=== PATIENT | male | born 1975 | race Caucasian/White ===

== ENCOUNTER → 2017-01-28 | Outpatient (CLI) | payer BC, MEDICARE ==
--- NOTE | 2017-01-28 14:43 | RAD ---
Thyroid ultrasound, 01/28/2017: History: Dysphasia The right lobe of the gland measures 4.3 x 1.5 x 0.9 cm, while the left lobe of the gland measures 3.7 x 1.2 x 1.2 cm. The thyroid echo pattern is homogeneous. No thyroid nodule is evident. There is symmetric blood flow in the gland. IMPRESSION: No significant abnormality is detected.
== END | disposition home or self-care (01) ==
LOC: US 13:21
PROVIDERS: ATTEND Physician Assistant
DX: R13.10 Dysphagia, unspecified (principal)
CPT/HCPCS: 76536

== ENCOUNTER 2017-04-14 20:38 | Emergency (ER) | payer BC, MEDICARE ==
[~2017-04-14] VITALS: Ht 167.6 cm; Wt 97.4 kg
--- NOTE | 2017-04-14 21:48 | PHYS DOC ---
General Chief Complaint: ABDOMINAL PAIN Stated Complaint: ABDOMINAL PAIN X 2 DAYS KHRONS Time Seen by MD: 21:40 Source: patient Exam Limitations: no limitations Problems: History of Present Illness Initial Comments Patient is a 41-year-old male who comes to the ED complaining of abdominal discomfort. Patient states that since yesterday he has had worsening right-sided abdominal discomfort. He's had nausea with nonbloody/nonbilious emesis 1 at home prior to arrival last bowel movement was yesterday described as normal. He has history of Crohn's disease and states he's been in remission for the past 10 years he has a corn grinder Dr Fish with whom he follows. Patient says he had scheduled an appointment for 10:[address] Fish however decided to come in to the ED for evaluation. He follows with Vance Ramirez for primary care issues. He denies travel or bad food exposure, he says current symptoms are not similar to prior Crohn's exacerbations. No pre- arrival treatment pain is described as sharp and stabbing the moderate to severe in intensity and constant in nature no worsening or relieving factors noted. He denies any unexplained weight loss or intractable vomiting. Appetite is intact last by mouth intake was hamburger and fries before bed last night. ED vitals: 98.1, 102, 133/78, 94% room air Timing/Duration: 24 hours Severity: moderate Modifying Factors: improves with other Associated Symptoms: nausea/vomiting, other Allergies: Coded Allergies: No Known Drug Allergies (Unverified , 04/14/17) Past Medical History Medical History: other (Crohn's, GERD, migraines, depression, anxiety, opiate dependence) Surgical History: appendectomy Social History Smoker: non-smoker Alcohol: none Drugs: none (admits to opiate addiction and dependence in the past) Review of Systems Constitutional: denies chills, denies diaphoresis, denies fever, denies malaise Respiratory: denies cough, denies shortness of breath, denies wheezing Cardiovascular: denies chest pain, denies palpitations, denies syncope Gastrointestinal: see HPI, abdominal pain, nausea, vomiting, other Genitourinary: denies dysuria, denies frequency, denies hematuria Musculoskeletal: denies back pain, denies joint swelling, denies neck pain Psychiatric/Neurological: denies headache, denies numbness, denies paresthesia Hematologic/Lymphatic: denies blood clots, denies easy bleeding, denies easy bruising Physical Exam General Appearance: moderate distress (disheveled, stained clothing) Eyes: bilateral eye normal inspection, bilateral eye PERRL, bilateral eye EOMI Ear, Nose, Throat: hearing grossly normal, normal ENT inspection, normal pharynx Neck: non-tender, supple Respiratory: normal breath sounds, no respiratory distress Cardiovascular: normal peripheral pulses, regular rate, rhythm Gastrointestinal: soft (distended/tympanic, right-sided abdominal tenderness to palpation without rebound guarding or palpable mass, equivocal Lombardi sign as tenderness is consistent throughout the right side of the abdomen bowel sounds mildly diminished there are no skin changes/discolorations or aberrant vasculature.) Back: no CVA tenderness, no vertebral tenderness Extremities: non-tender, normal inspection 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 No labs or imaging studies back yet, pt will have prolonged ED course due to lab and radiology delay. Pertinent labs: White blood cell 19.1, bands 5, AST 48, ALT 133, lipase 1427, urinalysis negative for products of infection Signed PATIENT: JARETH MENDOZA ACCOUNT: [id number] : 1975 LOCATION: ER AGE: 41 SEX: M EXAM STATUS: PRE ER ORD. PHYSICIAN: THONY STEINER DO REASON: R abd pain/distension, h/o crohn's PROCEDURE: CT ABD PELV W/ IV CONTRST ONLY CT ABDOMEN/PELVIS Indication: ABD PAIN, N/V, HX CROHN'S, APPY Technique: Multiple contiguous axial images were obtained through the abdomen and pelvis after administration of intravenous iodinated contrast. Coronal and sagittal reformations were created. PQRS STATEMENT One or more of the following in the visualized dose reduction techniques were utilized for this study: 1. Automatic exposure control, 2. Adjustment of the mA and/or kV according to patient size, 3. Use of iterative reconstruction technique Findings: The heart size is normal. The lung bases are clear. There is diffuse fatty infiltration of the liver. There is a hyperdense lesion in the posterior right lobe which is incompletely evaluated on this single phase contrast study. The gallbladder is nondistended. The pancreas, spleen, and adrenal glands are within normal limits. There are hyperdense lesions arising from the bilateral kidneys, larger which measures 2.2 cm in size. The portal vein and SMV are patent. The abdominal aorta is normal in caliber. There is no abdominopelvic ascites or adenopathy. There is moderate inflammatory change about the second portion of the duodenum. The appendix is normal. The urinary bladder is unremarkable. No destructive osseus lesions are identified. Impression: Acute duodenitis. No evidence for Hollow viscus rupture or abscess. There are hyperdense lesions arising from both kidneys, the larger of which measures 2.2 cm arising from the right kidney. This is suspicious for renal cell carcinoma and MRI evaluation is strongly recommended. There is a hyperdense lesion measuring 2.6 cm in the posterior right lobe of the liver. This could represent a hemangioma but is incompletely evaluated on this study. Consider MRI for further evaluation. Ultrasound could be attempted but its position adjacent to the posterior sulcus of the lung may prohibit visualization by sonography. There is diffuse fatty infiltration of the liver. Electronically signed by: Arsen Carter MD (04/14/2017 11:30 PM) [facility] DICTATED AND SIGNED BY: ARSEN CARTER MD DATE: 04/14/17 [id number] CC: NASEEM RAMIREZ; THONY STEINER DO ~ 0017: I discussed the renal lesions noted on CT. Patient states these are not new, they've been extensively evaluated and that he saw Dr. Samayoa last year for these renal masses. He states Dr. Samayoa assured him they were nothing to worry about and the patient denies any unexplained weight loss, hematuria, or night sweats. I discussed inpatient admission and likely transfer to [facility] for general surgery consultation for current symptoms and MRI evaluation of the liver lesion. Patient says he is feeling better and he refuses inpatient admission/transfer at this time. As he is feeling better he feels stable to go home and agrees to follow-up with Dr. Fish tomorrow at 10: 30 AM as previously scheduled. He agrees to return to the ED before that if needed. His questions were answered and he expressed agreement and understanding of the treatment plan. Departure Time of Disposition: 00:16 Disposition: 01 HOME, SELF-CARE Diagnosis: duodenitis, fatty liver, liver nodule Condition: STABLE Patient Instructions: Abdominal Pain (Nonspecific) Additional Instructions: As discussed, you have requested discharge home tonight versus EMS transfer to [facility] for further observation/treatment/surgical evaluation tomorrow. No driving or operating machinery while taking pain meds. Aggressive hydration with gatorade, water--clear liquids only until doctor follow up. Rx: norco 7.5mg #10, cipro, flagyl, prednisone A tylenol #3 start pack has been sent home for pain control tonight, take 1-2 every 6 hours as needed. Follow up with Matthew Ramirez or your GI specialist tomorrow, call first thing in the morning to schedule same day appointment. Return to ED with new or progressive symptoms, or should you change your mind and request hospital admission. Return to ED with new or changing symptoms. THONY STEINER DO Apr 14, 2017 21:48
[2017-04-14] MEDS: fentaNYL PF 100 MCG/2 ML VIAL IV PRN (22:30)
[2017-04-14 22:52] LABS: BASO # 0.1 x10^3/uL (0.0-0.2); BASO % 0 % (0-3); EOS # 0.5 x10^3/uL (0.0-0.7); EOS % 2 % (0-3); HEMATOCRIT 43.3 % (39.0-53.0); HEMOGLOBIN 14.7 g/dL (13.0-17.5); LYMPH # 4.4 x10^3/uL (1.0-4.8); LYMPH % 23 % (24-48); MEAN CORPUSCULAR HEMOGLOBIN 32 pg (25-35); MEAN CORPUSCULAR HGB CONC 34 g/dL (31-37); MEAN CORPUSCULAR VOLUME 93 fL (79-100); MONO # 1.3 x10^3/uL (0.0-1.1); MONO % 7 % (0-9); NEUT # 12.8 x10^3uL (1.8-7.7); NEUT % 67 % (31-73); PLATELET COUNT 256 x10^3/uL (140-400); RED BLOOD COUNT 4.64 x10^6/uL (4.30-5.70); RED CELL DISTRIBUTION WIDTH 14.3 % (11.5-14.5); WHITE BLOOD COUNT 19.1 x10^3/uL (4.0-11.0)
[2017-04-14] MEDS ORDERED: IV NORMAL SALINE 1,000ML 1,000 ML IV SCH (23:00)
[2017-04-14] MEDS ORDERED: FAMOTIDINE 20 MG/2 ML VIAL IVP ONE (23:00)
[2017-04-14] MEDS ORDERED: KETOROLAC 30 MG/ML VIAL. IV ONE (23:00)
[2017-04-14] MEDS ORDERED: ONDANSETRON PF 4 MG/2 ML VIAL. IV ONE (23:00)
[2017-04-14] MEDS ORDERED: IOHEXOL 300 MG/ML 75 ML VIAL. IV ONE (23:00)
[2017-04-14 23:05] LABS: ALBUMIN 3.6 g/dL (3.4-5.0); ALBUMIN/GLOBULIN RATIO 0.8 (1.0-1.7); CALCIUM 9.4 mg/dL (8.5-10.1); CREATININE 1.3 mg/dL (0.7-1.3); GFR 60.2; POTASSIUM 3.7 mmol/L (3.5-5.1); TOTAL BILIRUBIN 0.4 mg/dL (0.2-1.0); TOTAL PROTEIN 7.9 g/dL (6.4-8.2)
[2017-04-14 23:11] LABS: % BANDS 5 % (0-9); % BASOS 1 % (0-3); % EOS 2 % (0-5); % LYMPHS 24 % (24-48); % MONOS 7 % (0-10); % SEGS 61 % (35-66)
[2017-04-14 23:12] LABS: PLT ESTIMATE ADEQUATE (ADEQUATE)
--- NOTE | 2017-04-14 23:33 | RAD ---
CT ABDOMEN/PELVIS Indication: ABD PAIN, N/V, HX CROHN'S, APPY Technique: Multiple contiguous axial images were obtained through the abdomen and pelvis after administration of intravenous iodinated contrast. Coronal and sagittal reformations were created. PQRS STATEMENT One or more of the following in the visualized dose reduction techniques were utilized for this study: 1. Automatic exposure control, 2. Adjustment of the mA and/or kV according to patient size, 3. Use of iterative reconstruction technique Findings: The heart size is normal. The lung bases are clear. There is diffuse fatty infiltration of the liver. There is a hyperdense lesion in the posterior right lobe which is incompletely evaluated on this single phase contrast study. The gallbladder is nondistended. The pancreas, spleen, and adrenal glands are within normal limits. There are hyperdense lesions arising from the bilateral kidneys, larger which measures 2.2 cm in size. The portal vein and SMV are patent. The abdominal aorta is normal in caliber. There is no abdominopelvic ascites or adenopathy. There is moderate inflammatory change about the second portion of the duodenum. The appendix is normal. The urinary bladder is unremarkable. No destructive osseus lesions are identified. Impression: Acute duodenitis. No evidence for Hollow viscus rupture or abscess. There are hyperdense lesions arising from both kidneys, the larger of which measures 2.2 cm arising from the right kidney. This is suspicious for renal cell carcinoma and MRI evaluation is strongly recommended. There is a hyperdense lesion measuring 2.6 cm in the posterior right lobe of the liver. This could represent a hemangioma but is incompletely evaluated on this study. Consider MRI for further evaluation. Ultrasound could be attempted but its position adjacent to the posterior sulcus of the lung may prohibit visualization by sonography. There is diffuse fatty infiltration of the liver. Electronically signed by: Arsen Carter MD (04/14/2017 11:30 PM) [facility]
[2017-04-14 23:40] LABS: AMPHETAMINE/METHAMPHETAMINE NEG (NEG); BARBITURATES NEG (NEG); BENZODIAZEPINES NEG (NEG); CANNABINOIDS NEG (NEG); COCAINE NEG (NEG); METHADONE NEG (NEG); OPIATES NEG (NEG); PHENCYCLIDINE NEG (NEG)
[2017-04-14 23:43] LABS: BACTERIA,URINE 0 /HPF (0-FEW); BILIRUBIN,URINE NEG (NEG); CLARITY,URINE CLEAR; COLOR,URINE YELLOW; GLUCOSE,URINE NEG (NEG); NITRITE,URINE NEG (NEG); RBC,URINE RARE /HPF (0-2); UROBILINOGEN,URINE 0.2 mg/dL (0.2 mg/dL); WBC,URINE RARE /HPF (0-4)
[2017-04-15] MEDS ORDERED: CIPROFLOXACIN 400MG PREMIX 200 ML IV ONE (00:15)
[2017-04-15] MEDS ORDERED: ACETAMINOPHEN/CODEINE 300/30MG 4TABLET STARTPACK. PO ONE (01:00)
[2017-04-15] MEDS ORDERED: methylPREDNISolone SOD SUCC PF 125 MG/2 ML VIAL. IV ONE (01:00)
[2017-04-15] MEDS ORDERED: ONDANSETRON 4MG ODT 4TABLET STARTPACK. PO ONE (01:00)
[2017-04-15] MEDS: fentaNYL PF 100 MCG/2 ML VIAL IV PRN (01:03)
[2017-04-15 01:25] VITALS: BP 132/95
== END 2017-04-15 02:15 | disposition home or self-care (01) ==
LOC: ER 20:38
DX: K29.80 Duodenitis without bleeding (principal); K76.0 Fatty (change of) liver, not elsewhere classified; K76.89 Other specified diseases of liver; K21.9 Gastro-esophageal reflux disease without esophagitis; K50.90 Crohn's disease, unspecified, without complications; F41.9 Anxiety disorder, unspecified; G43.909 Migraine, unspecified, not intractable, without status migrainosus; F11.20 Opioid dependence, uncomplicated; Z90.49 Acquired absence of other specified parts of digestive tract
CPT/HCPCS: 36415; 74177; 80053; 80305; 81001; 83690; 84484; 85007; 85027; 96361; 96365; 96368; 96375; 96376; 99285; G0480; J0744; J1885; J2405; J2930; J3010; J3490; Q0162; Q9967; S0028; G0481; J7030

== ENCOUNTER 2017-04-28 23:49 | Emergency (ER) | payer BC, MEDICARE ==
[~2017-04-28] VITALS: Ht 167.6 cm; Wt 97.4 kg
[2017-04-28 23:50] VITALS: BP 132/95
[2017-04-29] MEDS ORDERED: IOHEXOL 300 MG/ML 75 ML VIAL. IV ONE (00:45)
[2017-04-29] MEDS ORDERED: CONTRAST GIVEN MC PRN (00:45)
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
[2017-04-29] MEDS ORDERED: HYDROmorphone PF 1 MG/ML DISP.SYRIN IV ONE (01:00)
[2017-04-29 01:04] LABS: BASO # 0.2 x10^3/uL (0.0-0.2); BASO % 1 % (0-3); EOS # 0.5 x10^3/uL (0.0-0.7); EOS % 3 % (0-3); HEMATOCRIT 42.9 % (39.0-53.0); HEMOGLOBIN 14.7 g/dL (13.0-17.5); LYMPH # 5.5 x10^3/uL (1.0-4.8); LYMPH % 35 % (24-48); MEAN CORPUSCULAR HEMOGLOBIN 32 pg (25-35); MEAN CORPUSCULAR HGB CONC 34 g/dL (31-37); MEAN CORPUSCULAR VOLUME 93 fL (79-100); MONO # 1.2 x10^3/uL (0.0-1.1); MONO % 7 % (0-9); NEUT # 8.7 x10^3uL (1.8-7.7); NEUT % 54 % (31-73); PLATELET COUNT 236 x10^3/uL (140-400)
[2017-04-29] MEDS ORDERED: DIPHTH,PERTUSS(ACELL),TET TOX 0.5 ML DISP.SYRIN. VAX IM ONE ×2 (01:15→01:41)
[2017-04-29 01:16] LABS: ALBUMIN 3.3 g/dL (3.4-5.0); ALBUMIN/GLOBULIN RATIO 0.8 (1.0-1.7); CALCIUM 8.8 mg/dL (8.5-10.1); CREATININE 1.4 mg/dL (0.7-1.3); GFR 55.1; TOTAL BILIRUBIN 0.3 mg/dL (0.2-1.0); TOTAL PROTEIN 7.4 g/dL (6.4-8.2)
[2017-04-29 01:20] LABS: POTASSIUM 2.9 mmol/L (3.5-5.1)
[2017-04-29 01:26] LABS: % BANDS 5 % (0-9); % EOS 7 % (0-5); % LYMPHS 32 % (24-48); % MONOS 4 % (0-10); % SEGS 52 % (35-66); PLT ESTIMATE ADEQUATE (ADEQUATE)
[2017-04-29] MEDS ORDERED: fentaNYL PF 100 MCG/2 ML VIAL IV ONE (01:45)
[2017-04-29] MEDS ORDERED: POTASSIUM CHLORIDE 20 MEQ TABLET.ER. PO ONE ×2 (01:45→01:49)
[2017-04-29] MEDS ORDERED: fentaNYL PF 100 MCG/2 ML VIAL ONE (01:49)
--- NOTE | 2017-04-29 02:01 | EKG ---
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
[2017-04-29] MEDS ORDERED: CEPH-264 PO (02:22)
[2017-04-29] MEDS ORDERED: POTA20TA4 PO (02:22)
[2017-04-29] MEDS ORDERED: IBUP800T19 PO (02:22)
== END 2017-04-29 02:30 | disposition home or self-care (01) ==
LOC: ER 23:49
DX: S31.119A Laceration without foreign body of abdominal wall, unspecified quadrant without penetration into peritoneal cavity, initial encounter (principal); G43.909 Migraine, unspecified, not intractable, without status migrainosus; K21.9 Gastro-esophageal reflux disease without esophagitis; K50.90 Crohn's disease, unspecified, without complications; E87.6 Hypokalemia; K76.0 Fatty (change of) liver, not elsewhere classified; N28.89 Other specified disorders of kidney and ureter; Z90.49 Acquired absence of other specified parts of digestive tract; W26.0XXA Contact with knife, initial encounter; Y93.89 Activity, other specified; Y99.8 Other external cause status; Y92.89 Other specified places as the place of occurrence of the external cause
CPT/HCPCS: 36415; 74177; 80053; 85007; 85027; 90471; 90715; 93005; 96374; 96375; 99285; J1170; J3010; Q9967

== ENCOUNTER 2017-12-04 15:40 | Emergency (ER) | payer BC, MEDICARE ==
[~2017-12-04] VITALS: Ht 167.6 cm; Wt 94.3 kg
[~2017-12-04 15:40] MED LIST: CEPH-264 PO; IBUP800T19 PO; POTA20TA4 PO
[2017-12-04] MEDS ORDERED: IV NORMAL SALINE 1,000ML 1,000 ML IV SCH (16:00)
[2017-12-04] MEDS ORDERED: 0.9 % SODIUM CHLORIDE 10 ML DISP.SYRIN. IV PRN (16:00)
--- NOTE | 2017-12-04 16:07 | PHYS DOC ---
Past History Past Medical History: Anxiety, Depression, GERD, Migraines, Other Additional Past Medical Histor: Crohn's disease Past Surgical History: Appendectomy Smoking: Cigarettes Alcohol Use: None Drug Use: None Adult General Chief Complaint Chief Complaint: ABDOMINAL PAIN [facility] HPI 42-year-old male patient with history of Crohn's disease complaining of sudden onset of generalized abdominal pain since yesterday as a constant pain with radiation to his back and associated with multiple episodes of vomiting. Patient states he had more than 20 episodes of nonbloody vomiting every day and states he was not able to eat or drink anything. Patient complaining of generalized weakness and subjective fever and chills and decrease of urine output. Patient denies diarrhea and states he had a bowel movement 3 days ago that is his usual bowel movement pattern with constipation. Patient rated his pain 10 over 10 and states he did not take any pain medication. Patient denies using alcohol and drugs and history of the same pain. Review of Systems Review of Systems Constitutional: Denies fever or chills [] Eyes: Denies change in visual acuity, redness, or eye pain [] HENT: Denies nasal congestion or sore throat [] Respiratory: Denies cough or shortness of breath [] Cardiovascular: No additional information not addressed in HPI [] GI: Reports abdominal pain, nausea, vomiting, denies bloody stools or diarrhea [ ] : Denies dysuria or hematuria [] Musculoskeletal: Denies back pain or joint pain [] Integument: Denies rash or skin lesions [] Neurologic: Denies headache, focal weakness or sensory changes [] Endocrine: Denies polyuria or polydipsia [] All other systems were reviewed and found to be within normal limits, except as documented in this note. Allergies Allergies Allergies Coded Allergies Type Severity Reaction Last Updated Verified No Known Drug Allergies 04/14/17 No Physical Exam Physical Exam Constitutional: Well nourished, moderate distress, non-toxic appearance, anxious. [] HENT: Normocephalic, atraumatic, oropharynx dry, no oral exudates, nose normal. [] Eyes: PERRLA, EOMI, conjunctiva normal, no discharge. [] Neck: Normal range of motion, no tenderness, supple, no stridor. [] Cardiovascular:Tachycardia, no murmur [] Lungs & Thorax: Bilateral breath sounds clear to auscultation [] Abdomen: Bowel sounds decreased, soft, no tenderness, generalized guarding, no masses, no pulsatile masses. [] Skin: Warm, dry, no erythema, no rash. [] Back: No tenderness, no CVA tenderness. [] Extremities: No tenderness, no cyanosis, no clubbing, ROM intact, no edema. [] Neurologic: Alert and oriented X 3, normal motor function, normal sensory function, no focal deficits noted. [] Psychologic: Anxious, judgement normal, mood normal. [] EKG EKG [] Radiology/Procedures Radiology/Procedures [] [address] [address] IMAGING REPORT Signed PATIENT: JARETH MENDOZA ACCOUNT: [id number] : 1975 LOCATION: ER AGE: 42 SEX: M EXAM STATUS: REG ER ORD. PHYSICIAN: NANCI SEALS MD REASON: abdominal pain and severe vomiting PROCEDURE: CT ABD PELV W/ IV CONTRST ONLY CT of the abdomen and pelvis with contrast, 12/04/2017: HISTORY: Abdominal pain Multidetector CT imaging was performed following an IV bolus injection of iodinated contrast material. Comparison is made to a study from 04/29/2017. The liver is of lower than normal density compatible with fatty change. There is a 2 cm rounded nodule of relatively increased density in the posterior aspect of the right lobe of the liver. This was not clearly visible on the previous study, however, that may be due to differences in bolus timing. There is mild focal fatty sparing adjacent to the gallbladder fossa. The gallbladder is unremarkable. Moderate streaky edema has developed in the peripancreatic region. The underlying pancreas is slightly enlarged compared to the previous study. It enhances normally. The findings are those of acute pancreatitis. There are small fluid collections within the edema with a small amount of fluid extending into the anterior pararenal spaces bilaterally. There is a small amount of free fluid in the deep pelvis. The spleen is unremarkable. There is a 2.4 cm mass arising from the lateral aspect of the right kidney. It is unchanged since the previous study. It demonstrates a high internal CT number of 70 Hounsfield units. This may be a hemorrhagic cyst or solid mass. There is a smaller 8 mm medium density mass arising from the anterior aspect of the upper pole the left kidney. The kidneys show no evidence of obstruction. There is mild aortic calcific plaquing. There is a 2.4 cm pericaval nodule at the level of the kidneys. This has the appearance of an enlarged lymph node. It is unchanged since 04/29/2017. The bowel loops are not dilated. No free air is evident in the abdomen or pelvis. An old vertebral compression fracture is again noted at T11. IMPRESSION: 1. Interval development of moderate acute pancreatitis. 2. Hepatic steatosis. 3. Small nonspecific liver lesion. Liver protocol MR imaging may be useful for further evaluation. 4. Small unchanged bilateral renal nodules which may be complex cysts or solid masses. Again, MR scanning may be useful for further evaluation. 5. Small amount of free fluid in the abdomen.. 6. Unchanged mildly enlarged right pericaval lymph node. Electronically signed by: Garrett Osborn MD (12/04/2017 5:49 PM) [facility] Course & Med Decision Making Course & Med Decision Making Pertinent Labs and Imaging studies reviewed. (See chart for details) Evaluation of patient in ER showed 42-year-old male patient with history of Crohn's disease complaining of sudden onset of generalized abdominal pain since yesterday with frequent episodes of nausea and vomiting. Patient was dehydrated and tachycardic at arrival to ER without hypotension or fever. Patient treated with IV fluid , Zofran, fentanyl and felt better. Patient had lactic acid of 2.3 with leukocytosis and Zosyn was started. Urine showed positive nitrite. Dr Sherman informed at 1750 and recommended to transfer patient to higher level of care because of a high level of lipase and white count. CT showed moderate pancreatitis without sign of abscess. [facility] on-call hospitalist Dr. Harp was paged.Incoming ER physician Dr Bailey was informed about patient condition and needs for transfer. One dose of Dilaudid was ordered. [] Dragon Disclaimer Dragon Disclaimer This electronic medical record was generated, in whole or in part, using a voice recognition dictation system. Departure Departure: Impression: Primary Impression: Acute pancreatitis Additional Impressions: Leukocytosis Elevated liver function tests Sepsis Urinary tract infection History of Crohn's disease Renal insufficiency Disposition: 02 XFER SHT-TRM HOSP ([facility] at 1800) Condition: GUARDED Referrals: NASEEM RAMIREZ (PCP) Critical Care Time Critical care time was [80] minutes exclusive of procedures. Problem Qualifiers NANCI SEALS MD Dec 04, 2017 16:07
[2017-12-04] MEDS ORDERED: ONDANSETRON PF 4 MG/2 ML VIAL. IV ONE (16:15)
[2017-12-04] MEDS ORDERED: CONTRAST GIVEN MC PRN (16:15)
[2017-12-04] MEDS ORDERED: IOHEXOL 300 MG/ML 75 ML VIAL. IV ONE (16:15)
[2017-12-04 16:19] LABS: BASO # 0.2 x10^3/uL (0.0-0.2); BASO % 1 % (0-3); EOS % 0 % (0-3); HEMATOCRIT 49.6 % (39.0-53.0); HEMOGLOBIN 17.3 g/dL (13.0-17.5); LYMPH # 1.7 x10^3/uL (1.0-4.8); LYMPH % 7 % (24-48); MEAN CORPUSCULAR HEMOGLOBIN 32 pg (25-35); MEAN CORPUSCULAR HGB CONC 35 g/dL (31-37); MEAN CORPUSCULAR VOLUME 92 fL (79-100); MONO # 0.9 x10^3/uL (0.0-1.1); MONO % 4 % (0-9); NEUT # 21.8 x10^3uL (1.8-7.7); NEUT % 89 % (31-73); PLATELET COUNT 270 x10^3/uL (140-400); RED BLOOD COUNT 5.42 x10^6/uL (4.30-5.70); RED CELL DISTRIBUTION WIDTH 13.7 % (11.5-14.5); WHITE BLOOD COUNT 24.7 x10^3/uL (4.0-11.0)
[2017-12-04 16:40] LABS: ALBUMIN 3.9 g/dL (3.4-5.0); ALBUMIN/GLOBULIN RATIO 0.9 (1.0-1.7); CALCIUM 8.9 mg/dL (8.5-10.1); CREATININE 1.5 mg/dL (0.7-1.3); GFR 50.8; POTASSIUM 3.5 mmol/L (3.5-5.1); TOTAL BILIRUBIN 1.2 mg/dL (0.2-1.0); TOTAL PROTEIN 8.4 g/dL (6.4-8.2)
[2017-12-04 16:47] LABS: BILIRUBIN,URINE SMALL (NEG); CLARITY,URINE CLEAR; COLOR,URINE AMBER; GLUCOSE,URINE NEG (NEG)
[2017-12-04 16:48] LABS: BACTERIA,URINE 0 /HPF (0-FEW); NITRITE,URINE POS (NEG); RBC,URINE 0 /HPF (0-2); SQUAMOUS EPITHELIAL CELL,UR OCC /LPF; UROBILINOGEN,URINE 2 mg/dL (0.2 mg/dL)
[2017-12-04] MEDS ORDERED: PIPERACILLIN/TAZOBACTAM 3.375 GM in IV NORMAL SALINE 50ML 50 ML IV ONE (17:15)
[2017-12-04] MEDS ORDERED: IV NORMAL SALINE 1,000ML 1,000 ML IV ONE (17:15)
[2017-12-04] MEDS ORDERED: PIPERACILLIN/TAZOBACTAM 3.375 GM VIAL IV ONE (17:21)
[2017-12-04] MEDS ORDERED: IV NORMAL SALINE 50ML 50 ML ONE (17:21)
--- NOTE | 2017-12-04 17:51 | RAD ---
CT of the abdomen and pelvis with contrast, 12/04/2017: HISTORY: Abdominal pain Multidetector CT imaging was performed following an IV bolus injection of iodinated contrast material. Comparison is made to a study from 04/29/2017. The liver is of lower than normal density compatible with fatty change. There is a 2 cm rounded nodule of relatively increased density in the posterior aspect of the right lobe of the liver. This was not clearly visible on the previous study, however, that may be due to differences in bolus timing. There is mild focal fatty sparing adjacent to the gallbladder fossa. The gallbladder is unremarkable. Moderate streaky edema has developed in the peripancreatic region. The underlying pancreas is slightly enlarged compared to the previous study. It enhances normally. The findings are those of acute pancreatitis. There are small fluid collections within the edema with a small amount of fluid extending into the anterior pararenal spaces bilaterally. There is a small amount of free fluid in the deep pelvis. The spleen is unremarkable. There is a 2.4 cm mass arising from the lateral aspect of the right kidney. It is unchanged since the previous study. It demonstrates a high internal CT number of 70 Hounsfield units. This may be a hemorrhagic cyst or solid mass. There is a smaller 8 mm medium density mass arising from the anterior aspect of the upper pole the left kidney. The kidneys show no evidence of obstruction. There is mild aortic calcific plaquing. There is a 2.4 cm pericaval nodule at the level of the kidneys. This has the appearance of an enlarged lymph node. It is unchanged since 04/29/2017. The bowel loops are not dilated. No free air is evident in the abdomen or pelvis. An old vertebral compression fracture is again noted at T11. IMPRESSION: 1. Interval development of moderate acute pancreatitis. 2. Hepatic steatosis. 3. Small nonspecific liver lesion. Liver protocol MR imaging may be useful for further evaluation. 4. Small unchanged bilateral renal nodules which may be complex cysts or solid masses. Again, MR scanning may be useful for further evaluation. 5. Small amount of free fluid in the abdomen.. 6. Unchanged mildly enlarged right pericaval lymph node. Electronically signed by: Garrett Osborn MD (12/04/2017 5:49 PM) [facility]
[2017-12-04] MEDS ORDERED: HYDROmorphone PF 1 MG/ML DISP.SYRIN IV ONE (18:15)
[2017-12-04] MEDS ORDERED: HYDROmorphone PF 2 MG/ML VIAL ONE (18:17)
[2017-12-04 18:26] LABS: BARBITURATES NEG (NEG); BENZODIAZEPINES NEG (NEG); CANNABINOIDS NEG (NEG); COCAINE NEG (NEG); METHADONE NEG (NEG); OPIATES NEG (NEG); PHENCYCLIDINE NEG (NEG)
[2017-12-04 18:27] LABS: AMPHETAMINE/METHAMPHETAMINE NEG (NEG)
[2017-12-04] MEDS ORDERED: HYDROmorphone PF 2 MG/ML VIAL IV ONE (18:30)
[2017-12-04 19:20] VITALS: BP 155/99
[2017-12-04 22:13] LABS: % LYMPHS 4 % (24-48); % MONOS 1 % (0-10); % SEGS 95 % (35-66)
[2017-12-04 22:14] LABS: OVALOCYTES OCC; PLATELET CLUMP PRESENT; PLT ESTIMATE ADEQUATE (ADEQUATE); POLYCHROMASIA SLIGHT
== END 2017-12-04 19:20 | disposition short-term general hospital (02) ==
LOC: ER 15:40
DX: K85.90 Acute pancreatitis without necrosis or infection, unspecified (principal); D72.829 Elevated white blood cell count, unspecified; R79.89 Other specified abnormal findings of blood chemistry; A41.9 Sepsis, unspecified organism; N39.0 Urinary tract infection, site not specified; K50.90 Crohn's disease, unspecified, without complications; N28.9 Disorder of kidney and ureter, unspecified; K21.9 Gastro-esophageal reflux disease without esophagitis; F32.9 Major depressive disorder, single episode, unspecified; F41.9 Anxiety disorder, unspecified; G43.909 Migraine, unspecified, not intractable, without status migrainosus; F17.210 Nicotine dependence, cigarettes, uncomplicated; Z90.49 Acquired absence of other specified parts of digestive tract
CPT/HCPCS: 36415; 74177; 80053; 80307; 81001; 83605; 83690; 84484; 85007; 85025; 87040; 87086; 96361; 96365; 96366; 96372; 96375; 99291; 99292; J1170; J2405; J2543; J3010; Q9967; G0479; J7030

== ENCOUNTER 2018-03-27 17:59 | Emergency (ER) | payer BC, MEDICARE ==
[~2018-03-27] VITALS: Ht 167.6 cm; Wt 95.3 kg
[2018-03-27 18:11] VITALS: BP 162/105
--- NOTE | 2018-03-27 18:23 | ED.ADGEN ---
Past History Past Medical History: Anxiety, Depression, GERD, Migraines, Other Additional Past Medical Histor: Crohn's disease Past Surgical History: Appendectomy Smoking: Cigarettes Alcohol Use: None Drug Use: None Adult General Chief Complaint Chief Complaint ".. I fell yesterday..on the stairs.. and hit my bottom and slide down on my back... I am still hurting..." HPI HPI Patient is a 42 year old male who presents with complaints of back pain in mid chest pain after falling on the stairs yesterday. Patient was ambulatory after the fall. Patient denies any problems with defecation or urination. Patient states pain has increased since yesterday and has become more stiff. Patient denies any history of cancer, fever, IV drug use or immunosuppression. Patient states he fell because he slipped. There was no dysrhythmia. There was no loss of consciousness. Review of Systems Review of Systems Constitutional: Denies fever or chills [] Eyes: Denies change in visual acuity, redness, or eye pain [] HENT: Denies nasal congestion or sore throat [] Respiratory: Denies cough or shortness of breath []complaints of mid chest wall pain on back Cardiovascular: No additional information not addressed in HPI [] GI: Denies abdominal pain, nausea, vomiting, bloody stools or diarrhea [] : Denies dysuria or hematuria [] Musculoskeletal: r joint pain []complaints of lower back pain Integument: Denies rash or skin lesions [] Neurologic: Denies headache, focal weakness or sensory changes [] Endocrine: Denies polyuria or polydipsia [] All other systems were reviewed and found to be within normal limits, except as documented in this note. Family History Family History Noncontributory Current Medications Current Medications Current Medications Medications (Trade) Dose Ordered Sig/Monty Start Time Stop Time Status Last Admin Dose Admin Ketorolac Tromethamine (Toradol) 60 mg 1X ONCE 03/27/18 18:45 03/27/18 18:46 DC 03/27/18 18:47 60 MG Methylprednisolone Acetate (DEPO-Medrol IM) 40 mg 1X ONCE 03/27/18 18:45 03/27/18 18:46 DC 03/27/18 18:47 40 MG Morphine Sulfate (Morphine 10mg Syringe) 10 mg 1X ONCE 03/27/18 22:30 03/27/18 22:31 DC 03/27/18 22:32 10 MG Orphenadrine Citrate (Norflex) 60 mg 1X ONCE 03/27/18 18:45 03/27/18 18:46 DC 03/27/18 18:47 60 MG Allergies Allergies Allergies Coded Allergies Type Severity Reaction Last Updated Verified codeine Allergy Severe Unknown 12/04/17 Yes Physical Exam Physical Exam Constitutional: Well developed, well nourished, moderately acute distress, non- toxic appearance. [] HENT: Normocephalic, atraumatic, bilateral external ears normal, oropharynx moist, no oral exudates, nose normal. [] Eyes: PERRLA, EOMI, conjunctiva normal, no discharge. [] Neck: Normal range of motion, no tenderness, supple, no stridor. [] Cardiovascular:Heart rate regular rhythm, no murmur [] Lungs & Thorax: Bilateral breath sounds equal at apex with scattered wheezes auscultation []posterior chest wall tenderness on palpation at T7 level Abdomen: Bowel sounds normal, soft, no tenderness, no masses, no pulsatile masses. [] Obese. Rectal exam hard stool in vault. No gross blood. Had good sprinter tone. No saddle loss appreciated. Old surgical scars Skin: Warm, dry, no erythema, no rash. [] Back: Lumbar paraspinal and mid spinal tenderness, no CVA tenderness. [] Extremities: No tenderness, no cyanosis, no clubbing, ROM intact, no edema. [] Neurologic: Alert and oriented X 3, normal motor function, normal sensory function, no focal deficits noted. []DTRs are +2 at patella and Achilles tendons. Has some decreased plantar sensation Psychologic: Affect anxious, judgement normal, mood normal. [] Current Patient Data Vital Signs Vital Signs Date Time Temp Pulse Resp B/P (MAP) Pulse Ox O2 Delivery O2 Flow Rate FiO2 03/27/18 22:32 20 97 Room Air 03/27/18 18:11 98.0 96 Lab Results Laboratory Tests Test 03/27/18 19:23 Urine Collection Type Unknown Urine Color Yellow Urine Clarity Clear Urine pH 7.0 Urine Specific [place] 1.015 Urine Protein 30 mg/dl (NEG-TRACE) Urine Glucose (UA) Neg mg/dL (NEG) Urine Ketones (Stick) Neg mg/dL (NEG) Urine Blood Trace (NEG) Urine Nitrite Neg (NEG) Urine Bilirubin Neg (NEG) Urine Urobilinogen Dipstick 1 mg/dL (0.2 mg/dL) Urine Leukocyte Esterase Neg (NEG) Urine RBC 1-2 /HPF (0-2) Urine WBC Occ /HPF (0-4) Urine Squamous Epithelial Cells Occ /LPF Urine Bacteria 0 /HPF (0-FEW) Urine Opiates Screen Pos (NEG) Urine Methadone Screen Neg (NEG) Urine Barbiturates Neg (NEG) Urine Phencyclidine Screen Neg (NEG) Urine Amphetamine/Methamphetamine Neg (NEG) Urine Benzodiazepines Screen Neg (NEG) Urine Cocaine Screen Neg (NEG) Urine Cannabinoids Screen Neg (NEG) Urine Ethyl Alcohol Neg (NEG) EKG EKG [] Radiology/Procedures Radiology/Procedures My interpretation of CT lumbar spine shows no displaced fracture but has multilevel degenerative joint changes and disc disease. My interpretation of chest x-ray shows some chronic lung changes. But no obvious pneumothorax. Lateral film shows what appears to be compression fracture . This area is not tender to palpation. Course & Med Decision Making Course & Med Decision Making Pertinent Labs and Imaging studies reviewed. (See chart for details). Ice packs as needed. Tylenol and ibuprofen for pain. Flexeril up 3 times a day for spasms. For marked pain may take Vicoprofen. If persistent pain we'll need follow-up on contrast CT or MRI. Must follow-up primary care. Patient encouraged to stop smoking. Pt. ambulatory on discharge with out problems. [] Final Impression Final Impression 1. Back Pain- Contusions[] 2. Chest wall pain-contusions 3. COPD 4. Tobacco use Dragon Disclaimer Dragon Disclaimer This electronic medical record was generated, in whole or in part, using a voice recognition dictation system. PRATIK DE LEON MD Mar 27, 2018 18:23
[2018-03-27] MEDS ORDERED: KETOROLAC 60 MG/2 ML VIAL. IM ONE (18:45)
[2018-03-27] MEDS ORDERED: ORPHENADRINE CITRATE 60 MG/2 ML VIAL. IM ONE (18:45)
[2018-03-27] MEDS ORDERED: methylPREDNISolone ACETATE 40 MG/ML VIAL. IM ONE (18:45)
[2018-03-27 20:06] LABS: AMPHETAMINE/METHAMPHETAMINE NEG (NEG); BARBITURATES NEG (NEG); BENZODIAZEPINES NEG (NEG); BILIRUBIN,URINE NEG (NEG); CANNABINOIDS NEG (NEG); CLARITY,URINE CLEAR; COCAINE NEG (NEG); COLOR,URINE YELLOW; GLUCOSE,URINE NEG (NEG); METHADONE NEG (NEG); NITRITE,URINE NEG (NEG); OPIATES POS (NEG); PHENCYCLIDINE NEG (NEG); UROBILINOGEN,URINE 1 mg/dL (0.2 mg/dL)
[2018-03-27 20:08] LABS: BACTERIA,URINE 0 /HPF (0-FEW); SQUAMOUS EPITHELIAL CELL,UR OCC /LPF; WBC,URINE OCC /HPF (0-4)
--- NOTE | 2018-03-27 21:22 | RAD ---
CT lumbar spine without contrast History: Back pain, fell on stairs Axial helical images of the lumbar spine were obtained without contrast. Axial, coronal and sagittal reconstruction was performed. Findings: The vertebral bodies are aligned. There is no loss of vertebral body stature. Evaluation of the central canal is limited without contrast. Mild diffuse circumferential disc bulge and hypertrophy of the facets and ligamentum flavum and an element of congenital shortening of the pedicles results in mild central stenosis. There is moderate narrowing of the neuroforamen bilaterally below the level of the exiting nerve roots at multiple levels especially at L5-S1. There are small hemorrhagic cysts in the kidneys bilaterally. Impression: Multilevel central and neuroforaminal stenosis. No acute findings. PQRS Compliance Statement: One or more of the following individualized dose reduction techniques were utilized for this examination: 1. Automated exposure control 2. Adjustment of the mA and/or kV according to patient size 3. Use of iterative reconstruction technique Electronically signed by: Johnson Ferro III, MD (03/27/2018 9:18 PM) [facility]
[2018-03-27] MEDS ORDERED: CYCL-331 PO (21:55)
[2018-03-27] MEDS ORDERED: HYDR-79 PO (21:55)
[2018-03-27] MEDS ORDERED: MORPHINE SULFATE 10 MG/ML SYRINGE. SQ ONE (22:30)
--- NOTE | 2018-03-28 07:50 | RAD ---
Chest, 2 views, 03/27/2018: HISTORY: Fall, chest pain The heart size and pulmonary vascularity are normal. No pulmonary infiltrate is seen. There is no evidence of pleural fluid or pneumothorax. There are Schmorl's nodes in the upper lumbar and lower thoracic spine. There is slight loss of height of the T11 vertebral body, likely chronic. IMPRESSION: No acute cardiopulmonary abnormality is detected. Electronically signed by: Garrett Osborn MD (03/28/2018 7:46 AM) [facility]
== END 2018-03-27 22:32 | disposition home or self-care (01) ==
LOC: ER 17:59
DX: S20.212A Contusion of left front wall of thorax, initial encounter (principal); S20.211A Contusion of right front wall of thorax, initial encounter; S30.0XXA Contusion of lower back and pelvis, initial encounter; G43.909 Migraine, unspecified, not intractable, without status migrainosus; K21.9 Gastro-esophageal reflux disease without esophagitis; F17.210 Nicotine dependence, cigarettes, uncomplicated; Z88.5 Allergy status to narcotic agent; W10.8XXA Fall (on) (from) other stairs and steps, initial encounter; Y93.89 Activity, other specified; Y99.8 Other external cause status; Y92.89 Other specified places as the place of occurrence of the external cause
CPT/HCPCS: 36415; 71046; 72131; 80307; 81001; 96372; 99285; J1030; J1885; J2270; J2360; G0479

== ENCOUNTER 2018-05-20 19:19 | Inpatient (IN) | payer BC, MEDICARE ==
[~2018-05-20] VITALS: Ht 167.6 cm; Wt 97.1 kg
[~2018-05-20 19:19] MED LIST changes: +CYCL-331 PO; +HYDR-79 PO
[2018-05-20] MEDS ORDERED: IV NORMAL SALINE 1,000ML 1,000 ML IV SCH (19:29)
--- NOTE | 2018-05-20 19:41 | PHYS DOC ---
Past History Past Medical History: Anxiety, Depression, GERD, Migraines, Other Additional Past Medical Histor: Crohn's disease Past Surgical History: Appendectomy Smoking: Cigarettes Alcohol Use: None Drug Use: None Adult General Chief Complaint Chief Complaint: ABDOMINAL PAIN [facility] 43-year-old male presents with 2 day history of epigastric abdominal pain. The patient had a colonoscopy and EGD yesterday. He tells me that the epigastric pain started prior to the procedure but they felt that the pain was from his colon prep. The procedures were performed without complication. After the patient woke up, his pain was worse than previous but it was assumed that this was related to the procedure. Throughout the day today, the patient's pain has increased to a 10 out of 10. The pain seems to be worst in the epigastric and left upper quadrant. The patient does have a history of pancreatitis a few months ago. This was iatrogenic and no definitive cause has been found. The patient states the pain feels similar to that episode. He denies any diarrhea or blood from his rectum. He denies fever or chills. They did dilate his esophagus during the EGD. Review of Systems Review of Systems Constitutional: Denies fever or chills [] Eyes: Denies change in visual acuity, redness, or eye pain [] HENT: Denies nasal congestion or sore throat [] Respiratory: Denies cough or shortness of breath [] Cardiovascular: No additional information not addressed in HPI [] GI: Has epigastric abdominal pain. Denies nausea, vomiting, bloody stools or diarrhea [] : Denies dysuria or hematuria [] Musculoskeletal: Denies back pain or joint pain [] Integument: Denies rash or skin lesions [] Neurologic: Denies headache, focal weakness or sensory changes [] Endocrine: Denies polyuria or polydipsia [] All other systems were reviewed and found to be within normal limits, except as documented in this note. Current Medications Current Medications Current Medications Medications (Trade) Dose Ordered Sig/Monty Start Time Stop Time Status Last Admin Dose Admin Sodium Chloride 1,000 ml @ 1,000 mls/hr Q1H 05/20/18 19:29 05/20/18 20:28 UNV Allergies Allergies Allergies Coded Allergies Type Severity Reaction Last Updated Verified codeine Allergy Severe Unknown 12/04/17 Yes Physical Exam Physical Exam Constitutional: Well developed, well nourished, no acute distress, non-toxic appearance. [] HENT: Normocephalic, atraumatic, bilateral external ears normal, oropharynx moist, no oral exudates, nose normal. [] Eyes: PERRLA, EOMI, conjunctiva normal, no discharge. [] Neck: Normal range of motion, no tenderness, supple, no stridor. [] Cardiovascular:Heart rate regular rhythm, no murmur [] Lungs & Thorax: Bilateral breath sounds clear to auscultation [] Abdomen: Soft, epigastric and LUQ abdominal tenderness with guarding. no masses , no pulsatile masses. [] Skin: Warm, dry, no erythema, no rash. [] Back: No tenderness, no CVA tenderness. [] Extremities: No tenderness, no cyanosis, no clubbing, ROM intact, no edema. [] Neurologic: Alert and oriented X 3, normal motor function, normal sensory function, no focal deficits noted. [] Psychologic: Affect normal, judgement normal, mood normal. [] EKG EKG [] Radiology/Procedures Radiology/Procedures [] Impressions: PQRS Compliance statement: One or more of the following individualized dose reduction techniques were utilized for this examination: 1. Automated exposure control. 2. Adjustment of the mA and/or kV according to patient size. 3. Use of iterative reconstruction technique. Abdominal pain after colonoscopy yesterday, evaluate for perforation. Hx appendectomy, pancreatitis TECHNIQUE: CT abdomen and pelvis with IV contrast with multiplanar reformats. COMPARISON: 12/04/2017 FINDINGS: Heart is normal in size. No pericardial or pleural effusion. Clear lung bases. Diffuse hepatic steatosis. Spleen is not enlarged and show no focal lesion. No radiopaque gallstones. No pericholecystic fluid or gallbladder wall thickening. Diffuse peripancreatic inflammatory changes are seen. No peripancreatic fluid collection. The pancreas demonstrates homogeneous enhancement. Reactive thickening is seen of the adjacent duodenum. The main portal vein, splenic vein, SMV are patent. Stable 2.4 x 2.7 cm partially exophytic lesion is seen in the right kidney when compared to previous study from 04/14/2017. This is however new when compared to previous CT from 2005. No nephrolithiasis or hydronephrosis. No free pelvic fluid or ascites. Fat-containing left inguinal hernia noted. Stable 9 mm partially exophytic lesion is seen in the upper pole of the left kidney (series 3 image 36). 2.7 x 2.0 cm right para-aortic soft tissue nodule is seen, previously measuring 3.1 x 2.2 cm likely a lymph node. Shotty peripancreatic lymph nodes are seen. No bowel obstruction. Urinary bladder within normal limits. Prostate and seminal vesicles show no mass lesion. No pneumoperitoneum. No suspicious bony lesion. IMPRESSION: 1. Findings suggests acute interstitial edematous pancreatitis. Correlate with pancreatic enzymes. 2. Bilateral renal lesions, stable when compared to previous study from 04/14/2017 most likely minimally comminuted cysts. However, ultrasound renal recommended for definite confirmation as these are not seen on previous study from 2005. 3. Slight interval decrease in the size of right retroperitoneal lymph node in compared to previous study from 2005. 4. Hepatic steatosis. Electronically signed by: Akshat Engle DO (05/20/2018 8:57 PM) [facility] Course & Med Decision Making Course & Med Decision Making Pertinent Labs and Imaging studies reviewed. (See chart for details) Patient's labs are significant for slightly elevated liver enzymes and significantly elevated lipase over 7600. CT scan confirms pancreatitis. There is diffuse peripancreatic inflammatory changes but no parapancreatic fluid collection. The patient has required Dilaudid in the ED for pain control. I will admit him for pancreatitis. I discussed the case with Dr. Hough and he has agreed to admit the patient. [] Dragon Disclaimer Dragon Disclaimer This electronic medical record was generated, in whole or in part, using a voice recognition dictation system. Departure Departure: Referrals: NASEEM RAMIREZ (PCP) YANDEL ARREOLA DO May 20, 2018 19:41
[2018-05-20] MEDS ORDERED: ONDANSETRON PF 4 MG/2 ML VIAL. IV ONE (19:45)
[2018-05-20] MEDS ORDERED: IOHEXOL 300 MG/ML 75 ML VIAL. IV ONE (19:45)
[2018-05-20] MEDS ORDERED: HYDROmorphone PF 1 MG/ML DISP.SYRIN IV ONE ×2 (19:45→22:00)
[2018-05-20] MEDS ORDERED: CONTRAST GIVEN MC PRN (20:00)
[2018-05-20 20:10] LABS: BASO # 0.1 x10^3/uL (0.0-0.2); BASO % 0 % (0-3); EOS # 0.2 x10^3/uL (0.0-0.7); EOS % 1 % (0-3); HEMATOCRIT 46.2 % (39.0-53.0); HEMOGLOBIN 15.9 g/dL (13.0-17.5); LYMPH # 2.4 x10^3/uL (1.0-4.8); LYMPH % 14 % (24-48); MEAN CORPUSCULAR HEMOGLOBIN 32 pg (25-35); MEAN CORPUSCULAR HGB CONC 34 g/dL (31-37); MEAN CORPUSCULAR VOLUME 93 fL (79-100); MONO # 0.9 x10^3/uL (0.0-1.1); MONO % 5 % (0-9); NEUT # 13.4 x10^3uL (1.8-7.7); NEUT % 79 % (31-73); PLATELET COUNT 218 x10^3/uL (140-400); RED BLOOD COUNT 4.95 x10^6/uL (4.30-5.70); RED CELL DISTRIBUTION WIDTH 14.1 % (11.5-14.5)
[2018-05-20 20:23] LABS: ALBUMIN 3.6 g/dL (3.4-5.0); ALBUMIN/GLOBULIN RATIO 0.8 (1.0-1.7); CREATININE 1.3 mg/dL (0.7-1.3); GFR 59.7; POTASSIUM 3.6 mmol/L (3.5-5.1); TOTAL PROTEIN 7.9 g/dL (6.4-8.2)
--- NOTE | 2018-05-20 21:01 | RAD ---
PQRS Compliance statement: One or more of the following individualized dose reduction techniques were utilized for this examination: 1. Automated exposure control. 2. Adjustment of the mA and/or kV according to patient size. 3. Use of iterative reconstruction technique. Abdominal pain after colonoscopy yesterday, evaluate for perforation. Hx appendectomy, pancreatitis TECHNIQUE: CT abdomen and pelvis with IV contrast with multiplanar reformats. COMPARISON: 12/04/2017 FINDINGS: Heart is normal in size. No pericardial or pleural effusion. Clear lung bases. Diffuse hepatic steatosis. Spleen is not enlarged and show no focal lesion. No radiopaque gallstones. No pericholecystic fluid or gallbladder wall thickening. Diffuse peripancreatic inflammatory changes are seen. No peripancreatic fluid collection. The pancreas demonstrates homogeneous enhancement. Reactive thickening is seen of the adjacent duodenum. The main portal vein, splenic vein, SMV are patent. Stable 2.4 x 2.7 cm partially exophytic lesion is seen in the right kidney when compared to previous study from 04/14/2017. This is however new when compared to previous CT from 2005. No nephrolithiasis or hydronephrosis. No free pelvic fluid or ascites. Fat-containing left inguinal hernia noted. Stable 9 mm partially exophytic lesion is seen in the upper pole of the left kidney (series 3 image 36). 2.7 x 2.0 cm right para-aortic soft tissue nodule is seen, previously measuring 3.1 x 2.2 cm likely a lymph node. Shotty peripancreatic lymph nodes are seen. No bowel obstruction. Urinary bladder within normal limits. Prostate and seminal vesicles show no mass lesion. No pneumoperitoneum. No suspicious bony lesion. IMPRESSION: 1. Findings suggests acute interstitial edematous pancreatitis. Correlate with pancreatic enzymes. 2. Bilateral renal lesions, stable when compared to previous study from 04/14/2017 most likely minimally comminuted cysts. However, ultrasound renal recommended for definite confirmation as these are not seen on previous study from 2005. 3. Slight interval decrease in the size of right retroperitoneal lymph node in compared to previous study from 2005. 4. Hepatic steatosis. Electronically signed by: Akshat Engle DO (05/20/2018 8:57 PM) [facility]
[2018-05-20 21:15] LABS: % BANDS 3 % (0-9); % EOS 1 % (0-5); % LYMPHS 10 % (24-48); % MONOS 6 % (0-10); % SEGS 80 % (35-66); PLT ESTIMATE ADEQUATE (ADEQUATE); POLYCHROMASIA SLIGHT
[2018-05-20] MEDS ORDERED: IV NORMAL SALINE 1,000ML 2,000 ML IV ONE (22:00)
[2018-05-20 22:22] VITALS: BP 145/96
[2018-05-20] MEDS ORDERED: ASPI-630 PO (22:58)
[2018-05-20] MEDS ORDERED: SERT100T PO (22:58)
[2018-05-20] MEDS ORDERED: OMEP40CA5 PO (22:58)
[2018-05-20] MEDS ORDERED: NAPR500T8 PO (22:58)
[2018-05-20] MEDS ORDERED: TOPI50TA8 PO (22:58)
[2018-05-20] MEDS ORDERED: OLAN15TA3 PO (22:58)
[2018-05-20] MEDS ORDERED: ADAL40PE SQ (22:58)
[2018-05-20] MEDS: HYDROmorphone PF 1 MG/ML DISP.SYRIN IV PRN (23:54)
[2018-05-21] MEDS: HYDROmorphone PF 1 MG/ML DISP.SYRIN IV PRN ×4 (02:12→12:09)
[2018-05-21 05:22] VITALS: BP 118/62
[2018-05-21 06:54] LABS: CALCIUM 8.5 mg/dL (8.5-10.1); CREATININE 1.2 mg/dL (0.7-1.3); GFR 65.5; POTASSIUM 3.7 mmol/L (3.5-5.1)
[2018-05-21 07:16] LABS: BASO # 0.1 x10^3/uL (0.0-0.2); BASO % 0 % (0-3); EOS # 0.4 x10^3/uL (0.0-0.7); EOS % 2 % (0-3); HEMATOCRIT 45.9 % (39.0-53.0); HEMOGLOBIN 15.3 g/dL (13.0-17.5); LYMPH % 20 % (24-48); MEAN CORPUSCULAR HEMOGLOBIN 32 pg (25-35); MEAN CORPUSCULAR HGB CONC 33 g/dL (31-37); MEAN CORPUSCULAR VOLUME 95 fL (79-100); MONO # 1.3 x10^3/uL (0.0-1.1); MONO % 7 % (0-9); NEUT # 14.6 x10^3uL (1.8-7.7); NEUT % 72 % (31-73); PLATELET COUNT 235 x10^3/uL (140-400); RED BLOOD COUNT 4.82 x10^6/uL (4.30-5.70); RED CELL DISTRIBUTION WIDTH 14.3 % (11.5-14.5); WHITE BLOOD COUNT 20.4 x10^3/uL (4.0-11.0)
[2018-05-21 07:46] LABS: BACTERIA,URINE 0 /HPF (0-FEW); BILIRUBIN,URINE NEG (NEG); CLARITY,URINE CLEAR; COLOR,URINE AMBER; GLUCOSE,URINE NEG (NEG); NITRITE,URINE NEG (NEG); SQUAMOUS EPITHELIAL CELL,UR OCC /LPF; UROBILINOGEN,URINE 0.2 mg/dL (0.2 mg/dL); WBC,URINE 0 /HPF (0-4)
[2018-05-21] MEDS: ONDANSETRON PF 4 MG/2 ML VIAL. IV PRN ×4 (08:39→19:50)
[2018-05-21] MEDS ORDERED: IBUPROFEN 400 MG TABLET. PO ONE (10:45)
[2018-05-21 10:57] VITALS: BP 139/84
[2018-05-21] MEDS ORDERED: IV NORMAL SALINE 1,000ML 1,000 ML IV SCH (14:27)
[2018-05-21] MEDS ORDERED: DEXTROSE 50% 25 GM / 50ML DISP.SYRIN. IV PRN (14:30)
[2018-05-21 15:00] VITALS: BP 111/74
[2018-05-21] MEDS: HYDROmorphone PF 2 MG/ML VIAL IV PRN ×4 (15:06→22:10)
--- NOTE | 2018-05-21 15:22 | PDOC1 ---
History of Present Illness History of Present Illness Patient is a 43-year-old male who presented to the emergency department complaining of abdominal pain. Patient stated he had worsening epigastric abdominal pain for the past 2 days. He had a colonoscopy and an EGD with dilatation on the day prior but reported the pain was present prior to that procedure. After the procedure his pain continued to worsen and migrate to the left upper quadrant 10 out of 10 on ED arrival. He had an episode of pancreatitis a few months ago and symptoms are nearly identical. Symptoms resolved with bowel rest last time. His white blood cells were 17,000, AST 41, ALT 99, lipase 7630. CAT scan results : IMPRESSION: 1. Findings suggests acute interstitial edematous pancreatitis. Correlate with pancreatic enzymes. 2. Bilateral renal lesions, stable when compared to previous study from 04/14/2017 most likely minimally comminuted cysts. However, ultrasound renal recommended for definite confirmation as these are not seen on previous study from 2005. 3. Slight interval decrease in the size of right retroperitoneal lymph node in compared to previous study from 2005. 4. Hepatic steatosis. He was admitted to the medical floor for IV hydration and control of symptoms in addition to bowel rest. I find the patient today lying on his left side hyperventilating complaining of pain. He reports that the current Dilaudid 1 mg every 2 hours as needed is not controlling his symptoms. He had no nausea or vomiting and no bowel movement since prior to his studies on the day before yesterday. He denies any chest pain shortness of breath or new symptoms. Past medical history: Anxiety, depression, GERD, esophageal strictures, migraines, Crohn's disease Past surgical history: Appendectomy, EGD with dilatation Social history: Patient smokes a pack a day, denies alcohol or illicit substance Chief Complaint: ABDOMINAL PAIN Allergies: Coded Allergies: codeine (Verified Allergy, Severe, 05/20/18) cephalexin (Verified Allergy, Intermediate, Hives, 05/20/18) morphine (Verified Allergy, Intermediate, 05/20/18) Review of Systems Review Of Systems Fourteen system , review of systems has been reviewed. See HPI for pertinent positives and negative responses, other benavides all other systems are negative, non pertinent or non contributory Medications Current Medications Sodium Chloride 1,000 ml @ 1,000 mls/hr Q1H IV Last administered on 05/20/18at 19:49; Start 05/20/18 at 19:29; Stop 05/20/18 at 20:29; Status DC Ondansetron HCl (Zofran) 4 mg 1X ONCE IV Last administered on 05/20/18at 19:50 ; Start 05/20/18 at 19:45; Stop 05/20/18 at 19:46; Status DC Hydromorphone HCl (Dilaudid) 1 mg 1X ONCE IV Last administered on 05/20/18at 19 :50; Start 05/20/18 at 19:45; Stop 05/20/18 at 19:46; Status DC Iohexol (Omnipaque 300 Mg/ml) 75 ml 1X ONCE IV Last administered on 05/20/18at 20:29; Start 05/20/18 at 19:45; Stop 05/20/18 at 19:48; Status DC Info (Do NOT chart on this entry -- for MONITORING) 1 each PRN DAILY PRN MC SEE COMMENTS; Start 05/20/18 at 20:00; Stop 05/22/18 at 19:59 Hydromorphone HCl (Dilaudid) 1 mg 1X ONCE IV Last administered on 05/20/18at 21 :57; Start 05/20/18 at 22:00; Stop 05/20/18 at 22:01; Status DC Ondansetron HCl (Zofran) 4 mg PRN Q4HRS PRN IV NAUSEA/VOMITING Last administered on 05/21/18at 15:06; Start 05/20/18 at 21:45; Stop 05/21/18 at 21:44 Hydromorphone HCl (Dilaudid) 1 mg PRN Q2HR PRN IV PAIN Last administered on at 12:09; Start 05/20/18 at 21:45; Stop 05/21/18 at 14:27; Status DC Sodium Chloride 2,000 ml @ 200 mls/hr 1X ONCE IV Last administered on at 22:41; Start 05/20/18 at 22:00; Stop 05/21/18 at 07:59; Status DC Ibuprofen (Motrin) 800 mg 1X ONCE PO Last administered on 05/21/18at 10:50; Start 05/21/18 at 10:45; Stop 05/21/18 at 10:46; Status DC Hydromorphone HCl (Dilaudid) 2 mg PRN Q2HR PRN IV PAIN Last administered on at 15:06; Start 05/21/18 at 14:45 Sodium Chloride 1,000 ml @ 150 mls/hr Q6H40M IV Last administered on at 15:07; Start 05/21/18 at 14:27; Stop 05/21/18 at 21:06 Insulin Human Lispro (HumaLOG) 0-5 UNITS TIDWMEALS SQ ; Start 05/21/18 at 17:00 Dextrose 12.5 gm PRN Q15MIN PRN IV SEE COMMENTS; Start 05/21/18 at 14:30 Active Scripts Active Cyclobenzaprine Hcl 10 Mg Tablet 10 Mg PO TID PRN PRN Reported Humira (Adalimumab) 40 Mg/0.8 Ml Pen.ij.kit 1 Syr SQ Q2WKS Aspirin 81 Mg Tab.chew 81 Mg PO DAILY Zyprexa (Olanzapine) 15 Mg Tablet 1 Tab PO QHS Zoloft (Sertraline Hcl) 100 Mg Tablet 1 Tab PO DAILY Omeprazole 40 Mg Capsule.dr 1 Cap PO DAILY Topiramate 50 Mg Tablet 1 Tab PO BID Naproxen 500 Mg Tablet.dr 1 Tab PO BID Exam Vital Signs Vital Signs Date Time Temp Pulse Resp B/P (MAP) Pulse Ox O2 Delivery O2 Flow Rate FiO2 05/21/18 10:57 97.5 106 20 139/84 (102) 95 Room Air General Appearance: Alert, Oriented X3, Cooperative, mild distress (due to pain ) HEENT: Atraumatic, PERRLA, EOMI, Mucous membr. moist/pink Respiratory: Clear to auscultation, Normal air movement Heart: Normal S1, Normal S2, No murmurs Abdominal: Soft (distended and tympanic, generalized tenderness with focality at the left upper quadrant, bowel sounds present no masses) Extremities: No clubbing, No cyanosis, No edema Skin: No rashes, No breakdown Neuro: Normal speech, Strength at 5/5 X4 ext, Sensation intact, Cranial nerves 3-12 NL Psych/Mental Status: Mental status NL, Mood NL Assessment/Plan Assessment/Plan Recurrent acute pancreatitis Bilateral renal lesions Tobaccoism Status post 2 days colonoscopy and EGD with dilatation History of Crohn's disease GERD and esophageal strictures among other medical problems Continue nothing by mouth Continue IV hydration Renal ultrasound to evaluate lesions Continue pain and nausea control Follow morning labs Encourage stop smoking COURSE Allergies Coded Allergies Type Severity Reaction Last Updated Verified codeine Allergy Severe 05/20/18 Yes cephalexin Allergy Intermediate Hives 05/20/18 Yes morphine Allergy Intermediate 05/20/18 Yes Laboratory Tests Test 05/20/18 19:46 05/21/18 06:15 05/21/18 07:00 White Blood Count 17.0 x10^3/uL (4.0-11.0) 20.4 x10^3/uL (4.0-11.0) Red Blood Count 4.95 x10^6/uL (4.30-5.70) 4.82 x10^6/uL (4.30-5.70) Hemoglobin 15.9 g/dL (13.0-17.5) 15.3 g/dL (13.0-17.5) Hematocrit 46.2 % (39.0-53.0) 45.9 % (39.0-53.0) Mean Corpuscular Volume 93 fL (79-100) 95 fL (79-100) Mean Corpuscular Hemoglobin 32 pg (25-35) 32 pg (25-35) Mean Corpuscular Hemoglobin Concent 34 g/dL (31-37) 33 g/dL (31-37) Red Cell Distribution Width 14.1 % (11.5-14.5) 14.3 % (11.5-14.5) Platelet Count 218 x10^3/uL (140-400) 235 x10^3/uL (140-400) Neutrophils (%) (Auto) 79 % (31-73) 72 % (31-73) Lymphocytes (%) (Auto) 14 % (24-48) 20 % (24-48) Monocytes (%) (Auto) 5 % (0-9) 7 % (0-9) Eosinophils (%) (Auto) 1 % (0-3) 2 % (0-3) Basophils (%) (Auto) 0 % (0-3) 0 % (0-3) Neutrophils # (Auto) 13.4 x10^3uL (1.8-7.7) 14.6 x10^3uL (1.8-7.7) Lymphocytes # (Auto) 2.4 x10^3/uL (1.0-4.8) 4.0 x10^3/uL (1.0-4.8) Monocytes # (Auto) 0.9 x10^3/uL (0.0-1.1) 1.3 x10^3/uL (0.0-1.1) Eosinophils # (Auto) 0.2 x10^3/uL (0.0-0.7) 0.4 x10^3/uL (0.0-0.7) Basophils # (Auto) 0.1 x10^3/uL (0.0-0.2) 0.1 x10^3/uL (0.0-0.2) Segmented Neutrophils % 80 % (35-66) Band Neutrophils % 3 % (0-9) Lymphocytes % 10 % (24-48) Monocytes % 6 % (0-10) Eosinophils % 1 % (0-5) Platelet Estimate Adequate (ADEQUATE) Large Platelets Occ Polychromasia Slight Sodium Level 137 mmol/L (136-145) 138 mmol/L (136-145) Potassium Level 3.6 mmol/L (3.5-5.1) 3.7 mmol/L (3.5-5.1) Chloride Level 102 mmol/L (98-107) 102 mmol/L (98-107) Carbon Dioxide Level 23 mmol/L (21-32) 25 mmol/L (21-32) Anion Gap 12 (6-14) 11 (6-14) Blood Urea Nitrogen 12 mg/dL (8-26) 10 mg/dL (8-26) Creatinine 1.3 mg/dL (0.7-1.3) 1.2 mg/dL (0.7-1.3) Estimated GFR (Cockcroft-Gault) 59.7 65.5 BUN/Creatinine Ratio 9 (6-20) Glucose Level 158 mg/dL (70-99) 122 mg/dL (70-99) Calcium Level 9.0 mg/dL (8.5-10.1) 8.5 mg/dL (8.5-10.1) Total Bilirubin 1.0 mg/dL (0.2-1.0) Aspartate Amino Transf (AST/SGOT) 41 U/L (15-37) Alanine Aminotransferase (ALT/SGPT) 99 U/L (16-63) Alkaline Phosphatase 124 U/L (46-116) Total Protein 7.9 g/dL (6.4-8.2) Albumin 3.6 g/dL (3.4-5.0) Albumin/Globulin Ratio 0.8 (1.0-1.7) Lipase 7630 U/L (73-393) Urine Collection Type Unknown Urine Color Sandra Urine Clarity Clear Urine pH 7.0 Urine Specific [place] 1.015 Urine Protein 30 mg/dl (NEG-TRACE) Urine Glucose (UA) Neg mg/dL (NEG) Urine Ketones (Stick) Trace mg/dL (NEG) Urine Blood Trace (NEG) Urine Nitrite Neg (NEG) Urine Bilirubin Neg (NEG) Urine Urobilinogen Dipstick 0.2 mg/dL (0.2 mg/dL) Urine Leukocyte Esterase Neg (NEG) Urine RBC 1-2 /HPF (0-2) Urine WBC 0 /HPF (0-4) Urine Squamous Epithelial Cells Occ /LPF Urine Bacteria 0 /HPF (0-FEW) Current Medications Medications (Trade) Dose Ordered Sig/Monty Route PRN Reason Start Time Stop Time Status Last Admin Dose Admin Sodium Chloride 1,000 ml @ 1,000 mls/hr Q1H IV 05/20/18 19:29 05/20/18 20:29 DC 05/20/18 19:49 Ondansetron HCl (Zofran) 4 mg 1X ONCE IV 05/20/18 19:45 05/20/18 19:46 DC 05/20/18 19:50 Hydromorphone HCl (Dilaudid) 1 mg 1X ONCE IV 05/20/18 19:45 05/20/18 19:46 DC 05/20/18 19:50 Iohexol (Omnipaque 300 Mg/ml) 75 ml 1X ONCE IV 05/20/18 19:45 05/20/18 19:48 DC 05/20/18 20:29 Info (Do NOT chart on this entry -- for MONITORING) 1 each PRN DAILY PRN SEE COMMENTS 05/20/18 20:00 05/22/18 19:59 Hydromorphone HCl (Dilaudid) 1 mg 1X ONCE IV 05/20/18 22:00 05/20/18 22:01 DC 05/20/18 21:57 Ondansetron HCl (Zofran) 4 mg PRN Q4HRS PRN IV NAUSEA/VOMITING 8/18/18 21:45 05/21/18 21:44 05/21/18 15:06 Hydromorphone HCl (Dilaudid) 1 mg PRN Q2HR PRN IV PAIN 05/20/18 21:45 05/21/18 14:27 DC 05/21/18 12:09 Sodium Chloride 2,000 ml @ 200 mls/hr 1X ONCE IV 05/20/18 22:00 05/21/18 07:59 DC 05/20/18 22:41 Ibuprofen (Motrin) 800 mg 1X ONCE PO 05/21/18 10:45 05/21/18 10:46 DC 05/21/18 10:50 Hydromorphone HCl (Dilaudid) 2 mg PRN Q2HR PRN IV PAIN 05/21/18 14:45 05/21/18 15:06 Sodium Chloride 1,000 ml @ 150 mls/hr Q6H40M IV 05/21/18 14:27 05/21/18 21:06 05/21/18 15:07 Insulin Human Lispro (HumaLOG) 0-5 UNITS TIDWMEALS SQ 05/21/18 17:00 Dextrose 12.5 gm PRN Q15MIN PRN IV SEE COMMENTS 05/21/18 14:30 I & O 05/21/18 00:00 Intake Total 1900 ml Balance 1900 ml Orders Procedure Category Date Status Time Cbc W Autodiff LAB 05/20/18 Complete 19:29 Lipase LAB 05/20/18 Complete 19:29 Ct Abd Pelv W/ Iv CT 05/20/18 Resulted Contrst Only 19:29 Comprehensive LAB 05/20/18 Complete Metabolic Panel 19:29 Pulse Oximetry: PANKAJ 05/20/18 In Process Standing Order 19:29 Iv Normal Saline PHA 05/20/18 Complete 1,000ml (Iv Sodium 19:29 Ondansetron Pf PHA 05/20/18 Complete (Zofran) 19:45 Hydromorphone Pf PHA 05/20/18 Complete (Dilaudid) 19:45 Iohexol 300 Mg/Ml PHA 05/20/18 Complete (Omnipaque 300 Mg/Ml) 19:45 Contrast Given (Do PHA 05/20/18 In Process Not Chart On This Ent 20:00 Manual Differential LAB 05/20/18 Complete 19:46 Hydromorphone Pf PHA 05/20/18 Complete (Dilaudid) 22:00 [place] Order ADT 05/20/18 Transmitted 21:41 Code Status CODE 05/20/18 Transmitted 21:41 Vital Signs, Per PANKAJ 05/20/18 In Process Protocol 21:41 Nothing By Mouth DIET 05/21/18 Transmitted Breakfast Ambulate Ad Zulema PANKAJ 05/20/18 In Process 21:41 Cbc W Autodiff LAB 05/21/18 Complete 06:00 Basic Metabolic Panel LAB 05/21/18 Complete 06:00 Ondansetron Pf PHA 05/20/18 In Process (Zofran) 21:45 Hydromorphone Pf PHA 05/20/18 Complete (Dilaudid) 21:45 Iv Normal Saline PHA 05/20/18 Complete 1,000ml (Iv Sodium 22:00 Admit Orders ADT 05/20/18 Transmitted Ua, Cult If Indicated LAB 05/21/18 Complete 07:11 Ibuprofen (Motrin) PHA 05/21/18 Complete 10:45 Iv Normal Saline PHA 05/21/18 In Process 1,000ml (Iv Sodium 14:27 Cbc W Autodiff LAB 05/22/18 Verified 05:00 Comprehensive LAB 05/22/18 Verified Metabolic Panel 05:00 Lipase LAB 05/22/18 Verified 05:00 Glucose Poct Q6h PANKAJ 05/21/18 In Process 14:29 Insulin Lispro PHA 05/21/18 In Process (Humalog) 17:00 Dextrose 50% PHA 05/21/18 In Process 14:30 Hypoglycemia Protocol PANKAJ 05/21/18 In Process Adult 14:29 Hydromorphone Pf PHA 05/21/18 In Process (Dilaudid) 14:45 Vital Signs Date Time Temp Pulse Resp B/P (MAP) Pulse Ox O2 Delivery O2 Flow Rate FiO2 05/21/18 10:57 97.5 106 20 139/84 (102) 95 Room Air ASHLEY STEINER DO May 21, 2018 15:21
[2018-05-21] MEDS: INSULIN LISPRO 300 UNITS/3 ML INSULN.PEN. SQ SCH (17:00)
[2018-05-21 20:00] VITALS: BP 122/82
[2018-05-22] MEDS: HYDROmorphone PF 2 MG/ML VIAL IV PRN ×7 (03:29→23:09)
[2018-05-22 06:00] VITALS: BP 110/69
[2018-05-22] MEDS: IV NORMAL SALINE 1,000ML 1,000 ML IV SCH ×4 (06:10→19:41)
[2018-05-22 06:43] LABS: BASO # 0.1 x10^3/uL (0.0-0.2); BASO % 1 % (0-3); EOS # 0.4 x10^3/uL (0.0-0.7); EOS % 3 % (0-3); HEMATOCRIT 37.1 % (39.0-53.0); HEMOGLOBIN 12.5 g/dL (13.0-17.5); LYMPH # 3.1 x10^3/uL (1.0-4.8); LYMPH % 24 % (24-48); MEAN CORPUSCULAR HEMOGLOBIN 32 pg (25-35); MEAN CORPUSCULAR HGB CONC 34 g/dL (31-37); MEAN CORPUSCULAR VOLUME 95 fL (79-100); MONO # 0.8 x10^3/uL (0.0-1.1); MONO % 6 % (0-9); NEUT # 8.4 x10^3uL (1.8-7.7); NEUT % 66 % (31-73); PLATELET COUNT 193 x10^3/uL (140-400); RED BLOOD COUNT 3.91 x10^6/uL (4.30-5.70); RED CELL DISTRIBUTION WIDTH 14.4 % (11.5-14.5); WHITE BLOOD COUNT 12.8 x10^3/uL (4.0-11.0)
[2018-05-22 06:44] LABS: ALBUMIN 2.6 g/dL (3.4-5.0); ALBUMIN/GLOBULIN RATIO 0.6 (1.0-1.7); CALCIUM 7.4 mg/dL (8.5-10.1); CREATININE 1.1 mg/dL (0.7-1.3); GFR 72.4; POTASSIUM 3.4 mmol/L (3.5-5.1); TOTAL BILIRUBIN 1.3 mg/dL (0.2-1.0); TOTAL PROTEIN 6.7 g/dL (6.4-8.2)
[2018-05-22] MEDS ORDERED: POTASSIUM CHLORIDE 20 MEQ TABLET.ER. PO ONE (07:30)
[2018-05-22] MEDS: INSULIN LISPRO 300 UNITS/3 ML INSULN.PEN. SQ SCH ×3 (08:00→17:00)
[2018-05-22 10:56] VITALS: BP 117/78
[2018-05-22] MEDS: ONDANSETRON PF 4 MG/2 ML VIAL. IV PRN ×2 (11:31→19:36)
--- NOTE | 2018-05-22 12:35 | PN ---
DATE: 05/22/2018 SUBJECTIVE: The patient is resting slightly propped up in bed, in no apparent respiratory distress. He is awake, alert, complaining of epigastric left upper quadrant and periumbilical pain. Denied any nausea, vomiting. He was admitted with severe abdominal pain after undergoing endoscopy and EGD with esophageal stricture dilatation. Two days prior, he started having pain on last Tuesday and on Tuesday, the pain was severe and he came to the Emergency Room and initial investigation showed he had acute pancreatitis. He was kept n.p.o. and was started on IV fluid and pain medication. His liver enzymes are elevated and his lipase was 7630. His white cell count was high also at 17,000. PHYSICAL EXAMINATION: GENERAL: When I saw him today, he was sitting slightly propped up, in no apparent respiratory distress. No pallor, jaundice, cyanosis, or thyromegaly. No jugular venous distension. No lower limb edema. VITAL SIGNS: His heart rate was 97, blood pressure 117/78, temperature was 97.7, respiratory rate was 20, and oxygen saturation was 95%. HEAD, EYES, EARS, NOSE AND THROAT: Showed normocephalic, atraumatic. NECK: Supple. HEART: Showed normal first and second heart sounds with no gallop, rub, or murmur. CHEST: Clear to auscultation. No crepitation or rhonchi. ABDOMEN: Distended, soft with tenderness mostly in the epigastric and left upper quadrant as well as periumbilical area. No guarding or rigidity. No organomegaly. All hernial orifice intact. Bowel sounds normal. NEUROLOGIC: He was awake, alert, responding appropriately. All cranial nerves intact. He moves extremities without difficulty, ambulates without assistance or assistive devices. His intake over the last 24 hours was 3095, no output was recorded. LABORATORY DATA: His lab work this morning showed a white cell count 12,800, hemoglobin 12.5, hematocrit 37, MCV 95 and platelet count 193,000. His chemistry showed a serum sodium 139, potassium 3.4, chloride 105, bicarbonate 22, anion gap of 12, BUN 11, creatinine 1.1, estimated GFR was 72 mL/min. His glucose was 83, calcium was 7.4. Total bilirubin was 1.3. AST, ALT, alkaline phosphatase all have normalized. His total protein was 6.7, albumin was 2.6 and lipase was 880. Urinalysis was unremarkable. His CT scan of the abdomen and pelvis showed that the patient has findings suggestive of acute interstitial edematous pancreatitis; has bilateral renal lesion, stable when compared to previous studies from April 14, 2017, most likely minimally complicated cyst. However, ultrasound renal recommended for definitive confirmation as these are not seen on previous study on 2005. A slight interval decrease in the size of the right retroperitoneal lymph nodes as compared to previous study from 2005 and he has hepatic steatosis. SUMMARY: In summary, this is a 43-year-old male patient who was admitted with a second episode of acute pancreatitis. He apparently has had upper GI endoscopy with dilatation of esophageal stricture for the seventh time, has had also colonoscopy 2 days prior to onset of his abdominal pain. His serum lipase was 7000, today is coming down to 880. PLAN: My plan to continue with only ice chips. Continue with IV fluid, continue with pain management. I will repeat all his lab work. I will also check his fasting lipid profile tomorrow. Has hypertriglyceridemia, sometimes the cause of pancreatitis. He apparently does not drink alcohol and has no evidence of cholelithiasis or cholecystitis. JOURDAN BLANCA MD DR: TERESA/jennifer JOB#: [id number] / [id number]
[2018-05-22 14:49] VITALS: BP 119/79
[2018-05-22 19:38] VITALS: BP 117/83
[2018-05-22 23:01] VITALS: BP 130/89
[2018-05-23] MEDS: HYDROmorphone PF 2 MG/ML VIAL IV PRN ×7 (02:44→23:06)
[2018-05-23] MEDS: IV NORMAL SALINE 1,000ML 1,000 ML IV SCH ×4 (02:44→22:13)
[2018-05-23 05:43] VITALS: BP 129/83
[2018-05-23 06:19] LABS: BASO # 0.1 x10^3/uL (0.0-0.2); BASO % 1 % (0-3); EOS # 0.5 x10^3/uL (0.0-0.7); EOS % 5 % (0-3); HEMATOCRIT 35.5 % (39.0-53.0); HEMOGLOBIN 12.2 g/dL (13.0-17.5); LYMPH # 2.8 x10^3/uL (1.0-4.8); LYMPH % 30 % (24-48); MEAN CORPUSCULAR HEMOGLOBIN 33 pg (25-35); MEAN CORPUSCULAR HGB CONC 35 g/dL (31-37); MEAN CORPUSCULAR VOLUME 94 fL (79-100); MONO # 0.5 x10^3/uL (0.0-1.1); MONO % 6 % (0-9); NEUT # 5.4 x10^3uL (1.8-7.7); NEUT % 58 % (31-73); PLATELET COUNT 216 x10^3/uL (140-400); RED BLOOD COUNT 3.77 x10^6/uL (4.30-5.70); WHITE BLOOD COUNT 9.3 x10^3/uL (4.0-11.0)
[2018-05-23 06:32] LABS: ALBUMIN 2.8 g/dL (3.4-5.0); ALBUMIN/GLOBULIN RATIO 0.7 (1.0-1.7); CALCIUM 7.3 mg/dL (8.5-10.1); CREATININE 1.1 mg/dL (0.7-1.3); GFR 72.4; POTASSIUM 3.5 mmol/L (3.5-5.1); TOTAL BILIRUBIN 0.8 mg/dL (0.2-1.0); TOTAL PROTEIN 6.8 g/dL (6.4-8.2)
[2018-05-23] MEDS: INSULIN LISPRO 300 UNITS/3 ML INSULN.PEN. SQ SCH ×3 (07:33→17:00)
[2018-05-23 10:47] VITALS: BP 117/81
--- NOTE | 2018-05-23 12:55 | PN ---
DATE: 05/23/2018 SUBJECTIVE: The patient is resting slightly propped up in bed, in no apparent respiratory distress. He continued to complain of abdominal pain, yet he wants to eat. His serum lipase came down from 7600 to 500. His white cell count also has improved down from 17,000 to 9300. I went through all his medication that he takes at home and the only medication that can cause pancreatitis is olanzapine, so I explained to him that I will discontinue the olanzapine and replace it with another hypnotic as this was prescribed for sleep by his primary care physician, not a psychiatrist. PHYSICAL EXAMINATION: GENERAL: When I examined him this morning, he looked well and was clearly in no apparent respiratory distress. No pallor, jaundice, cyanosis, or thyromegaly. No jugular venous distension. No limb edema. VITAL SIGNS: Her heart rate was 93, blood pressure 117/81, temperature was 98.3, respiratory rate was 20, and oxygen saturation was 93%. HEAD, EYES, EARS, NOSE AND THROAT: Showed normocephalic, atraumatic. NECK: Supple. HEART: Showed normal first and second heart sounds with no gallop, rub, or murmur. CHEST: Clear to auscultation. No crepitation or rhonchi. ABDOMEN: Distended, soft, mild tenderness in epigastric area. No guarding or rigidity. No organomegaly. All hernial orifices intact. Bowel sounds normal. NEUROLOGIC: He is awake, alert, responding appropriately. Cranial nerves intact. He moves extremities without difficulty, ambulates without assistance or assistive devices. His intake was 2100, output was 400. LABORATORY DATA: Her lab work this morning showed a white cell count 9300, hemoglobin 12, hematocrit 36, MCV is 94, and platelet count 116,000. His chemistry showed a serum sodium 139, potassium 3.5, chloride 105, bicarbonate 24, anion gap of 10, BUN 7, creatinine 1.1, estimated GFR was 72 mL per minute. His glucose 104, calcium was 7.3. Total bilirubin, AST, ALT, alkaline phosphatase were normal. Total protein was 6.8, albumin 2.8, and serum lipase was 502. ASSESSMENT: This is a 43-year-old male patient who was admitted with another second episode of acute pancreatitis. The patient does not drink alcohol. Has had no evidence of acute cholecystitis or cholelithiasis or choledocholithiasis. His serum calcium was within normal range. The only medication that is known to cause pancreatitis is olanzapine and as this was prescribed by his primary care physician for insomnia rather than any psychiatric illness, I recommended to discontinue that and start him on Restoril. Other medical problems include Crohn's disease; 3 esophageal stricture, status post numerous dilatation, most recent was about a week ago. PLAN: To continue with IV fluid. Continue pain management. We will start him on a full-liquid diet and advance as tolerated. I will repeat all his lab works tomorrow and decide on further management accordingly. JOURDAN BLANCA MD DR: TERESA/jennifer JOB#: [id number] / [id number]
[2018-05-23 15:00] VITALS: BP 128/85
[2018-05-23] MEDS: TOPIRAMATE 25 MG TABLET. PO SCH ×2 (15:20→20:14)
[2018-05-23 19:28] VITALS: BP 138/89
[2018-05-23] MEDS: TEMAZEPAM 15 MG CAPSULE PO PRN (20:14)
[2018-05-23] MEDS ORDERED: TOPIRAMATE 25 MG TABLET. PO SCH (21:00)
[2018-05-23 23:31] VITALS: BP 147/88
[2018-05-24] MEDS: ONDANSETRON PF 4 MG/2 ML VIAL. IV PRN (01:06)
[2018-05-24] MEDS: HYDROmorphone PF 2 MG/ML VIAL IV PRN ×4 (01:08→12:40)
[2018-05-24] MEDS: IV NORMAL SALINE 1,000ML 1,000 ML IV SCH ×2 (05:12→12:33)
[2018-05-24 05:29] VITALS: BP 143/94
[2018-05-24 07:00] LABS: ALBUMIN 2.8 g/dL (3.4-5.0); ALBUMIN/GLOBULIN RATIO 0.7 (1.0-1.7); CALCIUM 7.2 mg/dL (8.5-10.1); GFR 80.8; POTASSIUM 3.9 mmol/L (3.5-5.1); TOTAL BILIRUBIN 0.7 mg/dL (0.2-1.0); TOTAL PROTEIN 7.1 g/dL (6.4-8.2)
[2018-05-24] MEDS: INSULIN LISPRO 300 UNITS/3 ML INSULN.PEN. SQ SCH ×3 (08:00→17:00)
[2018-05-24] MEDS: TOPIRAMATE 25 MG TABLET. PO SCH ×2 (09:02→20:19)
[2018-05-24 11:35] VITALS: BP 131/88
[2018-05-24] MEDS ORDERED: CYCLOBENZAPRINE 10 MG TABLET. PO PRN (16:00)
[2018-05-24 16:49] VITALS: BP 142/89
[2018-05-24 19:16] VITALS: BP 125/80
[2018-05-24] MEDS: NAPROXEN 500 MG TABLET PO SCH (20:18)
[2018-05-24] MEDS: TEMAZEPAM 15 MG CAPSULE PO PRN (20:19)
[2018-05-24] MEDS: oxyCODONE IR 5 MG TABLET PO PRN (20:19)
[2018-05-24] MEDS ORDERED: CALCIUM CARBONATE 500 MG TAB.CHEW PO PRN (21:45)
[2018-05-24 22:46] VITALS: BP 145/95
--- NOTE | 2018-05-25 00:20 | PN ---
DATE: 05/24/2018 SUBJECTIVE: The patient is resting slightly propped up in bed, no apparent distress. He stated that he continued to have abdominal pain. We advanced his diet, apparently vomited once; however, his lab work showed that his serum lipase is back to normal at 344. PHYSICAL EXAMINATION: GENERAL: When I examined him this afternoon, he looked well and was clearly in no apparent respiratory distress. No pallor, jaundice, cyanosis, or thyromegaly. No jugular venous distension. No lower limb edema. VITAL SIGNS: His heart rate was 97, blood pressure was 131/88, temperature was 97.8, respiratory rate was 20, and oxygen saturation was 97%. HEENT: Examination of the head, eyes, ears, nose and throat showed he is normocephalic, atraumatic. NECK: Supple. HEART: Showed normal first and second heart sounds with no gallop, rub or murmur. CHEST: Clear to auscultation. No crepitation or rhonchi. ABDOMEN: Distended, soft with tenderness mostly in the epigastric area. No guarding or rigidity. No organomegaly. Hernial orifices are intact. Bowel sounds normal. NEUROLOGIC: He is awake, alert, responding appropriately. All his cranial nerves are intact. EXTREMITIES: He moves extremities without difficulty, ambulates without assistance or assistive devices. His intake over the last 24 hours was 4000. No output was recorded. LABORATORY DATA: His lab work this morning showed a serum sodium of 140, potassium 3.9, chloride 106, bicarbonate 24, anion gap of 10, BUN 4, creatinine 1, estimated GFR was 81 mL per minute, his glucose 117, calcium was 7.2. Total bilirubin, AST, ALT was normal. Alkaline phosphatase was slightly elevated. Total protein was 7.1, albumin 2.8. Serum lipase was high at 344. His white cell count is down to 9300, hemoglobin 12, hematocrit 36, MCV 94, and platelet count ____. PLAN: Plan is to discontinue IV fluid, advance diet to regular diet. We are switching him on oral oxycodone 5 mg every 4 hours as needed. We will discontinue hydromorphone. We will reconcile all his other medications except the olanzapine as the most likely cause of his acute pancreatitis. JOURDAN BLANCA MD DR: TERESA/jennifer JOB#: [id number] / [id number]
[2018-05-25 05:13] VITALS: BP 122/81
[2018-05-25 06:16] LABS: CALCIUM 8.7 mg/dL (8.5-10.1); CREATININE 1.1 mg/dL (0.7-1.3); GFR 72.4; POTASSIUM 3.3 mmol/L (3.5-5.1)
[2018-05-25] MEDS ORDERED: PANTOPRAZOLE 40 MG TABLET. PO SCH (07:30)
[2018-05-25] MEDS ORDERED: ASPIRIN 81 MG TAB.CHEW PO SCH (08:00)
[2018-05-25] MEDS: INSULIN LISPRO 300 UNITS/3 ML INSULN.PEN. SQ SCH (08:00)
[2018-05-25] MEDS: NAPROXEN 500 MG TABLET PO SCH (08:47)
[2018-05-25] MEDS: TOPIRAMATE 25 MG TABLET. PO SCH (08:48)
[2018-05-25] MEDS: oxyCODONE IR 5 MG TABLET PO PRN ×2 (08:54→13:15)
[2018-05-25] MEDS ORDERED: SERTRALINE 100 MG TABLET. PO SCH (09:00)
[2018-05-25 10:34] VITALS: BP 130/92
[2018-05-25 14:56] VITALS: BP 122/76
[2018-05-25] MEDS ORDERED: TEMA15CA PO (15:03)
[2018-05-25] MEDS ORDERED: OXYC5CAP PO (15:03)
--- NOTE | 2018-05-25 15:47 | DS ---
DATE OF DISCHARGE: 05/25/2018 HOSPITAL COURSE: The patient is resting, almost flat in bed, sleeping comfortably, in no apparent distress. On questioning him, he apparently continued to complain of abdominal pain; however, he managed to tolerate his lunch without any problem. His serum lipase is down to 265 and the patient was discharged home and was advised to discontinue avoid olanzapine anymore. He was prescribed temazepam for his insomnia and was advised to follow up with his primary care physician. PHYSICAL EXAMINATION: GENERAL: When I saw him this afternoon, he looked well and was clearly in no apparent respiratory distress, pale, but no jaundice, cyanosis, or thyromegaly. No jugular venous distension. No lower limb edema. VITAL SIGNS: His heart rate was 104, blood pressure was 130/92, temperature was 98.3, respiratory rate was 20, and oxygen saturation was 94%. HEENT: Examination of the head, eyes, ears, nose and throat showed normocephalic, atraumatic. NECK: Supple. HEART: Showed normal first and second sounds. No gallop, rub or murmur. CHEST: Clear to auscultation. No crepitation or rhonchi. ABDOMEN: Distended, soft, nontender. NEUROLOGIC: He is awake, alert, responding appropriately. All his cranial nerves are intact. EXTREMITIES: He moves extremities without difficulty, ambulates without assistance or assistive devices. His intake over the last 24 hours was 1916. No output was recorded. LABORATORY DATA: Lab work this morning showed a serum sodium 142, potassium 3.3, chloride 106, bicarbonate 21, anion gap of 15, BUN 4, creatinine was 1.1, estimated GFR was 72 mL per minute. His glucose 107, calcium was 8.7. Serum lipase was 165. DISCHARGE MEDICATIONS: He was discharged home to continue on oxycodone immediate release 1 tablet every 6 hours, temazepam 50 mg at bedtime as needed for insomnia. He is on Humira 40 mg per 0.8 mL subcutaneously every 2 weeks, aspirin 81 mg once a day, cyclobenzaprine 10 mg 3 times a day, naproxen 500 mg twice a day, omeprazole 40 mg once a day, sertraline for Zoloft 100 mg once a day, and topiramate 50 mg p.o. b.i.d. FINAL DISCHARGE DIAGNOSES: Relapsing pancreatitis most likely due to olanzapine, so it was discontinued. Other medical problems include esophageal stricture, status post dilatation x 7. He is also known to have Crohn's disease as well as depression, anxiety and insomnia. JOURDAN BLANCA MD DR: TERESA/jennifer JOB#: [id number] / [id number]
[2018-06-07] MEDS ORDERED: NON FORMULARY ITEM (Adalimumab (Humira) 1 SYR) SQ SCH (09:00)
== END 2018-05-25 16:03 | disposition home or self-care (01) | DRG 438 ==
LOC: ER 19:19 → 1 SOUTH 22:08
PROVIDERS: ADMIT Neuromusculoskeletal Medicine & OMM; ATTEND Neuromusculoskeletal Medicine & OMM
DX: K85.90 Acute pancreatitis without necrosis or infection, unspecified (principal); R65.11 Systemic inflammatory response syndrome (SIRS) of non-infectious origin with acute organ dysfunction; K50.90 Crohn's disease, unspecified, without complications; K76.0 Fatty (change of) liver, not elsewhere classified; K21.9 Gastro-esophageal reflux disease without esophagitis; G43.909 Migraine, unspecified, not intractable, without status migrainosus; F32.9 Major depressive disorder, single episode, unspecified; F17.210 Nicotine dependence, cigarettes, uncomplicated; F41.9 Anxiety disorder, unspecified; G47.00 Insomnia, unspecified; K86.1 Other chronic pancreatitis; T43.595A Adverse effect of other antipsychotics and neuroleptics, initial encounter; Y92.89 Other specified places as the place of occurrence of the external cause; Z90.49 Acquired absence of other specified parts of digestive tract; Z79.899 Other long term (current) drug therapy; Z88.5 Allergy status to narcotic agent
CPT/HCPCS: 36415; 74177; 80048; 80053; 81001; 82947; 83690; 85007; 85025; 96361; 96374; 96375; 96376; J1170; J1815; J2405; Q9967; 99285-25; J7030

== ENCOUNTER → 2018-07-21 | Outpatient (CLI) | payer BC, MEDICARE ==
[~2018-07-21] MED LIST changes: +ADAL40PE SQ; +ASPI-630 PO; +NAPR500T8 PO; +OLAN15TA3 PO; +OMEP40CA5 PO; +OXYC5CAP PO; +SERT100T PO; +TEMA15CA PO; +TOPI50TA8 PO
--- NOTE | 2018-07-21 14:31 | RAD ---
EXAM: Nuclear hepatobiliary scan. HISTORY: Pancreatic head is. Right upper quadrant pain. TECHNIQUE: Following intravenous administration of 5.5 mCi Tc 99m Choletec, anterior images of the abdomen were obtained at five minute intervals through one hour. Subsequently, a liquid bolus was administered and additional images to assess gallbladder ejection fraction were obtained. FINDINGS: There is prompt radiotracer uptake by the liver. No focal defect is seen. There is normal excretion into the biliary tree. The gallbladder is visualized within 30 minutes and there is free flow into the duodenum. The gallbladder ejection fraction is 80%. IMPRESSION: Normal radionuclide biliary scan. Electronically signed by: Fe Frank MD (07/21/2018 2:27 PM) [id number]
== END | disposition home or self-care (01) ==
LOC: NM 09:26
PROVIDERS: ATTEND Internal Medicine Gastroenterology
DX: R10.11 Right upper quadrant pain (principal)
CPT/HCPCS: 78226; 96374; 96375; A9537

== ENCOUNTER 2018-07-27 14:25 | Emergency (ER) | payer BC, MEDICARE ==
[2018-07-27] MEDS ORDERED: IV NORMAL SALINE 1,000ML 1,000 ML IV SCH (14:41)
[2018-07-27] MEDS ORDERED: ONDANSETRON PF 4 MG/2 ML VIAL. IV ONE (14:45)
--- NOTE | 2018-07-27 14:52 | EKG ---
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
--- NOTE | 2018-07-27 14:53 | PHYS DOC ---
Past History Past Medical History: Anxiety, Depression, GERD, Migraines, Pancreatitis, Other Additional Past Medical Histor: Crohn's disease Past Surgical History: Appendectomy Smoking: Cigarettes Alcohol Use: None Drug Use: None Adult General Chief Complaint Chief Complaint: ABDOMINAL PAIN [facility] HPI patient is a 43-year-old male who presents to the emergency department for evaluation. He states that for the past week he has been having upper abdominal pain. He has not had any nausea or vomiting. He states he has had problems with pancreatitis in the past, and this pain feels exactly the same. He states that he has been told that his pancreatitis is suspected to be due to microscopic sludge/gallstones which might be causing obstruction, although he states he was scheduled to have a cholecystectomy this week but his insurance company declined surgery because he did not have demonstrable gallstones. The patient states that he has a history of Crohn's disease but his pain is not similar to his prior Crohn's flares and feels more similar to his pancreatitis. Test results and recent medical notes from his recent hospital visits have been reviewed. Notably the patient had a normal HIDA scan this month. He did have a CT scan done this past summer. He has not had any chest pain or shortness of breath. He states that he does not take pain medication regularly, but review of the patient's prescription history reveals that he has regular prescriptions for hydrocodone, oxycodone, and tramadol. Review of Systems Review of Systems Constitutional: Denies fever or chills [] Eyes: Denies change in visual acuity, redness, or eye pain [] HENT: Denies nasal congestion or sore throat [] Respiratory: Denies cough or shortness of breath [] Cardiovascular: The patient denies any shortness of breath, chest pain, palpitations, or orthopnea[] GI: No additional information not addressed in HPI [] : Denies dysuria or hematuria [] Musculoskeletal: Denies back pain or joint pain [] Integument: Denies rash or skin lesions [] Neurologic: Denies headache, focal weakness or sensory changes [] Endocrine: Denies polyuria or polydipsia [] All other systems were reviewed and found to be within normal limits, except as documented in this note. Allergies Allergies Allergies Coded Allergies Type Severity Reaction Last Updated Verified codeine Allergy Severe 05/20/18 Yes cephalexin Allergy Intermediate Hives 05/20/18 Yes morphine Allergy Intermediate 05/20/18 Yes Physical Exam Physical Exam PHYSICAL EXAM: CONSTITUTIONAL: Well developed, well nourished HEAD: normocephalic, atraumatic EENT: PERRL, EOMI. Conjunctivae normal color, sclerae non-icteric; moist mucous membranes. NECK: Supple, non-tender; no meningismus. LUNGS: Lungs CTA, breathing even and unlabored. Normal air movement. HEART: Regular rate and rhythm, no murmur CHEST: No deformity; non-tender ABDOMEN: The abdomen is soft, normal bowel sounds are present. There is diffuse tenderness to palpation of the entire abdomen, most prominent in the upper abdomen, without rebound or guarding. There is no focal tenderness. The epigastric area as the area of maximal tenderness. No masses or bruits. EXTREM: Normal ROM; no deformity, no calf tenderness. Normal pulses palpable in all extremities. There is no pedal edema. SKIN: No rash; no diaphoresis NEURO: Alert; normal speech and cognition; CN's grossly intact; strength grossly intact without focal deficit. BACK: No CVA TTP. Current Patient Data Lab Results Laboratory Tests Test 07/27/18 14:30 07/27/18 16:40 White Blood Count 16.1 x10^3/uL Red Blood Count 4.70 x10^6/uL Hemoglobin 15.0 g/dL Hematocrit 43.5 % Mean Corpuscular Volume 92 fL Mean Corpuscular Hemoglobin 32 pg Mean Corpuscular Hemoglobin Concent 35 g/dL Red Cell Distribution Width 13.9 % Platelet Count 257 x10^3/uL Neutrophils (%) (Auto) 52 % Lymphocytes (%) (Auto) 39 % Monocytes (%) (Auto) 6 % Eosinophils (%) (Auto) 3 % Basophils (%) (Auto) 1 % Neutrophils # (Auto) 8.3 x10^3uL Lymphocytes # (Auto) 6.2 x10^3/uL Monocytes # (Auto) 0.9 x10^3/uL Eosinophils # (Auto) 0.4 x10^3/uL Basophils # (Auto) 0.1 x10^3/uL Segmented Neutrophils % 43 % Band Neutrophils % 6 % Lymphocytes % 38 % Monocytes % 6 % Eosinophils % 2 % Basophils % 1 % Platelet Estimate Adequate Sodium Level 134 mmol/L Potassium Level 3.0 mmol/L Chloride Level 99 mmol/L Carbon Dioxide Level 23 mmol/L Anion Gap 12 Blood Urea Nitrogen 14 mg/dL Creatinine 1.4 mg/dL Estimated GFR (Cockcroft-Gault) 54.8 BUN/Creatinine Ratio 10 Glucose Level 141 mg/dL Calcium Level 9.2 mg/dL Total Bilirubin 0.4 mg/dL Aspartate Amino Transf (AST/SGOT) 67 U/L Alanine Aminotransferase (ALT/SGPT) 113 U/L Alkaline Phosphatase 127 U/L Troponin I Quantitative < 0.017 ng/mL Total Protein 8.2 g/dL Albumin 3.6 g/dL Albumin/Globulin Ratio 0.8 Lipase 238 U/L Urine Collection Type Unknown Urine Color Yellow Urine Clarity Clear Urine pH 6.5 Urine Specific [place] <=1.005 Urine Protein Neg Urine Glucose (UA) Neg mg/dL Urine Ketones (Stick) Neg mg/dL Urine Blood Neg Urine Nitrite Neg Urine Bilirubin Neg Urine Urobilinogen Dipstick 0.2 mg/dL Urine Leukocyte Esterase Neg Urine RBC 0 /HPF Urine WBC 0 /HPF Urine Squamous Epithelial Cells Occ /LPF Urine Bacteria 0 /HPF Current Medications Medications (Trade) Dose Ordered Sig/Monty Route PRN Reason Start Time Stop Time Status Last Admin Dose Admin Sodium Chloride 1,000 ml @ 1,000 mls/hr Q1H IV 07/27/18 14:41 07/27/18 15:41 DC 07/27/18 14:54 Ondansetron HCl (Zofran) 4 mg 1X ONCE IV 07/27/18 14:45 07/27/18 15:00 DC 07/27/18 14:54 Fentanyl Citrate (Fentanyl 2ml Vial) 50 mcg 1X ONCE IV 07/27/18 14:45 07/27/18 15:00 DC 07/27/18 14:54 Potassium Chloride (Klor-Con) 40 meq 1X ONCE PO 07/27/18 16:00 07/27/18 16:01 DC 07/27/18 15:52 Iohexol (Omnipaque 300 Mg/ml) 75 ml 1X ONCE IV 07/27/18 16:30 07/27/18 16:31 DC 07/27/18 16:47 Fentanyl Citrate (Fentanyl 2ml Vial) 50 mcg 1X ONCE IV 07/27/18 17:00 07/27/18 17:01 DC 07/27/18 16:56 Laboratory Tests Test 07/27/18 14:30 White Blood Count 16.1 x10^3/uL Red Blood Count 4.70 x10^6/uL Hemoglobin 15.0 g/dL Hematocrit 43.5 % Mean Corpuscular Volume 92 fL Mean Corpuscular Hemoglobin 32 pg Mean Corpuscular Hemoglobin Concent 35 g/dL Red Cell Distribution Width 13.9 % Platelet Count 257 x10^3/uL Neutrophils (%) (Auto) 52 % Lymphocytes (%) (Auto) 39 % Monocytes (%) (Auto) 6 % Eosinophils (%) (Auto) 3 % Basophils (%) (Auto) 1 % Neutrophils # (Auto) 8.3 x10^3uL Lymphocytes # (Auto) 6.2 x10^3/uL Monocytes # (Auto) 0.9 x10^3/uL Eosinophils # (Auto) 0.4 x10^3/uL Basophils # (Auto) 0.1 x10^3/uL Segmented Neutrophils % 43 % Band Neutrophils % 6 % Lymphocytes % 38 % Monocytes % 6 % Eosinophils % 2 % Basophils % 1 % Platelet Estimate Adequate Sodium Level 134 mmol/L Potassium Level 3.0 mmol/L Chloride Level 99 mmol/L Carbon Dioxide Level 23 mmol/L Anion Gap 12 Blood Urea Nitrogen 14 mg/dL Creatinine 1.4 mg/dL Estimated GFR (Cockcroft-Gault) 54.8 BUN/Creatinine Ratio 10 Glucose Level 141 mg/dL Calcium Level 9.2 mg/dL Total Bilirubin 0.4 mg/dL Aspartate Amino Transf (AST/SGOT) 67 U/L Alanine Aminotransferase (ALT/SGPT) 113 U/L Alkaline Phosphatase 127 U/L Troponin I Quantitative < 0.017 ng/mL Total Protein 8.2 g/dL Albumin 3.6 g/dL Albumin/Globulin Ratio 0.8 Lipase 238 U/L Current Medications Medications (Trade) Dose Ordered Sig/Monty Route PRN Reason Start Time Stop Time Status Last Admin Dose Admin Sodium Chloride 1,000 ml @ 1,000 mls/hr Q1H IV 07/27/18 14:41 07/27/18 15:41 DC 07/27/18 14:54 Ondansetron HCl (Zofran) 4 mg 1X ONCE IV 07/27/18 14:45 07/27/18 15:00 DC 07/27/18 14:54 Fentanyl Citrate (Fentanyl 2ml Vial) 50 mcg 1X ONCE IV 07/27/18 14:45 07/27/18 15:00 DC 07/27/18 14:54 Potassium Chloride (Klor-Con) 40 meq 1X ONCE PO 07/27/18 16:00 07/27/18 16:01 DC 07/27/18 15:52 EKG EKG [normal sinus rhythm at a rate of 102 beats for minute, normal axis, normal intervals, inferior Q waves are present. There are no acute ischemic ST/T changes. Nonspecific ST/T changes are present.] Radiology/Procedures Radiology/Procedures [PROCEDURE: ABDOMEN LTD Right upper quadrant abdominal ultrasound History: HX EPIGASTRIC/HX OF PANCREATITIS, Comparison: CT abdomen and pelvis with contrast, May 20, 2018. Technique: Transabdominal ultrasound images are obtained. Findings: Due to overlying bowel gas and patient body habitus the IVC, and common bile duct, and pancreas are poorly visualized. Liver is increased in echogenicity. There is decreased through-transmission. No focal hepatic masses are identified although ultrasound is not sensitive for their detection. Portal flow is hepatopedal. Right hepatic lobe measures 18.2 cm, mildly enlarged. Gallbladder has an unremarkable appearance. Common bile duct caliber is normal measuring 6 mm in diameter. The right kidney measures 10.6 cm in length. No hydronephrosis. Mostly exophytic cyst at the upper pole measures up to 2.6 cm. IMPRESSION: 1. Common bile duct and gallbladder are normal. 2. Hepatomegaly. Fatty infiltration of the liver. 3. Right renal cyst. ] PROCEDURE: CT ABD PELV W/ IV CONTRST ONLY PQRS Compliance statement: One or more of the following individualized dose reduction techniques were utilized for this examination: 1. Automated exposure control. 2. Adjustment of the mA and/or kV according to patient size. 3. Use of iterative reconstruction technique. Indication:upper abd pain, elevated LFTs, normal lipase, Hx pancreatitis, SX APPY, OMNI 300, 75mL, IV only TECHNIQUE: CT abdomen and pelvis with IV contrast with multiplanar reformats. COMPARISON: 12/04/2017 FINDINGS: Heart is normal in size. No pericardial or pleural effusion. Clear lung bases. Diffuse hepatic steatosis. Stable 2.4 x 2.6 cm enhancing lesion is seen in segment 7, previously measuring 2.2 x 2.[address] from 04/14/2017. Stable wedge-shaped enhancement is seen in segment IVb along the falciform ligament recess most likely a of focal fat sparing. Spleen is unenlarged and shows no focal lesion. No radiopaque gallstones. Pancreas within normal limits without peripancreatic inflammatory changes or focal pancreatic lesion. Adrenal glands show no focal mass. No nephrolithiasis or hydronephrosis. Exophytic 2.6 x 2.1 cm enhancing lesion is seen in the interpolar right kidney, previously measuring 2.6 x 2.1 cm. Exophytic 1.3 x 1.0 cm enhancing lesion is seen along the anterior aspect of the left kidney, previously measuring 1.1 x 1.0 cm. No enlarged retroperitoneal or pelvic adenopathy. Fat-containing small left inguinal hernia. No bowel obstruction. Circumferential urinary bladder wall thickening seen without radiopaque stone. The prostate and seminal vesicles show no large mass. No pneumoperitoneum. No suspicious bony lesion. IMPRESSION: 1. Diffuse hepatic steatosis. Stable segment 7 liver lesion dating back to at least 04/14/2017. Differential diagnoses includes adenoma, focal nodular hyperplasia or less likely area of focal fat standing. Nonemergent MRI of the abdomen with IV contrast (Eovist) can be obtained for better evaluation. 2. Bilateral renal lesions stable from previous exam most likely minimally complicated cysts although slow-growing RCC not ruled out. Nonemergent Ultrasound of the kidneys recommended. 3. Circumferential urinary bladder wall thickening may be secondary to suboptimal distention or cystitis. Clinically correlate with urinalysis. Course & Med Decision Making Course & Med Decision Making Pertinent Labs and Imaging studies reviewed. (See chart for details) [5:30 PM: The patient's condition remained stable. He appears much more comfortable at this time. I discussed test results with the patient. He has had prior episodes of leukocytosis, as well as elevated LFTs in the past. He does not have any evidence of biliary obstruction at this time. I discussed importance of close follow-up with [facility] further evaluation, as well as the need for an outpatient MRI. Return precautions were discussed in detail. The patient has received recent prescriptions for pain medications, and I instructed him to continue using his pain medications. He'll be given a PPI as well.] Dragon Disclaimer Dragon Disclaimer This electronic medical record was generated, in whole or in part, using a voice recognition dictation system. Departure Departure: Impression: Primary Impression: Abdominal pain Disposition: HOME, SELF-CARE Condition: STABLE Referrals: NASEEM RAMIREZ (PCP) Patient Instructions: Abdominal Pain Additional Instructions: Follow-up with Dr. Leobardo Lees, director of scientific research, . Please call to schedule an appointment. Further evaluation, possibly with an outpatient MRI of your liver is warranted, although the exact connection with this and your symptoms is unclear at this time. Continue taking your previously prescribed pain medications. If your symptoms worsen, develop recurrent vomiting , dizziness, lightheadedness, fevers, worsening pain or any other new or concerning symptoms, return to the emergency department for further evaluation. Scripts Omeprazole (OMEPRAZOLE) 20 Mg Capsule.dr 1 CAP PO DAILY, #30 CAP 0 Refills Prov: CELENA DECKER MD 07/27/18 CELENA DECKER MD Jul 27, 2018 14:53
[2018-07-27 14:55] LABS: BASO # 0.1 x10^3/uL (0.0-0.2); BASO % 1 % (0-3); EOS # 0.4 x10^3/uL (0.0-0.7); EOS % 3 % (0-3); HEMATOCRIT 43.5 % (39.0-53.0); LYMPH # 6.2 x10^3/uL (1.0-4.8); LYMPH % 39 % (24-48); MEAN CORPUSCULAR HEMOGLOBIN 32 pg (25-35); MEAN CORPUSCULAR HGB CONC 35 g/dL (31-37); MEAN CORPUSCULAR VOLUME 92 fL (79-100); MONO # 0.9 x10^3/uL (0.0-1.1); MONO % 6 % (0-9); NEUT # 8.3 x10^3uL (1.8-7.7); NEUT % 52 % (31-73); PLATELET COUNT 257 x10^3/uL (140-400); RED CELL DISTRIBUTION WIDTH 13.9 % (11.5-14.5); WHITE BLOOD COUNT 16.1 x10^3/uL (4.0-11.0)
[2018-07-27 15:02] LABS: ALBUMIN 3.6 g/dL (3.4-5.0); ALBUMIN/GLOBULIN RATIO 0.8 (1.0-1.7); CALCIUM 9.2 mg/dL (8.5-10.1); CREATININE 1.4 mg/dL (0.7-1.3); GFR 54.8; TOTAL BILIRUBIN 0.4 mg/dL (0.2-1.0); TOTAL PROTEIN 8.2 g/dL (6.4-8.2)
[2018-07-27 15:41] LABS: % BANDS 6 % (0-9); % BASOS 1 % (0-3); % EOS 2 % (0-5); % LYMPHS 38 % (24-48); % MONOS 6 % (0-10); % SEGS 43 % (35-66)
[2018-07-27 15:42] LABS: PLT ESTIMATE ADEQUATE (ADEQUATE)
--- NOTE | 2018-07-27 15:53 | RAD ---
Right upper quadrant abdominal ultrasound History: HX EPIGASTRIC/HX OF PANCREATITIS, Comparison: CT abdomen and pelvis with contrast, May 20, 2018. Technique: Transabdominal ultrasound images are obtained. Findings: Due to overlying bowel gas and patient body habitus the IVC, and common bile duct, and pancreas are poorly visualized. Liver is increased in echogenicity. There is decreased through-transmission. No focal hepatic masses are identified although ultrasound is not sensitive for their detection. Portal flow is hepatopedal. Right hepatic lobe measures 18.2 cm, mildly enlarged. Gallbladder has an unremarkable appearance. Common bile duct caliber is normal measuring 6 mm in diameter. The right kidney measures 10.6 cm in length. No hydronephrosis. Mostly exophytic cyst at the upper pole measures up to 2.6 cm. IMPRESSION: 1. Common bile duct and gallbladder are normal. 2. Hepatomegaly. Fatty infiltration of the liver. 3. Right renal cyst. Electronically signed by: Jaden Trujillo MD (07/27/2018 3:50 PM) [id number]
[2018-07-27] MEDS ORDERED: POTASSIUM CHLORIDE 20 MEQ TABLET.ER. PO ONE (16:00)
[2018-07-27] MEDS ORDERED: IOHEXOL 300 MG/ML 75 ML VIAL. IV ONE (16:30)
--- NOTE | 2018-07-27 17:12 | RAD ---
PQRS Compliance statement: One or more of the following individualized dose reduction techniques were utilized for this examination: 1. Automated exposure control. 2. Adjustment of the mA and/or kV according to patient size. 3. Use of iterative reconstruction technique. Indication:upper abd pain, elevated LFTs, normal lipase, Hx pancreatitis, SX APPY, OMNI 300, 75mL, IV only TECHNIQUE: CT abdomen and pelvis with IV contrast with multiplanar reformats. COMPARISON: 12/04/2017 FINDINGS: Heart is normal in size. No pericardial or pleural effusion. Clear lung bases. Diffuse hepatic steatosis. Stable 2.4 x 2.6 cm enhancing lesion is seen in segment 7, previously measuring 2.2 x 2.[address] from 04/14/2017. Stable wedge-shaped enhancement is seen in segment IVb along the falciform ligament recess most likely a of focal fat sparing. Spleen is unenlarged and shows no focal lesion. No radiopaque gallstones. Pancreas within normal limits without peripancreatic inflammatory changes or focal pancreatic lesion. Adrenal glands show no focal mass. No nephrolithiasis or hydronephrosis. Exophytic 2.6 x 2.1 cm enhancing lesion is seen in the interpolar right kidney, previously measuring 2.6 x 2.1 cm. Exophytic 1.3 x 1.0 cm enhancing lesion is seen along the anterior aspect of the left kidney, previously measuring 1.1 x 1.0 cm. No enlarged retroperitoneal or pelvic adenopathy. Fat-containing small left inguinal hernia. No bowel obstruction. Circumferential urinary bladder wall thickening seen without radiopaque stone. The prostate and seminal vesicles show no large mass. No pneumoperitoneum. No suspicious bony lesion. IMPRESSION: 1. Diffuse hepatic steatosis. Stable segment 7 liver lesion dating back to at least 04/14/2017. Differential diagnoses includes adenoma, focal nodular hyperplasia or less likely area of focal fat standing. Nonemergent MRI of the abdomen with IV contrast (Eovist) can be obtained for better evaluation. 2. Bilateral renal lesions stable from previous exam most likely minimally complicated cysts although slow-growing RCC not ruled out. Nonemergent Ultrasound of the kidneys recommended. 3. Circumferential urinary bladder wall thickening may be secondary to suboptimal distention or cystitis. Clinically correlate with urinalysis. Electronically signed by: Akshat Engle DO (07/27/2018 5:09 PM) [facility]
[2018-07-27 17:21] LABS: BILIRUBIN,URINE NEG (NEG); CLARITY,URINE CLEAR; COLOR,URINE YELLOW; GLUCOSE,URINE NEG (NEG)
[2018-07-27 17:22] LABS: BACTERIA,URINE 0 /HPF (0-FEW); NITRITE,URINE NEG (NEG); RBC,URINE 0 /HPF (0-2); SQUAMOUS EPITHELIAL CELL,UR OCC /LPF; UROBILINOGEN,URINE 0.2 mg/dL (0.2 mg/dL); WBC,URINE 0 /HPF (0-4)
[2018-07-27 17:30] VITALS: BP 116/68
[2018-07-27] MEDS ORDERED: OMEP20CA9 PO (17:34)
== END 2018-07-27 17:45 | disposition home or self-care (01) ==
LOC: ER 14:25
DX: R10.84 Generalized abdominal pain (principal); R10.13 Epigastric pain; K76.0 Fatty (change of) liver, not elsewhere classified; K76.89 Other specified diseases of liver; N28.1 Cyst of kidney, acquired; K21.9 Gastro-esophageal reflux disease without esophagitis; G43.909 Migraine, unspecified, not intractable, without status migrainosus; K50.90 Crohn's disease, unspecified, without complications; F17.210 Nicotine dependence, cigarettes, uncomplicated; Z90.89 Acquired absence of other organs; Z88.5 Allergy status to narcotic agent; Z88.1 Allergy status to other antibiotic agents
CPT/HCPCS: 36415; 74177; 76705; 80053; 81001; 83690; 84484; 85007; 85025; 93005; 96374; 96375; 96376; 99285; J2405; J3010; Q9967; J7030

== ENCOUNTER 2018-09-28 19:49 | Inpatient (IN) | payer BC, MEDICARE ==
[~2018-09-28] VITALS: Ht 167.6 cm; Wt 88.7 kg
[~2018-09-28 19:49] MED LIST changes: +HYDR-1179 PO; -HYDR-79 PO; +OMEP20CA9 PO
--- NOTE | 2018-09-28 19:53 | ED.ADGEN ---
Past History Past Medical History: Anxiety, Depression, GERD, Migraines, Pancreatitis, Other Additional Past Medical Histor: Crohn's disease Past Surgical History: Appendectomy, Cholecystectomy Smoking: Cigarettes Alcohol Use: None Drug Use: None Adult General Chief Complaint Chief Complaint ".. My pancreatitis is killing me..." HPI HPI Patient is a 43 year old male who presents with above hx and complaints epigastric pain, nausea and vomiting which he relates as his pancreatitis. Pt. has had prior episodes of pancreatitis. Pt. states unable to eat because of pain and nausea. No travel or specific ill contacts. No history of trauma. No history of intake of bad food. Patient has had cholecystectomy. Patient's last evening with 07/27 for pancreatitis. Normally follows withAshleigh Mckinley. Pt. localizes pain in epigastric area. Pt. rates is pain as very severe. Pt. denies alcohol use. Pt. has past hx of Anxiety, Depression, GERD, Migraines, Pancreatitis and Crohn's. Has had cholecystectomy and appendectomy. Review of Systems Review of Systems Constitutional: Denies fever or chills [] Eyes: Denies change in visual acuity, redness, or eye pain [] HENT: Denies nasal congestion or sore throat [] Respiratory: Denies cough or shortness of breath [] Cardiovascular: No additional information not addressed in HPI [] GI: Complaints of epigastric abdominal pain, nausea, vomiting. Denies bloody stools, but having multiple episodes of watery brown diarrhea [] : Denies dysuria or hematuria [] Musculoskeletal: Denies back pain or joint pain [] Integument: Denies rash or skin lesions [] Neurologic: Denies headache, focal weakness or sensory changes [] Endocrine: Denies polyuria or polydipsia [] All other systems were reviewed and found to be within normal limits, except as documented in this note. Family History Family History Non-contributory Current Medications Current Medications Current Medications Medications (Trade) Dose Ordered Sig/Monty Start Time Stop Time Status Last Admin Dose Admin Diphenhydramine HCl (Benadryl) 50 mg 1X ONCE 09/28/18 20:30 09/28/18 20:31 DC 09/28/18 20:35 50 MG Famotidine (Pepcid Vial) 20 mg 1X ONCE 09/28/18 20:30 09/28/18 20:31 DC 09/28/18 20:36 20 MG Fentanyl Citrate (Fentanyl 2ml Vial) 100 mcg 1X ONCE 09/28/18 20:30 09/28/18 20:31 DC 09/28/18 20:37 100 MCG Iohexol (Omnipaque 240 Mg/ml) 30 ml 1X ONCE 09/28/18 20:45 09/28/18 20:51 DC 09/28/18 21:54 30 ML Iohexol (Omnipaque 300 Mg/ml) 75 ml 1X ONCE 09/28/18 20:45 09/28/18 20:51 DC 09/28/18 21:54 75 ML Lactated Ringer's 1,000 ml @ 1,000 mls/hr Q1H 09/28/18 20:10 09/28/18 21:09 DC 09/28/18 20:35 1,000 MLS/HR Levofloxacin/ Dextrose 100 ml @ 100 mls/hr 1X ONCE 09/28/18 20:45 09/28/18 21:44 DC 09/28/18 21:45 100 MLS/HR Metronidazole 100 ml @ 100 mls/hr 1X ONCE 09/28/18 20:45 09/28/18 21:44 DC 09/28/18 20:58 100 MLS/HR Prochlorperazine Edisylate (Compazine) 5 mg 1X ONCE 09/28/18 20:30 09/28/18 20:31 DC 09/28/18 20:35 5 MG Allergies Allergies Allergies Coded Allergies Type Severity Reaction Last Updated Verified codeine Allergy Severe 05/20/18 Yes cephalexin Allergy Intermediate Hives 05/20/18 Yes morphine Allergy Intermediate 05/20/18 Yes acetaminophen Allergy Unknown 07/27/18 Yes Physical Exam Physical Exam Constitutional: Moderately acute distress, non-toxic appearance. [] HENT: Normocephalic, atraumatic, bilateral external ears normal, oropharynx moist, no oral exudates, nose normal. [] Eyes: PERRLA, EOMI, conjunctiva normal, no discharge. Glasses. Neck: Normal range of motion, no tenderness, supple, no stridor. [] Cardiovascular:Tachycardia Heart rate regular rhythm, no murmur [] Lungs & Thorax: Bilateral breath sounds equal apex auscultation with a few scattered wheezes. Abdomen: Bowel sounds normal, soft, epigastric tenderness, no masses, no pulsatile masses. Old surgery scars for cholecystectomy and appendectomy. Skin: Warm, dry, no erythema, no rash. [] Back: No tenderness, no CVA tenderness. [] Extremities: No tenderness, no cyanosis, no clubbing, ROM intact, no edema. [] Neurologic: Alert and oriented X 3, normal motor function, normal sensory function, no focal deficits noted. [] Psychologic: Affect anxious, judgement normal, mood normal. [] Current Patient Data Vital Signs Vital Signs Date Time Temp Pulse Resp B/P (MAP) Pulse Ox O2 Delivery O2 Flow Rate FiO2 09/28/18 20:37 18 93 09/28/18 19:59 98.1 116 Room Air Lab Results Laboratory Tests Test 09/28/18 20:10 White Blood Count 16.3 x10^3/uL (4.0-11.0) H Red Blood Count 4.88 x10^6/uL (4.30-5.70) Hemoglobin 15.7 g/dL (13.0-17.5) Hematocrit 45.6 % (39.0-53.0) Mean Corpuscular Volume 93 fL (79-100) Mean Corpuscular Hemoglobin 32 pg (25-35) Mean Corpuscular Hemoglobin Concent 35 g/dL (31-37) Red Cell Distribution Width 13.7 % (11.5-14.5) Platelet Count 272 x10^3/uL (140-400) Neutrophils (%) (Auto) 61 % (31-73) Lymphocytes (%) (Auto) 30 % (24-48) Monocytes (%) (Auto) 6 % (0-9) Eosinophils (%) (Auto) 1 % (0-3) Basophils (%) (Auto) 1 % (0-3) Neutrophils # (Auto) 10.0 x10^3uL (1.8-7.7) H Lymphocytes # (Auto) 4.9 x10^3/uL (1.0-4.8) H Monocytes # (Auto) 1.0 x10^3/uL (0.0-1.1) Eosinophils # (Auto) 0.2 x10^3/uL (0.0-0.7) Basophils # (Auto) 0.1 x10^3/uL (0.0-0.2) Segmented Neutrophils % 64 % (35-66) Band Neutrophils % 2 % (0-9) Lymphocytes % 19 % (24-48) L Atypical Lymphocytes % (Manual) 6 % (0-0) H Monocytes % 8 % (0-10) Myelocytes % 1 % (0-0) H Platelet Estimate Adequate (ADEQUATE) Prothrombin Time 10.4 SEC (9.4-11.4) Prothrombin Time INR 1.0 (0.9-1.1) PTT 29 SEC (23-33) Sodium Level 138 mmol/L (136-145) Potassium Level 3.2 mmol/L (3.5-5.1) L Chloride Level 99 mmol/L (98-107) Carbon Dioxide Level 28 mmol/L (21-32) Anion Gap 11 (6-14) Blood Urea Nitrogen 10 mg/dL (8-26) Creatinine 1.4 mg/dL (0.7-1.3) H Estimated GFR (Cockcroft-Gault) 54.8 Glucose Level 156 mg/dL (70-99) H Calcium Level 9.1 mg/dL (8.5-10.1) Total Bilirubin 0.6 mg/dL (0.2-1.0) Direct Bilirubin 0.2 mg/dL (0.0-0.2) Aspartate Amino Transferase (AST) 40 U/L (15-37) H Alanine Aminotransferase (ALT) 81 U/L (16-63) H Alkaline Phosphatase 150 U/L (46-116) H Troponin I Quantitative < 0.017 ng/mL (0-0.055) Total Protein 8.4 g/dL (6.4-8.2) H Albumin 3.8 g/dL (3.4-5.0) Amylase Level 137 U/L (25-115) H Lipase 2557 U/L (73-393) H EKG EKG My interpretation EKG shows a sinus rhythm at 95 bpm. There is some nonspecific contour abnormalities in anterior septal region. But no findings acute STEMI of contralateral changes.[] Radiology/Procedures Radiology/Procedures My interpretation acute abdomen film shows no acute cardiopulmonary findings. No free air in the diaphragm. Does have clips from previous gallbladder surgery. Non-obstructive bowel gas pattern.[] Course & Med Decision Making Course & Med Decision Making Pertinent Labs and Imaging studies reviewed. (See chart for details) Admit to Dr. Lane for further eval and tx. - NPO status. [] Final Impression Final Impression 1. Epigastric Abdomen Pain[]- Pancreatitis 2. Leukocytosis - 16.5 3. Nausea and Vomiting 4. Hypokalemia 3.2 5. Dehydration Elevated Creat. 1.4 6. DM 156 7. Elevated AST/ALT 40/150 8. Elevated Amylase 137 Dragon Disclaimer Dragon Disclaimer This electronic medical record was generated, in whole or in part, using a voice recognition dictation system. PRATIK DE LEON MD Sep 28, 2018 19:53
[2018-09-28] MEDS ORDERED: IV RINGERS SOLUTION,LACTATED 1,000 ML IV SCH (20:10)
[2018-09-28 20:30] LABS: BASO # 0.1 x10^3/uL (0.0-0.2); BASO % 1 % (0-3); EOS # 0.2 x10^3/uL (0.0-0.7); EOS % 1 % (0-3); HEMATOCRIT 45.6 % (39.0-53.0); HEMOGLOBIN 15.7 g/dL (13.0-17.5); LYMPH # 4.9 x10^3/uL (1.0-4.8); LYMPH % 30 % (24-48); MEAN CORPUSCULAR HEMOGLOBIN 32 pg (25-35); MEAN CORPUSCULAR HGB CONC 35 g/dL (31-37); MEAN CORPUSCULAR VOLUME 93 fL (79-100); MONO % 6 % (0-9); NEUT % 61 % (31-73); PLATELET COUNT 272 x10^3/uL (140-400); RED BLOOD COUNT 4.88 x10^6/uL (4.30-5.70); RED CELL DISTRIBUTION WIDTH 13.7 % (11.5-14.5); WHITE BLOOD COUNT 16.3 x10^3/uL (4.0-11.0)
[2018-09-28] MEDS ORDERED: PROCHLORPERAZINE 10 MG/2 ML VIAL. IV ONE (20:30)
[2018-09-28] MEDS ORDERED: FAMOTIDINE 20 MG/2 ML VIAL IVP ONE (20:30)
[2018-09-28] MEDS ORDERED: diphenhydrAMINE 50 MG/ML VIAL IV ONE (20:30)
[2018-09-28 20:43] LABS: ALBUMIN 3.8 g/dL (3.4-5.0); CALCIUM 9.1 mg/dL (8.5-10.1); CREATININE 1.4 mg/dL (0.7-1.3); DIRECT BILIRUBIN 0.2 mg/dL (0.0-0.2); GFR 54.8; POTASSIUM 3.2 mmol/L (3.5-5.1); TOTAL BILIRUBIN 0.6 mg/dL (0.2-1.0); TOTAL PROTEIN 8.4 g/dL (6.4-8.2)
[2018-09-28] MEDS ORDERED: IOHEXOL 300 MG/ML 75 ML VIAL. IV ONE (20:45)
[2018-09-28] MEDS ORDERED: IOHEXOL 240 MG/ML 50ML VIAL. PO ONE (20:45)
--- NOTE | 2018-09-28 20:50 | RAD ---
EXAM: Abdomen acute complete. HISTORY: Pain COMPARISON: CT dated 07/27/2018. FINDINGS: A frontal view of the chest and frontal upright and supine views of the abdomen are obtained. There is no infiltrate, pleural effusion or pneumothorax. The heart is normal in size. There is gas and stool within the proximal colon. There are nondistended air-filled loops of small bowel within the left abdomen. There is no obstruction. There is no free air. There are pelvic phleboliths. IMPRESSION: 1. No acute pulmonary finding. 2. Nonobstructive bowel gas pattern. Electronically signed by: Fe Frank MD (09/28/2018 8:46 PM) [facility]
[2018-09-28] MEDS ORDERED: POTASSIUM CL 40MEQ IN 0.9%NACL 1,000 ML IV STA (20:56)
[2018-09-28] MEDS: IV RINGERS SOLUTION,LACTATED 1,000 ML IV SCH (21:00)
[2018-09-28] MEDS ORDERED: FAMOTIDINE 20 MG TABLET PO SCH (21:00)
[2018-09-28 22:11] LABS: AMPHETAMINE/METHAMPHETAMINE NEG (NEG); BARBITURATES NEG (NEG); BENZODIAZEPINES NEG (NEG); CANNABINOIDS NEG (NEG); COCAINE NEG (NEG); METHADONE NEG (NEG); OPIATES POS (NEG); PHENCYCLIDINE NEG (NEG)
--- NOTE | 2018-09-28 22:32 | RAD ---
INDICATION: Omni 300 75cc: Abdomen pain, nausea, diarrhea today. Hx pancreatitis, appendectomy, cholecystectomy COMPARISON: July 27, 2018 TECHNIQUE: Axial CT images obtained through the abdomen and pelvis with contrast. One or more of the following individualized dose reduction techniques were utilized for this examination: 1. Automated exposure control; 2. Adjustment of the mA and/or kV according to patient size; 3. Use of iterative reconstruction technique. FINDINGS: Azygous vein prominent. Abdominal aorta not grossly aneurysmal. Calcific atherosclerosis is identified. Fat-containing left inguinal hernia. Liver is diffusely low attenuation. Pancreatic edema is identified. Spleen unremarkable. Exophytic left renal lesion again suspected measuring approximately 1 cm. No left-sided hydronephrosis. Urinary bladder is somewhat distended at time of exam. Exophytic lesion at right kidney is seen measuring up to approximately 28 mm. Faintly visualized enhancing lesion again seen at liver. No right-sided hydronephrosis. Colon is not very distended. No dilated loops of bowel to suggest obstruction. Mild loss of height of T11 vertebral body again seen with possible Schmorl's nodes. IMPRESSION: 1. Edema is seen at the pancreas which can be seen with pancreatitis. 2. Liver is low density. Nonspecific but can be seen with fatty infiltration. 3. Repeat demonstration of high density lesions of the right greater than left kidney. Again these have an indeterminate appearance with both benign causes such as hemorrhagic cyst within the differential as well as higher grade neoplastic causes including renal cell carcinoma. It may be helpful to obtain a follow-up CT or MRI renal protocol to further evaluate. Electronically signed by: Nick Massey MD (09/28/2018 10:29 PM) [facility]
[2018-09-28 22:43] LABS: BILIRUBIN,URINE NEG (NEG); CLARITY,URINE CLEAR; COLOR,URINE YELLOW; GLUCOSE,URINE NEG (NEG); NITRITE,URINE NEG (NEG); RBC,URINE RARE /HPF (0-2); UROBILINOGEN,URINE 0.2 mg/dL (0.2 mg/dL)
[2018-09-28 22:44] LABS: BACTERIA,URINE 0 /HPF (0-FEW); SQUAMOUS EPITHELIAL CELL,UR FEW /LPF; WBC,URINE RARE /HPF (0-4)
[2018-09-28 22:58] LABS: % BANDS 2 % (0-9); % LYMPHS 19 % (24-48); % MONOS 8 % (0-10); % MYELOS 1 % (0-0); % SEGS 64 % (35-66)
[2018-09-28 22:59] LABS: PLT ESTIMATE ADEQUATE (ADEQUATE)
[2018-09-28 23:01] LABS: % ATYL 6 % (0-0)
[2018-09-28 23:53] VITALS: BP 158/101
--- NOTE | 2018-09-29 00:14 | NUR ---
The patient, JARETH MENDOZA, 43 y/o, M admitted by JOURDAN BLANCA MD, was given written information regarding hospital policies, unit procedures and contact persons. Valuables were checked and noted. PT presented to ED with 18 hours of abdominal pain. PT assessed and admitted for pancreatitis. PT safely transferred to bed from ED cart per EMS.
[2018-09-29 06:25] LABS: BASO # 0.1 x10^3/uL (0.0-0.2); BASO % 1 % (0-3); EOS # 0.3 x10^3/uL (0.0-0.7); EOS % 2 % (0-3); HEMATOCRIT 40.8 % (39.0-53.0); LYMPH # 3.8 x10^3/uL (1.0-4.8); LYMPH % 32 % (24-48); MEAN CORPUSCULAR HEMOGLOBIN 32 pg (25-35); MEAN CORPUSCULAR HGB CONC 35 g/dL (31-37); MEAN CORPUSCULAR VOLUME 93 fL (79-100); MONO # 0.6 x10^3/uL (0.0-1.1); MONO % 5 % (0-9); NEUT # 7.1 x10^3uL (1.8-7.7); NEUT % 60 % (31-73); PLATELET COUNT 228 x10^3/uL (140-400); RED BLOOD COUNT 4.39 x10^6/uL (4.30-5.70); RED CELL DISTRIBUTION WIDTH 13.5 % (11.5-14.5); WHITE BLOOD COUNT 11.8 x10^3/uL (4.0-11.0)
[2018-09-29 06:30] LABS: CALCIUM 8.1 mg/dL (8.5-10.1); CREATININE 1.1 mg/dL (0.7-1.3); GFR 72.4; POTASSIUM 3.3 mmol/L (3.5-5.1)
[2018-09-29] MEDS: PANTOPRAZOLE IV 40 MG VIAL. IVP SCH (07:35)
[2018-09-29 10:41] VITALS: BP 128/86
[2018-09-29] MEDS: IV RINGERS SOLUTION,LACTATED 1,000 ML IV SCH (14:22)
[2018-09-29 14:53] VITALS: BP 130/90
[2018-09-29] MEDS: ONDANSETRON PF 4 MG/2 ML VIAL. IV PRN ×2 (15:14→20:07)
[2018-09-29] MEDS: POTASSIUM CL 40MEQ IN 0.9%NACL 1,000 ML IV SCH (15:17)
[2018-09-29 15:21] LABS: BASO # 0.1 x10^3/uL (0.0-0.2); BASO % 1 % (0-3); EOS # 0.2 x10^3/uL (0.0-0.7); EOS % 2 % (0-3); HEMATOCRIT 40.7 % (39.0-53.0); HEMOGLOBIN 13.9 g/dL (13.0-17.5); LYMPH # 4.1 x10^3/uL (1.0-4.8); LYMPH % 36 % (24-48); MEAN CORPUSCULAR HEMOGLOBIN 32 pg (25-35); MEAN CORPUSCULAR HGB CONC 34 g/dL (31-37); MEAN CORPUSCULAR VOLUME 93 fL (79-100); MONO # 0.7 x10^3/uL (0.0-1.1); MONO % 6 % (0-9); NEUT # 6.3 x10^3uL (1.8-7.7); NEUT % 55 % (31-73); PLATELET COUNT 225 x10^3/uL (140-400); RED BLOOD COUNT 4.38 x10^6/uL (4.30-5.70); RED CELL DISTRIBUTION WIDTH 13.7 % (11.5-14.5); WHITE BLOOD COUNT 11.4 x10^3/uL (4.0-11.0)
[2018-09-29 15:32] LABS: ALBUMIN 3.1 g/dL (3.4-5.0); ALBUMIN/GLOBULIN RATIO 0.8 (1.0-1.7); CREATININE 1.2 mg/dL (0.7-1.3); GFR 65.5; POTASSIUM 3.4 mmol/L (3.5-5.1); TOTAL BILIRUBIN 0.5 mg/dL (0.2-1.0); TOTAL PROTEIN 6.9 g/dL (6.4-8.2)
--- NOTE | 2018-09-29 17:11 | HP ---
ADMIT DATE: 09/28/2018 HISTORY OF PRESENT ILLNESS: The patient is a 43-year-old male patient who came to the Emergency Room complaining of severe abdominal pain. His pain started awakened him around 3:30 in the morning on the morning and he came to the Emergency Room around 9:30 on . He did complain of nausea and vomiting. He has had 2 episodes of pancreatitis before, although he seemed to be mixed up with the timing. He was extensively investigated in the Emergency Room and he was found to have leukocytosis and his chemistry showed that his serum lipase was high at 2557. His AST, ALT, alkaline phosphatase were also elevated and was found to have also hypokalemia and was admitted, started on IV fluid, kept n.p.o., antiemetic and pain medication. PAST MEDICAL HISTORY: Significant for at least 2 previous episodes of pancreatitis, the first episode was in 05/2018. At that time, his initial serum lipase was 7630. Imaging studies showed at that time there was no pericholecystic fluid or gallbladder wall thickening. There are diffuse peripancreatic inflammatory changes seen, but no peripancreatic fluid collection. He apparently was admitted to [facility] where he was there for almost 14 days. His other medical problems include Crohn's disease diagnosed about 20 years ago. PAST SURGICAL HISTORY: Significant for I believe cholecystectomy that was done about a month ago and appendectomy. Has left knee hemiarthroplasty. He has also had esophagogastroduodenoscopy and colonoscopy. MEDICATIONS: He is currently on following medications: He is on cyclobenzaprine 10 mg 3 times a day, aspirin 81 mg once a day, naproxen 500 mg twice a day, topiramate 50 mg twice a day, sertraline 100 mg daily, temazepam 50 mg at bedtime, omeprazole 40 mg once a day, and Humira 40 mg/0.8 mL subQ every 2 weeks. ALLERGIES: HE IS ALLERGIC TO CODEINE, CEPHALEXIN, ACETAMINOPHEN, AND MORPHINE. FAMILY HISTORY: He has 1 older brother who is alive and healthy. One sister in a motor vehicle accident and one sister has mental problems. His father at age of 65 because of myocardial infarction. Mother at the age of 72 because of myocardial infarction. SOCIAL HISTORY: He is , has 1 son. He smokes a pack a day, does not drink alcohol or use any drugs. He is on disability. REVIEW OF SYSTEMS: The patient denied any blurring of vision, cataract, glaucoma or macular degeneration. Denied any earache, tinnitus, or sensorineural deafness. Denied any nosebleeds, stuffy nose, or postnasal drip. Denied any sore throat, sore tongue, toothache, hoarseness of voice, or difficulty swallowing. He did complain of nausea and vomiting. He has also diarrhea yesterday, but no constipation. Denied any hematemesis, melena, or hematochezia. Denied any dysuria, frequency, or hematuria. Denied any chest pain, shortness of breath, orthopnea, or paroxysmal nocturnal dyspnea. Denied any cough, phlegm, or hemoptysis. Denied any chills, rigors, or fever. Denied any dizziness, lightheadedness, or vertigo. PHYSICAL EXAMINATION: GENERAL: On arrival to the Emergency Room, the patient was apparently in marked distress, but he was well developed, well nourished with no pallor, jaundice, cyanosis, or thyromegaly. No jugular venous distension. No lower limb edema. VITAL SIGNS: His heart rate was 97, blood pressure was 143/84, temperature was 97.4, respiratory rate 20, and oxygen saturation was 96%. HEAD, EYES, EARS, NOSE AND THROAT: Showed normocephalic, atraumatic. NECK: Supple. HEART: Showed normal first and second heart sounds. No gallop, rub or murmur. CHEST: Shows central trachea, equal bilateral expansion, air entry ____ rhonchi. ABDOMEN: Distended, soft with tenderness mostly in the epigastric and right upper quadrant. There is no guarding or rigidity. No organomegaly. All hernial orifices intact. Bowel sounds normal. NEUROLOGIC: He is awake, alert, responding appropriately. All cranial nerves are intact. EXTREMITIES: He moves extremities without difficulty. He ambulates without assistance or assistive devices. LABORATORY DATA AND IMAGING: His lab work on arrival to the Emergency Room showed his white cell count was 16,300, hemoglobin was 15.7, hematocrit 45, MCV 93, and platelet count 272,000 with normal manual differential. His chemistry showed a serum sodium 138, potassium 3.2, chloride 99, bicarbonate 28, anion gap of 11, BUN 10, creatinine 1.4, estimated GFR was 54 mL per minute, glucose 156, his calcium was 9.1. Total bilirubin was normal; however, AST, ALT, alkaline phosphatase are all elevated. Total protein was 8.4, albumin was 3.8. Serum lipase was 2557. Amylase was slightly elevated. His prothrombin time was 10.4, INR of 1, aPTT was 29. Urinalysis showed the urine was yellow, clear with a pH of 7, specific gravity of 1.015. The urine was negative for protein, glucose, ketones, blood, nitrite and leukocyte esterase. There are rare rbc's, rare wbc's. His toxic screen was positive for opiates, negative for methadone, barbiturates, phencyclidine, amphetamine, methamphetamine, benzodiazepine, cannabinoids, and methyl alcohol. His acute abdomen series showed that no acute pulmonary finding; however, the CT scan of the abdomen and pelvis showed that the patient has an edema seen in the pancreas, which can be seen with pancreatitis. He has liver with low density, nonspecific. This can be seen with fatty infiltration. He has also the high density lesions of the right greater than left kidney. Again, these have an indeterminate appearance with both benign causes such as hemorrhagic cyst within the differential diagnosis, high-grade neoplastic causes including renal cell carcinoma, may be helpful to obtain a followup CT or MRI. Renal protocol for further evaluation. ASSESSMENT AND PLAN: The patient was admitted with acute pancreatitis. This is the third episode. We will continue with IV fluid, pain medication, and n.p.o. and antiemetic and we will follow his labs closely and decide the further management accordingly. JOURDAN BLANCA MD DR: TERESA/jennifer JOB#: [id number] / [id number]
--- NOTE | 2018-09-29 19:34 | EKG ---
[address] [address] Test Date: 2018-09-28 Test Time: 20:45:23 Pat Name: JARETH MENDOZA Department: Room: 121 A Gender: M Gold Buyer: : 1975 Requested By: PRATIK DE LEON Order Number: [id number] Reading MD: Osei Pierre Measurements Intervals [place] Rate: 95 P: 27 FL: 150 QRS: 35 QRSD: 92 T: 10 QT: 396 QTc: 501 Interpretive Statements SINUS RHYTHM NONSPECIFIC ST-T WAVE CHANGES Electronically Signed On 10-04-2018 15:06:30 MOVING CONSULTANT by Osei Pierre
[2018-09-29 19:49] VITALS: BP 121/84
[2018-09-29 22:48] VITALS: BP 110/73
[2018-09-30] MEDS: POTASSIUM CL 40MEQ IN 0.9%NACL 1,000 ML IV SCH ×3 (01:00→21:01)
[2018-09-30 05:40] VITALS: BP 118/84
[2018-09-30] MEDS: ONDANSETRON PF 4 MG/2 ML VIAL. IV PRN ×4 (05:48→21:00)
[2018-09-30] MEDS: PANTOPRAZOLE IV 40 MG VIAL. IVP SCH (09:34)
[2018-09-30 11:19] VITALS: BP 124/86
[2018-09-30 13:19] LABS: ALBUMIN 3.2 g/dL (3.4-5.0); ALBUMIN/GLOBULIN RATIO 0.8 (1.0-1.7); CALCIUM 8.2 mg/dL (8.5-10.1); CREATININE 1.2 mg/dL (0.7-1.3); GFR 65.5; POTASSIUM 4.2 mmol/L (3.5-5.1); TOTAL BILIRUBIN 0.5 mg/dL (0.2-1.0); TOTAL PROTEIN 7.1 g/dL (6.4-8.2)
[2018-09-30 15:04] VITALS: BP 117/76
--- NOTE | 2018-09-30 18:59 | PN ---
DATE: 09/30/2018 SUBJECTIVE: The patient is sitting slightly propped up in bed, in no apparent distress. He is awake, alert. He is rating his pain as down to 5/10. His serum lipase is down to 544. He would like to eat. However, I recommended that we gradually start with clear liquid and then advance slowly as tolerated. OBJECTIVE: GENERAL: I saw him, he looked well, and was clearly in no apparent respiratory distress. No pallor, jaundice, cyanosis, or thyromegaly. No jugular venous distension. No lower limb edema. VITAL SIGNS: His heart rate was 89, blood pressure was 124/86, temperature was 97.6, respiratory rate was 22 and oxygen saturation was 94%. HEAD, EYES, EARS, NOSE AND THROAT: Showed normocephalic, atraumatic. NECK: Supple. HEART: Showed normal first and second heart sounds. No gallop, rub or murmur. CHEST: Clear to auscultation. No crepitation or rhonchi. ABDOMEN: Distended with mild tenderness in the epigastric area. No guarding or rigidity. No organomegaly. All hernial orifices are intact. Bowel sounds normal. NEUROLOGIC: He was awake, alert, responding appropriately. All cranial nerves are intact. He moves all extremities without difficulty, ambulates without assistance or assistive devices. His intake over the last 24 hours was 1617. No output was recorded. LABORATORY DATA: Showed a serum sodium 139, potassium 4.2, chloride 106, bicarbonate 22, anion gap of 11, BUN 10, creatinine 1.2, estimated GFR was 65 mL per minute, glucose 174, calcium was 8.2. Total bilirubin, AST, ALT, alkaline phosphatase were normal. Total protein was 7.1, albumin 3.21. Serum lipase is down to 544. White cell count is down to 11,400, hemoglobin 14, hematocrit 41, MCV 93, and platelet count 225,000. ASSESSMENT: 1. Chronic relapsing pancreatitis is the third episode, improving slowly. His lipase is down from 2500 to 540. Other medical problems include: 2. Crohn's disease. 3. Hypokalemia, resolved. 4. Impaired kidney function; also acute kidney injury, improving. His creatinine is coming down from 1.4-1.2. He has also transaminitis, resolving. PLAN: To start clear liquid diet and advance as tolerated. We will repeat his labs again tomorrow and if his lipase is within normal limit and he is able to tolerate his diet, he can be discharged home. JOURDAN BLANCA MD DR: TERESA/jennifer JOB#: [id number] / [id number]
[2018-09-30 19:52] VITALS: BP 128/89
[2018-09-30] MEDS ORDERED: ASPI-630 PO (20:39)
[2018-09-30] MEDS ORDERED: DULO40CA2 PO (20:39)
[2018-09-30] MEDS ORDERED: BUSP7.5T PO (20:39)
[2018-09-30] MEDS ORDERED: ASCO10002 PO (20:39)
[2018-09-30] MEDS ORDERED: OLAN15TA9 PO (20:39)
[2018-09-30] MEDS ORDERED: CYCL-331 PO (20:43)
[2018-09-30] MEDS ORDERED: CYCLOBENZAPRINE 10 MG TABLET. PO PRN (20:45)
[2018-09-30] MEDS: TOPIRAMATE 25 MG TABLET. PO SCH (21:00)
[2018-09-30] MEDS ORDERED: DULoxetine HCL 60 MG CAPSULE.DR PO SCH (21:30)
[2018-09-30] MEDS ORDERED: TEMAZEPAM 15 MG CAPSULE PO SCH (21:30)
[2018-09-30] MEDS ORDERED: OLANZapine 5 MG TABLET PO SCH (21:30)
[2018-09-30] MEDS: busPIRone 5 MG TABLET. PO SCH (22:18)
[2018-09-30 22:41] VITALS: BP 111/74
[2018-10-01 05:31] VITALS: BP 118/79
[2018-10-01] MEDS: POTASSIUM CL 40MEQ IN 0.9%NACL 1,000 ML IV SCH (07:00)
[2018-10-01 07:03] LABS: CREATININE 1.1 mg/dL (0.7-1.3); GFR 72.4; POTASSIUM 3.6 mmol/L (3.5-5.1)
[2018-10-01] MEDS ORDERED: PANTOPRAZOLE 40 MG TABLET. PO SCH (07:30)
[2018-10-01] MEDS ORDERED: ASPIRIN 81 MG TAB.CHEW PO SCH (08:00)
[2018-10-01] MEDS: busPIRone 5 MG TABLET. PO SCH (08:32)
[2018-10-01] MEDS: TOPIRAMATE 25 MG TABLET. PO SCH (08:33)
[2018-10-01] MEDS ORDERED: ASCORBIC ACID 500 MG TABLET PO SCH (09:00)
[2018-10-01] MEDS ORDERED: HYDR-2155 PO (10:14)
[2018-10-01] MEDS ORDERED: HYDROcodone/APAP 5/325MG 1 TAB TABLET PO PRN (10:15)
--- NOTE | 2018-10-01 10:24 | NUR ---
Patient is D/C home with self care. Patients is accompanying him. Patient's IV is removed. Patient is given follow up and discharge instructions. Patient is also given a prescription for Hydrocodone 5/325 PO prn Q6H as needed for pain. Patient ambulated off unit.
[2018-10-01] MEDS ORDERED: metroNIDAZOLE 500 MG TABLET PO SCH (14:00)
[2018-10-01] MEDS ORDERED: levoFLOXacin 500 MG TABLET PO SCH (21:00)
== END 2018-10-01 10:25 | disposition home or self-care (01) | DRG 682 ==
LOC: ER 19:49 → 1 SOUTH 20:45
PROVIDERS: ADMIT Internal Medicine; ATTEND Internal Medicine
DX: N17.9 Acute kidney failure, unspecified (principal); K85.90 Acute pancreatitis without necrosis or infection, unspecified; K50.90 Crohn's disease, unspecified, without complications; K86.1 Other chronic pancreatitis; K21.9 Gastro-esophageal reflux disease without esophagitis; F17.210 Nicotine dependence, cigarettes, uncomplicated; E87.6 Hypokalemia; F32.9 Major depressive disorder, single episode, unspecified; F41.9 Anxiety disorder, unspecified; G43.909 Migraine, unspecified, not intractable, without status migrainosus; Z82.49 Family history of ischemic heart disease and other diseases of the circulatory system; Z79.899 Other long term (current) drug therapy; Z90.49 Acquired absence of other specified parts of digestive tract
CPT/HCPCS: 36415; 74022; 74177; 80048; 80053; 80076; 80307; 81001; 82150; 83690; 84484; 85007; 85025; 85610; 85730; 93005; 96365; 96367; 96372; 96375; C9113; G0238; J0780; J1200; J1956; J2405; J3010; J3490; J7120; Q9966; Q9967; 99285-25

== ENCOUNTER 2018-11-17 19:44 | Inpatient (IN) | payer BC, MEDICARE ==
[~2018-11-17] VITALS: Ht 167.6 cm; Wt 91.8 kg
[~2018-11-17 19:44] MED LIST changes: +ASCO10002 PO; +BUSP7.5T PO; +DULO40CA2 PO; +HYDR-2155 PO; +OLAN15TA9 PO
[2018-11-17] MEDS ORDERED: IV NORMAL SALINE 1,000ML 1,000 ML IV ONE ×3 (20:00→22:00)
[2018-11-17] MEDS ORDERED: ONDANSETRON PF 4 MG/2 ML VIAL. IV ONE (20:15)
[2018-11-17 20:43] LABS: BASO # 0.1 x10^3/uL (0.0-0.2); BASO % 1 % (0-3); EOS # 0.5 x10^3/uL (0.0-0.7); EOS % 4 % (0-3); HEMATOCRIT 43.9 % (39.0-53.0); LYMPH # 3.9 x10^3/uL (1.0-4.8); LYMPH % 30 % (24-48); MEAN CORPUSCULAR HEMOGLOBIN 32 pg (25-35); MEAN CORPUSCULAR HGB CONC 34 g/dL (31-37); MEAN CORPUSCULAR VOLUME 93 fL (79-100); MONO # 0.8 x10^3/uL (0.0-1.1); MONO % 6 % (0-9); NEUT # 7.5 x10^3uL (1.8-7.7); NEUT % 59 % (31-73); PLATELET COUNT 229 x10^3/uL (140-400); RED BLOOD COUNT 4.74 x10^6/uL (4.30-5.70); RED CELL DISTRIBUTION WIDTH 13.4 % (11.5-14.5); WHITE BLOOD COUNT 12.8 x10^3/uL (4.0-11.0)
[2018-11-17 20:51] LABS: BACTERIA,URINE FEW /HPF (0-FEW); BILIRUBIN,URINE NEG (NEG); CLARITY,URINE CLEAR; COLOR,URINE YELLOW; GLUCOSE,URINE >=1000 mg/dL (NEG); NITRITE,URINE NEG (NEG); UROBILINOGEN,URINE 0.2 mg/dL (0.2 mg/dL)
[2018-11-17 20:52] LABS: SQUAMOUS EPITHELIAL CELL,UR OCC /LPF
[2018-11-17 21:08] LABS: ALBUMIN 3.9 g/dL (3.4-5.0); ALBUMIN/GLOBULIN RATIO 0.8 (1.0-1.7); CALCIUM 9.1 mg/dL (8.5-10.1); CREATININE 1.7 mg/dL (0.7-1.3); GFR 43.8; POTASSIUM 3.1 mmol/L (3.5-5.1); TOTAL BILIRUBIN 0.6 mg/dL (0.2-1.0); TOTAL PROTEIN 8.6 g/dL (6.4-8.2)
[2018-11-17] MEDS ORDERED: INSULIN REGULAR 100 UNIT/ML 3ML VIAL. IV ONE (21:30)
[2018-11-17] MEDS ORDERED: INSULIN GLARGINE 300 UNITS/3 ML INSULN.PEN. SQ ONE (21:58)
[2018-11-17] MEDS ORDERED: HYDROmorphone PF 1 MG/ML DISP.SYRIN IV ONE (22:00)
[2018-11-17] MEDS: INSULIN GLARGINE 300 UNITS/3 ML INSULN.PEN. SQ SCH (22:04)
--- NOTE | 2018-11-17 22:05 | ED.ADGEN ---
Past History Past Medical History: Pancreatitis, Renal Disease, Other Additional Past Medical Histor: Crohn's disease Past Surgical History: Appendectomy, Cholecystectomy, Knee Replacement Smoking: Cigarettes Alcohol Use: None Drug Use: None Adult General Chief Complaint Chief Complaint abd pain HPI HPI 43 years old gentleman presented to the emergency department with epigastric pain radiating to his back for the past 48 hours stated this feels the same similar to my previous pancreatitis episodes associate with nausea no vomiting no diarrhea and urgency no frequency described this pain as sharp constant rated 10 out of 10 Review of Systems Review of Systems Constitutional: Denies fever or chills [] Eyes: Denies change in visual acuity, redness, or eye pain [] HENT: Denies nasal congestion or sore throat [] Respiratory: Denies cough or shortness of breath [] Cardiovascular: No additional information not addressed in HPI [] GI: Denies vomiting, bloody stools or diarrhea [] : Denies dysuria or hematuria [] Musculoskeletal: Denies back pain or joint pain [] Integument: Denies rash or skin lesions [] Neurologic: Denies headache, focal weakness or sensory changes [] Endocrine: Denies polyuria or polydipsia [] All other systems were reviewed and found to be within normal limits, except as documented in this note. Current Medications Current Medications Current Medications Medications (Trade) Dose Ordered Sig/[facility] Start Time Stop Time Status Last Admin Dose Admin Fentanyl Citrate (Fentanyl 2ml Vial) 50 mcg PRN Q1HR PRN 11/17/18 22:00 11/18/18 21:59 Hydromorphone HCl (Dilaudid) 1 mg 1X ONCE 11/17/18 22:00 11/17/18 22:01 DC 11/17/18 21:54 1 MG Insulin Glargine (Lantus) 300 units STK-MED ONCE 11/17/18 21:58 11/17/18 21:59 DC Insulin Human Lispro (HumaLOG) 10 units TIDAC 11/18/18 07:30 UNV Insulin Human Regular (HumuLIN R VIAL) 10 unit 1X ONCE 11/17/18 21:30 11/17/18 21:31 DC 11/17/18 21:35 10 UNIT Morphine Sulfate (Morphine 4mg Syringe) 4 mg PRN Q2HR PRN 11/17/18 22:00 11/18/18 21:59 Ondansetron HCl (Zofran) 4 mg PRN Q4HRS PRN 11/17/18 22:00 11/18/18 21:59 Sodium Chloride 1,000 ml @ 200 mls/hr Q5H 11/17/18 21:49 11/18/18 21:48 Allergies Allergies Allergies Coded Allergies Type Severity Reaction Last Updated Verified acetaminophen Allergy Intermediate 09/29/18 Yes cephalexin Allergy Intermediate Hives 05/20/18 Yes codeine Allergy Intermediate 09/29/18 Yes Physical Exam Physical Exam Constitutional: Well developed, well nourished, no acute distress, non-toxic appearance. [] HENT: Normocephalic, atraumatic, bilateral external ears normal, oropharynx moist, no oral exudates, nose normal. [] Eyes: PERRLA, EOMI, conjunctiva normal, no discharge. [] Neck: Normal range of motion, no tenderness, supple, no stridor. [] Cardiovascular:Heart rate regular rhythm, no murmur [] Lungs & Thorax: Bilateral breath sounds clear to auscultation [] Abdomen: Bowel sounds normal, soft, + tenderness epigastric area, no masses, no pulsatile masses. [] Skin: Warm, dry, no erythema, no rash. [] Back: No tenderness, no CVA tenderness. [] Extremities: No tenderness, no cyanosis, no clubbing, ROM intact, no edema. [] Neurologic: Alert and oriented X 3, normal motor function, normal sensory function, no focal deficits noted. [] Psychologic: Affect normal, judgement normal, mood normal. [] Current Patient Data Vital Signs Vital Signs Date Time Temp Pulse Resp B/P (MAP) Pulse Ox O2 Delivery O2 Flow Rate FiO2 11/17/18 21:54 20 Room Air 11/17/18 19:50 98.6 99 96 Lab Results Laboratory Tests Test 11/17/18 20:15 11/17/18 20:25 White Blood Count 12.8 x10^3/uL (4.0-11.0) H Red Blood Count 4.74 x10^6/uL (4.30-5.70) Hemoglobin 15.0 g/dL (13.0-17.5) Hematocrit 43.9 % (39.0-53.0) Mean Corpuscular Volume 93 fL (79-100) Mean Corpuscular Hemoglobin 32 pg (25-35) Mean Corpuscular Hemoglobin Concent 34 g/dL (31-37) Red Cell Distribution Width 13.4 % (11.5-14.5) Platelet Count 229 x10^3/uL (140-400) Neutrophils (%) (Auto) 59 % (31-73) Lymphocytes (%) (Auto) 30 % (24-48) Monocytes (%) (Auto) 6 % (0-9) Eosinophils (%) (Auto) 4 % (0-3) H Basophils (%) (Auto) 1 % (0-3) Neutrophils # (Auto) 7.5 x10^3uL (1.8-7.7) Lymphocytes # (Auto) 3.9 x10^3/uL (1.0-4.8) Monocytes # (Auto) 0.8 x10^3/uL (0.0-1.1) Eosinophils # (Auto) 0.5 x10^3/uL (0.0-0.7) Basophils # (Auto) 0.1 x10^3/uL (0.0-0.2) Sodium Level 128 mmol/L (136-145) L Potassium Level 3.1 mmol/L (3.5-5.1) L Chloride Level 91 mmol/L (98-107) L Carbon Dioxide Level 26 mmol/L (21-32) Anion Gap 11 (6-14) Blood Urea Nitrogen 17 mg/dL (8-26) Creatinine 1.7 mg/dL (0.7-1.3) H Estimated GFR (Cockcroft-Gault) 43.8 BUN/Creatinine Ratio 10 (6-20) Glucose Level 554 mg/dL (70-99) *H Calcium Level 9.1 mg/dL (8.5-10.1) Total Bilirubin 0.6 mg/dL (0.2-1.0) Aspartate Amino Transferase (AST) 53 U/L (15-37) H Alanine Aminotransferase (ALT) 97 U/L (16-63) H Alkaline Phosphatase 186 U/L (46-116) H Total Protein 8.6 g/dL (6.4-8.2) H Albumin 3.9 g/dL (3.4-5.0) Albumin/Globulin Ratio 0.8 (1.0-1.7) L Lipase 2297 U/L (73-393) H Urine Collection Type Unknown Urine Color Yellow Urine Clarity Clear Urine pH 6.5 Urine Specific [place] 1.010 Urine Protein 100 mg/dl (NEG-TRACE) Urine Glucose (UA) >=1000 mg/dL (NEG) Urine Ketones (Stick) Neg mg/dL (NEG) Urine Blood Small (NEG) Urine Nitrite Neg (NEG) Urine Bilirubin Neg (NEG) Urine Urobilinogen Dipstick 0.2 mg/dL (0.2 mg/dL) Urine Leukocyte Esterase Neg (NEG) Urine RBC 1-2 /HPF (0-2) Urine WBC 1-4 /HPF (0-4) Urine Squamous Epithelial Cells Occ /LPF Urine Bacteria Few /HPF (0-FEW) EKG EKG [] Radiology/Procedures Radiology/Procedures [] Course & Med Decision Making Course & Med Decision Making Pertinent Labs and Imaging studies reviewed. (See chart for details) admitted to medicine service will obtain abdominal ultrasound. For pain management ~on morphine and fluids hyperglycemia he'll be on insulin and fluids [] Final Impression Final Impression [] Problems: (1) Acute pancreatitis Qualifiers: Qualified Codes: K85.90 - Acute pancreatitis without necrosis or infection, unspecified (2) Hyperglycemia Dragon Disclaimer Dragon Disclaimer This electronic medical record was generated, in whole or in part, using a voice recognition dictation system. FRANKLIN NOEL MD Nov 17, 2018 22:05
[2018-11-17 22:55] VITALS: BP 151/93
[2018-11-18] MEDS: MORPHINE SULFATE 4 MG/ML DISP.SYRIN. IV PRN ×8 (00:13→21:01)
[2018-11-18] MEDS: IV NORMAL SALINE 1,000ML 1,000 ML IV SCH ×5 (00:14→23:00)
[2018-11-18 02:55] VITALS: BP 135/78
[2018-11-18 06:15] VITALS: BP 129/81
[2018-11-18] MEDS ORDERED: POTASSIUM CHLORIDE 20 MEQ TABLET.ER. PO ONE (07:15)
[2018-11-18] MEDS: INSULIN LISPRO 300 UNITS/3 ML INSULN.PEN. SQ SCH ×3 (07:50→16:30)
[2018-11-18] MEDS: POTASSIUM CHLORIDE 10MEQ 100 ML IV SCH ×4 (08:10→11:17)
[2018-11-18 10:50] VITALS: BP 141/87
--- NOTE | 2018-11-18 12:50 | RAD ---
Examination: Ultrasound abdomen complete HISTORY: History of abdominal pain, pancreatitis COMPARISON: 09/28/2018. FINDINGS: The pancreas is not well-visualized due to bowel gas. The visualized aorta, IVC within normal limits of dimension. The liver length measures 20 cm. There is increased echogenicity noted throughout the liver likely hepatic steatosis. The gallbladder is not identified likely cholecystectomy changes. The common bile duct measures 6 cm in diameter. The right kidney measures 11.6 cm in length. There is a 2.7 cm cystic structure containing echogenicities identified in the right kidney. The left kidney measures 11.8 cm in length. 07/27/2018 The spleen appears unremarkable. IMPRESSION: 1. Hepatomegaly with hepatic steatosis. 2. 2.7 cm cystic structure identified in the right kidney containing echogenicity could be a complex or proteinaceous cyst or cystic lesion similar to prior exam. Electronically signed by: Azael Husain MD (11/18/2018 12:47 PM) [facility]
[2018-11-18 14:21] VITALS: BP 127/86
[2018-11-18] MEDS: ONDANSETRON PF 4 MG/2 ML VIAL. IV PRN ×2 (16:12→21:01)
[2018-11-18] MEDS ORDERED: SUMAtriptan SUCC 6 MG/0.5 ML VIAL SQ ONE ×2 (16:30→19:45)
[2018-11-18 16:34] LABS: BASO # 0.1 x10^3/uL (0.0-0.2); BASO % 1 % (0-3); EOS # 0.7 x10^3/uL (0.0-0.7); EOS % 5 % (0-3); HEMATOCRIT 40.1 % (39.0-53.0); HEMOGLOBIN 13.8 g/dL (13.0-17.5); LYMPH # 4.6 x10^3/uL (1.0-4.8); LYMPH % 34 % (24-48); MEAN CORPUSCULAR HEMOGLOBIN 31 pg (25-35); MEAN CORPUSCULAR HGB CONC 34 g/dL (31-37); MEAN CORPUSCULAR VOLUME 91 fL (79-100); MONO # 0.7 x10^3/uL (0.0-1.1); MONO % 6 % (0-9); NEUT # 7.4 x10^3uL (1.8-7.7); NEUT % 55 % (31-73); PLATELET COUNT 221 x10^3/uL (140-400); RED CELL DISTRIBUTION WIDTH 13.3 % (11.5-14.5); WHITE BLOOD COUNT 13.5 x10^3/uL (4.0-11.0)
[2018-11-18 16:48] LABS: ALBUMIN 3.3 g/dL (3.4-5.0); ALBUMIN/GLOBULIN RATIO 0.8 (1.0-1.7); CALCIUM 7.8 mg/dL (8.5-10.1); CREATININE 1.4 mg/dL (0.7-1.3); GFR 54.8; TOTAL BILIRUBIN 0.6 mg/dL (0.2-1.0); TOTAL PROTEIN 7.5 g/dL (6.4-8.2)
--- NOTE | 2018-11-18 17:01 | HP ---
ADMIT DATE: 11/17/2018 HISTORY OF PRESENT ILLNESS: The patient is a 43-year-old male patient, who yet again came to the Emergency Room complaining of abdominal pain that started about 3 days ago. The pain was mostly epigastric, radiating to his back for the last 48 hours, started similar to his previous pancreatitis. Episodes associated with nausea, but no vomiting, no diarrhea. No urgency. No chills, rigors or fever. He was evaluated in the Emergency Room and he was found to have marked hyperglycemia with blood sugar of 554, dilutional hyponatremia, hypokalemia and also markedly elevated lipase as well as liver enzymes, was admitted, kept n.p.o., continued on IV fluid as well as insulin. PAST MEDICAL HISTORY: Significant for at least 3 previous episodes of pancreatitis. The first episode was in 05/2018. At that time, his initial serum lipase was 7630. Imaging studies showed at that time there was no pericholecystic fluid or gallbladder wall thickening, diffuse peripancreatic inflammatory changes seen, but no peripancreatic fluid collection. He apparently was admitted to [facility] where he was there for almost 14 days. His other medical problems include Crohn's disease diagnosed about 20 years ago. He has also had obviously type 2 diabetes. PAST SURGICAL HISTORY: Significant for cholecystectomy done 4 months ago, left knee hemiarthroplasty, he has also esophagogastroduodenoscopy and colonoscopy. ALLERGIES: He is allergic to CODEINE, CEPHALEXIN, ACETAMINOPHEN, and MORPHINE. FAMILY HISTORY: He has 1 older brother, who is alive and healthy. One sister in a motor vehicle accident. One sister has mental problems. His father at age of 65 because of myocardial infarction. Mother at the age of 72 because of myocardial infarction. SOCIAL HISTORY: He is , has 1 son. He smokes a pack a day. He does not drink alcohol or use any recreational drugs. He is on disability. REVIEW OF SYSTEMS: As per history of present illness. PHYSICAL EXAMINATION: GENERAL: On arrival to the Emergency Room; he was clearly in pain, tachypneic, but there is no pallor, jaundice, cyanosis, or thyromegaly. No jugular venous distension. No limb edema. VITAL SIGNS: His heart rate was 99, blood pressure was 151/93, temperature was 98.6, respiratory rate was 24, and oxygen saturation was 96% on room air. HEAD, EYES, EARS, NOSE, AND THROAT: Showed normocephalic, atraumatic. NECK: Supple. HEART: Showed normal first and second heart sounds with no gallop, rub or murmur. CHEST: Clear to auscultation. No crepitation or rhonchi. ABDOMEN: Distended, soft, nontender. No guarding or rigidity. No organomegaly. All hernial orifice intact. Bowel sounds normal. NEUROLOGIC: He has tenderness mostly in the epigastric area. He was awake, alert, responding appropriately. All cranial nerves intact. He moves extremities without difficulty. He ambulates without assistance or assistive devices. LABORATORY DATA: While in the Emergency Room, he had lab work done, which showed a white cell count 12,800, hemoglobin 15, hematocrit 43.9, MCV 93, and platelet count of 229,000 with a manual differential showed 59% polymorphs, 30% lymphocytes. His chemistry showed serum sodium of 128, potassium 3.1, chloride 91, bicarbonate 26, anion gap of 11, BUN 17, creatinine 1.7, estimated GFR was 44 mL per minute. His glucose was 554, calcium was 9.1. Total bilirubin is normal. AST, ALT, alkaline phosphatase are elevated. Total protein 8.6, albumin 3.9. His serum lipase was 2297. His abdominal ultrasound showed that the pancreas is not well visualized due to bowel gas. The visualized aorta, IVC are within normal limits for dimension delivered length measures 20 cm. There is increased echogenicity noted throughout the liver, likely hepatic steatosis. The gallbladder is not identified, likely due to cholecystectomy changes. The common bile duct measures 6 and probably millimeter in diameter. The right kidney measures 11.6. There is a 2.7 cm cystic structure containing echogenicity identified in the right kidney. The left kidney was 11.8. The spleen appears unremarkable. PLAN: The patient was admitted to continue with IV fluid, continue with his Lantus and was started on IV fluid, IV pain medication, antiemetic and insulin before meals and bedtime. We will follow all his lab work and decide further management accordingly. JOURDAN BLANCA MD DR: TERESA/jennifer JOB#: [id number] / [id number]
[2018-11-18 19:20] VITALS: BP 138/95
[2018-11-18 23:10] VITALS: BP 132/81
[2018-11-19] MEDS: ONDANSETRON PF 4 MG/2 ML VIAL. IV PRN ×3 (03:57→12:26)
[2018-11-19] MEDS ORDERED: ONDANSETRON PF 4 MG/2 ML VIAL. IV PRN (04:00)
[2018-11-19] MEDS ORDERED: MORPHINE SULFATE 4 MG/ML DISP.SYRIN. IV PRN (04:00)
[2018-11-19 05:35] VITALS: BP 123/85
[2018-11-19] MEDS: INSULIN LISPRO 300 UNITS/3 ML INSULN.PEN. SQ SCH ×3 (07:30→16:30)
[2018-11-19] MEDS: POTASSIUM CL 40MEQ IN 0.9%NACL 1,000 ML IV SCH ×2 (07:59→14:00)
[2018-11-19 10:48] VITALS: BP 122/80
[2018-11-19 13:02] LABS: ALBUMIN 3.6 g/dL (3.4-5.0); ALBUMIN/GLOBULIN RATIO 0.8 (1.0-1.7); CALCIUM 8.4 mg/dL (8.5-10.1); CREATININE 1.4 mg/dL (0.7-1.3); GFR 54.8; POTASSIUM 3.3 mmol/L (3.5-5.1); TOTAL BILIRUBIN 0.7 mg/dL (0.2-1.0); TOTAL PROTEIN 8.2 g/dL (6.4-8.2)
[2018-11-19] MEDS ORDERED: IOHEXOL 350 MG/ML 100 ML VIAL. IV ONE (13:45)
[2018-11-19] MEDS: POTASSIUM CHLORIDE 20 MEQ TABLET.ER. PO SCH ×2 (14:00→21:27)
[2018-11-19] MEDS ORDERED: METOCLOPRAMIDE HCL 10 MG/2 ML VIAL. IV PRN (14:45)
[2018-11-19 15:32] VITALS: BP 121/75
--- NOTE | 2018-11-19 15:38 | RAD ---
CT brain without contrast. HISTORY: Headaches, dizziness CT scan of the brain was done without contrast. There is mucosal thickening in the left maxillary sinus. Remaining sinuses are clear. There is no intracranial hemorrhage or subdural hematoma. Ventricles are normal in size. There is no mass or shift of the midline. An acute CVA is not identified. IMPRESSION: 1. Left maxillary sinusitis. 2. No intracranial hemorrhage or acute finding noted intracranially. RS Compliance Statement: One or more of the following individualized dose reduction techniques were utilized for this examination: 1. Automated exposure control 2. Adjustment of the mA and/or kV according to patient size 3. Use of iterative reconstruction technique Electronically signed by: Derik Moss MD (11/19/2018 3:35 PM) [facility]
--- NOTE | 2018-11-19 15:56 | RAD ---
CT abdomen with contrast. HISTORY: Abdominal pain, history of pancreatitis CT scan the abdomen was done using 65 mL Omnipaque 350 contrast. There is diffuse fatty infiltration of the liver. There is a lesion at the dome of the liver which is unchanged in size compared to study from April 2017 consistent with a benign lesion. Spleen is normal in appearance. Adrenal glands are unremarkable. There is not evidence of acute pancreatic inflammation or an acute pancreatitis. There is no retroperitoneal adenopathy. There is no bowel obstruction or ascites. There are high density renal lesions bilaterally without change from the prior studies. The vena cava is small. The azygos vein is very prominent as a collateral. IMPRESSION: 1. Fatty infiltration the liver without change. 2. Probable benign lesion at the dome of the liver without change. 3. 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 4. Bilateral renal lesions without change. 5. There is not CT evidence of an acute pancreatitis. Electronically signed by: Derik Moss MD (11/19/2018 3:53 PM) [facility]
[2018-11-19] MEDS ORDERED: MULT1TAB52 PO (18:33)
[2018-11-19] MEDS ORDERED: CRESTOR40 MG PO (18:33)
[2018-11-19] MEDS ORDERED: CHOL500016 PO (18:33)
[2018-11-19] MEDS ORDERED: FISH12002 PO (18:33)
[2018-11-19] MEDS ORDERED: [UNRECOGNIZED DRUG - OTHER] (18:36)
[2018-11-19] MEDS ORDERED: KETOROLAC 15 MG/ML VIAL. IV PRN (18:45)
[2018-11-19 19:25] VITALS: BP 125/80
[2018-11-19] MEDS ORDERED: ATORVASTATIN CALCIUM 20 MG TABLET PO SCH (21:00)
[2018-11-19] MEDS ORDERED: DULoxetine HCL 60 MG CAPSULE.DR PO SCH (21:00)
[2018-11-19] MEDS ORDERED: OLANZapine 5 MG TABLET PO SCH (21:00)
[2018-11-19] MEDS: TOPIRAMATE 25 MG TABLET. PO SCH (21:27)
[2018-11-19] MEDS: busPIRone 5 MG TABLET. PO SCH (21:28)
[2018-11-19] MEDS: INSULIN GLARGINE 300 UNITS/3 ML INSULN.PEN. SQ SCH (21:30)
--- NOTE | 2018-11-19 22:41 | PN ---
DATE: 11/19/2018 SUBJECTIVE: The patient is resting, slightly propped up in bed, no apparent distress. He is sleepy, but arousable. On questioning him, he stated that his pain is much improved. His headache also is still there, although much, much better. He has had no further episodes of nausea, vomiting and he is ready to eat. PHYSICAL EXAMINATION: GENERAL: When I examined him, he looked well and was clearly in no apparent respiratory distress. No pallor, jaundice, cyanosis or thyromegaly. No jugular venous distension. No lower limb edema. VITAL SIGNS: Her heart rate was 80, blood pressure was 122/80, temperature was 98.4, respiratory rate was 20 and oxygen saturation was 98%. HEENT: Examination of the head, eyes, ears, nose and throat showed normocephalic, atraumatic. NECK: Supple. HEART: Showed normal first and second heart sounds. No gallop, rub or murmur. CHEST: Clear to auscultation. No crepitation or rhonchi. ABDOMEN: Distended, soft, tenderness mostly in the epigastric area. No guarding or rigidity. No organomegaly. Hernial orifices are intact. Bowel sounds normal. NEUROLOGIC: He was able to arousable. All his cranial nerves are intact. He moves extremities without difficulty. His intake was 2000. No output was recorded. LABORATORY DATA: His lab work this afternoon showed a serum sodium 139, potassium 3.3, chloride 105, bicarbonate 19, anion gap of 15, BUN 12, creatinine 1.4, estimated GFR was 54 mL per minute. His glucose was 219. Calcium was 8.4. Total bilirubin, AST, ALT, alkaline phosphatase were elevated. Total protein was 8.2, albumin was 3.6. Lipase was 391, which is well within normal range. His urinalysis was unremarkable. ASSESSMENT: 1. Chronic pancreatitis, resolving. 2. Migraine headache. 3. Crohn's disease. 4. Type 2 diabetes mellitus. PLAN: I actually ordered already a CT scan of the head and CT scan of the abdomen and pelvis with IV contrast. Once all these done, we will start him on clear liquid diet and advance as tolerated. JOURDAN BLANCA MD DR: TERESA/jennifer JOB#: [id number] / [id number]
[2018-11-19 23:33] VITALS: BP 129/87
[2018-11-20] MEDS: POTASSIUM CL 40MEQ IN 0.9%NACL 1,000 ML IV SCH (00:28)
[2018-11-20 05:12] VITALS: BP 118/73
[2018-11-20 06:37] LABS: HEMATOCRIT 46.1 % (39.0-53.0); HEMOGLOBIN 15.8 g/dL (13.0-17.5); RED BLOOD COUNT 5.04 x10^6/uL (4.30-5.70); RED CELL DISTRIBUTION WIDTH 13.7 % (11.5-14.5); WHITE BLOOD COUNT 16.7 x10^3/uL (4.0-11.0)
[2018-11-20 06:58] LABS: ALBUMIN 3.8 g/dL (3.4-5.0); ALBUMIN/GLOBULIN RATIO 0.8 (1.0-1.7); CALCIUM 9.3 mg/dL (8.5-10.1); CREATININE 1.5 mg/dL (0.7-1.3); GFR 50.6; POTASSIUM 3.2 mmol/L (3.5-5.1); TOTAL BILIRUBIN 0.7 mg/dL (0.2-1.0); TOTAL PROTEIN 8.8 g/dL (6.4-8.2)
[2018-11-20] MEDS ORDERED: PANTOPRAZOLE 40 MG TABLET. PO SCH (07:30)
[2018-11-20] MEDS ORDERED: ASPIRIN 81 MG TAB.CHEW PO SCH (08:00)
[2018-11-20] MEDS ORDERED: POTASSIUM CHLORIDE 20 MEQ TABLET.ER. PO ONE (08:15)
[2018-11-20] MEDS: TOPIRAMATE 25 MG TABLET. PO SCH (08:16)
[2018-11-20] MEDS: POTASSIUM CHLORIDE 20 MEQ TABLET.ER. PO SCH (08:17)
[2018-11-20] MEDS: busPIRone 5 MG TABLET. PO SCH (08:18)
[2018-11-20] MEDS: INSULIN LISPRO 300 UNITS/3 ML INSULN.PEN. SQ SCH ×2 (08:29→12:19)
[2018-11-20] MEDS ORDERED: OMEGA-3 FATTY ACIDS/FISH OIL 1,000 MG CAPSULE. PO SCH (09:00)
[2018-11-20] MEDS ORDERED: MULTIVITAMIN with MINERAL TABLET. PO SCH (09:00)
[2018-11-20] MEDS ORDERED: CHOLECALCIFEROL (VITAMIN D3) 1,000 UNIT TABLET PO SCH (09:00)
[2018-11-20] MEDS ORDERED: ASCORBIC ACID 500 MG TABLET PO SCH (09:00)
[2018-11-20 11:05] VITALS: BP 136/91
[2018-11-20] MEDS ORDERED: AMOX1TAB61 PO (13:09)
[2018-11-20] MEDS ORDERED: GLIM4TAB PO (13:09)
--- NOTE | 2018-11-20 19:54 | DS ---
DATE OF DISCHARGE: 11/20/2018 HOSPITAL COURSE: The patient is a 43-year-old male patient who again came with complaint of severe epigastric pain radiating through and through to the back that started about 48 hours, similar to his previous episodes of pancreatitis. His lipase was found to be 2297. His liver enzymes was also elevated. His blood sugar was high at 554. He did have a dilutional hyponatremia and marked hypokalemia. The patient was kept initially n.p.o., started on IV fluid, IV pain medication, antiemetic. His serum lipase came down gradually and as of this morning it was 314 which is well within normal range. He has no further episode of abdominal pain, no nausea, no vomiting, has been tolerating his diet. He was started on insulin and his blood sugar has been generally well controlled. PHYSICAL EXAMINATION: GENERAL: When I examined him this afternoon, he looked well and was clearly in no apparent respiratory distress. No pallor, jaundice, cyanosis, or thyromegaly. No jugular venous distension. No limb edema. VITAL SIGNS: His heart rate was 111, blood pressure was 136/91, temperature was 98, respiratory rate 20, and oxygen saturation was 96%. HEAD, EYES, EARS, NOSE, AND THROAT: Normocephalic, atraumatic. NECK: Supple. HEART: Showed normal first and second heart sounds. No gallop, rub, or murmur. CHEST: Clear to auscultation. No crepitation or rhonchi. ABDOMEN: Distended, soft, nontender. NEUROLOGIC: He is awake, alert, responding appropriately. All cranial nerves intact. He moves extremities without difficulty. LABORATORY DATA: His lab work this morning showed that his white cell count was 16,700, hemoglobin 15.8, hematocrit 46, MCV 91, and platelet count 277,000. His chemistry showed a serum sodium 141, potassium 3.2, chloride 104, bicarbonate 21, anion gap of 16, BUN 16, creatinine was 1.5, estimated GFR was 50 mL per minute, his glucose 177, calcium was 9.3. Total bilirubin normal. AST, ALT, alkaline phosphatase was elevated. Total protein was 8.8, albumin was 3.8, and lipase was 314. DISCHARGE MEDICATIONS: The patient will be discharged home to continue on following medication: Augmentin 875 mg twice a day for 10 days, Amaryl 4 mg daily, aspirin 81 mg once a day, duloxetine 60 mg daily, omeprazole 40 mg once a day, topiramate 50 mg twice a day, ascorbic acid 1000 mg once a day, buspirone 7.5 mg twice a day, vitamin D 5000 international unit once a day, omega-3 fatty acid 1200 mg at bedtime, multivitamin 1 tablet once a day. I have already spoken before about discontinuing his olanzapine as probably the cause of pancreatitis and his type 2 diabetes. I also advised him to discontinue his rosuvastatin as his liver enzymes are markedly elevated. FINAL DISCHARGE DIAGNOSES: 1. Acute onset of diabetes, likely a combination of pancreatitis and olanzapine that itself can cause pancreatitis. 2. Migraine headache. 3. Crohn's disease. 4. Type 2 diabetes mellitus. JOURDAN BLANCA MD DR: TERESA/jennifer JOB#: [id number] / [id number]
[2018-11-20 23:07] LABS: HEMOGLOBIN A1C 8.3 % (4.8-5.6)
== END 2018-11-20 13:50 | disposition home or self-care (01) | DRG 438 ==
LOC: ER 19:44 → 1 SOUTH 21:53 → UNDOADMIN 21:53 → ER 22:55
PROVIDERS: ADMIT Internal Medicine; ATTEND Internal Medicine
DX: K85.90 Acute pancreatitis without necrosis or infection, unspecified (principal); R65.11 Systemic inflammatory response syndrome (SIRS) of non-infectious origin with acute organ dysfunction; K50.90 Crohn's disease, unspecified, without complications; E87.1 Hypo-osmolality and hyponatremia; K86.1 Other chronic pancreatitis; E11.65 Type 2 diabetes mellitus with hyperglycemia; E87.6 Hypokalemia; Z96.659 Presence of unspecified artificial knee joint; F17.210 Nicotine dependence, cigarettes, uncomplicated; G43.909 Migraine, unspecified, not intractable, without status migrainosus; Z82.49 Family history of ischemic heart disease and other diseases of the circulatory system; Z90.49 Acquired absence of other specified parts of digestive tract; Z88.8 Allergy status to other drugs, medicaments and biological substances
CPT/HCPCS: 36415; 70450; 74160; 76700; 80053; 81001; 82947; 83036; 83690; 85025; 85027; 96361; 96374; 96375; J1170; J1815; J2270; J2405; J2765; J3010; J3030; J3480; Q9967; 99285-25; J7030

== ENCOUNTER → 2018-11-23 | Outpatient (CLI) | payer BC, MEDICARE ==
[2018-11-20 11:05] VITALS: BP 136/91
[~2018-11-23] MED LIST changes: +AMOX1TAB61 PO; +BUPIVACAINE MPF 0.25% 10 ML VIAL. ONE; +CHOL500016 PO; +CRESTOR40 MG PO; +DEXAMETHASONE SOD PHOS 4 MG/ML VIAL ONE; +FISH12002 PO; +GLIM4TAB PO; +IOHEXOL 300 MG/ML 50 ML VIAL. ONE; +LIDOCAINE 1% PF 30 ML VIAL. ONE; +MULT1TAB52 PO; +[UNRECOGNIZED DRUG - OTHER]
[2018-11-23 11:03] LABS: AMPHETAMINE/METHAMPHETAMINE NEG (NEG); BARBITURATES NEG (NEG); BENZODIAZEPINES NEG (NEG); CANNABINOIDS NEG (NEG); COCAINE NEG (NEG); METHADONE NEG (NEG); OPIATES POS (NEG); PHENCYCLIDINE NEG (NEG)
== END | disposition home or self-care (01) ==
LOC: SURG 09:50
PROVIDERS: ATTEND Anesthesiology Pain Medicine
DX: M54.16 Radiculopathy, lumbar region (principal); K21.9 Gastro-esophageal reflux disease without esophagitis; E11.9 Type 2 diabetes mellitus without complications; F32.9 Major depressive disorder, single episode, unspecified; K50.90 Crohn's disease, unspecified, without complications; M19.90 Unspecified osteoarthritis, unspecified site; Z90.49 Acquired absence of other specified parts of digestive tract; Z98.890 Other specified postprocedural states; Z79.82 Long term (current) use of aspirin; Z79.899 Other long term (current) drug therapy; F17.210 Nicotine dependence, cigarettes, uncomplicated; Z79.84 Long term (current) use of oral hypoglycemic drugs
CPT/HCPCS: 36415; 64483; 64484; 80307; J1100; J2001; J3490; Q9967

== ENCOUNTER → 2018-12-29 | Outpatient (CLI) | payer BC, MEDICARE ==
[~2018-12-29] MED LIST changes: +0.9 % SODIUM CHLORIDE 10 ML VIAL ONE; -BUPIVACAINE MPF 0.25% 10 ML VIAL. ONE; -DEXAMETHASONE SOD PHOS 4 MG/ML VIAL ONE; +methylPREDNISolone ACETATE 80 MG/ML VIAL. ONE
== END | disposition home or self-care (01) ==
LOC: SURG 09:40
PROVIDERS: ATTEND Anesthesiology Pain Medicine
DX: M47.26 Other spondylosis with radiculopathy, lumbar region (principal); F32.9 Major depressive disorder, single episode, unspecified; E11.9 Type 2 diabetes mellitus without complications; K21.9 Gastro-esophageal reflux disease without esophagitis; M19.90 Unspecified osteoarthritis, unspecified site; K50.90 Crohn's disease, unspecified, without complications; Z90.49 Acquired absence of other specified parts of digestive tract; Z98.890 Other specified postprocedural states; Z79.82 Long term (current) use of aspirin; Z79.899 Other long term (current) drug therapy; Z88.6 Allergy status to analgesic agent; Z88.5 Allergy status to narcotic agent; Z88.1 Allergy status to other antibiotic agents; F17.210 Nicotine dependence, cigarettes, uncomplicated; Z79.84 Long term (current) use of oral hypoglycemic drugs
CPT/HCPCS: 62323; J1040; J2001; Q9967

== ENCOUNTER 2019-01-15 18:13 | Emergency (ER) | payer BC, MEDICARE ==
[~2019-01-15] VITALS: Ht 167.6 cm; Wt 86.6 kg
[~2019-01-15 18:13] MED LIST changes: -0.9 % SODIUM CHLORIDE 10 ML VIAL ONE; -IOHEXOL 300 MG/ML 50 ML VIAL. ONE; -LIDOCAINE 1% PF 30 ML VIAL. ONE; -methylPREDNISolone ACETATE 80 MG/ML VIAL. ONE
--- NOTE | 2019-01-15 18:16 | ED.ADGEN ---
Past History Past Medical History: Pancreatitis, Renal Disease, Other Additional Past Medical Histor: Crohn's disease Past Surgical History: Appendectomy, Cholecystectomy, Knee Replacement Smoking: Cigarettes Alcohol Use: None Drug Use: None Adult General Chief Complaint Chief Complaint "... I slipped on stairs.. twisted this Lt foot and ankle..." HPI HPI Patient is a 43 year old male who presents with hx fall on stairs with injury to Lt ankle and foot. No other injuries reported. Distal neurovascular intact. Patient has a positive foot squeeze on left and obvious edema of lateral malleolus on left. No upper leg tenderness. Patient does smoke. Hx Crohn's. No history of dizziness or syncope. As a cause for fall. Patient states it is just a misstep. No recent travel. No history immunosuppression. Patient states he is in severe pain from his ankle injury. Review of Systems Review of Systems Constitutional: Denies fever or chills [] Eyes: Denies change in visual acuity, redness, or eye pain [] HENT: Denies nasal congestion or sore throat [] Respiratory: Denies cough or shortness of breath [] Cardiovascular: No additional information not addressed in HPI [] GI: Denies abdominal pain, nausea, vomiting, bloody stools or diarrhea [] : Denies dysuria or hematuria [] Musculoskeletal: Denies back pain or joint pain ,except []complain of left foot and ankle tenderness Integument: Denies rash or skin lesions [] Neurologic: Denies headache, focal weakness or sensory changes [] Endocrine: Denies polyuria or polydipsia [] All other systems were reviewed and found to be within normal limits, except as documented in this note. Family History Family History Noncontributory Current Medications Current Medications Current Medications Medications (Trade) Dose Ordered Sig/Monty Start Time Stop Time Status Last Admin Dose Admin Hydrocodone Bitartrate/ Ibuprofen (Vicoprofen 7.5-200) 2 tab 1X ONCE 01/15/19 18:45 01/15/19 18:46 DC 01/15/19 18:57 1 TAB See nursing for home meds Allergies Allergies Allergies Coded Allergies Type Severity Reaction Last Updated Verified No Known Drug Allergies 01/15/19 No Physical Exam Physical Exam Constitutional: in acute distress, non-toxic appearance. [] HENT: Normocephalic, atraumatic, bilateral external ears normal, oropharynx dry , no oral exudates, nose normal. [] Eyes: PERRLA, EOMI, conjunctiva normal, no discharge. [] Neck: Normal range of motion, no tenderness, supple, no stridor. [] Cardiovascular:Heart rate regular rhythm, no murmur [] Lungs & Thorax: Bilateral breath sounds equal with scattered wheezes on auscultation [] Abdomen: Bowel sounds normal, soft, no tenderness, no masses, no pulsatile masses. [] Skin: Warm, dry, no erythema, no rash. [] Back: No tenderness, no CVA tenderness. [] Extremities: No tenderness, no cyanosis, no clubbing, ROM intact, no edema. [] Except findings in left ankle and foot as per history of present illness Neurologic: Alert and oriented X 3, normal motor function, normal sensory function, no focal deficits noted. [] Psychologic: Affect normal, judgement normal, mood normal. [] Current Patient Data Vital Signs Vital Signs Date Time Temp Pulse Resp B/P (MAP) Pulse Ox O2 Delivery O2 Flow Rate FiO2 01/15/19 19:00 91 16 83/50 (61) 98 Room Air 01/15/19 18:15 98.2 EKG EKG [] Radiology/Procedures Radiology/Procedures My interpretation x-ray shows[] general degenerative joint changes. No obvious displaced fracture and ankle or foot Course & Med Decision Making Course & Med Decision Making Pertinent Labs and Imaging studies reviewed. (See chart for details) This neurovascular intact after application of splint. Ice, elevation,rest, splint and take tylenol and ibuprofen for pain. Crutches. Follow up with primary. Patient quit smoking. Encouraged patient follow-up primary care. For marked pain may take Vicoprofen up 4 times a day. See Downtime paper work for details. [] Final Impression Final Impression 1. Left ankle and foot sprain 2. Tobacco use Dragon Disclaimer Dragon Disclaimer This electronic medical record was generated, in whole or in part, using a voice recognition dictation system. Discharge Summary Visit Information Final Diagnosis Problems Medical Problems: (1) Left ankle sprain Status: Acute (2) Sprain of foot, left Status: Acute Brief Hospital Course Allergies Allergies Coded Allergies Type Severity Reaction Last Updated Verified No Known Drug Allergies 01/15/19 No Vital Signs Vital Signs Date Time Temp Pulse Resp B/P (MAP) Pulse Ox O2 Delivery O2 Flow Rate FiO2 01/15/19 19:00 91 16 83/50 (61) 98 Room Air 01/15/19 18:15 98.2 Brief Hospital Course Mr. Mcguire is a 43 old male who presented with Lt ankle and foot sprain. Discharge Information Condition at Discharge: Improved, Stable Disposition/Orders: D/C to Home Dischare Medications Current Medications Hydrocodone Bitartrate/ Ibuprofen (Vicoprofen 7.5-200) 2 tab 1X ONCE PO ; Start 01/15/19 at 18:30; Stop 01/15/19 at 18:31; Status UNV Hydrocodone Bitartrate/ Ibuprofen (Vicoprofen 7.5-200) 2 tab 1X ONCE PO Last administered on 01/15/19at 18:57; Admin Dose 1 TAB; Start 01/15/19 at 18:45; Stop 01/15/19 at 18:46; Status DC Active Scripts Active Hydrocodone-Ibuprofen 7.5-200 (Hydrocodone/Ibuprofen) 1 Each Tablet 1 Tab PO PRN Q6HRS PRN Amaryl (Glimepiride) 4 Mg Tablet 1 Tab PO DAILY 30 Days Augmentin 875-125 Tablet (Amoxicillin/Potassium Clav) 1 Each Tablet 1 Tab PO BID 10 Days Reported [isometheptene] [place] 3-6-9 1,200 mg Softgel (Fish Oil/Borage/Flax/Om3,6,9#1) 1,200 Mg Capsule 1 ,000 Mg PO QHS LAST DOSE GIVEN: DATE: TODAY TIME: AM NEXT DOSE DUE: DATE: TOMORROW TIME: AM Vitamin D3 (Cholecalciferol (Vitamin D3)) 5,000 Unit Tablet 1 Tab PO DAILY LAST DOSE GIVEN: DATE: TODAY TIME: AM NEXT DOSE DUE: DATE: TOMORROW TIME: AM Multivitamins (Multivitamin) 1 Each Tablet 1 Tab PO DAILY LAST DOSE GIVEN: DATE: TODAY TIME: AM NEXT DOSE DUE: DATE: TOMORROW TIME: AM Duloxetine HCl 40 Mg Capsule.dr 60 Mg PO HS Buspirone Hcl 7.5 Mg Tablet 7.5 Mg PO BID LAST DOSE GIVEN: DATE: TIME: AM NEXT DOSE DUE: DATE: TODAY TIME: PM Vitamin C (Ascorbic Acid) 1,000 Mg Tablet 1,000 Mg PO DAILY LAST DOSE GIVEN: DATE: TODAY TIME: AM NEXT DOSE DUE: DATE: TOMORROW TIME: AM Aspirin 81 Mg Tab.chew 81 Mg PO DAILY LAST DOSE GIVEN: DATE: TIME:MORNING NEXT DOSE DUE: DATE:ORR TIME:MORNING Omeprazole 40 Mg Capsule.dr 1 Cap PO DAILY LAST DOSE GIVEN: DATE: TIME:MORNING NEXT DOSE DUE: DATE: TIME:MORNING Topiramate 50 Mg Tablet 1 Tab PO BID LAST DOSE GIVEN: DATE: TIME:MORNING NEXT DOSE DUE: DATE: TIME:BEDTIME Rei Disclaimer This chart was dictated in whole or in part using Voice Recognition software in a busy, high-work load, and often noisy Emergency Department environment. It may contain unintended and wholly unrecognized errors or omissions. PRATIK DE LEON MD Jan 15, 2019 18:16
[2019-01-15] MEDS ORDERED: HYDR-1179 PO (18:29)
[2019-01-15] MEDS ORDERED: HYDROcodon/IBUPROFEN 7.5/200MG 1 TAB TABLET PO ONE ×2 (18:30→18:45)
[2019-01-15 19:00] VITALS: BP 83/50
--- NOTE | 2019-01-16 08:17 | RAD ---
ANKLE LEFT 3V, FOOT LEFT 3V History: Injury from fall today, left foot and ankle pain Comparison: None. Findings: Left ankle: 3 views of the left ankle are submitted. No acute fracture or dislocation is identified. Left foot: 3 views of the left foot are submitted. There is fusion of the fifth distal interphalangeal joint. No acute fracture is identified by radiographs. Impression: 1. No acute fracture is identified of the left foot or the left ankle. Electronically signed by: Gus Rodriguez MD (01/16/2019 8:14 AM) [id number]
== END 2019-01-15 19:05 | disposition home or self-care (01) ==
LOC: ER 18:13
DX: S93.402A Sprain of unspecified ligament of left ankle, initial encounter (principal); S93.602A Unspecified sprain of left foot, initial encounter; K50.90 Crohn's disease, unspecified, without complications; F17.210 Nicotine dependence, cigarettes, uncomplicated; W01.0XXA Fall on same level from slipping, tripping and stumbling without subsequent striking against object, initial encounter; Y93.89 Activity, other specified; Y92.89 Other specified places as the place of occurrence of the external cause; Y99.8 Other external cause status
CPT/HCPCS: 29515; 73610; 73630; 99284-25

== ENCOUNTER → 2019-02-02 | Outpatient (CLI) | payer BC, MEDICARE ==
[2019-01-15 19:00] VITALS: BP 83/50
== END | disposition home or self-care (01) ==
LOC: SURG 10:31
PROVIDERS: ATTEND Anesthesiology Pain Medicine
DX: M51.16 Intervertebral disc disorders with radiculopathy, lumbar region (principal); M79.606 Pain in leg, unspecified; G89.4 Chronic pain syndrome; K21.9 Gastro-esophageal reflux disease without esophagitis; M19.90 Unspecified osteoarthritis, unspecified site; Z90.49 Acquired absence of other specified parts of digestive tract; Z79.899 Other long term (current) drug therapy
CPT/HCPCS: 99214

== ENCOUNTER 2019-03-04 17:48 | Emergency (ER) | payer BC, MEDICARE ==
[~2019-03-04] VITALS: Ht 167.6 cm; Wt 95.3 kg
[2019-03-04] MEDS ORDERED: IV NORMAL SALINE 1,000ML 1,000 ML IV SCH (17:53)
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
[2019-03-04] MEDS ORDERED: ceFAZolin SODIUM 1 GM VIAL ONE (18:10)
[2019-03-04] MEDS ORDERED: IV NORMAL SALINE 50ML 50 ML ONE (18:10)
[2019-03-04] MEDS ORDERED: ONDANSETRON PF 4 MG/2 ML VIAL. IV ONE (18:15)
[2019-03-04] MEDS ORDERED: HYDROmorphone PF 1 MG/ML DISP.SYRIN IV ONE (18:15)
[2019-03-04 18:21] VITALS: BP 83/50
[2019-03-04 18:22] LABS: BASO # 0.1 x10^3/uL (0.0-0.2); BASO % 1 % (0-3); EOS # 0.7 x10^3/uL (0.0-0.7); EOS % 4 % (0-3); HEMATOCRIT 34.1 % (39.0-53.0); HEMOGLOBIN 11.5 g/dL (13.0-17.5); LYMPH % 50 % (24-48); MEAN CORPUSCULAR HEMOGLOBIN 31 pg (25-35); MEAN CORPUSCULAR HGB CONC 34 g/dL (31-37); MEAN CORPUSCULAR VOLUME 92 fL (79-100); MONO # 0.9 x10^3/uL (0.0-1.1); MONO % 5 % (0-9); NEUT # 7.2 x10^3uL (1.8-7.7); NEUT % 40 % (31-73); PLATELET COUNT 294 x10^3/uL (140-400); RED CELL DISTRIBUTION WIDTH 14.1 % (11.5-14.5); WHITE BLOOD COUNT 17.9 x10^3/uL (4.0-11.0)
[2019-03-04 18:41] LABS: ALBUMIN 3.7 g/dL (3.4-5.0); ALBUMIN/GLOBULIN RATIO 0.9 (1.0-1.7); CALCIUM 9.3 mg/dL (8.5-10.1); CREATININE 1.7 mg/dL (0.7-1.3); GFR 43.8; POTASSIUM 3.2 mmol/L (3.5-5.1); TOTAL BILIRUBIN 0.4 mg/dL (0.2-1.0); TOTAL PROTEIN 7.6 g/dL (6.4-8.2)
[2019-03-04 19:25] LABS: % EOS 1 % (0-5); % LYMPHS 50 % (24-48); % MONOS 3 % (0-10); % SEGS 46 % (35-66); ANISOCYTOSIS SLIGHT; PLT ESTIMATE ADEQUATE (ADEQUATE)
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
== END 2019-03-04 18:50 | disposition short-term general hospital (02) ==
LOC: EEVIPCON 17:48 → ER 17:48
DX: S21.102A Unspecified open wound of left front wall of thorax without penetration into thoracic cavity, initial encounter (principal); S42.032A Displaced fracture of lateral end of left clavicle, initial encounter for closed fracture; E11.9 Type 2 diabetes mellitus without complications; K50.90 Crohn's disease, unspecified, without complications; F17.210 Nicotine dependence, cigarettes, uncomplicated; X95.8XXA Assault by other firearm discharge, initial encounter; Y93.I9 Activity, other involving external motion; Y92.89 Other specified places as the place of occurrence of the external cause; Y99.8 Other external cause status
CPT/HCPCS: 36415; 71045; 73030; 80053; 85007; 85025; 85610; 85730; 86850; 86900; 86901; 96365; 96375; 99285; G0480; J0690; J1170; J2405; J7030

== ENCOUNTER → 2019-04-12 | Outpatient (CLI) | payer BC, MEDICARE ==
[~2019-04-12] MED LIST changes: +OMEP20CA10 PO; -OMEP20CA9 PO
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
== END | disposition home or self-care (01) ==
LOC: DXRAD 14:53
PROVIDERS: ATTEND Orthopaedic Surgery Sports Medicine
DX: S42.032D Displaced fracture of lateral end of left clavicle, subsequent encounter for fracture with routine healing (principal); X58.XXXD Exposure to other specified factors, subsequent encounter
CPT/HCPCS: 73000

== ENCOUNTER 2019-06-18 13:28 | Emergency (ER) | payer BC, MEDICARE ==
[~2019-06-18] VITALS: Ht 167.6 cm; Wt 92.5 kg
[2019-06-18] MEDS ORDERED: ONDANSETRON PF 4 MG/2 ML VIAL. IV ONE (14:00)
[2019-06-18] MEDS ORDERED: MORPHINE SULFATE 4 MG/ML DISP.SYRIN. IV ONE (14:00)
[2019-06-18 14:38] LABS: BASO # 0.1 x10^3/uL (0.0-0.2); BASO % 1 % (0-3); EOS # 0.3 x10^3/uL (0.0-0.7); EOS % 2 % (0-3); HEMATOCRIT 42.5 % (39.0-53.0); HEMOGLOBIN 14.3 g/dL (13.0-17.5); LYMPH # 5.7 x10^3/uL (1.0-4.8); LYMPH % 32 % (24-48); MEAN CORPUSCULAR HEMOGLOBIN 30 pg (25-35); MEAN CORPUSCULAR HGB CONC 34 g/dL (31-37); MEAN CORPUSCULAR VOLUME 89 fL (79-100); MONO # 1.1 x10^3/uL (0.0-1.1); MONO % 6 % (0-9); NEUT # 10.8 x10^3uL (1.8-7.7); NEUT % 60 % (31-73); PLATELET COUNT 227 x10^3/uL (140-400); RED BLOOD COUNT 4.76 x10^6/uL (4.30-5.70); RED CELL DISTRIBUTION WIDTH 13.9 % (11.5-14.5)
[2019-06-18 14:46] LABS: CALCIUM 9.4 mg/dL (8.5-10.1); CREATININE 1.6 mg/dL (0.7-1.3); GFR 46.8; TOTAL BILIRUBIN 0.5 mg/dL (0.2-1.0); TOTAL PROTEIN 8.2 g/dL (6.4-8.2)
[2019-06-18 14:50] LABS: POTASSIUM 2.9 mmol/L (3.5-5.1)
[2019-06-18] MEDS ORDERED: IV NORMAL SALINE 1,000ML 1,000 ML IV ONE (15:00)
[2019-06-18] MEDS ORDERED: HYDR-3165 PO (15:03)
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
[2019-06-18 15:07] VITALS: BP 115/71
--- NOTE | 2019-06-18 15:12 | RAD ---
Study: SHOULDER 2+V LEFT Indication: Trauma. Comparison: Correlation is made to the left clavicle radiographs from 04/12/2019 Findings: Fracture of the mid aspect of the clavicle plate and screw ORIF construct. The intervening portion of the clavicle is fractured with presumed acute on chronic fracture components as well as a comminuted fracture was seen in this region on the comparison. More pronounced lucency between the two ends of the fracture. There is slight cephalad displacement of the proximal clavicle relative to the distal clavicle. On the AP internal and external rotation views, alignment across the AC joint appears maintained. Redemonstration of numerous punctate metallic fragments along the mid to distal aspect of the clavicle. Glenohumeral joint alignment is maintained. Medial humeral head osteophyte formation. Impression: 1. There has been interval fracture of the mid aspect of the distal clavicle plate and screw construct. Given reported trauma to this region, this is suspected to be an acute hardware fracture. The intervening clavicle is fractured as well which was present on the comparison but there presumably is acute on chronic bony injury given mild cephalad displacement of the proximal clavicle relative to the distal clavicle as well as more pronounced lucency between the two ends of the fracture site. No overt malalignment at the AC joint. No malalignment at the glenohumeral joint. 2. Medial humeral head osteophyte formation. 3. Punctate metallic debris about the left clavicle is redemonstrated. Electronically signed by: JHON CARTER MD (06/18/2019 3:09 PM) [facility]
[2019-06-18] MEDS ORDERED: HYDROcodone/APAP 5/325MG 1 TAB TABLET PO ONE (15:15)
[2019-06-18] MEDS ORDERED: POTASSIUM CHLORIDE 20 MEQ TABLET.ER. PO ONE (15:15)
[2019-06-18 15:34] LABS: % BANDS 1 % (0-9); % EOS 1 % (0-5); % LYMPHS 32 % (24-48); % MONOS 8 % (0-10); % SEGS 58 % (35-66)
[2019-06-18 15:35] LABS: PLT ESTIMATE ADEQUATE (ADEQUATE); TOXIC GRANULATION SLIGHT
== END 2019-06-18 15:30 | disposition home or self-care (01) ==
LOC: ER 13:28
DX: S42.032A Displaced fracture of lateral end of left clavicle, initial encounter for closed fracture (principal); E11.9 Type 2 diabetes mellitus without complications; K50.90 Crohn's disease, unspecified, without complications; Z90.49 Acquired absence of other specified parts of digestive tract; Z90.89 Acquired absence of other organs; Z98.890 Other specified postprocedural states; F17.200 Nicotine dependence, unspecified, uncomplicated; W20.8XXA Other cause of strike by thrown, projected or falling object, initial encounter; Y93.89 Activity, other specified; Y92.89 Other specified places as the place of occurrence of the external cause; Y99.0 Civilian activity done for income or pay
CPT/HCPCS: 36415; 73030; 80053; 85007; 85025; 96374; 96375; 99285; J2270; J2405; J7030

== ENCOUNTER → 2019-09-05 | Outpatient (CLI) | payer BC, MEDICARE ==
[~2019-09-05] MED LIST changes: +0.9 % SODIUM CHLORIDE 10 ML VIAL ONE; +ALPR2TAB5 PO; +BIFI4CAP PO; +CAFF200T13 PO; +HYDR-3165 PO; +IOHEXOL 300 MG/ML 50 ML VIAL. ONE; +LIDOCAINE 1% PF 30 ML VIAL. ONE; +METH-38 PO; +MULT-245 PO; +OLAN5TAB9 PO; +OMEP-229 PO; -OMEP20CA10 PO; +OMEP40CA45 PO; -OMEP40CA5 PO; +SUCR1TAB35 PO; +methylPREDNISolone ACETATE 80 MG/ML VIAL. ONE
[2019-09-05 09:12] VITALS: BP 144/94
== END ==
LOC: SURG 08:55
PROVIDERS: ATTEND Anesthesiology Pain Medicine
DX: M54.16 Radiculopathy, lumbar region (principal); Z72.0 Tobacco use
CPT/HCPCS: 62323; J1040; J2001; Q9967

== ENCOUNTER 2019-10-25 17:49 | Inpatient (IN) | payer BC, MEDICARE ==
[~2019-10-25] VITALS: Ht 167.6 cm; Wt 97.3 kg
[~2019-10-25 17:49] MED LIST changes: -0.9 % SODIUM CHLORIDE 10 ML VIAL ONE; -IOHEXOL 300 MG/ML 50 ML VIAL. ONE; -LIDOCAINE 1% PF 30 ML VIAL. ONE; -OMEP-229 PO; +OMEP20CA16 PO; -methylPREDNISolone ACETATE 80 MG/ML VIAL. ONE
[2019-10-25] MEDS ORDERED: IV NORMAL SALINE 1,000ML 1,000 ML IV SCH (18:15)
--- NOTE | 2019-10-25 18:21 | PHYS DOC ---
Past History Past Medical History: Depression, Diabetes, Pancreatitis, Renal Disease, Other Additional Past Medical Histor: Crohn's disease Past Surgical History: Appendectomy, Cholecystectomy, Knee Replacement, Other Additional Past Surgical Histo: LEFT SHOULDER, RIGHT HAND Smoking: Cigarettes Alcohol Use: None Drug Use: None Adult General Chief Complaint Chief Complaint: ABDOMINAL PAIN HPI HPI Patient is a 44 year old male who presents with complaint of upper abdominal pain. Patient states his symptoms started flaring up earlier today. Notes that he has history of recurrent pancreatitis states his symptoms feel similar to previous episodes. Notes he was last admitted to hospital for treatment in January 2019. States that he is having sharp pain mostly along the upper portion of his abdomen. Has had loose stools but denies any vomiting or fever. Has not taking medications for his symptoms. States that he does not use alcohol. Has had of an appendectomy and cholecystectomy in the past. States that he has been evaluated for causes of his pancreatitis states that his doctors have told him that they're not sure why he is having these recurrent episodes.. Review of Systems Review of Systems Constitutional: Denies fever or chills [] Eyes: Denies change in visual acuity, redness, or eye pain [] HENT: Denies nasal congestion or sore throat [] Respiratory: Denies cough or shortness of breath [] Cardiovascular: Denies chest pain or edema[] GI: Abdominal pain, diarrhea, denies nausea, vomiting, or bloody stools[] : Denies dysuria or hematuria [] Musculoskeletal: Denies back pain or joint pain [] Integument: Denies rash or skin lesions [] Neurologic: Denies headache, focal weakness or sensory changes [] All other systems were reviewed and found to be within normal limits, except as documented in this note. Current Medications Current Medications Current Medications Medications (Trade) Dose Ordered Sig/Monty Start Time Stop Time Status Last Admin Dose Admin Famotidine (Pepcid Vial) 20 mg 1X ONCE 10/25/19 18:15 10/25/19 18:16 UNV Morphine Sulfate (Morphine 4mg Syringe) 4 mg PRN Q15MIN PRN 10/25/19 18:15 10/26/19 18:14 UNV Ondansetron HCl (Zofran) 4 mg 1X ONCE 10/25/19 18:15 10/25/19 18:16 UNV Sodium Chloride 1,000 ml @ 1,000 mls/hr Q1H 10/25/19 18:15 10/25/19 19:14 UNV Allergies Allergies Allergies Coded Allergies Type Severity Reaction Last Updated Verified codeine Adverse Reaction Intermediate Migraine Headaches 09/05/19 Yes cephalexin Adverse Reaction Mild Rash 09/05/19 Yes Physical Exam Physical Exam Constitutional: Alert, afebrile, appears in moderate discomfort. [] HENT: Normocephalic, atraumatic, bilateral external ears normal, oropharynx moist, no oral exudates, nose normal. [] Eyes: PERRLA, EOMI, conjunctiva normal, no discharge. [] Neck: Normal range of motion, no tenderness, supple, no stridor. [] Cardiovascular:Heart rate regular rhythm, no murmur [] Lungs & Thorax: Bilateral breath sounds clear to auscultation [] Abdomen: Bowel sounds normal, soft, epigastric and left upper quadrant tenderness to palpation with guarding, no rebound tenderness, no masses, no pulsatile masses. [] Skin: Warm, dry, no erythema, no rash. [] Back: No tenderness, no CVA tenderness. [] Extremities: No tenderness, no cyanosis, no clubbing, ROM intact, no edema. [] Neurologic: Alert and oriented X 3, normal motor function, normal sensory function, no focal deficits noted. [] Current Patient Data Vital Signs Vital Signs Date Time Temp Pulse Resp B/P (MAP) Pulse Ox O2 Delivery O2 Flow Rate FiO2 10/25/19 18:10 98.3 107 18 123/67 (85) 98 Room Air Lab Results Laboratory Tests Test 10/25/19 18:06 10/25/19 18:53 10/25/19 19:38 White Blood Count 17.6 x10^3/uL Red Blood Count 4.57 x10^6/uL Hemoglobin 13.9 g/dL Hematocrit 42.0 % Mean Corpuscular Volume 92 fL Mean Corpuscular Hemoglobin 30 pg Mean Corpuscular Hemoglobin Concent 33 g/dL Red Cell Distribution Width 13.6 % Platelet Count 250 x10^3/uL Neutrophils (%) (Auto) 47 % Lymphocytes (%) (Auto) 45 % Monocytes (%) (Auto) 6 % Eosinophils (%) (Auto) 2 % Basophils (%) (Auto) 1 % Neutrophils # (Auto) 8.2 x10^3uL Lymphocytes # (Auto) 7.9 x10^3/uL Monocytes # (Auto) 1.0 x10^3/uL Eosinophils # (Auto) 0.3 x10^3/uL Basophils # (Auto) 0.1 x10^3/uL Segmented Neutrophils % 50 % Lymphocytes % 41 % Atypical Lymphocytes % (Manual) 3 % Monocytes % 5 % Eosinophils % 1 % Platelet Estimate Adequate Tear Drop Cells Occ Stomatocytes Occ Urine Collection Type Unknown Urine Color Yellow Urine Clarity Clear Urine pH 5.5 Urine Specific [place] 1.015 Urine Protein Neg Urine Glucose (UA) Neg mg/dL Urine Ketones (Stick) Neg mg/dL Urine Blood Neg Urine Nitrite Neg Urine Bilirubin Neg Urine Urobilinogen Dipstick 0.2 mg/dL Urine Leukocyte Esterase Neg Urine RBC 0 /HPF Urine WBC 1-4 /HPF Urine Squamous Epithelial Cells Occ /LPF Urine Bacteria 0 /HPF Sodium Level 138 mmol/L Potassium Level 3.9 mmol/L Chloride Level 105 mmol/L Carbon Dioxide Level 17 mmol/L Anion Gap 16 Blood Urea Nitrogen 59 mg/dL Creatinine 3.0 mg/dL Estimated GFR (Cockcroft-Gault) 22.6 BUN/Creatinine Ratio 20 Glucose Level 100 mg/dL Calcium Level 8.6 mg/dL Total Bilirubin 0.4 mg/dL Aspartate Amino Transf (AST/SGOT) 23 U/L Alanine Aminotransferase (ALT/SGPT) 45 U/L Alkaline Phosphatase 187 U/L Total Protein 7.6 g/dL Albumin 3.8 g/dL Albumin/Globulin Ratio 1.0 Lipase 1584 U/L Current Medications Medications (Trade) Dose Ordered Sig/Monty Route PRN Reason Start Time Stop Time Status Last Admin Dose Admin Morphine Sulfate (Morphine 4mg Syringe) 4 mg PRN Q15MIN PRN IV/SQ PAIN GREATER THAN 3/10 10/25/19 18:15 10/26/19 18:14 10/25/19 20:45 Sodium Chloride 1,000 ml @ 1,000 mls/hr Q1H IV 10/25/19 18:15 10/25/19 19:14 DC 10/25/19 18:15 Ondansetron HCl (Zofran) 4 mg 1X ONCE IVP 10/25/19 18:30 10/25/19 18:31 DC 10/25/19 18:30 Famotidine (Pepcid Vial) 20 mg 1X ONCE IVP 10/25/19 18:30 10/25/19 18:31 DC 10/25/19 18:30 EKG EKG Not performed[] Radiology/Procedures Radiology/Procedures [address] [address] IMAGING REPORT Signed PATIENT: JARETH MENDOZA PACCOUNT: [id number] : 1975 LOCATION: [address] [place] [address] AGE: 44 SEX: M EXAM STATUS: ADM IN ORD. PHYSICIAN: BERHANE COELHO MD REASON: PANCREATITIS,LEUKOCYTOSIS.HX APPENDECTOMY,CHOLECYSTECTOMY PROCEDURE: CT ABDOMEN PELVIS WO CONTRAST Exam: CT of abdomen and pelvis without contrast INDICATION: Pancreatitis TECHNIQUE: Sequential axial images through the abdomen and pelvis obtained without IV contrast. Sagittal and coronal reformatted images were reconstructed from the axial data and reviewed. Comparisons: 11/19/2018 FINDINGS: Heart size is normal. No pericardial effusion. Visualized lung bases are clear. No pleural effusion. Liver, spleen and adrenals are unremarkable. There is inflammatory changes surrounding the pancreatic head. No peripancreatic fluid collection or ductal dilatation identified. No perinephric inflammation or hydronephrosis. No renal or ureteral calculi. There are numerous hyperdense cystic lesions noted within the kidneys bilaterally which appears similar when compared to the prior exam. Bladder is partially distended and appears unremarkable. Prostate is not enlarged. Large and small bowel are unremarkable. Appendix normal. No free intra-abdominal air or fluid. Abdominal aorta has normal course and caliber. No enlarged abdominal lymph nodes are identified. No suspicious osseous lesions or acute fractures. IMPRESSION: 1. Findings of acute interstitial pancreatitis. No peripancreatic fluid collection identified. 2. Redemonstration of numerous hyperdense cyst within the kidneys. These are incompletely characterized on noncontrast exam. Exposure: One or more of the following in the visualized dose reduction techniques were utilized for this examination: 1. Automated exposure control 2. Adjustment of the MA and/or KV according to patient size 3. Use of iterative of reconstructive technique Electronically signed by: Kyung Slaughter MD (10/25/2019 9:33 PM) [facility] DICTATED AND SIGNED BY: KYUNG SLAUGHTER MD DATE: 10/25/192132 CC: BERHANE COELHO MD; GISELLA SHERMAN MD; NASEEM RAMIREZ ~ [] Course & Med Decision Making Course & Med Decision Making Pertinent Labs and Imaging studies reviewed. (See chart for details) Patient started on IV fluids, morphine, and Zofran. Despite treatment, the patient states that his pain is still severe. Patient noted to have elevated lipase levels on blood work consistent with acute pancreatitis. Patient also noted to have significantly elevated BUN and creatinine levels suggesting acute renal insufficiency. At this time patient is appropriate for admission to the hospital for continued treatment with IV fluids and pain management. I spoke with Dr. Sherman who will except care patient in hospital for continued care.[] Dragon Disclaimer Dragon Disclaimer This electronic medical record was generated, in whole or in part, using a voice recognition dictation system. Departure Departure: Impression: Primary Impression: Acute pancreatitis Additional Impression: Acute renal insufficiency Disposition: ADMITTED INPATIENT Admitting Physician: Gisella Sherman Condition: STABLE Referrals: NASEEM RAMIREZ (PCP) Problem Qualifiers Primary Impression: Acute pancreatitis Pancreatitis type: unspecified pancreatitis type Acute pancreatitis complication: unspecified Qualified Codes: K85.90 - Acute pancreatitis without necrosis or infection, unspecified BERHANE COELHO MD Oct 25, 2019 18:21
[2019-10-25] MEDS ORDERED: ONDANSETRON PF 4 MG/2 ML VIAL. IVP ONE (18:30)
[2019-10-25] MEDS ORDERED: FAMOTIDINE 20 MG/2 ML VIAL IVP ONE (18:30)
[2019-10-25 18:45] LABS: BASO # 0.1 x10^3/uL (0.0-0.2); BASO % 1 % (0-3); EOS # 0.3 x10^3/uL (0.0-0.7); EOS % 2 % (0-3); HEMOGLOBIN 13.9 g/dL (13.0-17.5); LYMPH # 7.9 x10^3/uL (1.0-4.8); LYMPH % 45 % (24-48); MEAN CORPUSCULAR HEMOGLOBIN 30 pg (25-35); MEAN CORPUSCULAR HGB CONC 33 g/dL (31-37); MEAN CORPUSCULAR VOLUME 92 fL (79-100); MONO % 6 % (0-9); NEUT # 8.2 x10^3uL (1.8-7.7); NEUT % 47 % (31-73); PLATELET COUNT 250 x10^3/uL (140-400); RED BLOOD COUNT 4.57 x10^6/uL (4.30-5.70); RED CELL DISTRIBUTION WIDTH 13.6 % (11.5-14.5); WHITE BLOOD COUNT 17.6 x10^3/uL (4.0-11.0)
[2019-10-25] MEDS: MORPHINE SULFATE 4 MG/ML DISP.SYRIN. IV/SQ PRN ×2 (18:45→20:45)
[2019-10-25 19:51] LABS: BACTERIA,URINE 0 /HPF (0-FEW); BILIRUBIN,URINE NEG (NEG); CLARITY,URINE CLEAR; COLOR,URINE YELLOW; GLUCOSE,URINE NEG (NEG); NITRITE,URINE NEG (NEG); RBC,URINE 0 /HPF (0-2); SQUAMOUS EPITHELIAL CELL,UR OCC /LPF; UROBILINOGEN,URINE 0.2 mg/dL (0.2 mg/dL)
[2019-10-25 20:19] LABS: CALCIUM 8.6 mg/dL (8.5-10.1); GFR 22.6; POTASSIUM 3.9 mmol/L (3.5-5.1)
[2019-10-25 20:23] LABS: ALBUMIN 3.8 g/dL (3.4-5.0); TOTAL BILIRUBIN 0.4 mg/dL (0.2-1.0); TOTAL PROTEIN 7.6 g/dL (6.4-8.2)
[2019-10-25 21:16] LABS: % ATYL 3 % (0-0); % EOS 1 % (0-5); % LYMPHS 41 % (24-48); % MONOS 5 % (0-10); % SEGS 50 % (35-66)
[2019-10-25 21:17] LABS: TEAR DROP CELLS OCC
[2019-10-25 21:18] LABS: PLT ESTIMATE ADEQUATE (ADEQUATE); STOMATOCYTES OCC
--- NOTE | 2019-10-25 21:36 | RAD ---
Exam: CT of abdomen and pelvis without contrast INDICATION: Pancreatitis TECHNIQUE: Sequential axial images through the abdomen and pelvis obtained without IV contrast. Sagittal and coronal reformatted images were reconstructed from the axial data and reviewed. Comparisons: 11/19/2018 FINDINGS: Heart size is normal. No pericardial effusion. Visualized lung bases are clear. No pleural effusion. Liver, spleen and adrenals are unremarkable. There is inflammatory changes surrounding the pancreatic head. No peripancreatic fluid collection or ductal dilatation identified. No perinephric inflammation or hydronephrosis. No renal or ureteral calculi. There are numerous hyperdense cystic lesions noted within the kidneys bilaterally which appears similar when compared to the prior exam. Bladder is partially distended and appears unremarkable. Prostate is not enlarged. Large and small bowel are unremarkable. Appendix normal. No free intra-abdominal air or fluid. Abdominal aorta has normal course and caliber. No enlarged abdominal lymph nodes are identified. No suspicious osseous lesions or acute fractures. IMPRESSION: 1. Findings of acute interstitial pancreatitis. No peripancreatic fluid collection identified. 2. Redemonstration of numerous hyperdense cyst within the kidneys. These are incompletely characterized on noncontrast exam. Exposure: One or more of the following in the visualized dose reduction techniques were utilized for this examination: 1. Automated exposure control 2. Adjustment of the MA and/or KV according to patient size 3. Use of iterative of reconstructive technique Electronically signed by: Kyung Brar MD (10/25/2019 9:33 PM) [facility]
[2019-10-25] MEDS: HYDROmorphone PF 1 MG/ML DISP.SYRIN IV PRN (21:57)
[2019-10-25] MEDS ORDERED: ONDANSETRON PF 4 MG/2 ML VIAL. IV PRN (22:00)
[2019-10-25 22:30] VITALS: BP 107/72
[2019-10-25] MEDS: IV NORMAL SALINE 1,000ML 1,000 ML IV SCH (22:51)
[2019-10-25] MEDS ORDERED: PREG75CA PO (23:20)
[2019-10-25] MEDS ORDERED: LIPA1CAP8 PO (23:20)
[2019-10-25] MEDS ORDERED: PIOG30TA41 PO (23:20)
[2019-10-25] MEDS ORDERED: OLAN10TA9 PO (23:20)
[2019-10-25] MEDS ORDERED: HYDR-2769 PO (23:20)
[2019-10-26] MEDS: HYDROmorphone PF 1 MG/ML DISP.SYRIN IV PRN ×8 (00:14→20:28)
[2019-10-26 05:07] VITALS: BP 105/72
[2019-10-26] MEDS: IV NORMAL SALINE 1,000ML 1,000 ML IV SCH ×2 (06:09→13:47)
[2019-10-26 06:21] LABS: BASO # 0.1 x10^3/uL (0.0-0.2); BASO % 1 % (0-3); EOS # 0.2 x10^3/uL (0.0-0.7); EOS % 1 % (0-3); HEMATOCRIT 42.8 % (39.0-53.0); HEMOGLOBIN 14.2 g/dL (13.0-17.5); LYMPH # 3.4 x10^3/uL (1.0-4.8); LYMPH % 23 % (24-48); MEAN CORPUSCULAR HEMOGLOBIN 31 pg (25-35); MEAN CORPUSCULAR HGB CONC 33 g/dL (31-37); MEAN CORPUSCULAR VOLUME 93 fL (79-100); MONO % 7 % (0-9); NEUT # 9.8 x10^3uL (1.8-7.7); NEUT % 68 % (31-73); PLATELET COUNT 226 x10^3/uL (140-400); RED BLOOD COUNT 4.61 x10^6/uL (4.30-5.70); WHITE BLOOD COUNT 14.5 x10^3/uL (4.0-11.0)
[2019-10-26 06:29] LABS: CALCIUM 9.1 mg/dL (8.5-10.1); CREATININE 2.7 mg/dL (0.7-1.3); GFR 25.6
--- NOTE | 2019-10-26 10:11 | HP ---
ADMIT DATE: 10/25/2019 ADMISSION HISTORY AND PHYSICAL ATTENDING PHYSICIAN: Dr. Farfan. CHIEF COMPLAINT: Abdominal pain. HISTORY OF PRESENT ILLNESS: The patient is a 44-year-old gentleman admitted to the ED with new onset of localized sharp epigastric abdominal pain. He has had a history of pancreatitis in the past, gallbladder already has been removed. He had a lipase level that was elevated at 1500. He adamantly denies any alcohol use. Medications were reviewed. He was admitted then for symptomatic treatment of acute pancreatitis. The patient denied any recent travel. No fevers, chills, some nausea, no active vomiting. No hematemesis. PAST MEDICAL HISTORY: Significant for supposed the diagnosis of Crohn's disease, hyperglycemia, sinusitis, renal insufficiency, and idiopathic pancreatitis. ALLERGIES: He has allergies to CEPHALEXIN and CODEINE. Exact reaction is unclear. CURRENT MEDICINES: Current medicines of active drugs includes hydromorphone, aspirin, ascorbic acid, BuSpar, cholecalciferol, Cymbalta, fish oil, hydrocodone, Creon, Robaxin, olanzapine, omeprazole, Actos, Lyrica, Crestor, and Topamax. SOCIAL HISTORY: He is a nonsmoker and nondrinker. He has been disabled since age 16. He has a combination of depression along with developmental delay. He is and lives with his . works. He lives off of disability payments. FAMILY HISTORY: Noncontributory. REVIEW OF SYSTEMS: Significant for the nausea, localized abdominal pain. No fevers, chills, or hematemesis. He denies any alcohol use. He denied any recent trauma. All other systems were reviewed and determined to be negative. PHYSICAL EXAMINATION: GENERAL: When I saw him, this is a pleasant mesomorphic gentleman. VITAL SIGNS: In the ED showed a blood pressure of 105/72, his pulse is 92 and regular, temperature 97.6, oxygen saturation 97% on room air. HEENT: Head is without trauma. Pupils are reactive. Sclerae are nonicteric. Oropharynx is clear. NECK: Supple, no bruits. LUNGS: Otherwise clear. CARDIOVASCULAR: Showed regular heart tones. No obvious gallops. Peripheral pulses are palpable and full. ABDOMEN: Obese, protuberant. No organomegaly. Bowel sounds were normoactive. There is minimal guarding in the epigastrium. No rebound tenderness. Peripheral pulses are palpable and full. EXTREMITIES: Showed no cyanosis or edema. NEUROLOGIC: Fluent, alert. Speech is fluent. He was focused and is able to respond appropriately. PERTINENT LABORATORY STUDIES: His admission hemoglobin was 17.6 g/dL. Electrolytes are within normal range. BUN 59, creatinine 3.0 mg/dL, nonfasting blood sugar 100. Lipase was 1584. ASSESSMENT: 1. A 44-year-old gentleman with recurrent idiopathic pancreatitis. 2. Chronic kidney disease stage 4. 3. Type 2 diabetes mellitus. 4. History of bipolar disorder with developmental delay. 5. Pancreatic insufficiency, on Creon. 6. History of Crohn's disease. PLAN: 1. Admit to the inpatient unit. 2. N.p.o. for now. 3. Pain and nausea control. 4. IV hydration. 5. Serial chemistries. 6. Advance diet as tolerated. RENA FARFAN MD DR: JOSE/jennifer JOB#: [id number] / [id number] JOURDAN Andrea MD
[2019-10-26 10:21] VITALS: BP 125/85
[2019-10-26 14:36] VITALS: BP 145/94
[2019-10-26 19:17] VITALS: BP 145/91
[2019-10-26 22:30] VITALS: BP 149/90
[2019-10-26] MEDS: HYDROmorphone PF 1 MG/ML DISP.SYRIN IVP PRN (22:52)
[2019-10-27] MEDS: ONDANSETRON PF 4 MG/2 ML VIAL. IVP PRN ×5 (02:04→21:21)
[2019-10-27] MEDS: HYDROmorphone PF 1 MG/ML DISP.SYRIN IVP PRN ×6 (02:05→21:23)
[2019-10-27 02:17] VITALS: BP 125/78
[2019-10-27] MEDS ORDERED: IV NORMAL SALINE 1,000ML 1,000 ML IV SCH (02:30)
[2019-10-27 06:04] VITALS: BP 130/83
--- NOTE | 2019-10-27 10:53 | PN ---
DATE: 10/27/2019 ATTENDING PHYSICIAN: Dr. Farfan. CHIEF COMPLAINT: Abdominal pain. SUBJECTIVE: The patient complains of headache. His pain and symptoms are by far severe than what I can find on exam, I believe he has some tension headaches. He is less nauseated. Abdominal pain is controlled with IV hydration and injectable narcotics. He denied any diarrhea. He denied any fevers, chills or night sweats. OBJECTIVE FINDINGS: He is warm and dry to touch. VITAL SIGNS: His blood pressure is 130/83, pulse is 90 and regular. He is afebrile. Room air oxygen saturations are 96%. HEENT: Head is without trauma. Pupils are reactive. Sclerae nonicteric. Oropharynx is clear. NECK: Supple, no bruits. LUNGS: Otherwise clear. CARDIOVASCULAR: Showed regular heart tones. No obvious gallops. Peripheral pulses palpable and full. ABDOMEN: Soft, protuberant. Minimal guarding, no rebound tenderness, no rigidity. Bowel sounds are hypoactive. LABORATORY STUDIES: A followup CK-MB was pending. The creatinine was down to 2.7 mg percent yesterday. ASSESSMENT: A 44-year-old gentleman with: 1. Recurrent idiopathic pancreatitis. 2. Chronic kidney disease, stage 4. 3. Type 2 diabetes. 4. History of bipolar disorder with developmental delay. 5. Pancreatic insufficiency, on Creon. 6. History of Crohn's disease. PLAN: 1. Clear liquids as tolerated. 2. IV hydration. 3. IV pain meds. 4. Nausea, controlled. 5. Serial chemistries. RENA FARFAN MD DR: JOSE/jennifer JOB#: [id number] / [id number]
[2019-10-27 11:35] VITALS: BP 143/85
[2019-10-27] MEDS ORDERED: BUTA1CAP57 PO (11:35)
[2019-10-27] MEDS: BUTALB/APAP/CAFEIN 50/325/40MG TABLET. PO PRN (11:45)
[2019-10-27 15:37] VITALS: BP 136/85
[2019-10-27 19:04] LABS: BASO % 0 % (0-3); EOS # 0.4 x10^3/uL (0.0-0.7); EOS % 3 % (0-3); HEMATOCRIT 39.4 % (39.0-53.0); HEMOGLOBIN 13.1 g/dL (13.0-17.5); LYMPH # 4.6 x10^3/uL (1.0-4.8); LYMPH % 32 % (24-48); MEAN CORPUSCULAR HEMOGLOBIN 31 pg (25-35); MEAN CORPUSCULAR HGB CONC 33 g/dL (31-37); MEAN CORPUSCULAR VOLUME 92 fL (79-100); MONO # 1.1 x10^3/uL (0.0-1.1); MONO % 7 % (0-9); NEUT # 8.5 x10^3uL (1.8-7.7); NEUT % 58 % (31-73); PLATELET COUNT 220 x10^3/uL (140-400); RED BLOOD COUNT 4.28 x10^6/uL (4.30-5.70); RED CELL DISTRIBUTION WIDTH 13.8 % (11.5-14.5); WHITE BLOOD COUNT 14.7 x10^3/uL (4.0-11.0)
[2019-10-27 19:08] LABS: ALBUMIN 3.3 g/dL (3.4-5.0); ALBUMIN/GLOBULIN RATIO 0.8 (1.0-1.7); CALCIUM 8.6 mg/dL (8.5-10.1); CREATININE 1.8 mg/dL (0.7-1.3); GFR 40.8; POTASSIUM 3.9 mmol/L (3.5-5.1); TOTAL BILIRUBIN 0.6 mg/dL (0.2-1.0); TOTAL PROTEIN 7.2 g/dL (6.4-8.2)
[2019-10-27 19:23] VITALS: BP 127/80
[2019-10-27 22:11] VITALS: BP 107/70
[2019-10-28] MEDS: ONDANSETRON PF 4 MG/2 ML VIAL. IVP PRN ×5 (00:43→22:26)
[2019-10-28] MEDS: HYDROmorphone PF 1 MG/ML DISP.SYRIN IVP PRN ×7 (00:45→22:25)
[2019-10-28 05:11] VITALS: BP 105/67
[2019-10-28] MEDS: BUTALB/APAP/CAFEIN 50/325/40MG TABLET. PO PRN ×2 (07:46→22:25)
[2019-10-28 11:10] VITALS: BP 105/68
--- NOTE | 2019-10-28 12:13 | PN ---
DATE: 10/28/2019 ATTENDING PHYSICIAN: Dr. Farfan. CHIEF COMPLAINT: Abdominal pain. SUBJECTIVE: The patient still has nausea with localized mid epigastric pain. He is not hungry. He is less nauseated. The pain is manageable. OBJECTIVE FINDINGS: VITAL SIGNS: Showed a blood pressure of 105/67, pulse was 95 and regular, temperature 99.0 degrees Fahrenheit. Room air sats at 95%. HEENT: Head is without trauma. Pupils are reactive. Sclerae nonicteric. Oropharynx clear. NECK: Supple. LUNGS: Good breath sounds; otherwise, clear. CARDIOVASCULAR: Showed regular heart tones. No gallops. Peripheral pulses are palpable and full. ABDOMEN: Soft, protuberant. Guarding noted in the mid epigastrium. There is no rebound tenderness. Bowel sounds are hypoactive. There is no rigidity. LABORATORY DATA: His chemistry panel today showed an improvement in his creatinine down to 1.8 mg/dL, BUN is 27. However, liver enzymes are slightly elevated and his lipase is up to 2944. ASSESSMENT: 1. A 45-year-old gentleman with recurrent idiopathic pancreatitis. 2. Chronic kidney disease stage 3 with improvement with hydration. 3. Type 2 diabetes. 4. Bipolar disorder with developmental delay. 5. Pancreatic insufficiency, on Creon. 6. History of Crohn's disease. PLAN: 1. Clear liquid as tolerated. 2. IV hydration. 3. IV pain meds. 4. Nausea control. 5. Serial chemistries. 6. We will not advance diet until he is clinically doing better. RENA FARFAN MD DR: JOSE/jennifer JOB#: [id number] / [id number]
[2019-10-28 14:40] VITALS: BP 118/76
[2019-10-28 16:01] LABS: ALBUMIN 3.2 g/dL (3.4-5.0); ALBUMIN/GLOBULIN RATIO 0.8 (1.0-1.7); CALCIUM 8.4 mg/dL (8.5-10.1); CREATININE 1.7 mg/dL (0.7-1.3); GFR 43.6; POTASSIUM 3.7 mmol/L (3.5-5.1); TOTAL BILIRUBIN 0.7 mg/dL (0.2-1.0)
[2019-10-28 16:09] LABS: BASO % 0 % (0-3); EOS # 0.4 x10^3/uL (0.0-0.7); EOS % 4 % (0-3); HEMOGLOBIN 12.5 g/dL (13.0-17.5); LYMPH # 3.7 x10^3/uL (1.0-4.8); LYMPH % 33 % (24-48); MEAN CORPUSCULAR HEMOGLOBIN 30 pg (25-35); MEAN CORPUSCULAR HGB CONC 33 g/dL (31-37); MEAN CORPUSCULAR VOLUME 92 fL (79-100); MONO # 0.9 x10^3/uL (0.0-1.1); MONO % 8 % (0-9); NEUT # 6.3 x10^3uL (1.8-7.7); NEUT % 55 % (31-73); PLATELET COUNT 205 x10^3/uL (140-400); RED BLOOD COUNT 4.15 x10^6/uL (4.30-5.70); RED CELL DISTRIBUTION WIDTH 13.7 % (11.5-14.5); WHITE BLOOD COUNT 11.3 x10^3/uL (4.0-11.0)
[2019-10-28] MEDS: IV NORMAL SALINE 1,000ML 1,000 ML IV SCH (18:30)
[2019-10-28 19:01] VITALS: BP 122/73
[2019-10-28 22:18] VITALS: BP 107/64
[2019-10-29] MEDS: HYDROmorphone PF 1 MG/ML DISP.SYRIN IVP PRN ×9 (01:44→22:23)
[2019-10-29] MEDS: ONDANSETRON PF 4 MG/2 ML VIAL. IVP PRN ×2 (03:34→08:14)
[2019-10-29 06:02] VITALS: BP 121/77
[2019-10-29] MEDS: IV NORMAL SALINE 1,000ML 1,000 ML IV SCH ×2 (08:14→22:23)
[2019-10-29 09:45] LABS: BASO # 0.1 x10^3/uL (0.0-0.2); BASO % 1 % (0-3); EOS # 0.4 x10^3/uL (0.0-0.7); EOS % 4 % (0-3); HEMATOCRIT 34.3 % (39.0-53.0); HEMOGLOBIN 11.4 g/dL (13.0-17.5); LYMPH # 3.1 x10^3/uL (1.0-4.8); LYMPH % 29 % (24-48); MEAN CORPUSCULAR HEMOGLOBIN 31 pg (25-35); MEAN CORPUSCULAR HGB CONC 33 g/dL (31-37); MEAN CORPUSCULAR VOLUME 92 fL (79-100); MONO # 0.8 x10^3/uL (0.0-1.1); MONO % 7 % (0-9); NEUT # 6.3 x10^3uL (1.8-7.7); NEUT % 59 % (31-73); PLATELET COUNT 195 x10^3/uL (140-400); RED BLOOD COUNT 3.73 x10^6/uL (4.30-5.70); RED CELL DISTRIBUTION WIDTH 13.7 % (11.5-14.5); WHITE BLOOD COUNT 10.7 x10^3/uL (4.0-11.0)
[2019-10-29 09:59] LABS: ALBUMIN 2.9 g/dL (3.4-5.0); ALBUMIN/GLOBULIN RATIO 0.8 (1.0-1.7); CALCIUM 8.2 mg/dL (8.5-10.1); CREATININE 1.5 mg/dL (0.7-1.3); GFR 50.4; POTASSIUM 3.6 mmol/L (3.5-5.1); TOTAL BILIRUBIN 0.8 mg/dL (0.2-1.0); TOTAL PROTEIN 6.6 g/dL (6.4-8.2)
[2019-10-29 10:38] VITALS: BP 130/82
--- NOTE | 2019-10-29 13:09 | RAD ---
Exam: Right Upper Quadrant Ultrasound 10/29/2019 10:27 AM Indication: . Abnormal liver function tests Technique: Multiple realtime grayscale sonographic images were obtained over the abdomen. Static images were submitted for interpretation. Comparisons: CT abdomen and pelvis October 25, 2019 Findings: Visualized portions of the pancreas are unremarkable. Visualized portions of the IVC are unremarkable. The liver is normal in size measuring 16 cm longitudinally.. The liver demonstrates a diffuse increase in echogenicity likely representing a hepatic steatosis. No focal lesions are identified. The gallbladder is surgically absent. The common bile duct is within normal limits measuring 4 mm in diameter. Right kidney measures 9.9 cm in length multiple small renal cysts. Be present. There is an exophytic cyst involving the lateral right kidney which appears to correlate with the hemorrhagic cyst seen on prior CT imaging. This measures approximately 2.7 cm in diameter. No hydronephrosis is identified. IMPRESSION: 1. Probable hepatic steatosis 2. Hemorrhagic renal cysts as described Electronically signed by: Braden Villatoro MD (10/29/2019 1:07 PM) [id number]
[2019-10-29 15:00] VITALS: BP 137/91
[2019-10-29 20:18] VITALS: BP 126/86
--- NOTE | 2019-10-29 22:06 | PN ---
DATE: 10/29/2019 SUBJECTIVE: The patient is a 44-year-old male patient who yet again came with another episode of severe abdominal pain, and was found to have acute pancreatitis. He has multiple episodes of admission for similar complaint. He has had cholecystectomy before and apparently, he has always stated that he does not drink alcohol or use any recreational drugs. We did even before fasting lipid profile and showed no evidence of hypertriglyceridemia or hypercalcemia. He was admitted, started on IV fluid and IV pain medication. His initial lipase was 1584. The levels went up higher. His liver enzymes were also normal. His total bilirubin, AST, ALT were normal. Alkaline phosphatase slightly elevated; however, his serum lipase has risen to 2900 and his liver enzymes also have worsened. Initially also had acute on chronic kidney injury with creatinine of 3 that has gradually came down from 3 to 1.5. When I saw him this morning, he was resting flat, sleeping comfortably, in no apparent distress. On questioning him, he continued to have severe pain and was unable to tolerate his clear liquid diet. PHYSICAL EXAMINATION: GENERAL: When I examined him, he looked well and was clearly in no apparent respiratory distress. No pallor, jaundice, cyanosis or thyromegaly. No jugular venous distention. No limb edema. VITAL SIGNS: His heart rate was 97, blood pressure was 121/77, temperature was 98.1, respiratory rate was 18 and oxygen saturation was 96%. HEAD, EYES, EARS, NOSE AND THROAT: Showed normocephalic, atraumatic. NECK: Supple. HEART: Showed normal first and second heart sounds. No gallop or murmur. CHEST: Clear to auscultation. No crepitation or rhonchi. ABDOMEN: Distended, soft with tenderness mostly in the right upper quadrant epigastric area. There is no guarding or rigidity. No organomegaly. All hernial orifice intact. Bowel sounds normal. NEUROLOGIC: He was sleepy, but arousable. All cranial nerves are intact. He moves extremities without difficulty, ambulates without assistance or assistive devices. LABORATORY DATA: His lab work this morning showed a white cell count of 10,000, hemoglobin 11.4, hematocrit 34, MCV 92, and platelet count of 195,000. His serum sodium of 139, potassium 3.6, chloride 105, bicarbonate 22, anion gap of 11, BUN 19, creatinine 1.5, estimated GFR was 50 mL per minute, his glucose 118, calcium was 8.2. Total bilirubin is normal. AST, ALT, alkaline phosphatase are elevated. His total bilirubin was 6.6, albumin was 2.9. Today's lipase is still pending. His urinalysis was unremarkable. ASSESSMENT: Acute pancreatitis, nonalcoholic steatohepatitis with worsening liver enzymes. PLAN: My plan is to arrange for him to have abdominal ultrasound and his liver enzymes have definitely worsened after rising alkaline phosphatase indicating there might be an obstruction, although total bilirubin is rising, still within normal range. JOURDAN BLANCA MD DR: TERESA/jennifer JOB#: [id number] / [id number]
[2019-10-30] MEDS: BUTALB/APAP/CAFEIN 50/325/40MG TABLET. PO PRN (02:15)
[2019-10-30] MEDS: HYDROmorphone PF 1 MG/ML DISP.SYRIN IVP PRN ×8 (02:15→21:36)
[2019-10-30 05:36] VITALS: BP 101/67
[2019-10-30 06:37] LABS: ALBUMIN 2.9 g/dL (3.4-5.0); ALBUMIN/GLOBULIN RATIO 0.8 (1.0-1.7); CALCIUM 8.2 mg/dL (8.5-10.1); CREATININE 1.4 mg/dL (0.7-1.3); GFR 54.6; POTASSIUM 3.6 mmol/L (3.5-5.1); TOTAL BILIRUBIN 0.5 mg/dL (0.2-1.0); TOTAL PROTEIN 6.5 g/dL (6.4-8.2)
[2019-10-30 10:41] VITALS: BP 136/81
[2019-10-30] MEDS: IV NORMAL SALINE 1,000ML 1,000 ML IV SCH (11:48)
[2019-10-30] MEDS ORDERED: CAFFEINE PO PRN (14:15)
[2019-10-30 15:54] VITALS: BP 152/83
[2019-10-30] MEDS: LIPASE/PROTEAS/AMYLAS 10/32/42 CAPSULE.DR. PO SCH (16:36)
[2019-10-30] MEDS ORDERED: AMYLASE PO SCH (17:00)
[2019-10-30] MEDS ORDERED: LIPASE PO SCH (17:00)
[2019-10-30] MEDS ORDERED: PROTEASE PO SCH (17:00)
[2019-10-30] MEDS: PANTOPRAZOLE IV 40 MG VIAL. IVP SCH ×2 (17:09→21:00)
[2019-10-30] MEDS: ONDANSETRON PF 4 MG/2 ML VIAL. IVP PRN (19:25)
[2019-10-30 20:27] VITALS: BP 150/85
[2019-10-30] MEDS ORDERED: DULoxetine HCL 60 MG CAPSULE.DR PO SCH (21:00)
[2019-10-30] MEDS ORDERED: ASPIRIN 81 MG TAB.CHEW PO SCH (21:00)
[2019-10-30] MEDS ORDERED: PREGABALIN 75 MG CAPSULE PO SCH (21:00)
[2019-10-30] MEDS ORDERED: OLANZapine 7.5 MG TABLET PO SCH (21:00)
[2019-10-30] MEDS ORDERED: OMEGA-3 FATTY ACIDS/FISH OIL 1,000 MG CAPSULE. PO SCH (21:00)
[2019-10-30] MEDS: busPIRone 15 MG TABLET. PO SCH (21:32)
[2019-10-30] MEDS: TOPIRAMATE 25 MG TABLET. PO SCH (21:32)
[2019-10-30] MEDS: LACTOBACILLUS RHAMNOSUS GG 1 CAPSULE. PO SCH (21:32)
--- NOTE | 2019-10-30 22:54 | PN ---
DATE: 10/30/2019 SUBJECTIVE: The patient is resting slightly propped up in bed, in no apparent distress. On questioning, however, he continued to complain of severe pain that he rated about 9/10. He tolerated full liquid diet without any problem. When we tried to go to a regular diet, the pain has worsened and he could not tolerate that. PHYSICAL EXAMINATION: GENERAL: When I examined him this morning, he looked well and was clearly in no apparent respiratory distress. There is no pallor, jaundice, cyanosis, or thyromegaly. No jugular venous distension. No limb edema. VITAL SIGNS: His heart rate was 91, blood pressure was 136/81, temperature 97.9, respiratory rate 20, and oxygen saturation was 97% on room air. HEAD, EYES, EARS, NOSE AND THROAT: Normocephalic, atraumatic. NECK: Supple. HEART: Showed normal first and second heart sounds. No gallop or murmur. CHEST: Clear to auscultation. No crepitation or rhonchi. ABDOMEN: Distended, soft, nontender. NEUROLOGIC: He was awake, alert, responding appropriately. All cranial nerves are intact. He moves extremities without difficulty, ambulates without assistance or assistive devices. His intake and output are incompletely recorded. LABORATORY DATA: His lab work showed a white cell count of 10,000, hemoglobin 11, hematocrit 34, MCV 92, and platelet count of 195,000. His chemistry this morning showed a serum sodium 140, potassium 3.6, chloride 104, bicarbonate 24, anion gap of 12, BUN 12, creatinine 1.4, estimated GFR was 54 mL per minute. Her glucose 114, calcium was 8.2. Total bilirubin, AST normal. ALT and alkaline phosphatase slightly elevated, though they are trending down. His total protein 6.5, albumin was 2.9 and serum lipase is down to 656 from high of 2944. ASSESSMENT: 1. Acute recurrent relapsing pancreatitis. 2. Nonalcoholic steatohepatitis. 3. Crohn's disease. 4. Chronic kidney failure. 5. Idiopathic pancreatitis. 6. Sinusitis. 7. Hyperglycemia, although his blood sugar has been well within normal range since admission. PLAN: Continue with IV pain medication, antiemetic, IV fluid. We will continue with full liquid diet. We will advance his diet tomorrow. JOURDAN BLANCA MD DR: Kriss JOB#: [id number] / [id number]
[2019-10-30 23:33] VITALS: BP 108/63
[2019-10-31] MEDS: IV NORMAL SALINE 1,000ML 1,000 ML IV SCH ×2 (02:45→13:01)
[2019-10-31 05:51] VITALS: BP 139/74
[2019-10-31] MEDS: HYDROmorphone PF 1 MG/ML DISP.SYRIN IVP PRN ×3 (05:52→13:02)
[2019-10-31 06:40] LABS: HEMATOCRIT 33.4 % (39.0-53.0); HEMOGLOBIN 11.3 g/dL (13.0-17.5); RED BLOOD COUNT 3.64 x10^6/uL (4.30-5.70); RED CELL DISTRIBUTION WIDTH 13.3 % (11.5-14.5); WHITE BLOOD COUNT 9.4 x10^3/uL (4.0-11.0)
[2019-10-31 06:52] LABS: ALBUMIN 2.9 g/dL (3.4-5.0); ALBUMIN/GLOBULIN RATIO 0.8 (1.0-1.7); CALCIUM 8.5 mg/dL (8.5-10.1); CREATININE 1.4 mg/dL (0.7-1.3); GFR 54.6; POTASSIUM 3.5 mmol/L (3.5-5.1); TOTAL BILIRUBIN 0.4 mg/dL (0.2-1.0); TOTAL PROTEIN 6.6 g/dL (6.4-8.2)
[2019-10-31] MEDS ORDERED: CHOLECALCIFEROL (VITAMIN D3) 1,000 UNIT TABLET PO SCH (09:00)
[2019-10-31] MEDS ORDERED: ASCORBIC ACID 500 MG TABLET PO SCH (09:00)
[2019-10-31] MEDS ORDERED: PANTOPRAZOLE 40 MG TABLET. PO SCH (09:00)
[2019-10-31] MEDS ORDERED: MULTIVITAMIN with MINERAL TABLET. PO SCH (09:00)
[2019-10-31] MEDS: PANTOPRAZOLE IV 40 MG VIAL. IVP SCH (09:23)
[2019-10-31] MEDS: LIPASE/PROTEAS/AMYLAS 10/32/42 CAPSULE.DR. PO SCH ×2 (09:23→13:01)
[2019-10-31] MEDS: busPIRone 15 MG TABLET. PO SCH (09:24)
[2019-10-31] MEDS: TOPIRAMATE 25 MG TABLET. PO SCH (09:24)
[2019-10-31] MEDS: LACTOBACILLUS RHAMNOSUS GG 1 CAPSULE. PO SCH (09:25)
[2019-10-31 10:51] VITALS: BP 132/76
--- NOTE | 2019-10-31 21:10 | DS ---
DATE OF DISCHARGE: 10/31/2019 HOSPITAL COURSE: The patient was admitted yet again with another episode of acute pancreatitis that was not associated with any alcohol. He has cholecystectomy and he went through all his medications and apparently Crestor. One of the side effect of Crestor is acute pancreatitis and in fact he looked into all the other cholesterol lowering agent including pravastatin, simvastatin and lovastatin, and atorvastatin. They all can cause pancreatitis, so I recommended that the patient make an appointment with the sales order processor to see if there are other options available. PHYSICAL EXAMINATION: GENERAL: When I examined him this afternoon, he was sitting at the edge of the bed comfortably in no apparent distress. No pallor, jaundice or cyanosis or thyromegaly. No jugular venous distention. No lower limb edema. VITAL SIGNS: His heart rate was 81, blood pressure was 132/76, temperature was 98.7, respiratory rate 20, and oxygen saturation was 95%. HEAD, EYES, EARS, NOSE AND THROAT: Showed normocephalic, atraumatic. NECK: Supple. HEART: Showed normal first and second heart sounds. No gallop or murmur. CHEST: Clear to auscultation. No crepitation or rhonchi. ABDOMEN: Distended, soft, nontender. NEUROLOGIC: He is awake, alert, responding appropriately. All cranial nerves intact. He moves extremities without difficulty. He ambulates without assistance or assistive devices. His intake over the last 24 hours was 3400, no output was recorded. LABORATORY DATA: This morning showed a white cell count 9400, hemoglobin 11, hematocrit 33, MCV 92, and platelet count 222,000. His chemistry showed a serum sodium 142, potassium 3.5, chloride 107, bicarbonate 23, anion gap of 12, BUN 9, creatinine 1.4, estimated GFR was 54 mL per minute. His glucose 134, calcium was 8.5. Total bilirubin, AST, ALT were normal. Alkaline phosphatase slightly elevated. Total protein was 6.6, albumin 2.9. Lipase was 485. Urinalysis was essentially unremarkable. DISCHARGE MEDICATIONS: The patient was discharged home to continue on all his medications except Crestor. I held his Crestor as it can cause acute pancreatitis. FINAL DISCHARGE DIAGNOSES: 1. Acute relapsing pancreatitis. 2. Nonalcoholic steatohepatitis. 3. Crohn's disease. 4. Chronic kidney failure. 5. Idiopathic pancreatitis. 6. Sinusitis. 7. Hyperglycemia however, his blood sugar has been well within acceptable range. 8. Hyperlipidemia for which he was on Crestor. I reminded the patient and recommended that he should avoid any alcohol drinks and that he make an appointment with the sales order processor for all the cholesterol lowering agents can cause pancreatitis. JOURDAN BLANCA MD DR: TERESA/jennifer JOB#: [id number] / [id number]
== END 2019-10-31 15:30 | disposition home or self-care (01) | DRG 438 ==
LOC: ER 17:49 → 1 SOUTH 21:08
PROVIDERS: ADMIT Internal Medicine; ATTEND Internal Medicine
DX: K85.80 Other acute pancreatitis without necrosis or infection (principal); N17.0 Acute kidney failure with tubular necrosis; K50.90 Crohn's disease, unspecified, without complications; N18.4 Chronic kidney disease, stage 4 (severe); K86.1 Other chronic pancreatitis; Z96.659 Presence of unspecified artificial knee joint; E11.22 Type 2 diabetes mellitus with diabetic chronic kidney disease; F31.9 Bipolar disorder, unspecified; R62.50 Unspecified lack of expected normal physiological development in childhood; K75.81 Nonalcoholic steatohepatitis (NASH); E11.65 Type 2 diabetes mellitus with hyperglycemia; J32.9 Chronic sinusitis, unspecified; E78.5 Hyperlipidemia, unspecified; G44.209 Tension-type headache, unspecified, not intractable; Z87.891 Personal history of nicotine dependence; Z90.49 Acquired absence of other specified parts of digestive tract; Z88.5 Allergy status to narcotic agent; Z88.8 Allergy status to other drugs, medicaments and biological substances
CPT/HCPCS: 36415; 74176; 76705; 80048; 80053; 81001; 82947; 83690; 85007; 85025; 85027; 96361; 96374; 96375; 99406; C9113; J1170; J2270; J2405; J3490; 99285-25; J7030

== ENCOUNTER → 2019-11-30 | Outpatient (CLI) | payer BC, MEDICARE ==
[~2019-11-30] MED LIST changes: +0.9 % SODIUM CHLORIDE 10 ML VIAL ONE; +BUTA1CAP57 PO; +HYDR-2769 PO; +IOHEXOL 300 MG/ML 50 ML VIAL. ONE; +LIDOCAINE 1% PF 30 ML VIAL. ONE; +LIPA1CAP8 PO; +OLAN10TA9 PO; +PIOG30TA41 PO; +PRED1TAB PO; +PREG75CA PO; +methylPREDNISolone ACETATE 80 MG/ML VIAL. ONE
[2019-11-30 12:11] VITALS: BP 92/50
== END ==
LOC: SURG 11:02
PROVIDERS: ATTEND Anesthesiology Pain Medicine
DX: M54.16 Radiculopathy, lumbar region (principal); F32.9 Major depressive disorder, single episode, unspecified; K21.9 Gastro-esophageal reflux disease without esophagitis; M19.90 Unspecified osteoarthritis, unspecified site; Z98.890 Other specified postprocedural states; Z79.899 Other long term (current) drug therapy; M54.5 Low back pain
CPT/HCPCS: 62323; J1040; J2001; Q9967

== ENCOUNTER → 2019-11-30 | Outpatient (CLI) | payer BC, MEDICARE ==
[~2019-11-30] MED LIST changes: -PRED1TAB PO
--- NOTE | 2019-11-30 16:09 | RAD ---
INDICATION: Persistent pain postoperative COMPARISON: June 18, 2019 IMPRESSION: Left clavicle: 2 views obtained. Plate and screws are identified at the clavicle traversing the fracture site. There is partial osseous fusion at the fracture site at the distal clavicle with some lucency persisting. Hypertrophic changes at acromioclavicular joint. Metallic fragments in the soft tissues are again seen. Electronically signed by: Nick Massey MD (11/30/2019 4:06 PM) [facility] [place]
== END ==
LOC: DXRAD 10:41
PROVIDERS: ATTEND Orthopaedic Surgery Sports Medicine
DX: S42.032D Displaced fracture of lateral end of left clavicle, subsequent encounter for fracture with routine healing (principal); M25.812 Other specified joint disorders, left shoulder; X58.XXXD Exposure to other specified factors, subsequent encounter
CPT/HCPCS: 73000; J1040; J2001; Q9967

== ENCOUNTER 2019-12-13 16:03 | Inpatient (IN) | payer BC, MEDICARE ==
[~2019-12-13] VITALS: Ht 167.6 cm; Wt 98.0 kg
[~2019-12-13 16:03] MED LIST changes: -0.9 % SODIUM CHLORIDE 10 ML VIAL ONE; -IOHEXOL 300 MG/ML 50 ML VIAL. ONE; -LIDOCAINE 1% PF 30 ML VIAL. ONE; -methylPREDNISolone ACETATE 80 MG/ML VIAL. ONE
--- NOTE | 2019-12-13 16:29 | PHYS DOC ---
Past History Past Medical History: Depression, Diabetes, Pancreatitis, Renal Disease, Other Additional Past Medical Histor: Crohn's disease (BELÉN XIAO DO) Past Surgical History: Appendectomy, Cholecystectomy, Knee Replacement, Other Additional Past Surgical Histo: LEFT SHOULDER, RIGHT HAND (BELÉN XIAO DO) Smoking: Cigarettes Alcohol Use: None Drug Use: None (BELÉN XIAO DO) Adult General Chief Complaint Chief Complaint: ABDOMINAL PAIN HPI HPI Patient is a 44-year-old male with past medical history significant for chronic pancreatitis, Crohn's disease, renal disease. He presents secondary to complaint of low blood pressure and ongoing lower abdominal pain consistent with previous acute on chronic pancreatitis flareups. He states that his pain is been ongoing for the past week and a half and he has been trying to treat himself at home which he normally does with liquid diet and oral pain medications. He went to his seat trimmer today and his blood pressure was rep orted to be low so he was sent to the ER for further evaluation. He denies chest pain or shortness of breath. (BELÉN XIAO DO) Review of Systems Review of Systems All other systems were reviewed and found to be within normal limits, except as documented in this note. (BELÉN XIAO DO) Allergies Allergies Allergies Coded Allergies Type Severity Reaction Last Updated Verified codeine Adverse Reaction Intermediate Migraine Headaches 09/05/19 Yes cephalexin Adverse Reaction Mild Rash 09/05/19 Yes (BELÉN XIAO DO) Physical Exam Physical Exam Constitutional: Well developed, well nourished, no acute distress, non-toxic appearance. [] HENT: Normocephalic, atraumatic, bilateral external ears normal, oropharynx moist, no oral exudates, nose normal. [] Eyes: PERRLA, EOMI, conjunctiva normal, no discharge. [] Neck: Normal range of motion, no tenderness, supple, no stridor. [] Cardiovascular:Heart rate regular rhythm, no murmur [] Lungs & Thorax: Bilateral breath sounds clear to auscultation [] Abdomen: Bowel sounds normal, soft, lower abdominal tenderness to palpation, no masses, no pulsatile masses. [] Skin: Warm, dry, no erythema, no rash. [] Back: No tenderness, no CVA tenderness. [] Extremities: No tenderness, no cyanosis, no clubbing, ROM intact, no edema. [] Neurologic: Alert and oriented X 3, normal motor function, normal sensory function, no focal deficits noted. [] Psychologic: Affect normal, judgement normal, mood normal. [] (BELÉN XIAO DO) EKG EKG [] (BELÉN XIAO DO) Radiology/Procedures Radiology/Procedures [] (BELÉN XIAO DO) Impressions: EXAM: CT Abdomen and Pelvis without IV contrast CLINICAL HISTORY: Lower abd pain; leukocytosis; h/o pancreatitis. COMPARISON: 10/25/2019, 11/19/2018 TECHNIQUE: Helical CT of the abdomen and pelvis without intravenous contrast. Axial, coronal and sagittal reformatted images were generated. PQRS compliance statement - One or more of the following individualized dose reduction techniques were utilized for this study: 1. Automated exposure control 2. Adjustment of the mA and/or kV according to patient size 3. Use of iterative reconstruction technique FINDINGS: Lack of intravenous contrast limits evaluation of solid organs, vasculature, and lymph nodes. Lower chest: Lung bases are clear. Abdomen and Pelvis: 2.7 cm hypodense right hepatic lobe lesion was seen to previously enhanced, may represent hemangioma. Accounting for postcholecystectomy change, no biliary ductal dilatation. Spleen is unremarkable. Adrenal glands are unremarkable. Mild edemas and infiltration about the pancreatic head, may be seen with acute pancreatitis. No renal tract calculus. High density bilateral renal lesions likely hemorrhagic or proteinaceous cysts. No hydronephrosis or hydroureter. Diffuse bladder wall thickening likely cystitis. Appendix is normal. No small or large bowel dilatation. Moderate colonic stool content. No bowel obstruction. Moderate colonic stool content is seen. No abdominal or pelvic ascites. Appendix is not convincingly seen. No abdominal or pelvic lymphadenopathy. No loculated abdominal or pelvic collection. Aortic calcifications are seen. Fat-containing left inguinal hernia. Bones: Height loss of the T11 vertebral body IMPRESSION: 1. Mild infiltration about the pancreatic head may be seen with acute pancreatitis. No definite associated loculated collection is seen. 2. Diffuse bladder wall thickening likely cystitis. Electronically signed by: Elia Maciel MD (12/13/2019 6:50 PM) [id number] DICTATED AND SIGNED BY: ELIA MACIEL MD DATE: 12/13/19 4913 CC: BELÉN XIAO DO; NASEEM RAMIREZ ~ (YANDEL ARREOLA DO) Course & Med Decision Making Course & Med Decision Making Pertinent Labs and Imaging studies reviewed. (See chart for details) 1628: This patient is seen for lower abdominal pain and low blood pressure. Patient reports that his low abdominal pain is exactly consistent with previous pancreatitis flareups. We will check labs and give IV fluids which should also help his blood pressure. If the patient's labs come back unremarkable will consider CT angiogram for further evaluation of the abdominal 1816: At this time the patient's work-up has revealed renal failure with hyperkalemia which I have treated with 2 L of IV fluid, 10 mg of regular insulin, 1 amp of D50, and 1 g of calcium gluconate. He is technically septic so I have also given him 750 mg of IV Levaquin. We will get a CT scan of his abdomen and pelvis without IV contrast due to renal failure and transition care to Dr. Arreola. (BELÉN XIAO DO) Course & Med Decision Making I spoke with Dr. Sherman, the hospitalist and he has accepted the patient for admission. CT scan does show diffuse thickening of the bladder as well as evidence of pancreatitis. No abscess is seen. (YANDEL ARREOLA DO) Dragon Disclaimer Dragon Disclaimer This electronic medical record was generated, in whole or in part, using a voice recognition dictation system. (BELÉN XIAO DO) Departure Departure: Impression: Primary Impression: Acute renal failure Additional Impressions: Hyperkalemia Sepsis Disposition: 01 HOME/RESIDENCE PRIOR TO ADM Condition: STABLE Referrals: NASEEM RAMIREZ (PCP) Problem Qualifiers BELÉN XIAO DO Dec 13, 2019 16:29 YANDEL ARREOLA DO Dec 13, 2019 19:06
[2019-12-13] MEDS ORDERED: IV NORMAL SALINE 1,000ML 1,000 ML IV ONE ×2 (16:30→17:15)
--- NOTE | 2019-12-13 16:45 | RAD ---
CHEST AP ONLY History: Low blood pressure Comparison: March 04, 2019 Findings: No consolidation or pleural effusion. Normal heart size. No pneumothorax. Internal fixation prior left clavicular fracture. Metallic shrapnel surrounding the left clavicle, similar compared to prior. Impression: 1. No acute cardiopulmonary process. Electronically signed by: Srikanth Fleming DO (12/13/2019 4:43 PM) [id number]
[2019-12-13 16:55] LABS: BASO # 0.1 x10^3/uL (0.0-0.2); BASO % 1 % (0-3); EOS % 0 % (0-3); HEMATOCRIT 34.1 % (39.0-53.0); HEMOGLOBIN 11.2 g/dL (13.0-17.5); LYMPH % 15 % (24-48); MEAN CORPUSCULAR HEMOGLOBIN 31 pg (25-35); MEAN CORPUSCULAR HGB CONC 33 g/dL (31-37); MEAN CORPUSCULAR VOLUME 95 fL (79-100); MONO # 0.3 x10^3/uL (0.0-1.1); MONO % 2 % (0-9); NEUT # 10.8 x10^3uL (1.8-7.7); NEUT % 82 % (31-73); PLATELET COUNT 232 x10^3/uL (140-400); RED BLOOD COUNT 3.61 x10^6/uL (4.30-5.70); RED CELL DISTRIBUTION WIDTH 14.5 % (11.5-14.5); WHITE BLOOD COUNT 13.3 x10^3/uL (4.0-11.0)
[2019-12-13 17:21] LABS: ALBUMIN 3.8 g/dL (3.4-5.0); ALBUMIN/GLOBULIN RATIO 0.9 (1.0-1.7); CREATININE 3.4 mg/dL (0.7-1.3); GFR 19.6; MAGNESIUM 1.7 mg/dL (1.8-2.4); POTASSIUM 5.8 mmol/L (3.5-5.1); TOTAL BILIRUBIN 0.6 mg/dL (0.2-1.0); TOTAL PROTEIN 7.9 g/dL (6.4-8.2)
[2019-12-13] MEDS ORDERED: INSULIN REGULAR 100 UNIT/ML 3ML VIAL. IV ONE (18:15)
[2019-12-13] MEDS ORDERED: DEXTROSE 50% 25 GM / 50ML DISP.SYRIN. IV ONE (18:15)
[2019-12-13] MEDS ORDERED: CALCIUM GLUCONATE 1,000 MG/10 ML VIAL IV ONE (18:15)
--- NOTE | 2019-12-13 18:53 | RAD ---
EXAM: CT Abdomen and Pelvis without IV contrast CLINICAL HISTORY: Lower abd pain; leukocytosis; h/o pancreatitis. COMPARISON: 10/25/2019, 11/19/2018 TECHNIQUE: Helical CT of the abdomen and pelvis without intravenous contrast. Axial, coronal and sagittal reformatted images were generated. PQRS compliance statement - One or more of the following individualized dose reduction techniques were utilized for this study: 1. Automated exposure control 2. Adjustment of the mA and/or kV according to patient size 3. Use of iterative reconstruction technique FINDINGS: Lack of intravenous contrast limits evaluation of solid organs, vasculature, and lymph nodes. Lower chest: Lung bases are clear. Abdomen and Pelvis: 2.7 cm hypodense right hepatic lobe lesion was seen to previously enhanced, may represent hemangioma. Accounting for postcholecystectomy change, no biliary ductal dilatation. Spleen is unremarkable. Adrenal glands are unremarkable. Mild edemas and infiltration about the pancreatic head, may be seen with acute pancreatitis. No renal tract calculus. High density bilateral renal lesions likely hemorrhagic or proteinaceous cysts. No hydronephrosis or hydroureter. Diffuse bladder wall thickening likely cystitis. Appendix is normal. No small or large bowel dilatation. Moderate colonic stool content. No bowel obstruction. Moderate colonic stool content is seen. No abdominal or pelvic ascites. Appendix is not convincingly seen. No abdominal or pelvic lymphadenopathy. No loculated abdominal or pelvic collection. Aortic calcifications are seen. Fat-containing left inguinal hernia. Bones: Height loss of the T11 vertebral body IMPRESSION: 1. Mild infiltration about the pancreatic head may be seen with acute pancreatitis. No definite associated loculated collection is seen. 2. Diffuse bladder wall thickening likely cystitis. Electronically signed by: Elia Jimenes MD (12/13/2019 6:50 PM) [id number]
[2019-12-13 19:24] LABS: BACTERIA,URINE 0 /HPF (0-FEW); BILIRUBIN,URINE NEG (NEG); CLARITY,URINE CLEAR; COLOR,URINE YELLOW; GLUCOSE,URINE NEG (NEG); HYALINE CASTS, URINE OCC /HPF; NITRITE,URINE NEG (NEG); RBC,URINE OCC /HPF (0-2); SQUAMOUS EPITHELIAL CELL,UR OCC /LPF; UROBILINOGEN,URINE 0.2 mg/dL (0.2 mg/dL); WBC,URINE OCC /HPF (0-4)
[2019-12-13] MEDS ORDERED: DEXTROSE 50% 25 GM / 50ML DISP.SYRIN. IV PRN ×2 (19:30→23:00)
[2019-12-13] MEDS ORDERED: IV DEXTROSE 5% - 0.9 % NACL 1,000 ML IV ONE (19:30)
--- NOTE | 2019-12-13 19:57 | EKG ---
[address] [address] Test Date: 2019-12-13 Test Time: 16:50:22 Pat Name: ALEXANDRA MENDOZA Department: Room: Gender: M Manager Global: : 1975 Requested By: BELÉN XIAO Order Number: [id number] Reading MD: Measurements Intervals [place] Rate: 107 P: 29 [place]: 146 QRS: 52 QRSD: 78 T: 20 QT: 312 QTc: 422 Interpretive Statements SINUS TACHYCARDIA OTHERWISE NORMAL ECG RI6.01 No previous ECG available for comparison
[2019-12-13 20:50] VITALS: BP 106/72
[2019-12-13] MEDS ORDERED: PRED1TAB PO (21:19)
[2019-12-13] MEDS: INSULIN GLARGINE SYRINGE. SQ SCH (23:00)
[2019-12-13] MEDS ORDERED: INSULIN GLARGINE SYRINGE. SQ ONE (23:00)
[2019-12-13 23:03] VITALS: BP 99/67
[2019-12-13] MEDS ORDERED: METHOCARBAMOL 500 MG TABLET PO PRN (23:15)
[2019-12-13] MEDS ORDERED: BUTALB/APAP/CAFEIN 50/325/40MG TABLET. PO PRN (23:15)
--- NOTE | 2019-12-13 23:19 | NUR ---
The patient, ALEXANDRA MENDOZA, 44 y/o, M admitted by JOURDAN BLANCA MD, was given written information regarding hospital policies, unit procedures and contact persons. Valuables and belongings were checked and noted. Reviewed with PT her PMH, PSH, SH, FH and medications. The only new medication is a prednisone taper. Tomorrow (12/13) dosage is 4 mg x2 days, then 3 mg x2 days, then 2 mg x2 days, then 1 mg x2 days, then complete. PT is on this medication for bronchitis. After notification to MD of normal lipase, PT's diet advanced to ADA. PT has been calm and cooperative with cares, assessment.
[2019-12-13] MEDS ORDERED: ASPIRIN 81 MG TAB.CHEW PO SCH (23:30)
[2019-12-13] MEDS ORDERED: DULoxetine HCL 60 MG CAPSULE.DR PO SCH (23:30)
[2019-12-13] MEDS ORDERED: LACTOBACILLUS RHAMNOSUS GG 1 CAPSULE. PO SCH (23:30)
[2019-12-13] MEDS ORDERED: OLANZapine 10 MG TABLET PO SCH (23:30)
[2019-12-13] MEDS ORDERED: OMEGA-3 FATTY ACIDS/FISH OIL 1,000 MG CAPSULE. PO SCH (23:30)
[2019-12-14] MEDS: INSULIN GLARGINE SYRINGE. SQ SCH (00:18)
[2019-12-14] MEDS: IV NORMAL SALINE 1,000ML 1,000 ML IV SCH ×2 (03:30→12:22)
[2019-12-14 05:48] VITALS: BP 94/58
[2019-12-14] MEDS ORDERED: PANTOPRAZOLE 40 MG TABLET. PO SCH (07:30)
[2019-12-14] MEDS: LIPASE/PROTEAS/AMYLAS 10/32/42 CAPSULE.DR. PO SCH ×2 (07:55→12:09)
[2019-12-14] MEDS: ONDANSETRON PF 4 MG/2 ML VIAL. IVP PRN ×2 (07:56→12:22)
[2019-12-14] MEDS: INSULIN LISPRO 300 UNITS/3 ML VIAL. SQ SCH ×2 (08:00→12:00)
[2019-12-14] MEDS ORDERED: ASCORBIC ACID 500 MG TABLET PO SCH (09:00)
[2019-12-14] MEDS ORDERED: MULTIVITAMIN with MINERAL TABLET. PO SCH (09:00)
[2019-12-14] MEDS ORDERED: CHOLECALCIFEROL (VITAMIN D3) 1,000 UNIT TABLET PO SCH (09:00)
[2019-12-14] MEDS ORDERED: predniSONE 1 MG TABLET PO SCH (09:00)
[2019-12-14 11:04] VITALS: BP 109/75
[2019-12-14 14:53] VITALS: BP_SYST 92; BP_SYST 96; BP_DIAS 58; BP_DIAS 62; BP_DIAS 64
[2019-12-14 15:29] LABS: CALCIUM 8.9 mg/dL (8.5-10.1); CREATININE 2.3 mg/dL (0.7-1.3); GFR 30.8
--- NOTE | 2019-12-14 16:34 | NUR ---
Pt discharged home with brother. VSS. NAD. PIV removed without complications. Discharge instructions/materials/rx reviewed with patient. Questions answered. All belongings accounted for. No falls or injury reported.
--- NOTE | 2019-12-15 08:29 | DS ---
DATE OF DISCHARGE: 12/14/2019 SHORT STAY HISTORY OF PRESENT ILLNESS: The patient is a 44-year-old male patient who came to the Emergency Room complaining of abdominal pain. He stated that he was seen by his green chain off bearer and said that his blood pressure was low, so he was told to come to the Emergency Room for further evaluation and treatment. He denied any chest pain or shortness of breath. Denied any chills, rigors or fever. He was extensively investigated in the Emergency Room and his blood pressure on arrival was 90/40. He was afebrile, has had extensive lab work, which showed his white cell count was slightly elevated at 13,300 and his chemistry showed that his serum sodium was 132, potassium 5.8, chloride 102, bicarbonate 13, anion gap of 17, BUN 51, creatinine 3.4. His blood sugar was 309, calcium was 9, magnesium was 1.7. Total bilirubin, AST, ALT, alkaline phosphatase slightly elevated. His total protein was 7.8, albumin was 3.8 and lipase was 166. His prothrombin time was 10.5, INR 1, aPTT was 34. Urinalysis essentially unremarkable. The patient was admitted. He did have x-ray of his chest, which showed no acute cardiopulmonary process and CT scan of the abdomen and pelvis showed mild infiltration about the pancreatic head may be seen with acute pancreatitis. No definite associated loculated collection is seen. Diffuse bladder wall thickening likely cystitis. The patient was admitted, continued on IV fluid as well as all his other medications. He actually did very well. We repeated his chemistry again and it showed that the patient has serum sodium 142, potassium 5, chloride 111, bicarbonate 19, anion gap of 12, BUN 38, creatinine 2.3, estimated GFR was 30 mL per minute, his glucose 110, calcium was 8.9. His blood sugar has been well within normal range. His lactic acid was only 1.3 and therefore, decision was made to discharge him home to continue with all his current medication and with hydrocodone for a week supply as he advised him that he should go to his primary care physician to ____ prescription for his pain medication. His past medical history significant for at least 4 previous episodes of pancreatitis, the first was in May 2018. At that time, his initial serum lipase was 7630. Imaging studies at that time showed that no pericholecystic fluid or gallbladder wall thickening or diffuse peripancreatic inflammatory changes seen, but no peripancreatic fluid collection. He apparently was admitted to [facility] where he was there for almost 14 days. His other medical problems include Crohn's disease diagnosed about 20 years. He also has type 2 diabetes and chronic kidney disease. PAST SURGICAL HISTORY: Significant for cholecystectomy done 4 months ago, left knee hemiarthroplasty. He has also esophagogastroduodenoscopy and colonoscopy. ALLERGIES: He is allergic to CODEINE, CEPHALEXIN, ACETAMINOPHEN and MORPHINE. FAMILY HISTORY: He has one older brother who is alive and healthy. One sister in a motor vehicle accident. One sister has mental problems. His father at the age of 65 because of myocardial infarction. Mother at the age of 72 because of myocardial infarction. SOCIAL HISTORY: He is , has 1 son. He smokes a pack a day. He does not drink alcohol or use any recreational drugs. He is on disability. REVIEW OF SYSTEMS: As per history of present illness on arrival to the Emergency Room, he looked well and was clearly in no apparent respiratory distress. No pallor, jaundice, cyanosis or thyromegaly. No jugular venous distention. No lower limb edema. PHYSICAL EXAMINATION: VITAL SIGNS: His blood pressure supine was 92/58, actually sitting was 96/64 and standing was 92/62. The patient was asymptomatic. His heart rate was around 70, temperature was 98.2, respiratory rate was 18 and oxygen saturation was 96%. HEAD, EYES, EARS, NOSE AND THROAT: Showed normocephalic, atraumatic. NECK: Supple. HEART: Showed normal first and second heart sounds. No gallop or murmur. CHEST: Clear to auscultation. No crepitation or rhonchi. ABDOMEN: Distended, soft, nontender. No guarding or rigidity. No organomegaly. All hernial orifice intact. Bowel sounds normal. NEUROLOGIC: He was awake, alert, responding appropriately. All cranial nerves are intact. He moves all extremities without difficulty. He ambulates without assistance or assistive devices. LABORATORY WORK: His lab work showed a white cell count of 13,300, hemoglobin 11, hematocrit 34, MCV 95, platelet count 232,000. His chemistry showed a serum sodium of 142, potassium 5, chloride 111, bicarbonate 19, anion gap of 12, BUN 38, creatinine 2.3, estimated GFR was 30 mL per minute. His glucose 110, calcium was 8.9. FINAL DISCHARGE DIAGNOSES: 1. Chronic pancreatitis. 2. Chronic pain syndrome. 3. Acute on chronic kidney injury. His creatinine is back to baseline. JOURDAN BLANCA MD DR: TERESA/jennifer JOB#: [id number] / [id number]
[2019-12-27] MEDS ORDERED: NON FORMULARY ITEM (Adalimumab (Humira) 1 SYR) SQ SCH (09:00)
== END 2019-12-14 16:35 | disposition home or self-care (01) | DRG 871 ==
LOC: ER 16:03 → 1 SOUTH 19:30
PROVIDERS: ADMIT Internal Medicine; ATTEND Internal Medicine
DX: A41.9 Sepsis, unspecified organism (principal); N17.0 Acute kidney failure with tubular necrosis; K86.1 Other chronic pancreatitis; K50.90 Crohn's disease, unspecified, without complications; N30.90 Cystitis, unspecified without hematuria; Z96.659 Presence of unspecified artificial knee joint; F32.9 Major depressive disorder, single episode, unspecified; F17.210 Nicotine dependence, cigarettes, uncomplicated; E87.5 Hyperkalemia; E11.22 Type 2 diabetes mellitus with diabetic chronic kidney disease; N18.9 Chronic kidney disease, unspecified; G89.4 Chronic pain syndrome; Z82.49 Family history of ischemic heart disease and other diseases of the circulatory system; Z90.49 Acquired absence of other specified parts of digestive tract; Z88.1 Allergy status to other antibiotic agents; Z88.5 Allergy status to narcotic agent
CPT/HCPCS: 36415; 71045; 74176; 80048; 80053; 81001; 82553; 82947; 83605; 83690; 83735; 83880; 84484; 85025; 85610; 85730; 87040; 93005; 96361; 96365; 96375; 96376; J0610; J1815; J1956; J2405; J3010; 99285-25; J7030

== ENCOUNTER → 2019-12-18 | Outpatient (CLI) | payer BC, MEDICARE ==
[2019-12-14 14:53] VITALS: BP 92/62
[~2019-12-18] MED LIST changes: +PRED1TAB PO
--- NOTE | 2019-12-18 14:39 | RAD ---
INDICATION: Cough COMPARISON: December 13, 2019 FINDINGS: 2 views chest obtained. Postoperative changes the left clavicle with plate and screws seen. Metallic density structures are again seen in the adjacent soft tissues. Degenerative changes to the spine with mild osteophyte formation. IMPRESSION: * No focal airspace consolidation Electronically signed by: Nick Massey MD (12/18/2019 2:36 PM) [id number]
== END | disposition home or self-care (01) ==
LOC: PMG 14:04
PROVIDERS: ATTEND Physician Assistant
DX: R05 Cough (principal); M47.814 Spondylosis without myelopathy or radiculopathy, thoracic region; M25.78 Osteophyte, vertebrae
CPT/HCPCS: 71046

== ENCOUNTER 2020-01-21 18:57 | Observation (INO) | payer BC, MEDICARE ==
[~2020-01-21] VITALS: Ht 167.6 cm; Wt 96.5 kg
[2020-01-21] MEDS ORDERED: KETOROLAC 30 MG/ML VIAL. ONE (19:42)
--- NOTE | 2020-01-21 19:42 | PHYS DOC ---
Past History Past Medical History: Anxiety, Bipolar, Depression, Diabetes, High Cholesterol, Hypertension, Migraines, Pancreatitis, Renal Disease, Renal Failure, Other Additional Past Medical Histor: Crohn's disease Past Surgical History: Appendectomy, Cholecystectomy, Knee Replacement, Other Additional Past Surgical Histo: LEFT SHOULDER, RIGHT HAND Smoking: Cigarettes Alcohol Use: None Drug Use: None General Adult EDM: Chief Complaint: ABDOMINAL PAIN HPI: HPI: "..I ve been hurting a few days....now...I ve been on clear fluids... I think it is my pancreatitis...I ve had it before..." Patient is a 44 year old male who presents with above hx and Rt. lower abd. pain. Pt.has hx of chronic pancreatitis. Patient has had at least 4 episodes of pancreatitis requiring hospitalization has also had a history of cystitis, renal insufficiency and history of acute renal injury, elevated cholesterol, anx iety, migraines, hypertension, GERD, and Crohn's disease. Patient denies any intake of bad food. Patient denies any recent travel outside the [place] area. Patient denies any specific ill contacts. Patient denies any trauma. Patient has been compliant with his digestive enzymes for his chronic pancreatitis. Patient has had previous cholecystectomy, appendectomy, EGD's, an d colon scopes. P. Patient normally follows with [facility] as a primary care. Review of Systems: Review of Systems: Constitutional: Denies fever or chills Eyes: Denies change in visual acuity HENT: Denies nasal congestion or sore throat Respiratory: Denies cough or shortness of breath Cardiovascular: Denies chest pain or edema GI: Complains of generalized abdominal pain, nausea. Denies, vomiting, bloody stools or diarrhea : Denies dysuria Musculoskeletal: Denies back pain or joint pain Integument: Denies rash Neurologic: Denies headache, focal weakness or sensory changes Endocrine: Denies polyuria or polydipsia Lymphatic: Denies swollen glands Psychiatric: Denies depression or anxiety Heart Score: HEART Score for Chest Pain: HEART Score for Chest Pain Response (Comments) Value History Slighlty/Non-Suspicious 0 Age >45 - < 65 1 Risk Factors 1 or 2 Risk Factors 1 Troponin < Normal Limit 0 Total 2 Risk Factors: Risk Factors: DM, Current or recent (<one month) smoker, HTN, HLP, family history of CAD, obesity. Risk Scores: Score 0 - 3: 2.5% MACE over next 6 weeks - Discharge Home Score 4 - 6: 20.3% MACE over next 6 weeks - Admit for Clinical Observation Score 7 - 10: 72.7% MACE over next 6 weeks - Early Invasive Strategies Family History: Family History: There is family history of myocardial infarction with father and mother both are has a sister with mental problems. Had one sister in a motor v ehicle accident. One older brother healthy Current Medications: Current Meds: See nursing for home meds Allergies: Allergies: Allergies Coded Allergies Type Severity Reaction Last Updated Verified cephalexin Allergy Intermediate Rash 01/11/20 Yes codeine Adverse Reaction Intermediate Migraine Headaches 09/05/19 Yes Physical Exam: PE: Constitutional: Moderate acute distress, non-toxic appearance. [] HENT: Normocephalic, atraumatic, bilateral external ears normal, oropharynx moist, no oral exudates, nose normal. [] Eyes: PERRLA, EOMI, conjunctiva normal, no discharge. [] Neck: Normal range of motion, no tenderness, supple, no stridor. [] Cardiovascular:Heart rate regular rhythm, no murmur [] Lungs & Thorax: Bilateral breath sounds equal at apex on auscultation [] Abdomen: Bowel sounds decreased l, soft, generalized tenderness, no masses, no pulsatile masses. Large midline scar. Some rebound to epigastric area. Obese. Skin: Warm, dry, no erythema, no rash. [] Back: No tenderness, no CVA tenderness. [] Extremities: No tenderness, no cyanosis, no clubbing, ROM intact, no edema. [] Left shoulder scar. Knee scars Neurologic: Alert and oriented X 3, normal motor function, normal sensory function, no focal deficits noted. [] Psychologic: Affect anxious,, judgement normal, mood normal. [] Current Patient Data: Vital Signs: Vital Signs Date Time Temp Pulse Resp B/P (MAP) Pulse Ox O2 Delivery O2 Flow Rate FiO2 01/21/20 19:00 98.0 86 18 148/86 (106) 98 Room Air EKG: EKG: My interpretation of her EKG shows a sinus rhythm at 70 bpm. There is a right bundle branch block and T wave abnormality however no findings of acute STEMI with contralateral changes. Radiology/Procedures: Radiology/Procedures: [[address] [address] IMAGING REPORT Signed PATIENT: ALEXANDRA MENDOZA ACCOUNT: [id number] : 1975 LOCATION: ER AGE: 44 SEX: M EXAM STATUS: REG ER ORD. PHYSICIAN: PRATIK DE LEON MD REASON: ABD.PAIN, N/V/D, X 5 DAYS, H/O PANCREATITIS, OMNI 240, 30ml PROCEDURE: CT ABD PEL W/ORAL CONTRST ONLY CT abdomen and pelvis without contrast HISTORY: Abdominal pain, nausea, vomiting, diarrhea, history of pancreatitis, history of Crohn's disease. PQRS statement: CT scans at this facility use dose reduction including either automated exposure control, iterative reconstructions, and /or weight based radiation dosing via mA and kV modification when appropriate to reduce radiation dose to as low as reasonably achievable. COMPARISON: CT abdomen and pelvis December 13, 2019. Abdomen findings: Lower thoracic disc disease with endplate irregularities with Schmorl's nodes, as well as shallow thoracic and lumbar disc bulges. Lung bases unremarkable. Tiny calcifications of the head of pancreas stable likely mild imaging changes of chronic pancreatitis. No edema or enlargement of the gland just changes of acute pancreatitis. Liver, spleen, adrenal glands unremarkable. Bilateral renal hyperdense lesions typical hemorrhagic cysts largest measuring 3 cm with densities measuring approximately 80 units. No urinary calculi or hydronephrosis. Appendix is absent. No obstruction or inflammatory changes in GI tract. Aortoiliac artery calcified plaque. Prominence retrocaval lumbar veins with a 3 cm varix stable to prior imaging. No abdominal fluid. Pelvis findings: Changes of prior right inguinal hernia repair again demonstrated. Urinary bladder wall is mildly thickened new compared to older imaging October 2019. No bladder calculi. Prostate, rectum and bones are unremarkable. IMPRESSION: 1. No acute process in the abdomen evident. 2. Hemorrhagic renal cysts, stable. 3. Urinary bladder wall thickening may represent cystitis. Exposure: One or more of the following individualized dose reduction techniques were utilized for this examination: 1. Automated exposure control 2. Adjustment of the mA and/or kV according to patient size 3. Use of iterative reconstruction technique Electronically signed by: Lulu Ivey MD (01/21/2020 11:34 PM) [id number] DICTATED AND SIGNED BY: LULU IVEY MD DATE: 01/21/20 476 CC: PRATIK DE LEON MD; NASEEM RAMIREZ ~ ][place] [address] IMAGING REPORT Signed PATIENT: ALEXANDRA MENDOZA ACCOUNT: [id number] : 1975 LOCATION: ER AGE: 44 SEX: M EXAM STATUS: REG ER ORD. PHYSICIAN: PRATIK D ELEON MD REASON: ABD. PAIN, N/V/D, X 5 DAYS, H/O PANCREATITIS PROCEDURE: ACUTE ABDOMEN SERIES ACUTE ABDOMEN SERIES History: Abdominal pain, nausea and vomiting and diarrhea for 5 days Comparison: Chest exam December 18, 2019 and September 28, 2018 acute abdominal series Findings: Single view of the chest, single supine AP view the abdomen, single upright AP view the abdomen are submitted. There is again metallic plate and screws of the left clavicle. There is no pleural fluid, pneumothorax, or infiltrate. No free air is identified. No significantly dilated gas-filled small bowel is identified, scattered gas in large and small bowel. There are likely phleboliths in the right pelvis. There has been cholecystectomy. Impression: 1. There is overall nonobstructive bowel gas pattern. Electronically signed by: Ashley Monaco MD (01/21/2020 8:12 PM) [facility] DICTATED AND SIGNED BY: ASHLEY MONACO MD DATE: 01/21/202011 CC: PRATIK DE LEON MD; NASEEM RAMIREZ ~ Course & Med Decision Making: Course & Med Decision Making Pertinent Labs and Imaging studies reviewed. (See chart for detail) Admit to / Dr. Pedraza- hydration, replacement of potassium. Discussed presentation,testing and tx. plan with at 2330. Will admit for hydration and replacement of potassium. Impression; 1. Abdomen pain -Suspect Pancreatitis- Acute on Chronic 2. Leukocytosis 16.4 3. Anemia hemoglobin 12.3 4. Hypo-natremia at 134 5. Critical hypokalemia 2.8 6. Diabetes glucose 162 7. Elevated AST 40 and alk phos 194 [] Dragon Disclaimer: Dragon Disclaimer: This electronic medical record was generated, in whole or in part, using a voice recognition dictation system. Departure Departure: Disposition: 01 HOME/RESIDENCE PRIOR TO ADM Condition: STABLE Referrals: NASEEM RAMIREZ (PCP) Rei Disclaimer This chart was dictated in whole or in part using Voice Recognition software in a busy, high-work load, and often noisy Emergency Department environment. It may contain unintended and wholly unrecognized errors or omissions. Dragon Disclaimer This chart was dictated in whole or in part using Voice Recognition software in a busy, high-work load, and often noisy Emergency Department environment. It may contain unintended and wholly unrecognized errors or omissions. PRATIK DE LEON MD Jan 21, 2020 19:42
[2020-01-21] MEDS ORDERED: IV RINGERS SOLUTION,LACTATED 1,000 ML IV SCH (19:50)
[2020-01-21] MEDS ORDERED: ONDANSETRON PF 4 MG/2 ML VIAL. IVP ONE (19:50)
[2020-01-21] MEDS ORDERED: KETOROLAC 30 MG/ML VIAL. IVP ONE (19:50)
[2020-01-21] MEDS ORDERED: MORPHINE SULFATE 10 MG/ML SYRINGE. IM ONE (19:50)
[2020-01-21] MEDS ORDERED: FAMOTIDINE 20 MG/2 ML VIAL IVP ONE (19:50)
[2020-01-21 20:06] LABS: BASO # 0.1 x10^3/uL (0.0-0.2); BASO % 1 % (0-3); EOS # 0.3 x10^3/uL (0.0-0.7); EOS % 2 % (0-3); HEMATOCRIT 37.3 % (39.0-53.0); HEMOGLOBIN 12.3 g/dL (13.0-17.5); LYMPH # 6.2 x10^3/uL (1.0-4.8); LYMPH % 38 % (24-48); MEAN CORPUSCULAR HEMOGLOBIN 31 pg (25-35); MEAN CORPUSCULAR HGB CONC 33 g/dL (31-37); MEAN CORPUSCULAR VOLUME 95 fL (79-100); MONO # 1.2 x10^3/uL (0.0-1.1); MONO % 7 % (0-9); NEUT # 8.6 x10^3uL (1.8-7.7); NEUT % 53 % (31-73); PLATELET COUNT 271 x10^3/uL (140-400); RED BLOOD COUNT 3.92 x10^6/uL (4.30-5.70); RED CELL DISTRIBUTION WIDTH 15.2 % (11.5-14.5); WHITE BLOOD COUNT 16.4 x10^3/uL (4.0-11.0)
--- NOTE | 2020-01-21 20:15 | RAD ---
ACUTE ABDOMEN SERIES History: Abdominal pain, nausea and vomiting and diarrhea for 5 days Comparison: Chest exam December 18, 2019 and September 28, 2018 acute abdominal series Findings: Single view of the chest, single supine AP view the abdomen, single upright AP view the abdomen are submitted. There is again metallic plate and screws of the left clavicle. There is no pleural fluid, pneumothorax, or infiltrate. No free air is identified. No significantly dilated gas-filled small bowel is identified, scattered gas in large and small bowel. There are likely phleboliths in the right pelvis. There has been cholecystectomy. Impression: 1. There is overall nonobstructive bowel gas pattern. Electronically signed by: Gus Rodriguez MD (01/21/2020 8:12 PM) [facility]
[2020-01-21 20:20] LABS: ALBUMIN 3.8 g/dL (3.4-5.0); CALCIUM 9.4 mg/dL (8.5-10.1); DIRECT BILIRUBIN 0.2 mg/dL (0.0-0.2); GFR 36.1; TOTAL BILIRUBIN 0.5 mg/dL (0.2-1.0); TOTAL PROTEIN 7.9 g/dL (6.4-8.2)
[2020-01-21 20:22] LABS: POTASSIUM 2.8 mmol/L (3.5-5.1)
[2020-01-21 21:20] LABS: BARBITURATES NEG (NEG); BENZODIAZEPINES NEG (NEG); CANNABINOIDS NEG (NEG); COCAINE NEG (NEG); METHADONE NEG (NEG); OPIATES POS (NEG); PHENCYCLIDINE NEG (NEG)
[2020-01-21 21:22] LABS: AMPHETAMINE/METHAMPHETAMINE NEG (NEG)
[2020-01-21 21:27] LABS: BACTERIA,URINE 0 /HPF (0-FEW); BILIRUBIN,URINE NEG (NEG); CLARITY,URINE CLEAR; COLOR,URINE YELLOW; GLUCOSE,URINE NEG (NEG); NITRITE,URINE NEG (NEG); SQUAMOUS EPITHELIAL CELL,UR FEW /LPF; UROBILINOGEN,URINE 0.2 mg/dL (0.2 mg/dL)
[2020-01-21] MEDS ORDERED: IOHEXOL 240 MG/ML 50ML VIAL. PO ONE (22:00)
[2020-01-21] MEDS ORDERED: POTASSIUM CL 40MEQ IN 0.9%NACL 1,000 ML IV ONE (22:00)
[2020-01-21 22:30] LABS: % BANDS 4 % (0-9); % EOS 1 % (0-5); % LYMPHS 36 % (24-48); % MONOS 4 % (0-10); % SEGS 55 % (35-66)
[2020-01-21] MEDS ORDERED: MORPHINE SULFATE 10 MG/ML SYRINGE. SQ ONE (22:30)
[2020-01-21 22:31] LABS: PLT ESTIMATE ADEQUATE (ADEQUATE)
[2020-01-21 22:32] LABS: TEAR DROP CELLS FEW
--- NOTE | 2020-01-21 23:37 | RAD ---
CT abdomen and pelvis without contrast HISTORY: Abdominal pain, nausea, vomiting, diarrhea, history of pancreatitis, history of Crohn's disease. PQRS statement: CT scans at this facility use dose reduction including either automated exposure control, iterative reconstructions, and /or weight based radiation dosing via mA and kV modification when appropriate to reduce radiation dose to as low as reasonably achievable. COMPARISON: CT abdomen and pelvis December 13, 2019. Abdomen findings: Lower thoracic disc disease with endplate irregularities with Schmorl's nodes, as well as shallow thoracic and lumbar disc bulges. Lung bases unremarkable. Tiny calcifications of the head of pancreas stable likely mild imaging changes of chronic pancreatitis. No edema or enlargement of the gland just changes of acute pancreatitis. Liver, spleen, adrenal glands unremarkable. Bilateral renal hyperdense lesions typical hemorrhagic cysts largest measuring 3 cm with densities measuring approximately 80 units. No urinary calculi or hydronephrosis. Appendix is absent. No obstruction or inflammatory changes in GI tract. Aortoiliac artery calcified plaque. Prominence retrocaval lumbar veins with a 3 cm varix stable to prior imaging. No abdominal fluid. Pelvis findings: Changes of prior right inguinal hernia repair again demonstrated. Urinary bladder wall is mildly thickened new compared to older imaging October 2019. No bladder calculi. Prostate, rectum and bones are unremarkable. IMPRESSION: 1. No acute process in the abdomen evident. 2. Hemorrhagic renal cysts, stable. 3. Urinary bladder wall thickening may represent cystitis. Exposure: One or more of the following individualized dose reduction techniques were utilized for this examination: 1. Automated exposure control 2. Adjustment of the mA and/or kV according to patient size 3. Use of iterative reconstruction technique Electronically signed by: Kemal Hoff MD (01/21/2020 11:34 PM) [id number]
[2020-01-22] MEDS ORDERED: MORPHINE SULFATE 10 MG/ML SYRINGE. SQ PRN
[2020-01-22] MEDS ORDERED: ONDANSETRON PF 4 MG/2 ML VIAL. IVP PRN
[2020-01-22] MEDS ORDERED: ACETAMINOPHEN 325 MG TABLET PO PRN
[2020-01-22] MEDS ORDERED: MORPHINE SULFATE 10 MG/ML SYRINGE. SQ ONE (00:30)
[2020-01-22] MEDS ORDERED: MORPHINE SULFATE 4 MG/ML DISP.SYRIN. ONE (03:04)
[2020-01-22 03:59] VITALS: BP 132/93
[2020-01-22] MEDS ORDERED: PIOG30TA41 PO (04:26)
[2020-01-22] MEDS ORDERED: BUSP30TA PO (04:26)
[2020-01-22] MEDS ORDERED: CRESTOR40 MG PO (04:26)
[2020-01-22] MEDS ORDERED: TOPI50TA8 PO (04:26)
--- NOTE | 2020-01-22 04:53 | NUR ---
The patient, ALEXANDRA MENDOZA, 44 y/o, M admitted by JOURDAN BLANCA MD, was given written information regarding hospital policies, unit procedures and contact persons. Valuables were checked and noted. PT presented with abdominal pain for a few days, gradually worsening, sought ED support. PT admitted and swabbed for COVID. PT noted to be in abdominal pain still at arrival; however, PT fell asleep during assessment, needing to be nudged awake. PT advised he is NPO diet status. Reviewed with PT his PMH, PSH, SH, FH and medications.
[2020-01-22] MEDS: IV RINGERS SOLUTION,LACTATED 1,000 ML IV SCH ×2 (05:00)
[2020-01-22 06:17] LABS: BASO # 0.1 x10^3/uL (0.0-0.2); BASO % 1 % (0-3); EOS # 0.4 x10^3/uL (0.0-0.7); EOS % 4 % (0-3); HEMATOCRIT 32.8 % (39.0-53.0); LYMPH # 4.3 x10^3/uL (1.0-4.8); LYMPH % 37 % (24-48); MEAN CORPUSCULAR HEMOGLOBIN 32 pg (25-35); MEAN CORPUSCULAR HGB CONC 33 g/dL (31-37); MEAN CORPUSCULAR VOLUME 95 fL (79-100); MONO # 0.8 x10^3/uL (0.0-1.1); MONO % 7 % (0-9); NEUT # 5.9 x10^3uL (1.8-7.7); NEUT % 51 % (31-73); PLATELET COUNT 228 x10^3/uL (140-400); RED BLOOD COUNT 3.45 x10^6/uL (4.30-5.70); RED CELL DISTRIBUTION WIDTH 15.2 % (11.5-14.5); WHITE BLOOD COUNT 11.5 x10^3/uL (4.0-11.0)
[2020-01-22 06:22] LABS: CALCIUM 8.2 mg/dL (8.5-10.1); CREATININE 1.8 mg/dL (0.7-1.3); GFR 40.8; POTASSIUM 3.5 mmol/L (3.5-5.1)
[2020-01-22] MEDS ORDERED: IPRATRPIUM/ALBUTEROL 0.5/2.5MG 3 ML NEBU. NEB SCH (08:00)
--- NOTE | 2020-01-22 08:31 | HP ---
ADMIT DATE: 01/21/2020 ATTENDING PHYSICIAN: Dr. Farfan. CHIEF COMPLAINT: Right lower quadrant abdominal pain. HISTORY OF PRESENT ILLNESS: The patient is a 44-year-old gentleman well known to me from previous admissions. He is admitted through the ED with vague nonspecific abdominal pain. He has had low-grade fevers, some nausea, no diarrhea, no hematemesis. His lipase was slightly elevated at 288. CT of the abdomen and pancreas did not show any inflammation. He had low potassium of 2.8 mEq. He was a bit dry with a creatinine of 2.0. He was admitted overnight for observation for dehydration and hypokalemia. PAST MEDICAL HISTORY: Significant for generalized anxiety, bipolar disorder, depression, type 2 diabetes, hyperlipidemia, chronic pancreatitis, chronic renal disease stage 3, migraine headaches. SOCIAL HISTORY: He is a nonsmoker, nondrinker. CURRENT MEDICINES: Reviewed. He was taking Tylenol, albuterol, Pepcid, fentanyl, BuSpar, butalbital in the form of Fioricet, cholecalciferol, Cymbalta, fish oil, Creon, Robaxin, multivitamin, olanzapine, omeprazole, Actos, Crestor, and Topamax. ALLERGIES: HE HAS ALLERGIES TO CEPHALEXIN AND CODEINE. FAMILY HISTORY: Noncontributory. REVIEW OF SYSTEMS: Significant for the localized symptoms. No recent travel, no cough, chest pain, shortness of breath or palpitation. All other systems reviewed and turned to be negative. PHYSICAL EXAMINATION: GENERAL: When I saw him, this is a pleasant, middle-aged gentleman. He appeared in no acute distress. INITIAL VITAL SIGNS: Showed a blood pressure 132/93, pulse is 78 and regular, temperature 97.7 degrees Fahrenheit, oxygen saturation 94% on room air. HEENT: Head is without trauma. Pupils are reactive. Sclerae are nonicteric. Oropharynx is clear. NECK: Supple, no adenopathy or bruits. No masses palpated. LUNGS: Otherwise clear. CARDIOVASCULAR: Showed regular heart tones. No obvious gallops. Peripheral pulses palpable and full. ABDOMEN: Obese, protuberant. No organomegaly. Bowel sounds are hypoactive. EXTREMITIES: Show no cyanosis or edema. NEUROLOGIC: Focally intact. Speech is fluent. PERTINENT LABORATORY STUDIES: Admission hemoglobin was 12.3 g/dL with white count of 16,400. Chemistry panel showed potassium of 2.8 mEq per liter, sodium 134, creatinine 2.0 mg/dL, nonfasting blood sugar 162 mg/dL. His lipase was reported 288, which is actually within the normal range at this laboratory. ASSESSMENT: 1. A 44-year-old gentleman with mild dehydration. 2. Hypokalemia. 3. Chronic pancreatitis. 4. Chronic kidney disease stage 3. 5. History of Crohn's disease. 6. Generalized debilitation. 7. Underlying depression with anxiety. PLAN: 1. Observation status. 2. IV hydration. 3. Potassium replacement. 4. Pain and nausea control. 5. Follow up chemistry in the morning. RENA FARFAN MD DR: JOSE/jennifer JOB#: [id number] / [id number]
--- NOTE | 2020-01-22 08:45 | DS ---
DATE OF DISCHARGE: 01/22/2020 ATTENDING PHYSICIAN: Dr. Farfan. FINAL DISCHARGE DIAGNOSES: 1. Dehydration, mild, rehydrated. 2. Hypokalemia, replaced. 3. History of Crohn's disease. 4. Nonspecific abdominal pain. 5. Chronic pancreatic insufficiency. 6. Major depression with bipolar disorder. 7. Hyperlipidemia. 8. Essential hypertension. HISTORY AND PHYSICAL: The patient is a disabled 44-year-old gentleman with multiple medical issues. He was admitted to the ED with vague nonspecific abdominal pain. He also had mild dehydration and diminished potassium of 2.8 mEq per liter. PHYSICAL EXAMINATION: Please see my dictated note. PERTINENT LABORATORY AND X-RAY STUDIES: Followup potassium in the next day with replacement was up to 3.5 mEq per liter. Creatinine improved from 2.0 mg/dL, down to 1.8 mg/dL. Hemoglobin was stable. CT of the abdomen showed no acute process, chronic pancreatitis with calcification. COURSE IN THE HOSPITAL: The patient was admitted. He was started on liquid diet, IV hydration, potassium replacement and serial chemistries improved. By the next morning when I saw him, he was quite alert. He wanted to go home. I believe he did have a COVID-19 swab pending. This will be followed up as an outpatient. Therefore, he is discharged home with instructions to follow a bland diet for the next 48 hours. He will have no changes on his medication including the following: He should continue his Creon before meals, Humira as scheduled, ascorbic acid, BuSpar, butalbital p.r.n., cholecalciferol, Cymbalta daily, fish oil, methocarbamol p.r.n., olanzapine, omeprazole, Actos, Crestor and Topamax, dose unchanged. He will follow up with his regular PCP as scheduled. The patient was then discharged from our hospital in stable condition with explicit instructions and followup care. RENA FARFAN MD DR: JOSE/jennifer JOB#: [id number] / [id number]
[2020-01-22] MEDS ORDERED: FAMOTIDINE 20 MG/2 ML VIAL IVP SCH (09:00)
--- NOTE | 2020-01-22 09:25 | NUR ---
PATIENT IS DISCHARGED TO HOME, FOLLOW UP AND MEDICATIONS WERE REVIEWED, PATIENT VERBALIZED UNDERSTANDING. PATIENT AMBULATED TO THE FRONT DOOR ACCOMPANIED BY STAFF, TAKEN HOME BY FAMILY MEMBER VIA PERSONAL VEHICLE.
== END 2020-01-22 09:25 | disposition home or self-care (01) ==
LOC: ER 18:57 → INTOOBSV 23:45 → 1 SOUTH 23:45
PROVIDERS: ADMIT Internal Medicine; ATTEND Hospitalist
DX: E86.0 Dehydration (principal); E87.6 Hypokalemia; K86.1 Other chronic pancreatitis; K85.90 Acute pancreatitis without necrosis or infection, unspecified; K50.90 Crohn's disease, unspecified, without complications; I12.9 Hypertensive chronic kidney disease with stage 1 through stage 4 chronic kidney disease, or unspecified chronic kidney disease; N18.3 Chronic kidney disease, stage 3 (moderate); F41.1 Generalized anxiety disorder; E11.22 Type 2 diabetes mellitus with diabetic chronic kidney disease; E78.00 Pure hypercholesterolemia, unspecified; E78.5 Hyperlipidemia, unspecified; F31.9 Bipolar disorder, unspecified; Z79.899 Other long term (current) drug therapy
CPT/HCPCS: 36415; 74022; 74176; 80048; 80076; 80307; 81001; 82150; 82550; 83690; 84484; 85007; 85025; 85610; 85730; 87635; 96361; 96365; 96366; 96368; 96372; 96375; 96376; 99284; G0378; G0379; J1885; J1956; J2270; J2405; J3010; J3490; J7120; Q9966; 96367

== ENCOUNTER → 2020-02-01 | Outpatient (CLI) | payer BC, MEDICARE ==
[2020-01-22 03:59] VITALS: BP 132/93
[~2020-02-01] MED LIST changes: +BUSP30TA PO
--- NOTE | 2020-02-01 12:27 | RAD ---
PQRS Compliance Statement: One or more of the following individualized dose reduction techniques were utilized for this examination: 1. Automated exposure control 2. Adjustment of the mA and/or kV according to patient size 3. Use of iterative reconstruction technique CT CHEST WO CONTRAST Clinical Indication: Cough x2 months. History of Crohn's disease. Comparison: CT abdomen and pelvis without contrast, January 21, 2020. TECHNIQUE: Helical CT imaging of the chest is performed without IV contrast. Findings: There are subcentimeter mediastinal lymph nodes. There is no adenopathy. The great vessels are normal caliber. Cardiac size normal, no pericardial effusion. The central airways are patent. Minimal atelectasis is seen in the anterior right lower lobe. Lungs are otherwise clear. There is no pleural abnormality. The visualized upper abdomen is stable. There are large Schmorl's nodes of the T11 vertebral body. IMPRESSION: No acute pulmonary process. Electronically signed by: Jaden Trujillo MD (02/01/2020 12:24 PM) [id number]
== END | disposition home or self-care (01) ==
LOC: CT 10:20
DX: J98.11 Atelectasis (principal); F17.200 Nicotine dependence, unspecified, uncomplicated
CPT/HCPCS: 71250

== ENCOUNTER 2020-02-15 18:27 | Emergency (ER) | payer BC, MEDICARE ==
[~2020-02-15] VITALS: Ht 167.6 cm; Wt 96.5 kg
[2020-02-15 18:37] VITALS: BP 118/82
[2020-02-15] MEDS ORDERED: ONDANSETRON PF 4 MG/2 ML VIAL. IVP ONE (18:45)
[2020-02-15] MEDS ORDERED: IV NORMAL SALINE 1,000ML 1,000 ML IV ONE (18:45)
--- NOTE | 2020-02-15 19:01 | PHYS DOC ---
Past History Past Medical History: Anxiety, Bipolar, Depression, Diabetes, High Cholesterol, Hypertension, Migraines, Pancreatitis, Renal Disease, Renal Failure, Other Additional Past Medical Histor: Crohn's disease Past Surgical History: Appendectomy, Cholecystectomy, Knee Replacement, Other Additional Past Surgical Histo: LEFT SHOULDER, RIGHT HAND Smoking: Cigarettes Alcohol Use: None Drug Use: None General Adult EDM: Chief Complaint: ABDOMINAL PAIN HPI: HPI: 44-year-old male presents with epigastric abdominal pain. Patient has chronic pancreatitis. He has flareups every couple months. He has had this increased pain for the last 2 days. The patient does not drink alcohol at all. He has had nausea, but no vomiting. He denies fever chills. This pain feels like his previous episodes. He has no other complaints at this time. Review of Systems: Review of Systems: Constitutional: Denies fever or chills Eyes: Denies change in visual acuity HENT: Denies nasal congestion or sore throat Respiratory: Denies cough or shortness of breath Cardiovascular: Denies chest pain or edema GI: Epigastric abdominal pain, nausea. Denies vomiting, bloody stools or diarrhea : Denies dysuria Musculoskeletal: Denies back pain or joint pain Integument: Denies rash Neurologic: Denies headache, focal weakness or sensory changes Endocrine: Denies polyuria or polydipsia Lymphatic: Denies swollen glands Psychiatric: Denies depression or anxiety Heart Score: Risk Factors: Risk Factors: DM, Current or recent (<one month) smoker, HTN, HLP, family history of CAD, obesity. Risk Scores: Score 0 - 3: 2.5% MACE over next 6 weeks - Discharge Home Score 4 - 6: 20.3% MACE over next 6 weeks - Admit for Clinical Observation Score 7 - 10: 72.7% MACE over next 6 weeks - Early Invasive Strategies Current Medications: Current Meds: Current Medications Medications (Trade) Dose Ordered Sig/Monty Start Time Stop Time Status Last Admin Dose Admin Ondansetron HCl (Zofran) 4 mg 1X ONCE 02/15/20 18:45 02/15/20 18:46 DC 02/15/20 18:45 4 MG Sodium Chloride 1,000 ml @ 1,000 mls/hr 1X ONCE 02/15/20 18:45 02/15/20 19:44 02/15/20 18:45 1,000 MLS/HR Allergies: Allergies: Allergies Coded Allergies Type Severity Reaction Last Updated Verified cephalexin Allergy Intermediate Rash 01/11/20 Yes codeine Adverse Reaction Intermediate Migraine Headaches 09/05/19 Yes Physical Exam: PE: Constitutional: Well developed, well nourished, no acute distress, non-toxic appearance. [] HENT: Normocephalic, atraumatic, bilateral external ears normal, oropharynx moist, no oral exudates, nose normal. [] Eyes: PERRLA, EOMI, conjunctiva normal, no discharge. [] Neck: Normal range of motion, no tenderness, supple, no stridor. [] Cardiovascular: Heart rate regular rhythm, no murmur [] Lungs & Thorax: Bilateral breath sounds clear to auscultation [] Abdomen: Bowel sounds normal, soft, moderate epigastric tenderness, no masses, no pulsatile masses. [] Skin: Warm, dry, no erythema, no rash. [] Back: No tenderness, no CVA tenderness. [] Extremities: No tenderness, no cyanosis, no clubbing, ROM intact, no edema. [] Neurologic: Alert and oriented X 3, normal motor function, normal sensory fun ction, no focal deficits noted. [] Psychologic: Affect normal, judgement normal, mood normal. [] Current Patient Data: Vital Signs: Vital Signs Date Time Temp Pulse Resp B/P (MAP) Pulse Ox O2 Delivery O2 Flow Rate FiO2 02/15/20 18:37 98.1 84 16 118/82 (94) 98 Room Air EKG: EKG: [] Radiology/Procedures: Radiology/Procedures: [] Course & Med Decision Making: Course & Med Decision Making Pertinent Labs and Imaging studies reviewed. (See chart for details) The patient's labs are unremarkable. His lipase is normal. He does not appear to be having an acute flareup of his chronic pancreatitis. He may worsen, but he may be getting better as well. I believe he is able to go home. Patient is in agreement with this plan. He is stable for discharge at this time. [] Dragon Disclaimer: Dragon Disclaimer: This electronic medical record was generated, in whole or in part, using a voice recognition dictation system. Departure Departure: Impression: Primary Impression: Epigastric abdominal pain Disposition: HOME/RESIDENCE PRIOR TO ADM Condition: STABLE Referrals: NASEEM RAMIREZ (PCP) Patient Instructions: Abdominal Pain, [id number] YANDEL ARREOLA DO February 15, 2020 19:01
[2020-02-15 19:25] LABS: ALBUMIN 3.6 g/dL (3.4-5.0); ALBUMIN/GLOBULIN RATIO 0.9 (1.0-1.7); CALCIUM 9.3 mg/dL (8.5-10.1); CREATININE 1.4 mg/dL (0.7-1.3); GFR 54.6; TOTAL BILIRUBIN 0.4 mg/dL (0.2-1.0); TOTAL PROTEIN 7.7 g/dL (6.4-8.2)
[2020-02-15 19:29] LABS: BASO # 0.1 x10^3/uL (0.0-0.2); BASO % 1 % (0-3); EOS # 0.4 x10^3/uL (0.0-0.7); EOS % 3 % (0-3); HEMATOCRIT 38.5 % (39.0-53.0); HEMOGLOBIN 12.9 g/dL (13.0-17.5); LYMPH # 6.2 x10^3/uL (1.0-4.8); LYMPH % 43 % (24-48); MEAN CORPUSCULAR HEMOGLOBIN 32 pg (25-35); MEAN CORPUSCULAR HGB CONC 34 g/dL (31-37); MEAN CORPUSCULAR VOLUME 95 fL (79-100); MONO # 0.8 x10^3/uL (0.0-1.1); MONO % 6 % (0-9); NEUT # 6.8 x10^3uL (1.8-7.7); NEUT % 48 % (31-73); PLATELET COUNT 227 x10^3/uL (140-400); RED BLOOD COUNT 4.07 x10^6/uL (4.30-5.70); RED CELL DISTRIBUTION WIDTH 14.2 % (11.5-14.5); WHITE BLOOD COUNT 14.2 x10^3/uL (4.0-11.0)
[2020-02-15 19:55] LABS: BACTERIA,URINE 0 /HPF (0-FEW); BILIRUBIN,URINE NEG (NEG); CLARITY,URINE CLEAR; COLOR,URINE YELLOW; GLUCOSE,URINE NEG (NEG); NITRITE,URINE NEG (NEG); RBC,URINE OCC /HPF (0-2); UROBILINOGEN,URINE 0.2 mg/dL (0.2 mg/dL); WBC,URINE OCC /HPF (0-4)
[2020-02-15 19:56] LABS: SQUAMOUS EPITHELIAL CELL,UR OCC /LPF
== END 2020-02-15 20:03 | disposition home or self-care (01) ==
LOC: ER 18:27
DX: R10.13 Epigastric pain (principal); R11.0 Nausea; E11.9 Type 2 diabetes mellitus without complications; E78.00 Pure hypercholesterolemia, unspecified; G43.909 Migraine, unspecified, not intractable, without status migrainosus; I12.9 Hypertensive chronic kidney disease with stage 1 through stage 4 chronic kidney disease, or unspecified chronic kidney disease; N18.9 Chronic kidney disease, unspecified; E11.22 Type 2 diabetes mellitus with diabetic chronic kidney disease; K50.90 Crohn's disease, unspecified, without complications; F17.210 Nicotine dependence, cigarettes, uncomplicated; Z90.49 Acquired absence of other specified parts of digestive tract; Z90.89 Acquired absence of other organs; Z88.1 Allergy status to other antibiotic agents; Z88.5 Allergy status to narcotic agent
CPT/HCPCS: 36415; 80053; 81001; 83690; 85025; 96374; 96375; 96376; 99284; J2405; J3010; 96360; J7030

== ENCOUNTER 2020-03-21 14:17 | Inpatient (IN) | payer BC, MEDICARE ==
[~2020-03-21] VITALS: Ht 167.6 cm; Wt 89.1 kg
[~2020-03-21 14:17] MED LIST changes: +MULT-445 PO; -MULT1TAB52 PO
[2020-03-21] MEDS ORDERED: ONDANSETRON PF 4 MG/2 ML VIAL. IVP ONE ×2 (15:30→16:15)
[2020-03-21] MEDS ORDERED: IV NORMAL SALINE 1,000ML 1,000 ML IV ONE (15:30)
--- NOTE | 2020-03-21 15:36 | PHYS DOC ---
Past History Past Medical History: Depression, Pancreatitis Additional Past Medical Histor: Crohn's disease Past Surgical History: Cholecystectomy, Other Additional Past Surgical Histo: left shoulder, left knee, rt wrist Smoking: Cigarettes Alcohol Use: None Drug Use: None General Adult EDM: Chief Complaint: ABDOMINAL PAIN HPI: HPI: 44-year-old male with a history of pancreatitis presents with 3 days of epigastric pain and vomiting. He is afraid that his pancreatitis is flaring up again. He has no new symptoms. Just the abdominal pain and vomiting. The pain is moderate to severe cramping. He denies fever chills. Review of Systems: Review of Systems: Constitutional: Denies fever or chills Eyes: Denies change in visual acuity HENT: Denies nasal congestion or sore throat Respiratory: Denies cough or shortness of breath Cardiovascular: Denies chest pain or edema GI: Epigastric abdominal pain, nausea, vomiting. Denies bloody stools or diarrhea : Denies dysuria Musculoskeletal: Denies back pain or joint pain Integument: Denies rash Neurologic: Denies headache, focal weakness or sensory changes Endocrine: Denies polyuria or polydipsia Lymphatic: Denies swollen glands Psychiatric: Denies depression or anxiety Heart Score: Risk Factors: Risk Factors: DM, Current or recent (<one month) smoker, HTN, HLP, family history of CAD, obesity. Risk Scores: Score 0 - 3: 2.5% MACE over next 6 weeks - Discharge Home Score 4 - 6: 20.3% MACE over next 6 weeks - Admit for Clinical Observation Score 7 - 10: 72.7% MACE over next 6 weeks - Early Invasive Strategies Current Medications: Current Meds: Current Medications Medications (Trade) Dose Ordered Sig/[facility] Start Time Stop Time Status Last Admin Dose Admin Ondansetron HCl (Zofran) 4 mg 1X ONCE 03/21/20 15:30 03/21/20 15:31 DC 03/21/20 15:25 4 MG Sodium Chloride 1,000 ml @ 1,000 mls/hr 1X ONCE 03/21/20 15:30 03/21/20 16:29 03/21/20 15:25 1,000 MLS/HR Allergies: Allergies: Allergies Coded Allergies Type Severity Reaction Last Updated Verified cephalexin Allergy Intermediate Rash 01/11/20 Yes codeine Adverse Reaction Intermediate Migraine Headaches 09/05/19 Yes Physical Exam: PE: Constitutional: Well developed, well nourished, no acute distress, non-toxic appearance. [] HENT: Normocephalic, atraumatic, bilateral external ears normal, oropharynx moist, no oral exudates, nose normal. [] Eyes: PERRLA, EOMI, conjunctiva normal, no discharge. [] Neck: Normal range of motion, no tenderness, supple, no stridor. [] Cardiovascular: Heart rate regular rhythm, no murmur [] Lungs & Thorax: Bilateral breath sounds clear to auscultation [] Abdomen: Bowel sounds normal, soft, epigastric tenderness, no masses, no pulsatile masses. [] Skin: Warm, dry, no erythema, no rash. [] Back: No tenderness, no CVA tenderness. [] Extremities: No tenderness, no cyanosis, no clubbing, ROM intact, no edema. [] Neurologic: Alert and oriented X 3, normal motor function, normal sensory function, no focal deficits noted. [] Psychologic: Affect normal, judgement normal, mood normal. [] Current Patient Data: Vital Signs: Vital Signs Date Time Temp Pulse Resp B/P (MAP) Pulse Ox O2 Delivery O2 Flow Rate FiO2 03/21/20 14:53 99.0 104 18 144/99 (114) 98 Room Air EKG: EKG: [] Radiology/Procedures: Radiology/Procedures: [] Course & Med Decision Making: Course & Med Decision Making Pertinent Labs and Imaging studies reviewed. (See chart for details) The patient's labs are significant for a lipase of 1119. This is significantly worse than his last several lipase levels. He has been as high as 3000 in the past. I will admit him to the hospital for pancreatitis. He has been given 4 mg of Toradol and 2 mg of morphine in the ED. I spoke with Dr. Sherman and he has accepted the patient for admission. [] Dragon Disclaimer: Dragguy Disclaimer: This electronic medical record was generated, in whole or in part, using a voice recognition dictation system. Departure Departure: Impression: Primary Impression: Acute on chronic pancreatitis Disposition: ADMITTED INPATIENT Admitting Physician: Gisella Sherman Condition: STABLE Referrals: NASEEM RAMIREZ (PCP) Justification of Admission: Justification of Admission: Justification of Admission Dx: Yes Comments: Pancreatitis YANDEL ARREOLA DO Mar 21, 2020 15:36
[2020-03-21 15:53] LABS: BASO # 0.1 x10^3/uL (0.0-0.2); BASO % 1 % (0-3); EOS # 0.3 x10^3/uL (0.0-0.7); EOS % 2 % (0-3); HEMATOCRIT 43.5 % (39.0-53.0); HEMOGLOBIN 14.6 g/dL (13.0-17.5); LYMPH # 3.8 x10^3/uL (1.0-4.8); LYMPH % 22 % (24-48); MEAN CORPUSCULAR HEMOGLOBIN 31 pg (25-35); MEAN CORPUSCULAR HGB CONC 34 g/dL (31-37); MEAN CORPUSCULAR VOLUME 92 fL (79-100); MONO # 0.8 x10^3/uL (0.0-1.1); MONO % 5 % (0-9); NEUT # 12.3 x10^3uL (1.8-7.7); NEUT % 71 % (31-73); PLATELET COUNT 221 x10^3/uL (140-400); RED CELL DISTRIBUTION WIDTH 13.9 % (11.5-14.5); WHITE BLOOD COUNT 17.3 x10^3/uL (4.0-11.0)
[2020-03-21 16:11] LABS: CALCIUM 9.5 mg/dL (8.5-10.1); CREATININE 1.8 mg/dL (0.7-1.3); GFR 40.8; POTASSIUM 3.3 mmol/L (3.5-5.1)
[2020-03-21] MEDS ORDERED: MORPHINE SULFATE 2 MG/ML DISP.SYRIN. IV ONE (16:15)
[2020-03-21 16:17] LABS: ALBUMIN 3.9 g/dL (3.4-5.0); TOTAL BILIRUBIN 0.6 mg/dL (0.2-1.0); TOTAL PROTEIN 7.7 g/dL (6.4-8.2)
[2020-03-21] MEDS ORDERED: MORPHINE SULFATE 4 MG/ML DISP.SYRIN. IV ONE (17:15)
[2020-03-21] MEDS ORDERED: MORPHINE SULFATE 4 MG/ML DISP.SYRIN. IVP PRN (17:30)
[2020-03-21] MEDS ORDERED: ONDANSETRON PF 4 MG/2 ML VIAL. IVP PRN (17:30)
[2020-03-21] MEDS ORDERED: IV DEXTROSE 5% - 0.9 % NACL 1,000 ML IV ONE (17:30)
--- NOTE | 2020-03-21 17:57 | EKG ---
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
[2020-03-21] MEDS ORDERED: INSULIN REGULAR 100 UNIT/ML 3ML VIAL. IV ONE (18:00)
[2020-03-21] MEDS ORDERED: DEXTROSE 50% 25 GM / 50ML DISP.SYRIN. IV PRN (18:30)
[2020-03-21] MEDS ORDERED: fentaNYL PF 250 MCG/5 ML VIAL IV PRN (18:45)
[2020-03-21 20:05] VITALS: BP 155/95
[2020-03-21] MEDS: POTASSIUM CHLORIDE 10MEQ 100 ML IV SCH ×2 (20:20→22:46)
[2020-03-21 22:23] VITALS: BP 152/91
[2020-03-22] MEDS: POTASSIUM CHLORIDE 10MEQ 100 ML IV SCH ×2 (00:11→01:03)
[2020-03-22 05:36] VITALS: BP 152/94
[2020-03-22] MEDS: INSULIN LISPRO 300 UNITS/3 ML VIAL. SQ SCH ×3 (06:19→12:17)
[2020-03-22 08:12] LABS: BASO % 0 % (0-3); EOS # 0.4 x10^3/uL (0.0-0.7); EOS % 3 % (0-3); HEMOGLOBIN 13.8 g/dL (13.0-17.5); LYMPH # 3.4 x10^3/uL (1.0-4.8); LYMPH % 24 % (24-48); MEAN CORPUSCULAR HEMOGLOBIN 31 pg (25-35); MEAN CORPUSCULAR HGB CONC 34 g/dL (31-37); MEAN CORPUSCULAR VOLUME 93 fL (79-100); MONO # 0.9 x10^3/uL (0.0-1.1); MONO % 6 % (0-9); NEUT # 9.8 x10^3uL (1.8-7.7); NEUT % 67 % (31-73); PLATELET COUNT 201 x10^3/uL (140-400); RED BLOOD COUNT 4.42 x10^6/uL (4.30-5.70); RED CELL DISTRIBUTION WIDTH 13.8 % (11.5-14.5); WHITE BLOOD COUNT 14.5 x10^3/uL (4.0-11.0)
[2020-03-22 08:16] LABS: ALBUMIN 3.2 g/dL (3.4-5.0); ALBUMIN/GLOBULIN RATIO 0.8 (1.0-1.7); CALCIUM 8.3 mg/dL (8.5-10.1); CREATININE 1.6 mg/dL (0.7-1.3); GFR 46.8; POTASSIUM 3.4 mmol/L (3.5-5.1); TOTAL BILIRUBIN 0.4 mg/dL (0.2-1.0); TOTAL PROTEIN 7.1 g/dL (6.4-8.2)
[2020-03-22 10:53] VITALS: BP 126/88
[2020-03-22] MEDS ORDERED: POTASSIUM CL 20MEQ D5-0.45NACL 1,000 ML IV SCH (11:45)
[2020-03-22] MEDS ORDERED: POTASSIUM CL 20MEQ D5-0.9%NACL 1,000 ML IV SCH (12:00)
[2020-03-22 15:05] VITALS: BP 154/95
[2020-03-22] MEDS ORDERED: DEXTROSE 50% 25 GM / 50ML DISP.SYRIN. IV PRN (16:15)
--- NOTE | 2020-03-22 16:48 | HP ---
ADMIT DATE: 03/21/2020 HISTORY OF PRESENT ILLNESS: The patient is a 44-year-old male patient who yet again came to the Emergency Room with another episode of abdominal pain. He has had multiple episodes of pancreatitis before and he started having epigastric pain and vomiting about 3 days ago. He is worried that his pancreatitis is flaring up again. He denied any other complaint. He was evaluated in the Emergency Room and his lab work showed that his serum lipase was high at 1119. He has also mild hyponatremia and hypokalemia. His creatinine was slightly up. His blood sugar was high at 331 mg/dL. He has no imaging studies done and the patient was admitted with diagnosis of acute pancreatitis. He was kept n.p.o., started on IV fluid, IV pain medication and antiemetic. PAST MEDICAL HISTORY: Significant for Crohn's disease, hyperglycemia, sinusitis, chronic kidney disease and idiopathic pancreatitis. PAST SURGICAL HISTORY: Significant for cholecystectomy done 4 months ago, left knee hemiarthroplasty, has also esophagogastroduodenoscopy and colonoscopy. ALLERGIES: He is allergic to CODEINE, CEPHALEXIN, ACETAMINOPHEN and MORPHINE. FAMILY HISTORY: He has 1 older brother who is alive and healthy. One sister in a motor vehicle accident. One sister has mental problems. His father at the age of 65 because of myocardial infarction. Mother at the age of 72 because of myocardial infarction. SOCIAL HISTORY: He is , has 1 son. He smokes a pack a day. He does not drink alcohol or use recreational drugs. He is on disability. REVIEW OF SYSTEMS: As per history of present illness. PHYSICAL EXAMINATION: GENERAL: On arrival to the Emergency Room, he looked well and was clearly in no apparent respiratory distress. There was no pallor, jaundice, cyanosis or thyromegaly. No jugular venous distention. No limb edema. VITAL SIGNS: His heart rate was 104, blood pressure was 144/99, temperature was 99, respiratory rate was 18 and oxygen saturation was 98%. HEAD, EYES, EARS, NOSE AND THROAT: Normocephalic, atraumatic. NECK: Supple. HEART: Showed normal first and second heart sounds. No gallop or murmur. CHEST: Clear to auscultation. No crepitation or rhonchi. ABDOMEN: Distended, soft, nontender. No guarding or rigidity. No organomegaly. All hernial orifices intact. Bowel sounds normal. NEUROLOGIC: He is awake, alert, responding appropriately. All cranial nerves intact. EXTREMITIES: He moves extremities without difficulty. LABORATORY DATA: Showed a white cell count 17,300, hemoglobin 14.6, hematocrit 44, MCV 92 and platelet count of 221,000. His serum sodium was 133, potassium 3.3, chloride 95, bicarbonate 22, anion gap of 16, BUN 22, creatinine 1.8, estimated GFR was 40 mL per minute. His glucose was 331, calcium was 9.5. Total bilirubin, AST, ALT were normal. Alkaline phosphatase slightly elevated. Total protein 7.7, albumin was 3.9. Serum lipase was 1119. MEDICATIONS: He is currently on following medications: He is on methocarbamol 750 mg 3 times a day, Crestor 40 mg at bedtime. He is on butalbital, acetaminophen and caffeine 1 capsule every 6 hours, topiramate 50 mg twice a day, duloxetine 60 mg at bedtime, olanzapine 15 mg at bedtime, buspirone 30 mg twice a day. He is on Creon 36,000 units 3 times a day with meals, omeprazole 40 mg once a day, bifidobacterium infantis for Align 1 capsule at bedtime, pioglitazone 30 mg once a day, ascorbic acid 1000 mg daily, cholecalciferol 5000 International Unit once a day, multivitamin 1 tablet once a day, Humira 40 mg in 0.8 mL subcutaneously every 2 weeks. He is on fish oil 1000 mg at bedtime. PLAN: To keep the patient n.p.o. We will continue with IV fluid. He is now on D5 half normal with 40 mEq of potassium chloride. We will do insulin sliding scale every 6 hours, fentanyl 50 mcg every 2 hours and ondansetron 4 mg every 4 hours as needed. We will monitor his lab work and adjust his medication accordingly. Once the serum lipase normalized, we will start him on a clear liquid diet and advance as tolerated. JOURDAN BLANCA MD DR: TERESA/jennifer JOB#: [id number] / [id number]
[2020-03-22] MEDS: POTASSIUM CL 40MEQ D5-0.45NACL 1,000 ML IV SCH (16:54)
[2020-03-22] MEDS: INSULIN LISPRO 300 UNITS/3 ML VIAL. SQ PRN (17:54)
[2020-03-22 19:07] VITALS: BP 132/87
--- NOTE | 2020-03-22 20:14 | PN ---
DATE: 03/22/2020 SUBJECTIVE: The patient is resting, slightly propped up in bed, in no apparent distress. He continued to complain of abdominal pain, but no nausea or vomiting. PHYSICAL EXAMINATION: GENERAL: When I saw him this afternoon, he looked well and was clearly in no apparent respiratory distress. No pallor, jaundice, cyanosis or thyromegaly. No jugular venous distention or limb edema. VITAL SIGNS: Her heart rate was 107, blood pressure was 154/95, temperature was 98.5, respiratory rate was 20, and oxygen saturation was 96%. HEAD, EYES, EARS, NOSE AND THROAT: Showed normocephalic, atraumatic. NECK: Supple. HEART: Showed normal first and second sounds with no gallop, rub or murmur. CHEST: Clear to auscultation. No crepitation or rhonchi. ABDOMEN: Distended, soft, nontender. No guarding or rigidity. No organomegaly. All hernial orifices intact. Bowel sounds normal. NEUROLOGIC: He was awake, alert, responding appropriately. All cranial nerves are intact. He moves extremities without difficulty. His intake and output are incompletely recorded. LABORATORY DATA: Her lab work this morning showed a white cell count 14,500, hemoglobin 13, hematocrit 41, MCV 93, and platelet count of 201,000. His chemistry showed a serum sodium 137, potassium 3.4, chloride 101, bicarbonate 25, anion gap of 11, BUN 17, creatinine 1.6, estimated GFR was 47 mL per minute. His glucose was 170, calcium was 8.3. Total bilirubin, AST and ALT are normal. Alkaline phosphatase slightly elevated. Total protein 7.1, albumin 3.2. Serum lipase is down to 639. ASSESSMENT: 1. Recurrent idiopathic pancreatitis secondary to diabetes. 2. Recurrent pancreatitis with hyperglycemia, hypokalemia. PLAN: To change IV fluid to D5 half normal with 40 mEq of potassium chloride. I will increase his insulin to a higher sliding scale and we will repeat all his lab work tomorrow and if his lipase normalized, we can start him on a clear liquid diet and advance as tolerated. JOURDAN BLANCA MD DR: TERESA/jennifer JOB#: [id number] / [id number]
[2020-03-23 05:23] VITALS: BP 133/75
[2020-03-23] MEDS: INSULIN LISPRO 300 UNITS/3 ML VIAL. SQ PRN ×2 (06:14→11:57)
[2020-03-23] MEDS: POTASSIUM CL 40MEQ D5-0.45NACL 1,000 ML IV SCH (07:10)
[2020-03-23 08:52] LABS: ALBUMIN 3.1 g/dL (3.4-5.0); ALBUMIN/GLOBULIN RATIO 0.8 (1.0-1.7); CALCIUM 8.6 mg/dL (8.5-10.1); CREATININE 1.5 mg/dL (0.7-1.3); GFR 50.4; POTASSIUM 3.2 mmol/L (3.5-5.1); TOTAL BILIRUBIN 0.4 mg/dL (0.2-1.0); TOTAL PROTEIN 7.2 g/dL (6.4-8.2)
[2020-03-23] MEDS ORDERED: POTASSIUM BICARB 20 MEQ EFFERVESCENT TABLET. FT ONE (09:15)
[2020-03-23 10:59] VITALS: BP 119/82
[2020-03-23 13:27] LABS: CALCIUM 8.6 mg/dL (8.5-10.1); CREATININE 1.7 mg/dL (0.7-1.3); GFR 43.6; POTASSIUM 3.9 mmol/L (3.5-5.1)
[2020-03-23] MEDS ORDERED: OXYC5TAB88 PO (13:46)
--- NOTE | 2020-03-23 15:23 | DS ---
DATE OF DISCHARGE: 03/23/2020 The patient is a 44-year-old male patient who yet again came with another episode of abdominal pain, was diagnosed with acute pancreatitis. He was initially kept n.p.o., on IV fluid, IV pain medication, antiemetic. As his blood sugar was high, we did start him also on insulin and the serum lipase came down steadily from almost 1100 down to 314, which is well within normal range. He advanced his diet and tolerating it very well, has no nausea, no vomiting, no abdominal pain and a decision was made to discharge him home to follow with his primary care physician. PHYSICAL EXAMINATION: GENERAL: When I saw him today, he looked well and was clearly in no apparent respiratory distress. No pallor, jaundice, cyanosis or thyromegaly. No jugular venous distention. No limb edema. VITAL SIGNS: His heart rate was 92, blood pressure was 119/82, temperature was 99.2, respiratory rate 20, and oxygen saturation was 94% on room air. HEAD, EYES, EARS, NOSE AND THROAT: Showed normocephalic, atraumatic. NECK: Supple. HEART: Showed normal first and second heart sounds. No gallop, rub or murmur. CHEST: Clear to auscultation. No crepitation or rhonchi. ABDOMEN: Distended, soft, nontender. NEUROLOGIC: He was grossly intact. His intake over the last 24 hours was 2215, no output was recorded. LABORATORY DATA: This morning showed a serum sodium 136, potassium 3.9, chloride 102, bicarbonate 24, anion gap of 10, BUN 13, creatinine 1.7, estimated GFR was 43 mL per minute. His glucose was 365, calcium was 8.6. His total bilirubin, AST, ALT, alkaline phosphatase slightly elevated; however, his total protein 7.2, albumin 3.1 and lipase was 314. His white cell count was 14,500, hemoglobin 13.8, hematocrit 41, MCV 93, and platelet count 201,000. DISCHARGE MEDICATIONS: He was discharged home to continue on his Humira 40 mg subcutaneously every 2 weeks for his Crohn's disease; ascorbic acid 1000 mg daily; Bifidobacterium infantis 1 capsule at bedtime, buspirone 30 mg twice a day; butalbital, acetaminophen and caffeine one tablet every 6 hours; ergocalciferol, vitamin D3 5000 units 1 tablet once a day; duloxetine 60 mg at bedtime; fish oil 1200 mg at bedtime; Creon 36,000 units capsule 1 capsule 3 times a day with meals; methocarbamol (Robaxin) 750 mg 3 times a day; multivitamin 1 tablet once a day; olanzapine 1.5 tablet at bedtime; omeprazole 40 mg once a day; pioglitazone (Actos) 30 mg once a day; Crestor 40 mg at bedtime; topiramate 50 mg twice a day and oxycodone immediate release 5 mg every 4 hours as needed. FINAL DISCHARGE DIAGNOSES: 1. Recurrent idiopathic pancreatitis. 2. Secondary diabetes with hyperglycemia. 3. Hypertension. 4. Chronic kidney disease. 5. Bipolar disorder. 6. Crohn's disease. JOURDAN BLANCA MD DR: TERESA/jennifer JOB#: [id number] / [id number]
[2020-03-24 01:06] LABS: HEMOGLOBIN A1C 9.4 % (4.8-5.6)
== END 2020-03-23 14:03 | disposition home or self-care (01) | DRG 439 ==
LOC: ER 14:17 → 1 SOUTH 17:56
PROVIDERS: ADMIT Internal Medicine; ATTEND Internal Medicine
DX: K85.00 Idiopathic acute pancreatitis without necrosis or infection (principal); K50.90 Crohn's disease, unspecified, without complications; E87.1 Hypo-osmolality and hyponatremia; R65.10 Systemic inflammatory response syndrome (SIRS) of non-infectious origin without acute organ dysfunction; K86.1 Other chronic pancreatitis; F17.210 Nicotine dependence, cigarettes, uncomplicated; E87.6 Hypokalemia; N18.9 Chronic kidney disease, unspecified; E11.65 Type 2 diabetes mellitus with hyperglycemia; E11.22 Type 2 diabetes mellitus with diabetic chronic kidney disease; I12.9 Hypertensive chronic kidney disease with stage 1 through stage 4 chronic kidney disease, or unspecified chronic kidney disease; F31.9 Bipolar disorder, unspecified; Z90.49 Acquired absence of other specified parts of digestive tract; Z88.5 Allergy status to narcotic agent; Z88.8 Allergy status to other drugs, medicaments and biological substances; Z82.49 Family history of ischemic heart disease and other diseases of the circulatory system
CPT/HCPCS: 36415; 80048; 80053; 82947; 83036; 83690; 85025; 93005; 96361; 96374; 96375; J1815; J2270; J2405; J3010; J3480; J7042; 99285-25; J7030

== ENCOUNTER 2020-04-04 20:36 | Inpatient (IN) | payer BC, MEDICARE ==
[~2020-04-04] VITALS: Ht 167.6 cm; Wt 90.5 kg
[~2020-04-04 20:36] MED LIST changes: +OXYC5TAB88 PO
--- NOTE | 2020-04-04 20:38 | PHYS DOC ---
Past History Past Medical History: Depression, Diabetes, Pancreatitis Additional Past Medical Histor: Crohn's disease Past Surgical History: Cholecystectomy, Other Additional Past Surgical Histo: left shoulder, left knee, rt wrist Smoking: Cigarettes Alcohol Use: None Drug Use: None General Adult EDM: Chief Complaint: ABDOMINAL PAIN HPI: HPI: "..I tried to not come in.. and just hydrate at home.. take my meds...I just could not go any longer... Its.. my pancreatitis... again..." Patient is a 44 year old male who presents with above hx and complaints of abdomen pain x 3 days. Patient has been unable to even tolerate fluids by mouth. Persistent nausea and vomits when he attempts to eat or drink fluids.. Has passed stool and gas. Patient states his pain is just like his previous pancreatitis exacerbations.. Pt. last admitted for exacerbation of his chronic pancreatitis on 03/[address] Sherman. At that time his lipase was elevated at 1119. Patient also was hyponatremic at 133 and hypokalemic at 3.3 that time. Patient has long history of frequent episodes of pancreatitis flares. Patient has been unable to tolerate food for the last 3 days. Patient localizes his pain and right epigastric and mid gastric. Pain is rated 10 out of 10. Patient advises he been taking all his meds as directed. Patient denies any intake of bad food. No recent travel outside [facility]. No specific ill contacts. No history of immunosuppression. The patient has additional history of Crohn's disease, hyperglycemia, sinusitis, chronic renal disease, and idiopathic pancreatitis. Patient has had previous cholecystectomy, hemo-arthroplasty, EGD and colonoscopies. Patient still smokes. Patient denies alcohol use or recreational drugs. Patient last EGD was approximately 1 year ago. Last colonoscopy was 5 years ago. Patient denies any recent tarry stools. The pt. follows with [facility]. Review of Systems: Review of Systems: Constitutional: Denies fever or chills Eyes: Denies change in visual acuity HENT: Denies nasal congestion or sore throat Respiratory: Denies cough or shortness of breath Cardiovascular: Denies chest pain or edema GI: Complains of abdominal pain, nausea, vomiting,. Denies bloody stools or diarrhea : Denies dysuria Musculoskeletal: Denies back pain or joint pain Integument: Denies rash Neurologic: Denies headache, focal weakness or sensory changes Endocrine: Denies polyuria or polydipsia Lymphatic: Denies swollen glands Psychiatric: Denies depression or anxiety Heart Score: HEART Score for Chest Pain: HEART Score for Chest Pain Response (Comments) Value History Moderately Suspicious 1 ECG Nonspecific Repolarizatio 1 Age >45 - < 65 1 Risk Factors 1 or 2 Risk Factors 1 Troponin < Normal Limit 0 Total 4 Risk Factors: Risk Factors: DM, Current or recent (<one month) smoker, HTN, HLP, family history of CAD, obesity. Risk Scores: Score 0 - 3: 2.5% MACE over next 6 weeks - Discharge Home Score 4 - 6: 20.3% MACE over next 6 weeks - Admit for Clinical Observation Score 7 - 10: 72.7% MACE over next 6 weeks - Early Invasive Strategies Family History: Family History: Family history positive for myocardial infarction a father who at age 65, mother at age 72 also from a myocardial infarction. Has 1 sister that in a motor vehicle accident. Has 1 sister has hx. Bipolar. . Has 1 older brother who is healthy. Current Medications: Current Meds: See nursing for home meds Allergies: Allergies: Allergies Coded Allergies Type Severity Reaction Last Updated Verified cephalexin Allergy Intermediate Rash 01/11/20 Yes codeine Adverse Reaction Intermediate Migraine Headaches 09/05/19 Yes Physical Exam: PE: Constitutional: Appears ill. HEENT. :external ears normal, oropharynx dry, no oral exudates, nose normal. [] Eyes: PERRLA, EOMI, conjunctiva few petechiae, no discharge. Glasses. Neck: Normal range of motion, no tenderness, supple, no stridor. [] Cardiovascular: Tachycardia heart rate regular rhythm, no murmur [] Lungs & Thorax: Bilateral breath sounds equal apex with scattered wheezes on auscultation [] Abdomen: Bowel sounds decreased , pain right upper, and mid gastric tenderness, no masses, no pulsatile masses. No psoas sign. Rebound to right upper quadr ant. Large midline surgical scars and additional abdomen scars Skin: Warm, dry, no erythema, no rash. Poor turgor Back: No tenderness, no CVA tenderness. [] Extremities: No tenderness, no cyanosis, no clubbing, ROM intact, no edema. No true psoas sign but does rebound to right upper quadrant. No cording appreciated. Scar left shoulder, scar left knee and right wrist Neurologic: Alert and oriented X 3, moves extremities on request, has distal sensory,, no focal deficits noted. [] Psychologic: Affect anxious and depressed., judgement normal, EKG: EKG: Interpretation EKG shows a 6 sinus rhythm at 94 bpm. There is some nonspecific T wave changes anterior leads. Slightly prolonged QT interval at 398 ms with a QTc interval of 504 milliseconds. No findings of acute STEMI with contralateral changes. [] Radiology/Procedures: Radiology/Procedures: [][address] [address] IMAGING REPORT Signed PATIENT: TYLOR AGUILAR ACCOUNT: [id number] : 12/10/1999 LOCATION: ER AGE: 20 SEX: F EXAM STATUS: REG ER ORD. PHYSICIAN: PRATIK DE LEON MD REASON: fOOSH INJURY, pain worse on 4th and 5th digits PROCEDURE: HAND LEFT 3V 3 view left hand HISTORY: Pain status post fall on outstretched hand AP lateral oblique views The visualized osseous structures appear normal. IMPRESSION: No acute findings. Electronically signed by: John William III, MD (04/04/2020 6:50 PM) [id number] DICTATED AND SIGNED BY: JOHN WILLIAM III, MD DATE: 04/04/201849 CC: PRATIK DE LEON MD; YANDEL GONZALEZ ~ Course & Med Decision Making: Course & Med Decision Making Pertinent Labs and Imaging studies reviewed. (See chart for details) Pt. presentation, testing and tx. plan discussed with Dr. Sherman. Plan admit, NPO except meds. Hydrate . Symptomatic treatment of pain and nausea. Insulin for DM. If labs normalized start on clear fluids. Will hold CT evaluation at this time until patient is better hydrated. Critical care 90 minutes. Impression: 1. Abdomen Pain 2. Hx. Recurrent Pancreatitis 3. Dehydration 4. Hypokalemia Critical 2.9 5. Hyponatremia 123 6. Acute Renal Failure BUN 27/2.5 Creat. 7. Leukocytosis 17.3 8 DM Gluc 727-DKA 9. Elevated CRP 25.8 10.Elevated Alk Phos. 262 11.Elevated Lipase 842 12. Elevated D -Dimer 13. Metabolic Acidosis pH 7.29/HCO3 12 14. Tobacco Use [] Dragon Disclaimer: Dragon Disclaimer: This electronic medical record was generated, in whole or in part, using a voice recognition dictation system. Departure Departure: Disposition: 01 HOME/RESIDENCE PRIOR TO ADM Condition: STABLE Referrals: NASEEM RAMIREZ (PCP) Justification of Admission: Justification of Admission: Justification of Admission Dx: Yes DKA: DKA Dragon Disclaimer This chart was dictated in whole or in part using Voice Recognition software in a busy, high-work load, and often noisy Emergency Department environment. It may contain unintended and wholly unrecognized errors or omissions. Dragon Disclaimer This chart was dictated in whole or in part using Voice Recognition software in a busy, high-work load, and often noisy Emergency Department environment. It may contain unintended and wholly unrecognized errors or omissions. Dragon Disclaimer This chart was dictated in whole or in part using Voice Recognition software in a busy, high-work load, and often noisy Emergency Department environment. It may contain unintended and wholly unrecognized errors or omissions. Dragon Disclaimer This chart was dictated in whole or in part using Voice Recognition software in a busy, high-work load, and often noisy Emergency Department environment. It may contain unintended and wholly unrecognized errors or omissions. PRATIK DE LEON MD Apr 04, 2020 20:38
[2020-04-04] MEDS ORDERED: FAMOTIDINE 20 MG/2 ML VIAL IVP ONE (20:45)
[2020-04-04] MEDS ORDERED: MAGNESIUM HYDROXIDE 2,400 MG/30 ML ORAL.SUSP. PO ONE (20:45)
[2020-04-04] MEDS ORDERED: ONDANSETRON PF 4 MG/2 ML VIAL. IVP ONE (20:45)
[2020-04-04] MEDS ORDERED: IV RINGERS SOLUTION,LACTATED 1,000 ML IV SCH ×2 (20:45→23:00)
[2020-04-04] MEDS ORDERED: MORPHINE SULFATE 10 MG/ML SYRINGE. SQ ONE ×2 (20:45→22:45)
[2020-04-04 21:14] LABS: BASO # 0.2 x10^3/uL (0.0-0.2); BASO % 1 % (0-3); EOS # 0.4 x10^3/uL (0.0-0.7); EOS % 3 % (0-3); HEMATOCRIT 44.4 % (39.0-53.0); HEMOGLOBIN 14.9 g/dL (13.0-17.5); LYMPH # 6.2 x10^3/uL (1.0-4.8); LYMPH % 36 % (24-48); MEAN CORPUSCULAR HEMOGLOBIN 31 pg (25-35); MEAN CORPUSCULAR HGB CONC 34 g/dL (31-37); MEAN CORPUSCULAR VOLUME 91 fL (79-100); MONO # 1.2 x10^3/uL (0.0-1.1); MONO % 7 % (0-9); NEUT # 9.3 x10^3uL (1.8-7.7); NEUT % 54 % (31-73); PLATELET COUNT 265 x10^3/uL (140-400); RED BLOOD COUNT 4.87 x10^6/uL (4.30-5.70); RED CELL DISTRIBUTION WIDTH 13.9 % (11.5-14.5); WHITE BLOOD COUNT 17.3 x10^3/uL (4.0-11.0)
--- NOTE | 2020-04-04 21:26 | RAD ---
Exam: Acute abdominal series INDICATION: Pain TECHNIQUE: Frontal view of chest with upright and supine views of the abdomen Comparisons: 12/18/2019 FINDINGS: The cardiomediastinal silhouette and pulmonary vessels are within normal limits. The lung and pleural spaces are clear. Air and stool are noted throughout the colon to level the rectum in a nonobstructive bowel gas pattern. No suspicious masses or calcifications. Visualized osseous structures are unremarkable. IMPRESSION: 1. No acute cardiopulmonary process. 2. Nonobstructive bowel gas pattern. Electronically signed by: Kyung Brar MD (04/04/2020 9:23 PM) [id number]
[2020-04-04 21:27] LABS: % BANDS 3 % (0-9); % EOS 6 % (0-5); % LYMPHS 31 % (24-48); % MONOS 3 % (0-10); % SEGS 57 % (35-66); PLT ESTIMATE ADEQUATE (ADEQUATE)
[2020-04-04 21:38] LABS: ALBUMIN 3.7 g/dL (3.4-5.0); CALCIUM 8.9 mg/dL (8.5-10.1); CREATININE 2.5 mg/dL (0.7-1.3); DIRECT BILIRUBIN 0.3 mg/dL (0.0-0.2); GFR 27.9; TOTAL BILIRUBIN 0.6 mg/dL (0.2-1.0); TOTAL PROTEIN 8.4 g/dL (6.4-8.2)
[2020-04-04 21:41] LABS: POTASSIUM 2.9 mmol/L (3.5-5.1)
[2020-04-04] MEDS ORDERED: POTASSIUM CHLORIDE 20MEQ 100 ML IV SCH (21:45)
[2020-04-04] MEDS ORDERED: VANCOMYCIN 1 GM in IV NORMAL SALINE 250ML 250 ML IV ONE (21:45)
[2020-04-04 21:54] LABS: CLARITY,URINE CLEAR; COLOR,URINE YELLOW; GLUCOSE,URINE >=1000 mg/dL (NEG)
[2020-04-04 21:55] LABS: BARBITURATES POS (NEG); BENZODIAZEPINES NEG (NEG); CANNABINOIDS NEG (NEG); COCAINE NEG (NEG); METHADONE NEG (NEG); OPIATES POS (NEG); PHENCYCLIDINE NEG (NEG)
[2020-04-04 21:56] LABS: BILIRUBIN,URINE NEG (NEG); NITRITE,URINE NEG (NEG); UROBILINOGEN,URINE 0.2 mg/dL (0.2 mg/dL)
[2020-04-04 21:57] LABS: BACTERIA,URINE 0 /HPF (0-FEW); RBC,URINE OCC /HPF (0-2); SQUAMOUS EPITHELIAL CELL,UR OCC /LPF; WBC,URINE OCC /HPF (0-4)
[2020-04-04 21:58] LABS: AMPHETAMINE/METHAMPHETAMINE NEG (NEG)
[2020-04-04] MEDS ORDERED: ENOXAPARIN ** NOTE DOSE ** SYRINGE SQ ONE (22:00)
[2020-04-04] MEDS ORDERED: VANCOMYCIN 2 GM in IV NORMAL SALINE 500ML 500 ML IV ONE (22:00)
[2020-04-04] MEDS ORDERED: INSULIN REGULAR VIAL 100 UNIT in IV NORMAL SALINE 100ML 100 ML IV ONE ×2 (22:00→23:00)
[2020-04-04] MEDS ORDERED: SODIUM BICARB ADULT 8.4% 50 MEQ/50 ML DISP.SYRIN. IV ONE (22:00)
[2020-04-04 22:14] LABS: BGAS PH 7.29 (7.35-7.46)
[2020-04-04] MEDS ORDERED: IV NORMAL SALINE 500ML 500 ML ONE (22:30)
[2020-04-04] MEDS ORDERED: VANCOMYCIN 1 GM VIAL. ONE (22:30)
[2020-04-04] MEDS ORDERED: IV NORMAL SALINE 100ML 100 ML ONE (22:31)
[2020-04-04] MEDS ORDERED: ONDANSETRON PF 4 MG/2 ML VIAL. IVP PRN (22:45)
[2020-04-04] MEDS: POTASSIUM CHLORIDE 10MEQ 100 ML IV SCH ×2 (22:49→23:00)
[2020-04-04] MEDS ORDERED: POTASSIUM CL 40MEQ IN 0.9%NACL 1,000 ML IV ONE (23:00)
[2020-04-04] MEDS ORDERED: NICOTINE 21MG PATCH. TD ONE (23:00)
[2020-04-04] MEDS ORDERED: ANTI-COAG MONITOR BY PHARMACY. MC PRN (23:00)
[2020-04-04 23:42] VITALS: BP 125/70
--- NOTE | 2020-04-05 | NUR ---
The patient, ALEXANDRA MENDOZA, 44 y/o, M admitted by JOURDAN BLANCA MD, to room 109, was given written information regarding hospital policies, unit procedures and contact persons. Valuables were checked and left with the patient. IV infusions checked and restarted. Medications and medical history reviewed. Assessments completed. Pt made comfortable as possible. Will continue to monitor.
--- NOTE | 2020-04-05 00:11 | NUR ---
Patient is here for uncontrolled blood sugars. Patient does use MDI prn (he says not often). ER treatment order for scheduled treatments will fall off at 2589 04/06. QID PRN Alb/NS is a more appropriate order for this patient. I.S. is also not indicated as no atelectasis was noted.
[2020-04-05] MEDS: INSULIN REGULAR VIAL 100 UNIT in IV NORMAL SALINE 100ML 100 ML IV PRN ×6 (00:30→05:09)
[2020-04-05] MEDS: MORPHINE SULFATE 10 MG/ML SYRINGE. SQ PRN ×2 (01:24→07:57)
[2020-04-05] MEDS: POTASSIUM CHLORIDE 10MEQ 100 ML IV SCH ×6 (01:34→11:28)
[2020-04-05] MEDS: VANCOMYCIN PER PHARMACY MC PRN (01:58)
--- NOTE | 2020-04-05 01:58 | NUR ---
Pharmacy Vancomycin Dosing Note S:Consulted to monitor and dose vancomycin started 04/05/20. O:ALEXANDRA MENDOZA is a 44 year old M with Empiric, . Height: 5 feet, 6 inches Weight: 92.7 kg [place] Body Weight: 63.80 Adjusted Body Weight: 75.36 Dosing Weight: Actual Other Antibiotics: METRONIDAZOLE 500 Q8H LABS: Last BUN: 27 Last Creatinine: 2.5 Creatinine Clearance: 39 Last WBC: 17.3 Last Procalcitonin: Tmax (past 24 hours): Microbiology: I/O: Drug Levels: Last level: on at Last dose given 04/05/20 at 0000 Vancomycin Dosing: Loading Dose: 2000 mg x1 Dosing Weight: Actual Target Trough: 15-20 A: Based on: WT AND CRCL P: 1. Begin Vancomycin 1500 mg IV q24h 2. Follow up Trough level on 04/06/20 at 2230 3. Pharmacy will continue to monitor, follow and adjust therapy as needed. LITO LINARES RPH, 04/05/20 0158 Signed: 04/05/20 at 0159 by LITO LINARES RPH PHA
--- NOTE | 2020-04-05 05:02 | EKG ---
[address] [address] Test Date: 2020-04-04 Test Time: 21:19:25 Pat Name: ALEXANDRA MENDOZA Department: Room: Gender: M Manager Payment: : [id number] Requested By: PRATIK DE LEON Order Number: [id number] Reading MD: Measurements Intervals [place] Rate: 94 P: 10 WA: 144 QRS: 51 QRSD: 94 T: 17 QT: 398 QTc: 504 Interpretive Statements SINUS RHYTHM T ABNORMALITY IN ANTEROSEPTAL LEADS PROLONGED QT ABNORMAL ECG RI6.02 No previous ECG available for comparison
[2020-04-05 06:45] LABS: BASO # 0.1 x10^3/uL (0.0-0.2); BASO % 0 % (0-3); EOS # 0.3 x10^3/uL (0.0-0.7); EOS % 3 % (0-3); HEMATOCRIT 38.6 % (39.0-53.0); HEMOGLOBIN 13.5 g/dL (13.0-17.5); LYMPH # 4.1 x10^3/uL (1.0-4.8); LYMPH % 34 % (24-48); MEAN CORPUSCULAR HEMOGLOBIN 31 pg (25-35); MEAN CORPUSCULAR HGB CONC 35 g/dL (31-37); MEAN CORPUSCULAR VOLUME 88 fL (79-100); MONO # 0.7 x10^3/uL (0.0-1.1); MONO % 6 % (0-9); NEUT # 6.8 x10^3uL (1.8-7.7); NEUT % 57 % (31-73); PLATELET COUNT 203 x10^3/uL (140-400); RED BLOOD COUNT 4.39 x10^6/uL (4.30-5.70); RED CELL DISTRIBUTION WIDTH 13.6 % (11.5-14.5)
[2020-04-05 07:07] LABS: CALCIUM 8.6 mg/dL (8.5-10.1); CREATININE 2.1 mg/dL (0.7-1.3); GFR 34.2
[2020-04-05 07:15] LABS: POTASSIUM 2.2 mmol/L (3.5-5.1)
[2020-04-05 07:24] VITALS: BP 113/76
[2020-04-05] MEDS: ENOXAPARIN ** NOTE DOSE ** SYRINGE SQ SCH ×2 (07:58→20:57)
[2020-04-05] MEDS ORDERED: IPRATRPIUM/ALBUTEROL 0.5/2.5MG 3 ML NEBU. NEB SCH (08:00)
[2020-04-05] MEDS ORDERED: IV DEXTROSE 5 %-0.45 % NACL 1,000 ML IV SCH (08:00)
[2020-04-05 10:19] VITALS: BP 113/76
[2020-04-05 11:04] LABS: HDLC 29 mg/dL (40-60); TRIGLYCERIDES 530 mg/dL (0-150); VLDLC 106 mg/dL (0-40)
[2020-04-05] MEDS ORDERED: POTASSIUM CL 20MEQ D5-0.45NACL 1,000 ML IV ONE (11:45)
[2020-04-05] MEDS ORDERED: ONDANSETRON PF 4 MG/2 ML VIAL. IVP PRN (13:00)
--- NOTE | 2020-04-05 13:16 | PN ---
DATE: SUBJECTIVE: The patient is resting, slightly propped up in bed, in no apparent respiratory distress. He continues to complain of pain in the epigastric area. He has had no further episodes of nausea or vomiting. PHYSICAL EXAMINATION: GENERAL: When I examined him this afternoon, he looked well and was clearly in no apparent respiratory distress. No pallor, jaundice, cyanosis or thyromegaly. No jugular venous distension. No lower limb edema. VITAL SIGNS: His heart rate was 84, blood pressure was 113/76, temperature was 98.3, respiratory rate was 20, and oxygen saturation was 92% on room air. HEAD, EYES, EARS, NOSE AND THROAT: Showed he is normocephalic, atraumatic. NECK: Supple. HEART: Showed normal first and second heart sounds. No gallop or murmur. CHEST: Shows central trachea, equal bilateral expansion, air entry, vesicular sounds. No crepitation or rhonchi. ABDOMEN: Distended, soft, nontender. No guarding or rigidity. No organomegaly. All hernial orifices intact. Bowel sounds normal. NEUROLOGIC: He was awake, alert, responding appropriately. All cranial nerves intact. He moves extremities without difficulty, ambulates without assistance or assistive devices. His intake and output were incompletely recorded. LABORATORY DATA: His lab work this morning showed a white cell count of 12,000, hemoglobin 13.5, hematocrit 38.6, MCV 88 and platelet count 203,000. His chemistry this morning showed a serum sodium 131, potassium 2.2, chloride 96, bicarbonate 26, anion gap of 9, BUN 22, creatinine 2.1, estimated GFR was 34 mL per minute, his glucose 144, calcium was 8.6, phosphorus was 1.6. ASSESSMENT: 1. Acute pancreatitis. 2. Diabetic ketoacidosis. 3. Hyponatremia, resolving. His serum sodium is up to 131 4. Hypokalemia, has actually worsened. His potassium is 2.2. He has received potassium supplement. 5. Acute on chronic kidney injury, improving. His creatinine is down from 2.5 to 2.1. PLAN: Plan is to discontinue IV morphine. We will repeat his serum lipase and also his BMP this afternoon. Once his serum lipase is normalized, we will start feeding him and will start him on insulin sliding scale and Lantus insulin. I have discontinued his olanzapine long time ago and is wondering whether he continues to take it. JOURDAN BLANCA MD DR: TERESA/jennifer JOB#: [id number] / [id number]
--- NOTE | 2020-04-05 13:54 | HP ---
ADMIT DATE: 04/04/2020 HISTORY OF PRESENT ILLNESS: The patient is a 44-year-old male patient who presented yesterday to the Emergency Room with complaint of abdominal pain that has been going on for the last 3 days. The patient has been unable to even tolerate fluids by mouth, persistent nausea and vomiting when he attempts to eat or drink fluids. He passed stool and gas. The patient states that the pain is just like his previous pancreatitis exacerbation. He was last admitted for exacerbation of chronic pancreatitis on March 21. At that time, his lipase was elevated at August 21. The patient also was hyponatremic and hypokalemic. The patient has long history of frequent episodes of pancreatitis relapses. He was rating his pain as 10/10, localized at the gastric area. He stated that he has been taking all his medications I directed. Denied any intake of bad food or recent travel outside of the [place] area. No specific ill contact. He has additional history of Crohn's disease, hyperglycemia and he was evaluated in the Emergency Room and his lab work showed that he was in diabetic ketoacidosis and has had acute on chronic kidney injury, dilutional hyponatremia and hypokalemia. His blood sugar was 727 and his pH was 7.29, pCO2 of 25, pO2 of 78 and bicarbonate was only 12. His oxygen saturation was 94% on FiO2 of 21%. His prothrombin time, INR and aPTT were normal. D-dimer was slightly elevated at 0.6. Urinalysis showed large amount of protein, large amount of glucose and ketones, moderate amount of blood, negative for nitrite and leukocyte esterase. His toxic screen was positive for opiates and barbiturates, negative for all other drugs. Has had acute abdomen series which basically showed no acute cardiopulmonary process, nonobstructive bowel gas pattern. The patient was admitted with diabetic ketoacidosis, acute pancreatitis, acute on chronic kidney injury, hypokalemia, dilutional hyponatremia, metabolic acidosis. He was started on Cardizem drip and together with IV fluid as per diabetic ketoacidosis protocol together with IV antibiotic. PAST MEDICAL HISTORY: Significant for Crohn's disease, chronic recurrent idiopathic pancreatitis, chronic kidney disease, chronic sinusitis and hyperglycemia. PAST SURGICAL HISTORY: Significant for cholecystectomy done 4 months ago, has had left knee hemiarthroplasty, esophagogastroduodenoscopy and colonoscopy. ALLERGIES: He is allergic to CODEINE, CEPHALEXIN, ACETAMINOPHEN, AND MORPHINE. FAMILY HISTORY: He has 1 older brother who is alive and healthy. One sister in a motor vehicle accident. One sister has mental problems. His father at the age of 65 because of myocardial infarction. Mother at the age of 72 because of myocardial infarction. SOCIAL HISTORY: He is , has 1 son. He smokes a pack a day. He does not drink alcohol or use recreational drugs. He is on disability. REVIEW OF SYSTEMS: As per history of present illness. MEDICATIONS: He is currently on following medications. He is on methocarbamol for Robaxin 750 mg 3 times a day, Crestor 40 mg at bedtime, oxycodone 5 mg every 4 hours, butalbital, acetaminophen and caffeine 1 capsule every 6 hours as needed for headache, topiramate 50 mg twice a day, duloxetine 60 mg at bedtime, olanzapine 1.5 mg at bedtime, buspirone 30 mg twice a day. Lipase, protease and amylase for Creon 36,000 units capsule 3 times a day with meals, omeprazole 40 mg once a day, bifidobacterium infantis or align 4 mg 1 capsule at bedtime. He is on pioglitazone 30 mg daily. He is on ascorbic acid 1000 mg daily, cholecalciferol 5000 units once a day, multivitamin 1 tablet once a day and Humira 40 mg per 0.8 mL injection subcutaneously every 2 weeks for Crohn's disease, fish oil 1000 mg at bedtime. PHYSICAL EXAMINATION: GENERAL: On arrival to the Emergency Room, the patient was slightly tachypneic and tachycardic, but there is no pallor, jaundice, cyanosis or thyromegaly. No jugular venous distention. No limb edema. VITAL SIGNS: Her heart rate was 108, blood pressure was 126/84, temperature 97.9, respiratory rate 20, and oxygen saturation was 96%. HEAD, EYES, EARS, NOSE AND THROAT: Normocephalic, atraumatic. NECK: Supple. HEART: Showed normal first and second heart sounds. No gallop, rub or murmur. CHEST: Clear to auscultation. No crepitation or rhonchi. ABDOMEN: Distended, soft with tenderness mostly in the epigastric area. No guarding or rigidity. No organomegaly. All hernial orifice intact. Bowel sounds normal. NEUROLOGIC: He was awake, alert, responding appropriately. All cranial nerves intact. EXTREMITIES: He moves extremities without difficulty. He was somewhat anxious and depressed today with normal judgment. LABORATORY DATA: His EKG showed that he was in sinus rhythm at 94 beats per minute with nonspecific T wave changes in anterior leads, slightly prolonged QT interval. His lab work on arrival to the Emergency Room showed a white cell count of 17,300, hemoglobin 14.9, hematocrit 44, MCV 91, and platelet count 265,000. Blood gases showed a pH of 7.29, pCO2 of 25, pO2 of 78, bicarbonate 12 and oxygen saturation was 94% on FiO2 of 21%. His prothrombin time, INR and aPTT normal. D-dimer was slightly elevated at 0.6. His chemistry on admission showed that his serum sodium was 123, potassium 2.9, chloride 86, bicarbonate 15, anion gap of 22, BUN 27, creatinine 2.5, estimated GFR was 28, glucose was 727. Lactic acid was 1.5, calcium was 8.9. Total bilirubin, AST, ALT normal. Alkaline phosphatase slightly elevated. Serum CK was 94. Total protein was 8.4, albumin was 3.7. C-reactive protein was 25.8. Serum triglycerides were 530, total cholesterol 140, LDL cannot be calculated, VLDL was 106, HDL was 29, though the ratio was 4. His serum amylase was 63 and lipase was 842. Urinalysis showed the urine was yellow, clear with a pH of 5, specific gravity 1.005. There was moderate amount of protein, large amount of glucose and large amount of ketones, moderate amount of blood. The urine was negative for nitrite and leukocyte esterase and no rbc's, wbc's, and no bacteria. His toxic screen was positive for opiates and barbiturates. He has had acute abdomen series, which showed the cardiomediastinal silhouette and pulmonary vessels are within normal limits. The lungs and pleural spaces are clear. Air and stool are noted throughout the colon to the rectum and a nonobstructive bowel gas pattern. No suspicious masses or calcifications. Visualized osseous structures are unremarkable. ASSESSMENT AND PLAN: The patient was admitted with another episode of pancreatitis. He was admitted with diabetic ketoacidosis, dilutional hyponatremia, hypokalemia and acute on chronic kidney injury. He was started on diabetic ketoacidosis. We will obviously follow, monitor his blood sugar and electrolytes and kidney function and replenish his potassium as needed. JOURDAN BLANCA MD DR: TERESA/jennifer JOB#: [id number] / [id number]
[2020-04-05 14:29] LABS: CALCIUM 7.8 mg/dL (8.5-10.1); GFR 36.1
[2020-04-05 14:42] LABS: POTASSIUM 2.5 mmol/L (3.5-5.1)
[2020-04-05] MEDS: POTASSIUM CHLORIDE 20 MEQ TABLET.ER. PO SCH ×4 (15:16→23:59)
[2020-04-05 15:51] VITALS: BP 108/58
[2020-04-05] MEDS ORDERED: DEXTROSE 50% 25 GM / 50ML DISP.SYRIN. IV PRN (16:45)
[2020-04-05] MEDS: INSULIN LISPRO 300 UNITS/3 ML VIAL. SQ SCH (17:00)
[2020-04-05 18:53] VITALS: BP 113/71
[2020-04-05] MEDS: FAMOTIDINE 20 MG/2 ML VIAL IVP SCH (20:55)
[2020-04-05] MEDS: POTASSIUM CL 20MEQ D5-0.45NACL 1,000 ML IV SCH (20:58)
[2020-04-05] MEDS ORDERED: INSULIN GLARGINE SYRINGE. SQ SCH (21:00)
[2020-04-05 21:08] LABS: CALCIUM 7.9 mg/dL (8.5-10.1); CREATININE 1.9 mg/dL (0.7-1.3); GFR 38.4; POTASSIUM 3.1 mmol/L (3.5-5.1)
[2020-04-06] MEDS: POTASSIUM CHLORIDE 20 MEQ TABLET.ER. PO SCH (00:37)
[2020-04-06 01:27] VITALS: BP 98/67
[2020-04-06 07:18] LABS: HEMATOCRIT 38.2 % (39.0-53.0); HEMOGLOBIN 13.3 g/dL (13.0-17.5); RED BLOOD COUNT 4.26 x10^6/uL (4.30-5.70); RED CELL DISTRIBUTION WIDTH 13.8 % (11.5-14.5); WHITE BLOOD COUNT 7.6 x10^3/uL (4.0-11.0)
[2020-04-06 07:44] LABS: ALBUMIN 2.9 g/dL (3.4-5.0); ALBUMIN/GLOBULIN RATIO 0.8 (1.0-1.7); CALCIUM 8.1 mg/dL (8.5-10.1); CREATININE 1.7 mg/dL (0.7-1.3); GFR 43.6; POTASSIUM 3.6 mmol/L (3.5-5.1); TOTAL BILIRUBIN 0.5 mg/dL (0.2-1.0); TOTAL PROTEIN 6.7 g/dL (6.4-8.2)
[2020-04-06] MEDS: ENOXAPARIN ** NOTE DOSE ** SYRINGE SQ SCH (09:00)
[2020-04-06] MEDS: INSULIN LISPRO 300 UNITS/3 ML VIAL. SQ SCH ×3 (09:32→17:50)
[2020-04-06 10:50] VITALS: BP 113/81
[2020-04-06] MEDS: POTASSIUM CL 20MEQ D5-0.45NACL 1,000 ML IV SCH (11:44)
[2020-04-06] MEDS ORDERED: BUTALB/APAP/CAFEIN 50/325/40MG TABLET. PO PRN (12:45)
[2020-04-06] MEDS ORDERED: METHOCARBAMOL 500 MG TABLET PO PRN (13:00)
--- NOTE | 2020-04-06 13:16 | PN ---
DATE: 04/06/2020 SUBJECTIVE: The patient is resting, slightly propped up, sleeping comfortably, in no apparent respiratory distress. He is sleepy, but arousable. On questioning him, he continued to complain of pain; however, clinically, he seemed to be very comfortable. His serum lipase came down from 842 down to 159. He is tolerating his diet without any problem. All his numbers are improving. His serum sodium has normalized, potassium 3.6 and creatinine was 1.7. PHYSICAL EXAMINATION: GENERAL: When I examined him this afternoon, he looked well and showed that there is no pallor, jaundice, cyanosis or thyromegaly. No jugular venous distention. No limb edema. VITAL SIGNS: His heart rate was 106, blood pressure was 113/81, temperature was 98.2, respiratory rate 20, and oxygen saturation was 96%. HEAD, EYES, EARS, NOSE AND THROAT: Showed normocephalic, atraumatic. NECK: Supple. HEART: Showed normal first and second heart sounds. No gallop or murmur. CHEST: Clear to auscultation. No crepitation or rhonchi. ABDOMEN: Distended, soft, nontender. NEUROLOGIC: He was sleepy, but arousable. All cranial nerves are intact. He moves extremities without difficulty. He ambulates without assistance or assistive devices. His intake over the last 24 hours was 2215, no output was recorded. LABORATORY DATA: His lab work this morning showed a white cell count 7600, hemoglobin 13, hematocrit 38, MCV 90 and platelet count of 181,000. His chemistry showed serum sodium has normalized to 138, potassium up to 3.6, chloride 105, bicarbonate 21, anion gap of 12, BUN 11, creatinine 1.7, estimated GFR was 43 mL per minute. His glucose was 100, calcium was 8.1. Total bilirubin is normal. AST, ALT, alkaline phosphatase slightly elevated. Total protein 6.7, albumin 2.9 and serum lipase 159. His white cell count was 7600, hemoglobin 13.3, hematocrit 39, MCV 90 and platelet count of 181,000. His blood cultures are so far negative. ASSESSMENT: 1. Relapsing chronic pancreatitis, resolved. His serum lipase is down 159. 2. Diabetic ketoacidosis, improved. His anion gap has closed. His anion gap on arrival was 22, today is 12. 3. Hyponatremia, resolved. 4. Hypokalemia, resolved. 5. Acute kidney injury on chronic kidney disease, improving. PLAN: Plan is to switch him to scheduled insulin, start him on 15 units of Humalog before meals and increase his Lantus to 30 units at bedtime. We will monitor this afternoon, tonight, and tomorrow morning and if he remains stable, he will be discharged home. I advised to discontinue his Zyprexa as a probable cause of recurrent pancreatitis. I have discontinued his fentanyl. Start him on oral oxycodone. I did reconcile all his other medications; however, I held his olanzapine, pioglitazone as well as his Humira. JOURDAN BLANCA MD DR: TERESA/jennifer JOB#: [id number] / [id number]
[2020-04-06 15:39] VITALS: BP 118/74
[2020-04-06] MEDS: oxyCODONE IR 5 MG TABLET PO PRN ×2 (15:40→20:05)
[2020-04-06] MEDS: ENOXAPARIN 40 MG/0.4 ML SYRINGE. SQ SCH (15:41)
[2020-04-06] MEDS: LIPASE/PROTEAS/AMYLAS 10/32/42 CAPSULE.DR. PO SCH (17:40)
[2020-04-06 19:47] VITALS: BP 125/81
[2020-04-06] MEDS: FAMOTIDINE 20 MG/2 ML VIAL IVP SCH (20:03)
[2020-04-06] MEDS: busPIRone 15 MG TABLET. PO SCH (20:03)
[2020-04-06] MEDS: LACTOBACILLUS RHAMNOSUS GG 1 CAPSULE. PO SCH (20:04)
[2020-04-06] MEDS: TOPIRAMATE 25 MG TABLET. PO SCH (20:05)
[2020-04-06] MEDS ORDERED: INSULIN GLARGINE SYRINGE. SQ SCH (21:00)
[2020-04-06] MEDS ORDERED: OMEGA-3 FATTY ACIDS/FISH OIL 1,000 MG CAPSULE. PO SCH (21:00)
[2020-04-06] MEDS ORDERED: DULoxetine HCL 60 MG CAPSULE.DR PO SCH (21:00)
[2020-04-06] MEDS ORDERED: BIFIDOBACTERIUM INFANTIS PO SCH (21:00)
[2020-04-06 22:52] VITALS: BP 111/73
[2020-04-06 22:57] LABS: VANC TR 13.1 mcg/mL (10.0-20.0)
[2020-04-06] MEDS: VANCOMYCIN 1.5 GM in IV NORMAL SALINE 500ML 500 ML IV SCH ×3 (23:45)
[2020-04-07 02:06] LABS: HEMOGLOBIN A1C 12.3 % (4.8-5.6)
[2020-04-07] MEDS: oxyCODONE IR 5 MG TABLET PO PRN (05:25)
[2020-04-07 05:35] VITALS: BP 120/79
[2020-04-07 06:14] LABS: HEMATOCRIT 37.9 % (39.0-53.0); HEMOGLOBIN 12.9 g/dL (13.0-17.5); RED BLOOD COUNT 4.27 x10^6/uL (4.30-5.70); RED CELL DISTRIBUTION WIDTH 13.9 % (11.5-14.5); WHITE BLOOD COUNT 6.8 x10^3/uL (4.0-11.0)
[2020-04-07 06:27] LABS: CREATININE 1.6 mg/dL (0.7-1.3); GFR 46.8
[2020-04-07 06:29] LABS: POTASSIUM 2.3 mmol/L (3.5-5.1)
[2020-04-07] MEDS: VANCOMYCIN PER PHARMACY MC PRN (06:36)
--- NOTE | 2020-04-07 06:36 | NUR ---
Pharmacy Vancomycin Dosing Note S:Consulted to monitor and dose vancomycin started 04/05/20. O:ALEXANDRA MENDOZA is a 44 year old M with Empiric, . Height: 5 feet, 6 inches Weight: 90.5 kg [place] Body Weight: 63.80 Adjusted Body Weight: 74.48 Dosing Weight: Actual Other Antibiotics: METRONIDAZOLE 500 Q8H LABS: Last BUN: 27 Last Creatinine: 1.6 Creatinine Clearance: 39 Last WBC: 17.3 Last Procalcitonin: Tmax (past 24 hours): Microbiology: I/O: Drug Levels: Last Trough level: 13.1 on 04/06/20 at 2330 Last dose given 04/05/20 at 0000 Vancomycin Dosing: Loading Dose: 2000 mg x1 Dosing Weight: Actual Target Trough: 10-20 A: Based on: TROUGH AND CONDITION P: 1. Continue Vancomycin 1500 mg IV q24h 2. Follow up Trough level IF NEEDED 3. Pharmacy will continue to monitor, follow and adjust therapy as needed. LITO LINARES RPH, 04/07/20 [facility] Signed: 04/07/20 at 0636 by LITO LINARES RPH PHA
[2020-04-07] MEDS ORDERED: POTASSIUM CHLORIDE 20 MEQ TABLET.ER. PO ONE ×3 (07:00→13:30)
[2020-04-07] MEDS: PANTOPRAZOLE 40 MG TABLET. PO SCH ×2 (07:11→07:58)
[2020-04-07] MEDS: ENOXAPARIN 40 MG/0.4 ML SYRINGE. SQ SCH (07:57)
[2020-04-07] MEDS: LIPASE/PROTEAS/AMYLAS 10/32/42 CAPSULE.DR. PO SCH ×2 (07:59→11:35)
[2020-04-07] MEDS: LACTOBACILLUS RHAMNOSUS GG 1 CAPSULE. PO SCH (07:59)
[2020-04-07] MEDS: busPIRone 15 MG TABLET. PO SCH (07:59)
[2020-04-07] MEDS: TOPIRAMATE 25 MG TABLET. PO SCH (08:00)
[2020-04-07] MEDS: INSULIN LISPRO 300 UNITS/3 ML VIAL. SQ SCH ×3 (08:03→11:35)
[2020-04-07] MEDS ORDERED: MULTIVITAMIN with MINERAL TABLET. PO SCH (09:00)
[2020-04-07] MEDS ORDERED: CHOLECALCIFEROL (VITAMIN D3) 1,000 UNIT TABLET PO SCH (09:00)
[2020-04-07] MEDS ORDERED: ATORVASTATIN CALCIUM 20 MG TABLET PO SCH (09:00)
[2020-04-07] MEDS ORDERED: ASCORBIC ACID 500 MG TABLET PO SCH (09:00)
[2020-04-07 10:21] VITALS: BP 124/78
[2020-04-07 11:28] LABS: CALCIUM 8.6 mg/dL (8.5-10.1); CREATININE 1.8 mg/dL (0.7-1.3); GFR 40.8
[2020-04-07 12:24] LABS: POTASSIUM 2.7 mmol/L (3.5-5.1)
[2020-04-07] MEDS: POTASSIUM CHLORIDE 20 MEQ TABLET.ER. PO SCH ×2 (12:50→15:36)
[2020-04-07 15:06] LABS: CALCIUM 8.8 mg/dL (8.5-10.1); CREATININE 1.7 mg/dL (0.7-1.3); GFR 43.6
[2020-04-07 15:26] VITALS: BP 114/76
[2020-04-07] MEDS ORDERED: POTA-163 PO (15:55)
--- NOTE | 2020-04-07 16:19 | NUR ---
PATIENT IS DISCHARGED HOME, DISCHARGED INSTRUCTIONS AND HOME MEDICATIONS ARE REVIEWED, PT VERBALIZED UNDERSTANDING. PT LEFT ROOM 109 VIA AMBULATION. PATIENT IS TAKEN HOME BY FAMILY MEMBER VIA PERSONAL VEHICLE.
--- NOTE | 2020-04-07 17:38 | DS ---
DATE OF DISCHARGE: 04/07/2020 HOSPITAL COURSE: The patient is a 44-year-old male patient who was admitted with another episode of abdominal pain, was found to have acute pancreatitis and this time he came also with diabetic ketoacidosis, treated with IV fluid as well as insulin drip. He did have also acute on chronic kidney failure. When he came, his creatinine was up to 2.5. He has also severe hypokalemia that required large amount of potassium supplementation. In fact, when he arrived, it was only 2.9 and dropped down to 2.2 and this afternoon was up to 3 mEq. However, the patient insists he wants to go home and therefore he was given a prescription for potassium chloride 40 mEq twice a day with the understanding that he needs to go and follow up with his primary care physician. As his kidney function is impaired with open-ended potassium prescription, he might end up with severe hypokalemia that might be dangerous and lethal. PHYSICAL EXAMINATION: GENERAL: On discharge afternoon, he looked well and was clearly in no apparent respiratory distress, pale. No jaundice, cyanosis or thyromegaly. No jugular venous distention. No limb edema. VITAL SIGNS: His heart rate was 60, blood pressure was 114/76, temperature was 98.5, respiratory rate 20 and oxygen saturation was 94%. HEAD, EYES, EARS, NOSE AND THROAT: He is normocephalic, atraumatic. NECK: Supple. HEART: Showed normal first and second heart sounds. No gallop, rub or murmur. CHEST: Clear to auscultation. No crepitation or rhonchi. ABDOMEN: Distended, soft, nontender. No guarding or rigidity. No organomegaly. All hernial orifices are intact. Bowel sounds normal. NEUROLOGIC: He is grossly intact. His intake over the last 24 hours was 1680, no output was recorded. LABORATORY DATA: This morning showed a white cell count 6800, hemoglobin 13, hematocrit 38, MCV 89 and platelet count of 184,000. His serum sodium was 137, potassium 3, chloride 103, bicarbonate 24, anion gap of 10, BUN 8, creatinine 1.7, estimated GFR was 44 mL per minute, his glucose was 152, calcium was 8.8. His blood gases on admission showed a pH of 7.29, a pCO2 of 25, pO2 of 78, bicarbonate 12 and oxygen saturation was 94% on FiO2 of 21%. His prothrombin time, INR and aPTT normal. D-dimer was slightly high at 0.6. Urinalysis showed high protein, high glucose and large amount of ketones. Toxic screen was positive for opiates and barbiturates, negative for other drugs. DISCHARGE MEDICATIONS: The patient was discharged home to continue on his Humira 40 mg in 0.8 mL subcutaneously every 2 weeks for his Crohn's disease, ascorbic acid 1000 mg once a day, bifidobacterium infantis 4 mg at bedtime, buspirone 30 mg twice a day. Ldxmvknpcn-knrcrhpnqgtmf-filyttrq 1 capsule every 6 hours for headache. Cholecalciferol for vitamin D 5000 units daily, duloxetine 60 mg daily at bedtime, fish oil 1000 mg once a day, Creon 36,000 units capsules 3 times a day with meals, methocarbamol for Robaxin 750 mg 3 times a day, multivitamin 1 tablet once a day. I have asked him to discontinue olanzapine and also pioglitazone. Continue the omeprazole 40 mg capsules and potassium chloride 40 mEq twice a day. We have emphasized that he should go and see his primary care physician to check his potassium again. Should continue on Crestor 40 mg twice a day, topiramate 50 mg twice a day. He was also discharged on Lantus insulin 40 units at bedtime and NovoLog insulin 20 units 3 times a day before meals. He was prescribed a glucometer, glucose test strips and lancet and the teaching. The nursing staff taught him how to check his blood sugar and inject his own insulin. I explained to him that given the fact that he has already now developed diabetic ketoacidosis and his kidney function is impaired, he probably needs insulin as the modality of treatment. JOURDAN BLANCA MD DR: TERESA/jennifer JOB#: [id number] / [id number]
[2020-04-07] MEDS ORDERED: INSULIN GLARGINE SYRINGE. SQ SCH (21:00)
== END 2020-04-07 16:20 | disposition home or self-care (01) | DRG 637 ==
LOC: ER 20:36 → 1 SOUTH 21:30
PROVIDERS: ADMIT Internal Medicine; ATTEND Internal Medicine
DX: E11.10 Type 2 diabetes mellitus with ketoacidosis without coma (principal); R65.11 Systemic inflammatory response syndrome (SIRS) of non-infectious origin with acute organ dysfunction; K85.90 Acute pancreatitis without necrosis or infection, unspecified; N17.9 Acute kidney failure, unspecified; K86.1 Other chronic pancreatitis; E87.1 Hypo-osmolality and hyponatremia; K50.90 Crohn's disease, unspecified, without complications; E11.22 Type 2 diabetes mellitus with diabetic chronic kidney disease; N18.9 Chronic kidney disease, unspecified; E87.6 Hypokalemia; F32.9 Major depressive disorder, single episode, unspecified; J32.9 Chronic sinusitis, unspecified; R79.82 Elevated C-reactive protein (CRP); E86.0 Dehydration; F17.210 Nicotine dependence, cigarettes, uncomplicated; Z90.49 Acquired absence of other specified parts of digestive tract; Z82.49 Family history of ischemic heart disease and other diseases of the circulatory system
CPT/HCPCS: 36415; 36600; 74022; 80048; 80053; 80061; 80076; 80202; 80307; 81001; 82150; 82550; 82803; 82947; 83036; 83605; 83690; 84100; 84484; 85007; 85025; 85027; 85379; 85610; 85730; 86140; 87040; 93005; 96361; 96365; 96368; 96372; 96375; 99292; G0480; J1650; J1815; J2270; J2405; J3010; J3370; J3480; J3490; J7040; J7120; 99291-25

== ENCOUNTER 2020-12-20 19:23 | Emergency (ER) | payer BC, MEDICARE ==
[~2020-12-20] VITALS: Ht 167.6 cm; Wt 90.9 kg
[~2020-12-20 19:23] MED LIST changes: +ASCO100019 PO; -ASCO10002 PO; +POTA-163 PO
[2020-12-20 19:43] VITALS: BP 115/71
--- NOTE | 2020-12-20 19:55 | PHYS DOC ---
Past History Past Medical History: Diabetes Additional Past Medical Histor: crohn's disease Past Surgical History: Other Additional Past Surgical Histo: left knee, left shoulder Smoking: Cigarettes Alcohol Use: None Drug Use: None Adult General Chief Complaint Chief Complaint: ANKLE PROBLEM HPI HPI Patient is a 45-year-old male who presents emergency department complaining of right ankle pain stating that he stepped out of a truck and rolled his ankle feeling it pop at approximately 1430 today. Patient states he has not taken anything for the pain. Is able to hobble around on his foot but states his told him he needed to come to the ER. Patient denies any numbness or tingling to his right foot or ankle. Patient denies any other physical complaints or physical injuries. Patient states she has not tried to use ice or any other therapies to help with his ankle pain or discomfort. Review of Systems Review of Systems 14 body systems of review of systems have been reviewed. See HPI for pertinent positives and negative responses, otherwise all other systems are negative, nonpertinent or noncontributory. Current Medications Current Medications Current Medications Medications (Trade) Dose Ordered Sig/Monty Start Time Stop Time Status Last Admin Dose Admin Fentanyl Citrate (Fentanyl 2ml Vial) 100 mcg 1X ONCE 12/20/20 20:00 12/20/20 20:01 Allergies Allergies Allergies Coded Allergies Type Severity Reaction Last Updated Verified cephalexin Allergy Intermediate Rash 01/11/20 Yes codeine Adverse Reaction Intermediate Migraine Headaches 09/05/19 Yes Physical Exam Physical Exam Constitutional: Well developed, well nourished, no acute distress, non-toxic appearance. 45-year-old male, favors right lower extremity with ambulation. HENT: Normocephalic, atraumatic, bilateral external ears normal, nose normal. Eyes: No discharge, from eyes, conjunctiva appear normal, patient tracking normally. Cardiovascular: Distal cap refill less than 2 seconds, no cyanosis appreciated, no edema appreciated. Lungs & Thorax: Patient in no respiratory distress, regular rate of respiratory pattern Skin: Warm, dry, no erythema, no rash. Extremities: No tenderness, no cyanosis, no clubbing, ROM intact, no edema. Except for right lower extremity ankle, ecchymosis and swelling to the medial malleolus, pinpoint tenderness pain to the lateral malleolus, no pain to the foot or plantar surfaces, limited passive range of motion related to pain, no crepitus appreciated, +2 pedal pulse. Satisfactory movement of toes. Skin intact. Neurologic: Alert and oriented X 3, normal motor function, normal sensory function, no focal deficits noted. Psychologic: Affect normal, judgement normal, mood normal. Current Patient Data Vital Signs Vital Signs Date Time Temp Pulse Resp B/P (MAP) Pulse Ox O2 Delivery O2 Flow Rate FiO2 12/20/20 19:43 98.1 87 16 115/71 (86) 96 Room Air EKG EKG [] Radiology/Procedures Radiology/Procedures PATIENT: ALEXANDRA MENDOZA ACCOUNT: [id number] : 1975 LOCATION: ER AGE: 45 SEX: M EXAM STATUS: REG ER ORD. PHYSICIAN: ISABELLA AKBAR APRN REASON: PAIN AND SWELLING AFTER ROLLING ANKLE PROCEDURE: ANKLE RIGHT 3V Exam: Right ankle 3 views INDICATION: Pain and swelling after rolling ankle TECHNIQUE: Frontal, lateral and oblique views of the right ankle Comparisons: None FINDINGS: Diffuse soft tissue swelling. Bone mineralization is normal. No acute or healed fractures. Joint spaces are well-maintained. IMPRESSION: Diffuse soft tissue swelling at the ankle without underlying osseous abnormality identified. Electronically signed by: Kyung Slaughter MD (12/20/2020 8:04 PM) [facility] DICTATED AND SIGNED BY: KYUNG SLAUGHTER MD DATE: 12/20/202001 CC: ISABELLA AKBAR APRN; NASEEM RAMIREZ PA ~MTH0 0 Heart Score C/O Chest Pain: No Risk Factors: Risk Factors: DM, Current or recent (<one month) smoker, HTN, HLP, family history of CAD, obesity. Risk Scores: Risk Factors: DM, Current or recent (<one month) smoker, HTN, HLP, family history of CAD, obesity. Course & Med Decision Making Course & Med Decision Making Pertinent Labs and Imaging studies reviewed. (See chart for details) 45-year-old male, vital signs reviewed, presents emergency department planing of right ankle pain after rolling at approximately 1430 today. Physical examination concerning for ankle sprain versus ankle fracture. An x-ray was ordered. Patient was given IM fentanyl for pain 07/12. Ice and elevate while pending radiology read. X-ray read negative for acute fracture per house radiologist interpretation. Related to physical examination and x-ray results, this is most likely a grade 2 versus grade 3 ankle sprain. Will apply Renan wrap with ankle stirrup splint, crutches. Will discuss with patient RICE therapy, strict follow-up with primary care physician on Tuesday for further evaluation and consideration of MRI. Renan and ankle stirrup splint with crutches and training performed by ED nurse. Patient gave verbal understanding of discharge home instructions, follow-up on Tuesday with PCP for further evaluation, RICE therapy, crutch use, return to ER precautions and concerns, was discharged home without incident. Dragon Disclaimer Dragon Disclaimer This electronic medical record was generated, in whole or in part, using a voice recognition dictation system. Departure Departure: Impression: Primary Impression: Ankle sprain Disposition: HOME SELF CARE/HOMELESS Condition: GOOD Referrals: NASEEM RAMIREZ (PCP) PRATIK BLAKE MD Patient Instructions: Ankle Sprain, Crutch Use, Elastic Bandage and RICE, Splint Care, [id number] Additional Instructions: Please use medications as prescribed, please follow-up with your primary care provider this Tuesday, we have discussed possibility of needing an MRI, your primary care provider will refer this. Also your primary care provider may have you follow-up with a orthopedic surgeon, I have provided you with 1 in case you are unable to secure an appointment with a orthopedic surgeon, we have discussed RICE therapy, crutch use, please return to the emergency department for worsening symptoms or other concerns. EMERGENCY DEPARTMENT GENERAL DISCHARGE INSTRUCTIONS Thank you for coming to [facility] (ED) today and trusting us with you care. We trust that you had a positivie experience in our Emergency Department. If you wish to speak to the department management, you may call the director at [phone]. YOUR FOLLOW UP INSTRUCTIONS ARE FOLLOWS: 1. Do you have a private Doctor? If you do not have a private doctor, please ask for a resource list of physicians or clinics that may be able to assist you with follow up care. 2. The Emergency Physician has interpreted your x-rays. The X-Ray specialist will also review them. If there is a change in the findings, you will be notified in 48 hours when at all possible. 3. A lab test or culture has been done, your results will be reviewed and you will be notified if you need a change in treatment. ADDITIONAL INSTRUCTIONS AND INFORMATION: 1. Your care today has been supervised by a physician who is specially trained in emergency care. Many problems require more than one evaluation for a complete diagnosis and treatment. We recommend that you schedule your follow up appointment as recommended to ensure complete treatment of you illness or injury. If you are unable to obtain follow up care and continue to have a problem, or if your condition worsens, we recommend that you return to the ED. 2. We are not able to safely determine your condition over the phone nor are we able to give sound medical advice over the phone. For these safety reasons, if you call for medical advice we will ask you to come to the ED for further evaluation. 3. If you have any questions regarding these discharge instructions please call the ED at [phone]. SAFETY INFORMATION: In the interest of safety, wellness, and injury prevention; we encourage you to wear your sealbelt, if you smoke; quite smoking, and we encourage family to use a protective helmet for bicycling and other sporting events that present an increased risk for head injury. IF YOUR SYMPTOMS WORSEN OR NEW SYMPTOMS DEVELOP, OR YOU HAVE CONCERNS ABOUT YOUR CONDITION; OR IF YOUR CONDITION WORSENS WHILE YOU ARE WAITING FOR YOUR FOLLOW UP APPOINTMENT; EITHER CONTACT YOUR PRIMARY CARE DOCTOR, THE PHYSICIAN WHOSE NAME AND NUMBER YOU WERE GIVEN, OR RETURN TO THE ED IMMEDIATELY. Scripts Hydrocodone/Acetaminophen (Hydrocodone-Acetamin 10-325 mg) 1 Each Tablet 1 EACH PO Q6-8HRS PRN for SEVERE PAIN 7-10, #12 TAB 0 Refills Prov: ISABELLA AKBAR APRN 12/20/20 Ibuprofen (IBUPROFEN) 600 Mg Tablet 600 MG PO TID PRN PRN for PAIN, #20 TAB 0 Refills Prov: ISABELLA AKBAR APRN 12/20/20 Problem Qualifiers Primary Impression: Ankle sprain Encounter type: initial encounter Involved ligament of ankle: unspecified ligament Laterality: right Qualified Codes: S93.401A - Sprain of un specified ligament of right ankle, initial encounter ISABELLA AKBAR APRN Dec 20, 2020 19:55
--- NOTE | 2020-12-20 20:06 | RAD ---
Exam: Right ankle 3 views INDICATION: Pain and swelling after rolling ankle TECHNIQUE: Frontal, lateral and oblique views of the right ankle Comparisons: None FINDINGS: Diffuse soft tissue swelling. Bone mineralization is normal. No acute or healed fractures. Joint spac es are well-maintained. IMPRESSION: Diffuse soft tissue swelling at the ankle without underlying osseous abnormality identified. Electronically signed by: Kyung Brar MD (12/20/2020 8:04 PM) [email or web address]
[2020-12-20] MEDS ORDERED: HYDR-2767 PO (20:45)
[2020-12-20] MEDS ORDERED: IBUP600T16 PO (20:45)
[2020-12-20] MEDS: HYDROcodone/APAP 10/325 1 TAB TABLET PO ONE (20:59)
== END 2020-12-20 21:00 | disposition home or self-care (01) ==
LOC: ER 19:23
DX: S93.491A Sprain of other ligament of right ankle, initial encounter (principal); M25.571 Pain in right ankle and joints of right foot; R60.0 Localized edema; E11.9 Type 2 diabetes mellitus without complications; F17.210 Nicotine dependence, cigarettes, uncomplicated; Z98.890 Other specified postprocedural states; Z88.1 Allergy status to other antibiotic agents; Z88.5 Allergy status to narcotic agent; W18.39XA Other fall on same level, initial encounter; Y93.89 Activity, other specified; Y92.89 Other specified places as the place of occurrence of the external cause; Y99.8 Other external cause status
CPT/HCPCS: 29515; 73610; 96372; 99283; J3010

== ENCOUNTER 2021-01-12 17:35 | Emergency (ER) | payer BC, MEDICARE ==
[~2021-01-12] VITALS: Ht 167.6 cm; Wt 84.2 kg
[~2021-01-12 17:35] MED LIST changes: +HYDR-2767 PO; +IBUP600T16 PO
[2021-01-12] MEDS ORDERED: KETOROLAC 15 MG/ML VIAL. IVP ONE (18:00)
[2021-01-12] MEDS ORDERED: IV NORMAL SALINE 1,000ML 1,000 ML IV ONE (18:00)
[2021-01-12] MEDS ORDERED: ONDANSETRON PF 4 MG/2 ML VIAL. IVP ONE (18:00)
--- NOTE | 2021-01-12 18:10 | EKG ---
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
[2021-01-12 18:18] LABS: BASO # 0.2 x10^3/uL (0.0-0.2); BASO % 2 % (0-3); EOS # 0.5 x10^3/uL (0.0-0.7); EOS % 4 % (0-3); HEMATOCRIT 41.5 % (39.0-53.0); LYMPH # 5.9 x10^3/uL (1.0-4.8); LYMPH % 46 % (24-48); MEAN CORPUSCULAR HEMOGLOBIN 31 pg (25-35); MEAN CORPUSCULAR HGB CONC 34 g/dL (31-37); MEAN CORPUSCULAR VOLUME 92 fL (79-100); MONO # 0.7 x10^3/uL (0.0-1.1); MONO % 6 % (0-9); NEUT # 5.7 x10^3uL (1.8-7.7); NEUT % 44 % (31-73); PLATELET COUNT 255 x10^3/uL (140-400); RED BLOOD COUNT 4.53 x10^6/uL (4.30-5.70); RED CELL DISTRIBUTION WIDTH 13.2 % (11.5-14.5)
[2021-01-12 18:20] LABS: CALCIUM 8.6 mg/dL (8.5-10.1); CREATININE 1.7 mg/dL (0.7-1.3); GFR 43.4; POTASSIUM 3.1 mmol/L (3.5-5.1)
[2021-01-12 18:26] LABS: ALBUMIN 3.5 g/dL (3.4-5.0); ALBUMIN/GLOBULIN RATIO 0.9 (1.0-1.7); TOTAL BILIRUBIN 0.4 mg/dL (0.2-1.0); TOTAL PROTEIN 7.4 g/dL (6.4-8.2)
--- NOTE | 2021-01-12 18:30 | RAD ---
Examination: CT of the abdomen pelvis without contrast HISTORY: History of left flank pain COMPARISON: 01/21/2020 TECHNIQUE: Axial CT images of the abdomen and pelvis were performed without contrast. Coronal and sag ittal reformats are performed. Exposure: One or more of the following individualized dose reduction techniques were utilized for thi s examination: 1. Automated exposure control 2. Adjustment of the mA and/or kV according to patient size 3. Use of iterative reconstruction technique FINDINGS: The bibasilar lungs are clear. No evidence of free air identified in the abdomen. The evaluation of t he solid organs is limited due to lack of IV contrast. The evaluation of bowel is limited due to lack of oral contrast. The visualized noncontrasted liver, spleen, adrenals grossly appears unremarkable. The stomach is mildly distended. The small bowel is nondilated. Feces and gas noted in the colon. Ur inary bladder is mildly distended. Moderate thickened appearance of the wall of the urinary bladder. Hyperdensities identified in the bilateral kidneys likely hemorrhagic cyst similar to prior exam . No evidence of hydronephrosis. Mild degenerative changes thoracolumbar spine. IMPRESSION: 1. Moderate thickened appearance of the wall of the urinary bladder could be cystitis underlying muc osal pathology/neoplasm. Correlate with cystoscopic evaluation. 2. Hyperdensities identified in the bilateral kidneys likely hemorrhagic cysts similar to prior exam . Electronically signed by: Azael Husain MD (01/12/2021 6:27 PM) [id number]
--- NOTE | 2021-01-12 18:32 | RAD ---
EXAM: Chest, single view. HISTORY: Flank pain. COMPARISON: 12/18/2019 FINDINGS: A frontal view of the chest obtained. There is no infiltrate, pleural effusion or pneumotho rax. The heart is normal in size. There is internal fixation of a distal clavicle fracture. There are surrounding foreign bodies due to prior penetrating injury. IMPRESSION: No acute pulmonary finding. Electronically signed by: Fe Frank MD (01/12/2021 6:30 PM) [facility]
[2021-01-12 18:36] LABS: BILIRUBIN,URINE NEG (NEG); CLARITY,URINE CLEAR; COLOR,URINE AMBER; GLUCOSE,URINE NEG (NEG)
[2021-01-12 18:37] LABS: BACTERIA,URINE 0 /HPF (0-FEW); NITRITE,URINE NEG (NEG); RBC,URINE 0 /HPF (0-2); UROBILINOGEN,URINE 0.2 mg/dL (0.2 mg/dL); WBC,URINE 0 /HPF (0-4)
[2021-01-12] MEDS ORDERED: MORPHINE SULFATE 4 MG/ML DISP.SYRIN. IV ONE (18:45)
[2021-01-12] MEDS ORDERED: HYDROmorphone PF 1 MG/ML DISP.SYRIN IVP ONE (19:15)
--- NOTE | 2021-01-12 19:25 | PHYS DOC ---
Past History Past Medical History: Diabetes Additional Past Medical Histor: crohn's disease Past Surgical History: Other Additional Past Surgical Histo: left knee, left shoulder Smoking: Cigarettes Alcohol Use: None Drug Use: None General Adult EDM: Chief Complaint: FLANK PAIN HPI: HPI: Patient is a 45-year-old male who presents with left-sided flank pain that radiates to lower left side abdomen. Patient denies nausea/vomiting/diarrhea. Patient denies frequency or dysuria. Denies taking anything prior to arrival. Patient has history of Crohn's disease. Review of Systems: Review of Systems: Constitutional: Denies fever or chills Eyes: Denies change in visual acuity HENT: Denies nasal congestion or sore throat Respiratory: Denies cough or shortness of breath Cardiovascular: Denies chest pain or edema GI: Reports left-sided flank pain that radiates into the lower left abdomen. denies nausea, vomiting, bloody stools or diarrhea : Denies dysuria Musculoskeletal: Reports left flank pain, denies joint pain Integument: Denies rash Neurologic: Denies headache, focal weakness or sensory changes Endocrine: Denies polyuria or polydipsia Lymphatic: Denies swollen glands Psychiatric: Denies depression or anxiety Current Medications: Current Meds: Current Medications Medications (Trade) Dose Ordered Sig/Monty Start Time Stop Time Status Last Admin Dose Admin Hydromorphone HCl (Dilaudid) 1 mg 1X ONCE 01/12/21 19:15 01/12/21 19:16 UNV Ketorolac Tromethamine (Toradol 15mg Vial) 15 mg 1X ONCE 01/12/21 18:00 01/12/21 18:11 DC 01/12/21 18:03 15 MG Morphine Sulfate (Morphine 4mg Syringe) 4 mg 1X ONCE 01/12/21 18:45 01/12/21 18:46 DC 01/12/21 18:38 4 MG Ondansetron HCl (Zofran) 4 mg 1X ONCE 01/12/21 18:00 01/12/21 18:11 DC 01/12/21 18:03 4 MG Sodium Chloride 1,000 ml @ 1,000 mls/hr 1X ONCE 01/12/21 18:00 01/12/21 18:59 DC 01/12/21 18:04 1,000 MLS/HR Allergies: Allergies: Allergies Coded Allergies Type Severity Reaction Last Updated Verified cephalexin Allergy Intermediate Rash 4/10/20 Yes codeine Adverse Reaction Intermediate Migraine Headaches 09/05/19 Yes Physical Exam: PE: Constitutional: Well developed, well nourished, no acute distress, non-toxic appearance. [] HENT: Normocephalic, atraumatic, bilateral external ears normal, oropharynx moist, no oral exudates, nose normal. [] Eyes: PERRLA, EOMI, conjunctiva normal, no discharge. [] Neck: Normal range of motion, no tenderness, supple, no stridor. [] Cardiovascular:Heart rate regular rhythm, no murmur [] Lungs & Thorax: Bilateral breath sounds clear to auscultation [] Abdomen: Bowel sounds normal, soft, no tenderness, no masses, no pulsatile masses. [] Skin: Warm, dry, no erythema, no rash. [] Back: No tenderness, no CVA tenderness. [] Extremities: No tenderness, no cyanosis, no clubbing, ROM intact, no edema. [] Neurologic: Alert and oriented X 3, normal motor function, normal sensory function, no focal deficits noted. [] Psychologic: Affect normal, judgement normal, mood normal. [] Current Patient Data: Labs: Laboratory Tests Test 01/12/21 17:39 01/12/21 18:00 Urine Collection Type Unknown Urine Color Sandra Urine Clarity Clear Urine pH 6.0 Urine Specific Stitzer 1.025 Urine Protein 100 mg/dl (NEG-TRACE) Urine Glucose (UA) Neg mg/dL (NEG) Urine Ketones (Stick) Neg mg/dL (NEG) Urine Blood Trace (NEG) Urine Nitrite Neg (NEG) Urine Bilirubin Neg (NEG) Urine Urobilinogen Dipstick 0.2 mg/dL (0.2 mg/dL) Urine Leukocyte Esterase Neg (NEG) Urine RBC 0 /HPF (0-2) Urine WBC 0 /HPF (0-4) Urine Squamous Epithelial Cells None /LPF Urine Bacteria 0 /HPF (0-FEW) White Blood Count 13.0 x10^3/uL (4.0-11.0) H Red Blood Count 4.53 x10^6/uL (4.30-5.70) Hemoglobin 14.0 g/dL (13.0-17.5) Hematocrit 41.5 % (39.0-53.0) Mean Corpuscular Volume 92 fL (79-100) Mean Corpuscular Hemoglobin 31 pg (25-35) Mean Corpuscular Hemoglobin Concent 34 g/dL (31-37) Red Cell Distribution Width 13.2 % (11.5-14.5) Platelet Count 255 x10^3/uL (140-400) Neutrophils (%) (Auto) 44 % (31-73) Lymphocytes (%) (Auto) 46 % (24-48) Monocytes (%) (Auto) 6 % (0-9) Eosinophils (%) (Auto) 4 % (0-3) H Basophils (%) (Auto) 2 % (0-3) Neutrophils # (Auto) 5.7 x10^3uL (1.8-7.7) Lymphocytes # (Auto) 5.9 x10^3/uL (1.0-4.8) H Monocytes # (Auto) 0.7 x10^3/uL (0.0-1.1) Eosinophils # (Auto) 0.5 x10^3/uL (0.0-0.7) Basophils # (Auto) 0.2 x10^3/uL (0.0-0.2) Sodium Level 138 mmol/L (136-145) Potassium Level 3.1 mmol/L (3.5-5.1) L Chloride Level 104 mmol/L (98-107) Carbon Dioxide Level 20 mmol/L (21-32) L Anion Gap 14 (6-14) Blood Urea Nitrogen 14 mg/dL (8-26) Creatinine 1.7 mg/dL (0.7-1.3) H Estimated GFR (Cockcroft-Gault) 43.4 BUN/Creatinine Ratio 8 (6-20) Glucose Level 129 mg/dL (70-99) H Calcium Level 8.6 mg/dL (8.5-10.1) Total Bilirubin 0.4 mg/dL (0.2-1.0) Aspartate Amino Transferase (AST) 16 U/L (15-37) Alanine Aminotransferase (ALT) 26 U/L (16-63) Alkaline Phosphatase 154 U/L (46-116) H Total Protein 7.4 g/dL (6.4-8.2) Albumin 3.5 g/dL (3.4-5.0) Albumin/Globulin Ratio 0.9 (1.0-1.7) L Vital Signs: Vital Signs Date Time Temp Pulse Resp B/P (MAP) Pulse Ox O2 Delivery O2 Flow Rate FiO2 01/12/21 17:41 98.2 90 20 116/94 (101) 97 Room Air EKG: EKG: [] Radiology/Procedures: Radiology/Procedures: []Examination: CT of the abdomen pelvis without contrast HISTORY: History of left flank pain COMPARISON: 01/21/2020 TECHNIQUE: Axial CT images of the abdomen and pelvis were performed without contrast. Coronal and sagittal reformats are performed. Exposure: One or more of the following individualized dose reduction techniques were utilized for this examination: 1. Automated exposure control 2. Adjustment of the mA and/or kV according to patient size 3. Use of iterative reconstruction technique FINDINGS: The bibasilar lungs are clear. No evidence of free air identified in the abdomen. The evaluation of the solid organs is limited due to lack of IV contrast. The evaluation of bowel is limited due to lack of oral contrast. The visualized noncontrasted liver, spleen, adrenals grossly appears unremarkable. The stomach is mildly distended. The small bowel is nondilated. Feces and gas noted in the colon. Urinary bladder is mildly distended. Moderate thickened appearance of the wall of the urinary bladder. Hyperdensities identified in the bilateral kidneys likely hemorrhagic cyst similar to prior exam . No evidence of hydronephrosis. Mild degenerative changes thoracolumbar spine. IMPRESSION: 1. Moderate thickened appearance of the wall of the urinary bladder could be cystitis underlying mucosal pathology/neoplasm. Correlate with cystoscopic evaluation. 2. Hyperdensities identified in the bilateral kidneys likely hemorrhagic cysts similar to prior exam. Electronically signed by: Azael Husani MD (01/12/2021 6:27 PM) [id number] EXAM: Chest, single view. HISTORY: Flank pain. COMPARISON: 12/18/2019 FINDINGS: A frontal view of the chest obtained. There is no infiltrate, pleural effusion or pneumothorax. The heart is normal in size. There is internal fixation of a distal clavicle fracture. There are surrounding foreign bodies due to prior penetrating injury. IMPRESSION: No acute pulmonary finding. Electronically signed by: Fe Frank MD (01/12/2021 6:30 PM) [facility] Heart Score: C/O Chest Pain: No Risk Factors: Risk Factors: DM, Current or recent (<one month) smoker, HTN, HLP, family history of CAD, obesity. Risk Scores: Score 0 - 3: 2.5% MACE over next 6 weeks - Discharge Home Score 4 - 6: 20.3% MACE over next 6 weeks - Admit for Clinical Observation Score 7 - 10: 72.7% MACE over next 6 weeks - Early Invasive Strategies Course & Med Decision Making: Course & Med Decision Making Pertinent Labs and Imaging studies reviewed. (See chart for details) [] CT abdomen pelvis ordered to rule out kidney stone.Moderate thickened appearance of the wall of the urinary bladder could be cystitis underlying mucosal pathology/neoplasm. Correlate with cystoscopic evaluation.Hyperdensities identified in the bilateral kidneys likely hemorrhagic cysts similar to prior exam. Potassium 3.1. 40 mEq of potassium given. Creatinine was 1.7. WBCs 13. Trace blood in UA. UA negative for infection. Dragon Disclaimer: Dragon Disclaimer: This electronic medical record was generated, in whole or in part, using a voice recognition dictation system. Departure Departure: Impression: Primary Impression: Left flank pain Disposition: HOME / SELF CARE / HOMELESS Condition: STABLE Referrals: NASEEM RAMIREZ (PCP) Patient Instructions: Flank Pain, [id number] Additional Instructions: The room today for left-sided flank pain. You were given pain medication while in the emergency room and your pain improved. CT of your abdomen was negative for any stones but did suggest a follow-up with urology. I have included urology's phone number for follow-up. I would call them in the morning to get an appointment. I am also going to send you home with a copy of the CT results to give to urology. Please return to emergency room with worsening symptoms or concerns. [facility] [address] [place] [address] EMERGENCY DEPARTMENT GENERAL DISCHARGE INSTRUCTIONS Thank you for coming to [facility] (ED) today and trusting us with you care. We trust that you had a positivie experience in our Emergency Department. If you wish to speak to the department management, you may call the director at [phone]. YOUR FOLLOW UP INSTRUCTIONS ARE FOLLOWS: 1. Do you have a private Doctor? If you do not have a private doctor, please ask for a resource list of physicians or clinics that may be able to assist you with follow up care. 2. The Emergency Physician has interpreted your x-rays. The X-Ray specialist will also review them. If there is a change in the findings, you will be notified in 48 hours when at all possible. 3. A lab test or culture has been done, your results will be reviewed and you will be notified if you need a change in treatment. ADDITIONAL INSTRUCTIONS AND INFORMATION: 1. Your care today has been supervised by a physician who is specially trained in emergency care. Many problems require more than one evaluation for a complete diagnosis and treatment. We recommend that you schedule your follow up appointment as recommended to ensure complete treatment of you illness or injury. If you are unable to obtain follow up care and continue to have a problem, or if your condition worsens, we recommend that you return to the ED. 2. We are not able to safely determine your condition over the phone nor are we able to give sound medical advice over the phone. For these safety reasons, if you call for medical advice we will ask you to come to the ED for further evaluation. 3. If you have any questions regarding these discharge instructions please call the ED at [phone]. SAFETY INFORMATION: In the interest of safety, wellness, and injury prevention; we encourage you to wear your sealbelt, if you smoke; quite smoking, and we encourage family to use a protective helmet for bicycling and other sporting events that present an increased risk for head injury. IF YOUR SYMPTOMS WORSEN OR NEW SYMPTOMS DEVELOP, OR YOU HAVE CONCERNS ABOUT YOUR CONDITION; OR IF YOUR CONDITION WORSENS WHILE YOU ARE WAITING FOR YOUR FOLLOW UP APPOINTMENT; EITHER CONTACT YOUR PRIMARY CARE DOCTOR, THE PHYSICIAN WHOSE NAME AND NUMBER YOU WERE GIVEN, OR RETURN TO THE ED IMMEDIATELY. Scripts Hydrocodone Bit/Acetaminophen (HYDROCODONE-APAP 5-325 ) 1 Each Tablet 1 TAB PO PRN Q6HRS PRN for PAIN for 3 Days, #12 TAB 0 Refills Prov: CLAUDY SUMMERS APRN 01/12/21 CLAUDY SUMMERS APRN Jan 12, 2021 19:25
[2021-01-12] MEDS ORDERED: POTASSIUM CHLORIDE 20 MEQ TABLET.ER. PO ONE (19:30)
[2021-01-12] MEDS ORDERED: HYDR-2155 PO (19:47)
[2021-01-12 20:00] VITALS: BP 135/81
[2021-01-12] MEDS ORDERED: HYDROcodone/APAP 5/325MG 1 TAB TABLET PO ONE (20:00)
== END 2021-01-12 20:20 | disposition home or self-care (01) ==
LOC: ER 17:35
DX: R10.32 Left lower quadrant pain (principal); E11.9 Type 2 diabetes mellitus without complications; K50.90 Crohn's disease, unspecified, without complications; F17.210 Nicotine dependence, cigarettes, uncomplicated
CPT/HCPCS: 36415; 71045; 74176; 80053; 81001; 85025; 93005; 96361; 96374; 96375; 99285; J1170; J1885; J2270; J2405; J7030

== ENCOUNTER 2021-02-15 21:34 | Emergency (ER) | payer BC, MEDICARE ==
[~2021-02-15] VITALS: Ht 167.6 cm; Wt 84.2 kg
[2021-02-15] MEDS ORDERED: DIPH,PERTUSS(ACELL),TET VAC/PF 0.5 ML SYRINGE. VAX IM ONE (22:30)
[2021-02-15] MEDS ORDERED: oxyCODONE/APAP 5/325 1 TAB TABLET PO ONE (23:00)
--- NOTE | 2021-02-15 23:01 | PHYS DOC ---
Past History Past Medical History: Diabetes Additional Past Medical Histor: crohn's disease Past Surgical History: Other Additional Past Surgical Histo: left knee, left shoulder Smoking: Cigarettes Alcohol Use: None Drug Use: None Adult General Chief Complaint Chief Complaint: UPPER EXTREMITY PAIN HPI HPI Patient is a 45-year-old male, who presents to the emergency department with a chief complaint of scissor wound. States he was trying to cut something open, slipped and the scissors caught him in the left forearm. States he did not go in real deep but he is not up-to-date on his tetanus vaccinations. Denies any other injuries. States it hurts about 3 out of 10, sharp in nature. Review of Systems Review of Systems Review of systems otherwise unremarkable except noted in HPI Current Medications Current Medications Current Medications Medications (Trade) Dose Ordered Sig/Monty Start Time Stop Time Status Last Admin Dose Admin Diphtheria/ Pertussis/Tetanus Vacc (ADACEL TDap SYRINGE) 0.5 ml ONCE ONCE 02/15/21 22:30 02/15/21 22:31 DC Allergies Allergies Allergies Coded Allergies Type Severity Reaction Last Updated Verified cephalexin Allergy Intermediate Rash 01/11/20 Yes codeine Adverse Reaction Intermediate Migraine Headaches 09/05/19 Yes Physical Exam Physical Exam Constitutional: Well developed, well nourished, no acute distress, non-toxic appearance. [] Extremities: Has mild tenderness on the anterior left forearm with 2, quarter centimeter puncture wounds. Neurovascular exam intact. Neurologic: Alert and oriented X 3, normal motor function, normal sensory function, no focal deficits noted. [] Psychologic: Affect normal, judgement normal, mood normal. [] Current Patient Data Vital Signs Vital Signs Date Time Temp Pulse Resp B/P (MAP) Pulse Ox O2 Delivery O2 Flow Rate FiO2 02/15/21 21:49 98.4 76 16 132/70 (90) 97 Room Air EKG EKG [] Radiology/Procedures Radiology/Procedures [] Heart Score C/O Chest Pain: No Risk Factors: Risk Factors: DM, Current or recent (<one month) smoker, HTN, HLP, family history of CAD, obesity. Risk Scores: Risk Factors: DM, Current or recent (<one month) smoker, HTN, HLP, family history of CAD, obesity. Course & Med Decision Making Course & Med Decision Making Patient is a 45-year-old male who presents with wound to left forearm caused by scissors Vital signs not concerning. Physical exam noted above. Wound extensively cleaned with sterile water. Updated tetanus. No need for repair of any kind. Bandaged. Gave instructions on wound care. Advised to follow-up with primary care when he can. Gave return precautions to the ED. Patient grateful, verbalized understanding and agreed with plan of discharge. [] Dragon Disclaimer Dragon Disclaimer This electronic medical record was generated, in whole or in part, using a voice recognition dictation system. Departure Departure: Impression: Primary Impression: Puncture wound Disposition: HOME / SELF CARE / HOMELESS Condition: GOOD Referrals: NASEEM RAMIREZ (PCP) Patient Instructions: Puncture Wound, Wound Care, [id number] Additional Instructions: Please read all the attached information very carefully. Your tetanus status was updated today in the emergency department. Your wound was cleaned ex tensively and bandaged. Please follow-up with your primary care physician as soon as you can to update on ED visit. Please come back to the ED with new or concerning symptoms as discussed. GHAZALA DANIELSON MD February 15, 2021 23:01
[2021-02-15 23:40] VITALS: BP 128/66
== END 2021-02-15 23:42 | disposition home or self-care (01) ==
LOC: ER 21:34
DX: S51.831A Puncture wound without foreign body of right forearm, initial encounter (principal); E11.9 Type 2 diabetes mellitus without complications; F17.210 Nicotine dependence, cigarettes, uncomplicated; Z88.1 Allergy status to other antibiotic agents; W23.0XXA Caught, crushed, jammed, or pinched between moving objects, initial encounter; Y93.89 Activity, other specified; Y92.89 Other specified places as the place of occurrence of the external cause; Y99.8 Other external cause status
CPT/HCPCS: 90471; 90715; 99283-25

== ENCOUNTER → 2021-05-22 | Outpatient (CLI) | payer BC, MEDICARE ==
[~2021-05-22] MED LIST changes: +OLAN10TA69 PO; -OLAN10TA9 PO; +OLAN15TA15 PO; -OLAN15TA9 PO; +OLAN5TAB67 PO; -OLAN5TAB9 PO; -OMEP40CA45 PO; +OMEP40CA7 PO
--- NOTE | 2021-05-22 13:37 | RAD ---
Exam performed: Barium esophagram. HISTORY: Difficulty swallowing. DATE OF SERVICE: 05/22/2021. COMPARISON: None available Discussion: Patient was administered barium and fluoroscopic evaluation of the esophagus was obtained. The esopha leslie is normal in course and caliber with normal peristalsis. No areas of abnormal narrowing or dilata tion seen. The gastroesophageal junction appears normal. Patient was also administered a barium pill with water. Chronic congestion appears improved, patient complained of difficulty swallowing and pain in the lower neck and upper chest. During this time the barium pill statement upper esophagus for longer than usual for transiting downwards. There there is normal transit through the gastroesophageal junction. A total fluoroscopy time of 1.2 minutes was utilized. IMPRESSION: Grossly unremarkable esophagogram with slight stasis of the barium pill in the upper to mid esophagus which the patient perceived as pain and discomfort. Electronically signed by: Gita Coker MD (05/22/2021 1:34 PM) [id number]
== END ==
LOC: RAD 08:46
PROVIDERS: ATTEND Internal Medicine Gastroenterology
DX: R13.10 Dysphagia, unspecified (principal)
CPT/HCPCS: 74220

== ENCOUNTER 2021-06-28 03:59 | Inpatient (IN) | payer BC, MEDICARE ==
[~2021-06-28] VITALS: Ht 167.6 cm; Wt 84.3 kg
[~2021-06-28 03:59] MED LIST changes: +POTA-121 PO; -POTA20TA4 PO
--- NOTE | 2021-06-28 04:02 | PHYS DOC ---
Past History Past Medical History: Anxiety, Arthritis, Diabetes, GERD, Prostatitis Additional Past Medical Histor: crohn's disease Past Surgical History: Other Additional Past Surgical Histo: left knee, left shoulder Past Surgical History pancreatic surgery- resection Smoking: Cigarettes Alcohol Use: None Drug Use: None General Adult HPI: HPI: ".. I hurt everywhere.. my chest, my ribs... my Lt shoulder,.. my abdomen.. I did get my second pfzier Covid vaccination on Tuesday..." Patient is a 46 year old male who presents with above hx and complaints epigastric, chest pain, Lt shouder pain, myalgia, arthralgia, malaise, fever, chills., nausea and generalized abdomen discomfort. Patient does give recent history of second Pfizer shot on Tuesday 06/26. Patient denies any intake of bad food. No recent travel. No specific ill contacts. Patient has significant past medical history of pancreatitis, chronic abdomen pain, renal failure, hypokalemia, diabetes, elevated cholesterol, Crohn's, colitis, arthritis, and deconditioning. Pt. follows with [facility] for care. Review of Systems: Review of Systems: Constitutional: Complains of fever or chills Eyes: Denies change in visual acuity HENT: Denies nasal congestion or sore throat Respiratory: Denies cough or shortness of breath Cardiovascular: Complaints of chest pain GI: Complaints of abdominal pain, nausea, Denies vomiting, bloody stools or diarrhea : Denies dysuria Musculoskeletal: Complaints of generalize bone and muscle pain Integument: Denies rash Neurologic: Denies headache, focal weakness or sensory changes Endocrine: Denies polyuria or polydipsia Lymphatic: Denies swollen glands Psychiatric: Denies depression or anxiety Family History: Family History: Noncontributory to presentation Current Medications: Current Meds: See nursing for home meds Allergies: Allergies: Allergies Coded Allergies Type Severity Reaction Last Updated Verified cephalexin Allergy Intermediate Rash 01/11/20 Yes codeine Adverse Reaction Intermediate Migraine Headaches 09/05/19 Yes Physical Exam: PE: Constitutional: in acute distress, non-toxic appearance. [] HENT: Normocephalic, atraumatic, bilateral external ears normal, oropharynx moist, no oral exudates, nose normal. [] Eyes: PERRLA, EOMI, conjunctiva normal, no discharge. [] Neck: Normal range of motion, no tenderness, supple, no stridor. [] Cardiovascular:Heart rate regular rhythm, no murmur [] Lungs & Thorax: Bilateral breath sounds equal apex with scattered wheezes on auscultation [. Patient] bilateral chest wall tenderness. Large scar left clavicle area and shoulder. Abdomen: Bowel sounds normal, soft, generalized tenderness, no masses, no pulsatile masses. Old surgery scars. No specific area of rebound Skin: Warm, dry, no erythema, no rash. [] Injection site of Covid vaccination warm to touch. Tattoos. Back: No tenderness, no CVA tenderness. [] Extremities: No tenderness, no cyanosis, no clubbing, ROM intact, no edema. Old surgery scars left shoulder and left knee. No cording appreciated. Neurologic: Alert and oriented X 3, normal motor function, normal sensory function, no focal deficits noted. [] Psychologic: Affect anxious, judgement normal, mood normal. [] EKG: EKG: [] My interpretation of his EKG shows a sinus rhythm at 75 bpm. An incomplete right bundle branch block. But no findings of acute STEMI with contralateral changes. Time of EKG 413 hours Radiology/Procedures: Radiology/Procedures: [place] [id number] IMAGING REPORT Signed PATIENT: ALEXANDRA MENDOZA ACCOUNT: [id number] : 1975 LOCATION: [address] [place] [address] AGE: 46 SEX: M EXAM STATUS: ADM IN ORD. PHYSICIAN: PRATIK DE LEON MD REASON: abd. pain, hx pancreatitis, OMNI 300, 60ml & OMNI 240, 30ml PROCEDURE: CT ABD PELV W/ORAL&IV CONTRAST EXAM: CT Abdomen and Pelvis with IV contrast CLINICAL HISTORY: Reason: abd. pain, hx pancreatitis, OMNI 300, 60ml OMNI 240, 30ml / Spl. Instructions: REDUCED DOSE - GFR 54 / History: . COMPARISON: 01/12/2021 11/19/2018 12/13/2019 07/27/2019 TECHNIQUE: Helical CT of the abdomen and pelvis was performed following the administration of intravenous contrast. Axial, coronal and sagittal reformatted images were generated. PQRS compliance statement - One or more of the following individualized dose reduction techniques were utilized for this study: 1. Automated exposure control 2. Adjustment of the mA and/or kV according to patient size 3. Use of iterative reconstruction technique FINDINGS: Lower Chest: Lung bases are clear. Abdomen and Pelvis: 2.7 cm right hepatic lobe lesion is grossly stable. There is been a cholecystectomy. No biliary ductal dilatation. Pancreas is unremarkable. Spleen is normal in appearance. Adrenal glands are unremarkable. High density renal lesions bilaterally grossly stable to prior CT. There is normal in caliber. No a bdominal or pelvic lymphadenopathy. No abdominal or pelvic ascites. Moderate colonic stool content is seen. No small or large bowel dilatation. Bladder wall thickening may be seen with cystitis. Fat-containing left inguinal hernia is seen. Bones: No aggressive osseous lesion is seen. Schmorl's nodes at T11. IMPRESSION: 1. Diffuse bladder wall thickening is nonspecific but may be seen with cystitis. 2. Hepatic hypoattenuation, fatty liver. 3. Hypodense hepatic dome lesion is grossly stable. 4. High density renal lesions also appear grossly stable. Electronically signed by: Elia Maciel MD (06/28/2021 6:30 AM) [facility] DICTATED AND SIGNED BY: ELIA MACIEL MD DATE: 06/28/21612 CC: PRATIK DE LEON MD; JOURDAN BLANCA MD; NASEEM RAMIREZ ~MTH0 0 [][place] [address] IMAGING REPORT Signed PATIENT: ALEXANDRA MENDOZA ACCOUNT: [id number] : 1975 LOCATION: ER AGE: 46 SEX: M EXAM STATUS: REG ER ORD. PHYSICIAN: PRATIK DE LEON MD REASON: abd. pain PROCEDURE: ACUTE ABDOMEN SERIES EXAM: Frontal view of the chest, AP views of the abdomen in upright and supine positions. CLINICAL INDICATION: Reason: abd. pain / Spl. Instructions: / History: COMPARISON: None. FINDINGS and IMPRESSION: The heart is not enlarged. Mediastinal and hilar contours are normal. No focal parenchymal airspace opacity. No pleural effusion or pneumothorax. No abnormal small or large bowel dilatation. Moderate colonic stool content. No abnormal soft tissue mass effect. No suspicious calcifications are seen. No free intraperitoneal gas. Cholecystectomy clips are seen. Electronically signed by: Elia Maciel MD (06/28/2021 5:03 AM) [facility] DICTATED AND SIGNED BY: ELIA MACIEL MD DATE: 06/28/21 0502 CC: PRATIK DE LEON MD; NASEEM RAMIREZ ~MTH0 0 Heart Score: C/O Chest Pain: Yes HEART Score for Chest Pain: HEART Score for Chest Pain Response (Comments) Value History Slighlty/Non-Suspicious 0 ECG Normal 0 Age >45 - < 65 1 Risk Factors 1 or 2 Risk Factors 1 Troponin < Normal Limit 0 Total 2 Risk Factors: Risk Factors: DM, Current or recent (<one month) smoker, HTN, HLP, family history of CAD, obesity. Risk Scores: Score 0 - 3: 2.5% MACE over next 6 weeks - Discharge Home Score 4 - 6: 20.3% MACE over next 6 weeks - Admit for Clinical Observation Score 7 - 10: 72.7% MACE over next 6 weeks - Early Invasive Strategies Course & Med Decision Making: Course & Med Decision Making Pertinent Labs and Imaging studies reviewed. (See chart for details) Discussed presentation, testing and treatment plan with . Admit for potassium supplementation, and observation for post- COVID vaccine atypical sequela. Impression: 1.Hypokalemia = 2.8 - Critical 2.Elevated Creat. 1.4 3.DM = glucose 146 4.Elevated Alk Phos . 155 5.Atypical Post COVID Pfizer Vaccine - reaction ( Hyper immune response?- 2nd vaccine) 6.Mild Leukocytosis = 15 [] Dragon Disclaimer: Dragon Disclaimer: This electronic medical record was generated, in whole or in part, using a voice recognition dictation system. Departure Departure: Referrals: NASEEM RAMIREZ (PCP) Dragon Disclaimer This chart was dictated in whole or in part using Voice Recognition software in a busy, high-work load, and often noisy Emergency Department environment. It may contain unintended and wholly unrecognized errors or omissions. PRATIK DE LEON MD Jun 28, 2021 04:01
--- NOTE | 2021-06-28 04:27 | EKG ---
[address] [address] Test Date: 2021-06-28 Test Time: 04:13:22 Pat Name: ALEXANDRA MENDOZA Department: Room: Gender: M Pick Out Hand: KAY : 1975 Requested By: PRATIK DE LEON Order Number: [id number] Reading MD: Measurements Intervals Union Rate: 75 P: 31 SC: 158 QRS: 51 QRSD: 94 T: 33 QT: 374 QTc: 420 Interpretive Statements SINUS RHYTHM INCOMPLETE RIGHT BUNDLE BRANCH BLOCK OTHERWISE NORMAL ECG RI6.02 No previous ECG available for comparison
[2021-06-28] MEDS ORDERED: CONTRAST GIVEN. MC PRN (04:30)
[2021-06-28] MEDS ORDERED: KETOROLAC 30 MG/ML VIAL. IVP ONE (04:30)
[2021-06-28] MEDS ORDERED: ONDANSETRON PF 4 MG/2 ML VIAL. IVP ONE (04:30)
[2021-06-28] MEDS ORDERED: IOHEXOL 240 MG/ML 50ML VIAL. PO ONE (04:30)
[2021-06-28] MEDS ORDERED: SUCRALFATE 1 GM/10 ML ORAL.SUSP. PO ONE (04:30)
[2021-06-28] MEDS ORDERED: IOHEXOL 300 MG/ML 75 ML VIAL. IV ONE (04:30)
[2021-06-28] MEDS ORDERED: MORPHINE SULFATE 10 MG/ML SYRINGE. SQ ONE (04:30)
[2021-06-28] MEDS ORDERED: FAMOTIDINE 20 MG/2 ML VIAL IVP ONE (04:30)
[2021-06-28] MEDS ORDERED: IV RINGERS SOLUTION,LACTATED 1,000 ML IV SCH (04:30)
[2021-06-28] MEDS ORDERED: MAGNESIUM HYDROXIDE 2,400 MG/30 ML ORAL.SUSP. PO ONE (04:30)
[2021-06-28 04:59] LABS: BASO % 0 % (0-3); EOS # 0.6 x10^3/uL (0.0-0.7); EOS % 4 % (0-3); HEMOGLOBIN 14.5 g/dL (13.0-17.5); LYMPH # 5.9 x10^3/uL (1.0-4.8); LYMPH % 40 % (24-48); MEAN CORPUSCULAR HEMOGLOBIN 32 pg (25-35); MEAN CORPUSCULAR HGB CONC 35 g/dL (31-37); MEAN CORPUSCULAR VOLUME 93 fL (79-100); MONO % 7 % (0-9); NEUT # 7.5 x10^3uL (1.8-7.7); NEUT % 50 % (31-73); PLATELET COUNT 264 x10^3/uL (140-400); RED BLOOD COUNT 4.53 x10^6/uL (4.30-5.70); RED CELL DISTRIBUTION WIDTH 13.5 % (11.5-14.5)
--- NOTE | 2021-06-28 05:05 | RAD ---
EXAM: Frontal view of the chest, AP views of the abdomen in upright and supine positions. CLINICAL INDICATION: Reason: abd. pain / Spl. Instructions: / History: COMPARISON: None. FINDINGS and IMPRESSION: The heart is not enlarged. Mediastinal and hilar contours are normal. No focal parenchymal airspace o pacity. No pleural effusion or pneumothorax. No abnormal small or large bowel dilatation. Moderate colonic stool content. No abnormal soft tissu e mass effect. No suspicious calcifications are seen. No free intraperitoneal gas. Cholecystectomy clips are seen. Electronically signed by: Elia Jimenes MD (06/28/2021 5:03 AM) VIJAY
[2021-06-28 05:18] LABS: ALBUMIN 3.6 g/dL (3.4-5.0); CALCIUM 8.9 mg/dL (8.5-10.1); CREATININE 1.4 mg/dL (0.7-1.3); DIRECT BILIRUBIN 0.2 mg/dL (0.0-0.2); GFR 54.1; TOTAL BILIRUBIN 0.4 mg/dL (0.2-1.0); TOTAL PROTEIN 7.6 g/dL (6.4-8.2)
[2021-06-28 05:22] LABS: POTASSIUM 2.8 mmol/L (3.5-5.1)
[2021-06-28] MEDS ORDERED: POTASSIUM CHLORIDE 20MEQ 100 ML IV SCH (05:30)
[2021-06-28 05:37] LABS: BILIRUBIN,URINE NEG (NEG); CLARITY,URINE CLEAR; COLOR,URINE YELLOW; GLUCOSE,URINE NEG (NEG)
[2021-06-28 05:38] LABS: BARBITURATES POS (NEG); BENZODIAZEPINES NEG (NEG); CANNABINOIDS NEG (NEG); COCAINE NEG (NEG); METHADONE NEG (NEG); NITRITE,URINE NEG (NEG); OPIATES NEG (NEG); PHENCYCLIDINE NEG (NEG); UROBILINOGEN,URINE 0.2 mg/dL (0.2 mg/dL)
[2021-06-28 05:42] LABS: BACTERIA,URINE FEW /HPF (0-FEW); SQUAMOUS EPITHELIAL CELL,UR OCC /LPF; WBC,URINE OCC /HPF (0-4)
[2021-06-28 05:43] LABS: AMPHETAMINE/METHAMPHETAMINE NEG (NEG)
[2021-06-28] MEDS ORDERED: ONDANSETRON PF 4 MG/2 ML VIAL. IVP PRN (05:45)
[2021-06-28] MEDS ORDERED: ACETAMINOPHEN 325 MG TABLET PO PRN (05:45)
[2021-06-28] MEDS: POTASSIUM CHLORIDE 20 MEQ TABLET.ER. PO SCH ×2 (05:50→20:10)
[2021-06-28] MEDS ORDERED: POTASSIUM CHLORIDE 20 MEQ TABLET.ER. PO ONE (06:00)
[2021-06-28 06:01] LABS: INFLUENZA A PATIENT NEGATIVE (NEGATIVE); INFLUENZA B PATIENT NEGATIVE (NEGATIVE)
--- NOTE | 2021-06-28 06:14 | NUR ---
The patient, ALEXANDRA MENDOZA, 46 y/o, M admitted by JOURDAN BLANCA MD, was given written information regarding hospital policies, unit procedures and contact persons. Valuables were checked and logged. Call light at bedside.
[2021-06-28 06:26] VITALS: BP 152/93
[2021-06-28] MEDS: IV RINGERS SOLUTION,LACTATED 1,000 ML IV SCH ×2 (06:30→11:11)
--- NOTE | 2021-06-28 06:32 | RAD ---
EXAM: CT Abdomen and Pelvis with IV contrast CLINICAL HISTORY: Reason: abd. pain, hx pancreatitis, OMNI 300, 60ml OMNI 240, 30ml / Spl. Instruct ions: REDUCED DOSE - GFR 54 / History: . COMPARISON: 01/12/2021 11/19/2018 12/13/2019 07/27/2019 TECHNIQUE: Helical CT of the abdomen and pelvis was performed following the administration of intrave nous contrast. Axial, coronal and sagittal reformatted images were generated. PQRS compliance statement - One or more of the following individualized dose reduction techniques wer e utilized for this study: 1. Automated exposure control 2. Adjustment of the mA and/or kV according to patient size 3. Use of iterative reconstruction technique FINDINGS: Lower Chest: Lung bases are clear. Abdomen and Pelvis: 2.7 cm right hepatic lobe lesion is grossly stable. There is been a cholecystectomy. No biliary ducta l dilatation. Pancreas is unremarkable. Spleen is normal in appearance. Adrenal glands are unremarkab le. High density renal lesions bilaterally grossly stable to prior CT. There is normal in caliber. No abdominal or pelvic lymphadenopathy. No abdominal or pelvic ascites. Moderate colonic stool content is seen. No small or large bowel dilatation. Bladder wall thickening may be seen with cystitis. Fat-c ontaining left inguinal hernia is seen. Bones: No aggressive osseous lesion is seen. Schmorl's nodes at T11. IMPRESSION: 1. Diffuse bladder wall thickening is nonspecific but may be seen with cystitis. 2. Hepatic hypoattenuation, fatty liver. 3. Hypodense hepatic dome lesion is grossly stable. 4. High density renal lesions also appear grossly stable. Electronically signed by: Elia Jimenes MD (06/28/2021 6:30 AM) VIJAY
[2021-06-28] MEDS: POTASSIUM CHLORIDE 10MEQ 100 ML IV SCH ×4 (06:38→11:12)
[2021-06-28] MEDS ORDERED: tiZANidine 4 MG TABLET. PO PRN (06:45)
[2021-06-28] MEDS ORDERED: METOCLOPRAMIDE 10 MG TABLET PO PRN (06:45)
[2021-06-28] MEDS ORDERED: PITA4TAB2 PO (07:06)
[2021-06-28] MEDS ORDERED: SUVO20TA PO (07:07)
[2021-06-28] MEDS: ASPIRIN ENTERIC COATED 81 MG TABLET.DR. PO SCH (07:31)
[2021-06-28] MEDS ORDERED: IPRATRPIUM/ALBUTEROL 0.5/2.5MG 3 ML NEBU. NEB SCH (08:00)
[2021-06-28 10:56] VITALS: BP 119/76
[2021-06-28] MEDS: MORPHINE SULFATE 4 MG/ML DISP.SYRIN. IV PRN ×2 (12:10→20:14)
[2021-06-28] MEDS ORDERED: IBUPROFEN 600 MG TABLET. PO PRN (14:15)
--- NOTE | 2021-06-28 14:38 | HP ---
ADMIT DATE: 06/28/2021 HISTORY OF PRESENT ILLNESS: The patient is a 46-year-old male patient who came to the Emergency Room with a complaint of generalized aches and pains everywhere, to the chest, ribs, left shoulder, his abdomen. He did receive his second dose of Pfizer COVID vaccination on Tuesday, 2 days ago. He has also some nausea and generalized abdominal discomfort. He denied any recent travel or specific ill contact. He is also known to have recurrent pancreatitis before and therefore, the patient was extensively investigated in the Emergency Room and has lab work and imaging studies. His lab work shows he has leukocytosis. His chemistry showed that he has hypokalemia and impaired kidney function. The patient was admitted to replenish his potassium and control the pain and monitor his lab works as before presented with abdominal pain with normal lipase initially that rises after he is getting admitted. He was treated with IV fluid and morphine and potassium orally. PAST MEDICAL HISTORY: Significant for Crohn's disease, chronic recurrent idiopathic pancreatitis, chronic kidney disease, chronic sinusitis and hyperglycemia. PAST SURGICAL HISTORY: Significant for cholecystectomy done about 2 years ago, has had left hemiarthroplasty, esophagogastroduodenoscopy and colonoscopy. ALLERGIES: HE IS ALLERGIC TO CODEINE, CEPHALEXIN, ACETAMINOPHEN AND MORPHINE. FAMILY HISTORY: He has one older brother who is alive and healthy. One sister in a motor vehicle accident. One sister has mental problems. His father at age of 65 because of myocardial infarction. Mother at age of 72 because of myocardial infarction. SOCIAL HISTORY: He is , has 1 son. He smokes a pack a day. He does not drink alcohol or use any recreational drugs. He is on disability. MEDICATIONS: He is currently on the following medication: He is on methocarbamol 750 mg 3 times a day; pitavastatin or Livalo 4 mg daily; ibuprofen 600 mg 3 times a day as needed; hydrocodone/APAP 10/325 one tablet every 6-8 hours; oxycodone 5 mg every 4 hours; butalbital, acetaminophen and caffeine 1 capsule every 6 hours; topiramate 50 mg twice a day; duloxetine 60 mg at bedtime. He is on buspirone 30 mg twice a day. He is Belsomra 20 mg at bedtime. He is on Creon 1 capsule 2 times a day with meals. He is on omeprazole 40 mg daily, bifidobacterium infantis 1 capsule at bedtime. He is on cholecalciferol, vitamin D 5000 units once a day, multivitamin 1 tablet once a day, Humira 40 mg in 0.8 mL injection 1 subcutaneously every 2 weeks. He is on fish oil 1000 mg at bedtime. PHYSICAL EXAMINATION: GENERAL: On arrival to the Emergency Room, he looked well and was clearly in no apparent respiratory distress. There was no pallor, jaundice, cyanosis or thyromegaly. No jugular venous distention. No limb edema. VITAL SIGNS: His heart rate was 70, blood pressure 152/93, temperature was 98.7, respiratory rate was 18 and oxygen saturation was 97%. HEAD, EYES, EARS, NOSE, AND THROAT: Normocephalic, atraumatic. NECK: Supple. HEART: Showed normal first and second heart sounds. No gallop, rub or murmur. CHEST: Clear to auscultation. No crepitation or rhonchi. ABDOMEN: Distended with some mild tenderness in epigastric area. No guarding or rigidity. No organomegaly. All hernial orifices intact. Bowel sounds normal. NEUROLOGIC: He was grossly intact. LABORATORY DATA: Showed a white cell count of 15,000, hemoglobin 14.5, hematocrit 42, MCV 93, and platelet count of 264,000 with normal manual differential. His chemistry showed a serum sodium 136, potassium 2.8, chloride 101, bicarbonate 20, anion gap of 15, BUN 15, creatinine 1.4. Estimated GFR was 54 mL per minute. His blood sugar was 146. Calcium was 8.9. Total bilirubin, AST, ALT, alkaline phosphatase were normal. Total CK was 304. Total protein was 7.6, albumin 3.6. Serum amylase was 62 and lipase was 132. Urinalysis essentially unremarkable. His toxic screen was positive for barbiturates. His influenza A and B were negative. His coronavirus rapid testing was negative. The CT scan of the abdomen and pelvis with IV contrast showed the patient has diffuse bladder wall thickening that is nonspecific, but may be seen with cystitis. The patient has hepatic hypoattenuation consistent with fatty liver, hypodense hepatic dome lesion is grossly stable and high density renal lesion also appears grossly stable. ASSESSMENT AND PLAN: The patient was admitted with probably both COVID vaccinations syndrome, although the patient is known to have multiple episodes of relapsing pancreatitis before. He was found to have hypokalemia, leukocytosis, impaired kidney function, although his creatinine is actually lower than his baseline around 1.6-1.8. My plan is to continue with replenishing his potassium. Continue with IV fluid in the form of the normal saline with 40 mEq of potassium chloride. The patient can eat and drink as tolerated. Continue with pain management. I will reconcile his medication and repeat all his labs tomorrow and if they are all within acceptable range, he can be discharged home. NUNO DR: Kriss TID: [id number]
[2021-06-28] MEDS: POTASSIUM CL 40MEQ IN 0.9%NACL 1,000 ML IV SCH (15:09)
[2021-06-28 15:19] VITALS: BP 120/78
[2021-06-28] MEDS ORDERED: BUTALB/APAP/CAFEIN 50/325/40MG TABLET. PO PRN (15:30)
[2021-06-28] MEDS ORDERED: METHOCARBAMOL 500 MG TABLET PO PRN (16:15)
[2021-06-28] MEDS: LIPASE/PROTEAS/AMYLAS 10/32/42 CAPSULE.DR. PO SCH (17:08)
[2021-06-28 19:59] VITALS: BP 128/82
[2021-06-28] MEDS: TOPIRAMATE 25 MG TABLET. PO SCH (20:10)
[2021-06-28] MEDS: busPIRone 15 MG TABLET. PO SCH (20:11)
[2021-06-28] MEDS: INSULIN GLARGINE SYRINGE. SQ SCH ×2 (20:12→21:00)
[2021-06-28] MEDS ORDERED: DULoxetine HCL 60 MG CAPSULE.DR PO SCH (21:00)
[2021-06-28] MEDS ORDERED: NON FORMULARY ITEM (Suvorexant (Belsomra) 20 MG) PO SCH (21:00)
[2021-06-28] MEDS ORDERED: OMEGA-3 FATTY ACIDS/FISH OIL 1,000 MG CAPSULE. PO SCH (21:00)
[2021-06-28] MEDS ORDERED: BIFIDOBACTERIUM INFANTIS PO SCH (21:00)
[2021-06-29] MEDS: POTASSIUM CL 40MEQ IN 0.9%NACL 1,000 ML IV SCH ×2 (01:12→08:02)
[2021-06-29] MEDS: MORPHINE SULFATE 4 MG/ML DISP.SYRIN. IV PRN ×3 (01:13→10:10)
[2021-06-29 06:26] VITALS: BP 114/75
[2021-06-29 06:58] LABS: BASO # 0.1 x10^3/uL (0.0-0.2); BASO % 1 % (0-3); EOS # 0.5 x10^3/uL (0.0-0.7); EOS % 4 % (0-3); HEMATOCRIT 40.4 % (39.0-53.0); HEMOGLOBIN 13.6 g/dL (13.0-17.5); LYMPH # 5.1 x10^3/uL (1.0-4.8); LYMPH % 48 % (24-48); MEAN CORPUSCULAR HEMOGLOBIN 32 pg (25-35); MEAN CORPUSCULAR HGB CONC 34 g/dL (31-37); MEAN CORPUSCULAR VOLUME 95 fL (79-100); MONO # 0.8 x10^3/uL (0.0-1.1); MONO % 8 % (0-9); NEUT # 4.3 x10^3uL (1.8-7.7); NEUT % 40 % (31-73); PLATELET COUNT 227 x10^3/uL (140-400); RED BLOOD COUNT 4.27 x10^6/uL (4.30-5.70); RED CELL DISTRIBUTION WIDTH 13.4 % (11.5-14.5); WHITE BLOOD COUNT 10.8 x10^3/uL (4.0-11.0)
[2021-06-29 07:27] LABS: ALBUMIN/GLOBULIN RATIO 0.8 (1.0-1.7); CALCIUM 8.5 mg/dL (8.5-10.1); CREATININE 1.2 mg/dL (0.7-1.3); GFR 64.6; POTASSIUM 4.1 mmol/L (3.5-5.1); TOTAL BILIRUBIN 0.3 mg/dL (0.2-1.0); TOTAL PROTEIN 6.6 g/dL (6.4-8.2)
[2021-06-29] MEDS ORDERED: PANTOPRAZOLE 40 MG TABLET. PO SCH (07:30)
[2021-06-29] MEDS: LIPASE/PROTEAS/AMYLAS 10/32/42 CAPSULE.DR. PO SCH (08:00)
[2021-06-29] MEDS: busPIRone 15 MG TABLET. PO SCH (08:00)
[2021-06-29] MEDS: TOPIRAMATE 25 MG TABLET. PO SCH (08:00)
[2021-06-29] MEDS: ASPIRIN ENTERIC COATED 81 MG TABLET.DR. PO SCH (08:00)
[2021-06-29] MEDS ORDERED: ATORVASTATIN CALCIUM 20 MG TABLET PO SCH (09:00)
[2021-06-29] MEDS ORDERED: CHOLECALCIFEROL (VITAMIN D3) 1,000 UNIT TABLET PO SCH (09:00)
[2021-06-29] MEDS ORDERED: MULTIVITAMIN with MINERAL TABLET. PO SCH (09:00)
[2021-06-29 10:34] VITALS: BP 102/48
[2021-06-29] MEDS ORDERED: HYDR-2769 PO (11:01)
--- NOTE | 2021-06-29 11:33 | NUR ---
NURSING NOTE DISCHARGE PT DISCHARGED HOME VIA AMBULATION, PICKED UP BY SECURITY TO GET A RIDE DOWN TO HIS CAR. PT GIVEN WRITTEN AND VERBAL DISCHARGE INSTURCTIONS, PAIN MEDICATION SENT TO [facility] ONLINE. CHARO COBURN.
[2021-07-12] MEDS ORDERED: NON FORMULARY ITEM (Adalimumab (Humira) 1 SYR) SQ SCH (09:00)
== END 2021-06-29 11:36 | disposition home or self-care (01) | DRG 641 ==
LOC: ER 03:59 → 1 SOUTH 05:53
PROVIDERS: ADMIT Internal Medicine; ATTEND Internal Medicine
DX: E87.6 Hypokalemia (principal); K50.90 Crohn's disease, unspecified, without complications; K86.1 Other chronic pancreatitis; E11.22 Type 2 diabetes mellitus with diabetic chronic kidney disease; E78.00 Pure hypercholesterolemia, unspecified; F17.210 Nicotine dependence, cigarettes, uncomplicated; K76.0 Fatty (change of) liver, not elsewhere classified; T50.B95A Adverse effect of other viral vaccines, initial encounter; N18.9 Chronic kidney disease, unspecified; Z82.49 Family history of ischemic heart disease and other diseases of the circulatory system; D72.829 Elevated white blood cell count, unspecified; F41.9 Anxiety disorder, unspecified; J32.9 Chronic sinusitis, unspecified; K21.9 Gastro-esophageal reflux disease without esophagitis; M19.90 Unspecified osteoarthritis, unspecified site; Z90.49 Acquired absence of other specified parts of digestive tract; Z88.8 Allergy status to other drugs, medicaments and biological substances; Z20.822 Contact with and (suspected) exposure to COVID-19; Y92.89 Other specified places as the place of occurrence of the external cause
CPT/HCPCS: 36415; 74022; 74177; 80048; 80053; 80076; 80307; 81001; 82150; 82550; 82947; 83690; 84484; 85025; 87426; 87804; 93005; 96361; 96372; 96374; 96375; G0480; J1815; J1885; J2270; J2405; J3480; J3490; J7120; Q9966; Q9967; U0003; 99285-25

== ENCOUNTER 2021-08-24 20:55 | Emergency (ER) | payer BC, MEDICARE ==
[~2021-08-24] VITALS: Ht 167.6 cm; Wt 83.8 kg
[~2021-08-24 20:55] MED LIST changes: -CYCL-331 PO; +CYCL10TA19 PO; +PITA4TAB2 PO; +SUVO20TA PO
--- NOTE | 2021-08-24 21:21 | PHYS DOC ---
Past History Past Medical History: Anxiety, Arthritis, Diabetes, GERD, Prostatitis Additional Past Medical Histor: crohn's disease Past Surgical History: Other Additional Past Surgical Histo: left knee, left shoulder Smoking: Cigarettes Alcohol Use: None Drug Use: None General Adult EDM: Chief Complaint: NAUSEA/VOMITING/DIARRHEA HPI: HPI: 46-year-old male presents with epigastric pain, diarrhea, and vomiting. Patient has chronic pancreatitis. He is concerned that he has a pancreatic flare. He has been having issues with diarrhea for a few weeks since starting a new medication. He is less concerned about possible more worried about epigastric abdominal pain. The patient does not tolerate morphine as it gives him a headache. Fentanyl has worked for him in the past. He has no other specific complaints at this time. Review of Systems: Review of Systems: Constitutional: Denies fever or chills Eyes: Denies change in visual acuity HENT: Denies nasal congestion or sore throat Respiratory: Denies cough or shortness of breath Cardiovascular: Denies chest pain or edema GI: Epigastric abdominal pain, nausea, vomiting, diarrhea : Denies dysuria Musculoskeletal: Denies back pain or joint pain Integument: Denies rash Neurologic: Denies headache, focal weakness or sensory changes Endocrine: Denies polyuria or polydipsia Lymphatic: Denies swollen glands Psychiatric: Denies depression or anxiety Current Medications: Current Meds: Current Medications Medications (Trade) Dose Ordered Sig/[facility] Start Time Stop Time Status Last Admin Dose Admin Ondansetron HCl (Zofran) 4 mg 1X ONCE 08/24/21 21:15 08/24/21 21:16 UNV Sodium Chloride 1,000 ml @ 1,000 mls/hr 1X ONCE 08/24/21 21:15 08/24/21 22:14 UNV Allergies: Allergies: Allergies Coded Allergies Type Severity Reaction Last Updated Verified cephalexin Allergy Intermediate Rash 01/11/20 Yes codeine Adverse Reaction Intermediate Migraine Headaches 09/05/19 Yes Physical Exam: PE: Constitutional: Well developed, well nourished, no acute distress, non-toxic appearance. [] HENT: Normocephalic, atraumatic, bilateral external ears normal, oropharynx moist, no oral exudates, nose normal. [] Eyes: PERRLA, EOMI, conjunctiva normal, no discharge. [] Neck: Normal range of motion, no tenderness, supple, no stridor. [] Cardiovascular: Heart rate regular rhythm, no murmur [] Lungs & Thorax: Bilateral breath sounds clear to auscultation [] Abdomen: Bowel sounds normal, soft, epigastric tenderness, no masses, no pulsatile masses. [] Skin: Warm, dry, no erythema, no rash. [] Back: No tenderness, no CVA tenderness. [] Extremities: No tenderness, no cyanosis, no clubbing, ROM intact, no edema. [] Neurologic: Alert and oriented X 3, normal motor function, normal sensory function, no focal deficits noted. [] Psychologic: Affect normal, judgement normal, mood normal. [] EKG: EKG: [] Radiology/Procedures: Radiology/Procedures: [] Heart Score: C/O Chest Pain: N/A Risk Factors: Risk Factors: DM, Current or recent (<one month) smoker, HTN, HLP, family history of CAD, obesity. Risk Scores: Score 0 - 3: 2.5% MACE over next 6 weeks - Discharge Home Score 4 - 6: 20.3% MACE over next 6 weeks - Admit for Clinical Observation Score 7 - 10: 72.7% MACE over next 6 weeks - Early Invasive Strategies Course & Med Decision Making: Course & Med Decision Making Pertinent Labs and Imaging studies reviewed. (See chart for details) The patient's labs are remarkable for a low potassium and elevated creatinine. Review of the chart shows either similar to previous values. We will give him 40 mEq potassium. The patient CT scan is negative for acute findings. His lipase is normal. Have given him 2 doses of pain medication. He does not meet admission criteria. He is stable for discharge at this time. He will need to follow-up with his primary physicians for management of his diarrhea. [] Dragon Disclaimer: Dragon Disclaimer: This electronic medical record was generated, in whole or in part, using a voice recognition dictation system. Departure Departure: Impression: Primary Impression: Nausea and vomiting Additional Impression: Hypokalemia Disposition: HOME / SELF CARE / HOMELESS Condition: STABLE Referrals: NASEEM RAMIREZ (PCP) Patient Instructions: Nausea and Vomiting, [id number] YANDEL ARREOLA DO Aug 24, 2021 21:21
[2021-08-24 21:27] LABS: BASO # 0.1 x10^3/uL (0.0-0.2); BASO % 1 % (0-3); EOS # 0.4 x10^3/uL (0.0-0.7); EOS % 2 % (0-3); HEMATOCRIT 44.3 % (39.0-53.0); LYMPH # 6.6 x10^3/uL (1.0-4.8); LYMPH % 42 % (24-48); MEAN CORPUSCULAR HEMOGLOBIN 32 pg (25-35); MEAN CORPUSCULAR HGB CONC 34 g/dL (31-37); MEAN CORPUSCULAR VOLUME 94 fL (79-100); MONO % 7 % (0-9); NEUT # 7.8 x10^3uL (1.8-7.7); NEUT % 49 % (31-73); PLATELET COUNT 280 x10^3/uL (140-400); RED BLOOD COUNT 4.71 x10^6/uL (4.30-5.70); RED CELL DISTRIBUTION WIDTH 13.6 % (11.5-14.5); WHITE BLOOD COUNT 15.9 x10^3/uL (4.0-11.0)
[2021-08-24] MEDS ORDERED: ONDANSETRON PF 4 MG/2 ML VIAL. IVP ONE (21:30)
[2021-08-24] MEDS ORDERED: IV NORMAL SALINE 1,000ML 1,000 ML IV ONE (21:30)
[2021-08-24] MEDS ORDERED: CONTRAST GIVEN. MC PRN (21:45)
[2021-08-24 21:52] LABS: % EOS 3 % (0-5); % LYMPHS 46 % (24-48); % MONOS 2 % (0-10); % SEGS 49 % (35-66); PLT ESTIMATE ADEQUATE (ADEQUATE)
[2021-08-24 21:58] LABS: CALCIUM 8.6 mg/dL (8.5-10.1); CREATININE 1.7 mg/dL (0.7-1.3); GFR 43.2
[2021-08-24] MEDS ORDERED: IOHEXOL 300 MG/ML 75 ML VIAL. IV ONE (22:00)
[2021-08-24 22:03] LABS: ALBUMIN 3.9 g/dL (3.4-5.0); TOTAL BILIRUBIN 0.4 mg/dL (0.2-1.0); TOTAL PROTEIN 7.9 g/dL (6.4-8.2)
--- NOTE | 2021-08-24 22:29 | RAD ---
EXAMINATION: CT ABDOMEN+PELVIS W CLINICAL HISTORY: Epigastric pain TECHNIQUE: CT of the abdomen and pelvis was performed using standard technique, scanning from just ab ove the dome of the diaphragm to the symphysis pubis following administration of intravenous contrast . CT Dose Reduction Employed: One or more of the following individualized dose reduction techniques wer e utilized for this examination: 1. Automated exposure control 2. Adjustment of the mA and/or kV ac cording to patient size 3. Use of iterative reconstruction technique. COMPARISON: 07/10/2021 FINDINGS: Minimal subsegmental atelectasis in the lingula. Hypoenhancing lesions in the right hepatic lobe measuring up to 2.7 cm, similar to prior study when m easured in similar planes. Cholecystectomy. Calcifications and pancreatic head, similar to prior stud y. Spleen and adrenal glands unremarkable. Slightly hypoenhancing exophytic lesions in the bilateral kidneys measuring up to 3.5 cm on the right and 1.2 cm on the left, similar to prior study when measured in similar planes. Minimally filled urinary bladder with circumferential bladder wall prominence, similar to prior study . Nonenlarged prostate. No bowel dilation or definite wall thickening. Appendix not definitively visualized. Minimally disten ded stomach suboptimally evaluated. Mild arterial atherosclerotic calcification without aneurysm. No evidence of acute osseous abnormality. Stable appearance of the T11 vertebral body. IMPRESSION: No evidence of acute abdominopelvic abnormality or significant interval change. Redemonstration of indeterminant right hepatic and bilateral renal lesions, incompletely evaluated. N onemergent/outpatient multiphasic MRI/CT could be obtained for further evaluation as indicated. Electronically signed by: Fernando Augustine DO (08/24/2021 10:27 PM) [facility]
[2021-08-24 22:50] VITALS: BP 136/84
== END 2021-08-24 22:55 | disposition home or self-care (01) ==
LOC: ER 20:55
DX: E87.6 Hypokalemia (principal); R11.2 Nausea with vomiting, unspecified; R10.13 Epigastric pain; R19.7 Diarrhea, unspecified; M19.90 Unspecified osteoarthritis, unspecified site; E11.9 Type 2 diabetes mellitus without complications; K21.9 Gastro-esophageal reflux disease without esophagitis; F17.210 Nicotine dependence, cigarettes, uncomplicated; Z88.1 Allergy status to other antibiotic agents; Z88.5 Allergy status to narcotic agent
CPT/HCPCS: 36415; 74177; 80053; 83690; 85007; 85025; 96361; 96374; 96375; 96376; 99285; J2405; J3010; J7030; Q9967

== ENCOUNTER 2021-08-31 17:51 | Emergency (ER) | payer BC, MEDICARE ==
[~2021-08-31] VITALS: Ht 167.6 cm; Wt 83.8 kg
[2021-08-31 17:52] VITALS: BP 115/78
[2021-08-31] MEDS ORDERED: KETOROLAC 30 MG/ML VIAL. IVP ONE (19:15)
[2021-08-31] MEDS ORDERED: FAMOTIDINE 20 MG/2 ML VIAL IVP ONE (19:15)
[2021-08-31] MEDS ORDERED: ONDANSETRON PF 4 MG/2 ML VIAL. IVP ONE ×2 (19:15→21:45)
[2021-08-31] MEDS ORDERED: IV NORMAL SALINE 1,000ML 1,000 ML IV ONE (19:15)
--- NOTE | 2021-08-31 19:18 | PHYS DOC ---
Past History Past Medical History: Anxiety, Arthritis, Diabetes, GERD, Prostatitis Additional Past Medical Histor: crohn's disease Past Surgical History: Other Additional Past Surgical Histo: left knee, left shoulder Smoking: Cigarettes Alcohol Use: None Drug Use: None General Adult EDM: Chief Complaint: NAUSEA/VOMITING/DIARRHEA HPI: HPI: 46 year old male presents with widespread pain, nausea, and vomiting. These symptoms began earlier today after he took a new migraine medication (Lasmiditan). He reports that after taking the medication, he fell asleep for an hour and woke up with all of his symptoms. His pain is primarily located in his right anterior thigh, bilateral biceps and deltoids, and abdomen. He also reports that he had difficulty moving his right leg at that time and currently. After waking up, he also had nausea and vomiting and vomited upon arrival to the ED while in the waiting room. He was in this ED on August 24 for colitis. He has an abdominal CT with contrast at that time which no evidence of abd ominopelvic abnormality or significant interval change. Review of Systems: Review of Systems: Constitutional: Denies fever or chills Eyes: Denies redness or eye pain HENT: Denies nasal congestion or sore throat Respiratory: Denies cough or shortness of breath Cardiovascular: Denies chest pain or palpitations GI: Reports abdominal pain, nausea, and vomiting : Denies dysuria or hematuria Musculoskeletal: Reports back pain and joint pain Integument: Denies rash or skin lesions Neurologic: Reports headache and focal weakness. Denies sensory changes Complete systems were reviewed and found to be within normal limits, except as documented in this note. Allergies: Allergies: Allergies Coded Allergies Type Severity Reaction Last Updated Verified cephalexin Allergy Intermediate Rash 01/11/20 Yes codeine Adverse Reaction Intermediate Migraine Headaches 09/05/19 Yes Physical Exam: PE: Constitutional: Well developed, well nourished, mild distress, non-toxic appearance HENT: Normocephalic, atraumatic Eyes: PERRL, EOMI, conjunctiva normal, no discharge Neck: Normal range of motion, no tenderness, supple Lungs & Thorax: No respiratory distress, equal chest rise and fall, lungs clear to auscultation bilaterally Cardiovascular: Regular rate and rhythm with no murmur appreciated Abdomen: Soft, tenderness on palpation of the epigastrium and right upper quadrant. Skin: Warm, dry, no erythema, no rash Back: No tenderness Extremities: Tenderness over right anterior thigh and bilateral biceps and deltoids. Neurologic: Alert and oriented X 3, normal sensory function, 4/5 of shoulder abduction and adduction with pain upon movement. 4/5 front desk admin strength on left and 5/5 on right. 4/5 dorsiflexion/plantarflexion on right leg, 5/5 on left leg. Psychologic: Affect normal, judgment normal Current Patient Data: Vital Signs: Vital Signs Date Time Temp Pulse Resp B/P (MAP) Pulse Ox O2 Delivery O2 Flow Rate FiO2 08/31/21 17:52 97.9 66 115/78 (90) 99 08/31/21 17:51 16 Room Air EKG: EKG: [] Radiology/Procedures: Radiology/Procedures: [] Heart Score: C/O Chest Pain: N/A Course & Med Decision Making: Course & Med Decision Making Pertinent Labs and Imaging studies reviewed. (See chart for details) 43 year old male presents with widespread pain, nausea, and vomiting after taking a new migraine medication earlier today (Lasmiditan). Fluids were provided. Analgesia was addressed with Toradol. Nausea and abdominal pain was addressed with famotidine and ondansetron. A CBC and CMP were ordered to assess for metabolic disturbances, Lipase to assess for pancreatitis due to history and abdominal pain, and U/A to assess for possible UTI. His pain and nausea resolved with hydration and Toradol, but his migraine remained. He was given Fioricet to help relieve his migraine. Patient stable for discharge with outpatient follow-up with PCP and neurology. Discussed findings and plan with patient, who acknowledges understanding and agreement. [] Rei Disclaimer: Rei Disclaimer: This electronic medical record was generated, in whole or in part, using a voice recognition dictation system. Departure Departure: Impression: Primary Impression: Medication reaction Qualified Codes: T50.905A - Adverse effect of unspecified drugs, medicaments and biological substances, initial encounter Additional Impressions: Headache Qualified Codes: R51.9 - Headache, unspecified Nausea and vomiting Qualified Codes: R11.2 - Nausea with vomiting, unspecified Disposition: HOME / SELF CARE / HOMELESS Condition: STABLE Referrals: NASEEM RAMIREZ (PCP) Patient Instructions: Drug Allergy, Dygb-[id number], Headache, FAQs, Nausea and Vomiting, [id number], Recurrent Migraine Headache Additional Instructions: Increase fluid hydration. Follow up with neurology as previously scheduled for further evaluation and treatment. Scripts Butalb/Acetaminophen/Caffeine ([id number] [id number]) 1 Each Tablet 1 EACH PO Q6HRS PRN for HEADACHE, #14 TAB Prov: ISABELLA MORGAN DO 08/31/21 Ondansetron (ONDANSETRON ODT) 4 Mg Tab.rapdis 1 TAB PO PRN Q6-8HRS PRN for NAUSEA, #16 TAB Prov: ISABELLA MORGAN DO 08/31/21 ISABELLA MORGAN DO Aug 31, 2021 19:18
[2021-08-31 20:16] LABS: BASO # 0.1 x10^3/uL (0.0-0.2); BASO % 1 % (0-3); EOS # 0.5 x10^3/uL (0.0-0.7); EOS % 3 % (0-3); HEMATOCRIT 44.6 % (39.0-53.0); HEMOGLOBIN 15.1 g/dL (13.0-17.5); LYMPH # 7.2 x10^3/uL (1.0-4.8); LYMPH % 44 % (24-48); MEAN CORPUSCULAR HEMOGLOBIN 32 pg (25-35); MEAN CORPUSCULAR HGB CONC 34 g/dL (31-37); MEAN CORPUSCULAR VOLUME 94 fL (79-100); MONO % 6 % (0-9); NEUT # 7.5 x10^3uL (1.8-7.7); NEUT % 46 % (31-73); PLATELET COUNT 279 x10^3/uL (140-400); RED BLOOD COUNT 4.77 x10^6/uL (4.30-5.70); RED CELL DISTRIBUTION WIDTH 13.2 % (11.5-14.5); WHITE BLOOD COUNT 16.3 x10^3/uL (4.0-11.0)
[2021-08-31 20:25] LABS: CREATININE 1.5 mg/dL (0.7-1.3); GFR 49.9; POTASSIUM 3.5 mmol/L (3.5-5.1)
[2021-08-31 20:30] LABS: ALBUMIN 3.7 g/dL (3.4-5.0); ALBUMIN/GLOBULIN RATIO 0.9 (1.0-1.7); TOTAL BILIRUBIN 0.5 mg/dL (0.2-1.0); TOTAL PROTEIN 7.8 g/dL (6.4-8.2)
[2021-08-31 20:34] LABS: BILIRUBIN,URINE NEG (NEG); CLARITY,URINE CLEAR; COLOR,URINE YELLOW; GLUCOSE,URINE NEG (NEG)
[2021-08-31 20:35] LABS: BACTERIA,URINE 0 /HPF (0-FEW); NITRITE,URINE NEG (NEG); RBC,URINE 0 /HPF (0-2); UROBILINOGEN,URINE 0.2 mg/dL (0.2 mg/dL); WBC,URINE 0 /HPF (0-4)
[2021-08-31 20:44] LABS: % EOS 6 % (0-5); % LYMPHS 48 % (24-48); % MONOS 5 % (0-10); % SEGS 41 % (35-66); PLT ESTIMATE ADEQUATE (ADEQUATE)
[2021-08-31] MEDS ORDERED: BUTALB/APAP/CAFEIN 50/325/40MG TABLET. PO ONE (21:00)
[2021-08-31] MEDS ORDERED: BUTA1TAB23 PO (21:15)
[2021-08-31] MEDS ORDERED: ONDA4TAB12 PO (21:15)
== END 2021-08-31 21:50 | disposition home or self-care (01) ==
LOC: ER 17:51
DX: R11.2 Nausea with vomiting, unspecified (principal); T50.995A Adverse effect of other drugs, medicaments and biological substances, initial encounter; R51.9 Headache, unspecified; R10.13 Epigastric pain; M79.651 Pain in right thigh; F41.9 Anxiety disorder, unspecified; M19.90 Unspecified osteoarthritis, unspecified site; E11.9 Type 2 diabetes mellitus without complications; K21.9 Gastro-esophageal reflux disease without esophagitis; F17.210 Nicotine dependence, cigarettes, uncomplicated; Z88.1 Allergy status to other antibiotic agents; Z88.5 Allergy status to narcotic agent; Y92.89 Other specified places as the place of occurrence of the external cause
CPT/HCPCS: 36415; 80053; 81001; 83690; 85007; 85025; 96361; 96374; 96375; 96376; 99284; J1885; J2060; J2405; J3490; J7030

== ENCOUNTER 2021-09-06 06:06 | Emergency (ER) | payer BC, MEDICARE ==
[~2021-09-06] VITALS: Ht 167.6 cm; Wt 83.8 kg
[~2021-09-06 06:06] MED LIST changes: +BUTA1TAB23 PO; +ONDA4TAB12 PO
[2021-09-06] MEDS ORDERED: KETOROLAC 30 MG/ML VIAL. ONE (06:27)
--- NOTE | 2021-09-06 06:37 | PHYS DOC ---
Past History Past Medical History: Anxiety, Arthritis, Diabetes, GERD, Prostatitis Additional Past Medical Histor: crohn's disease Past Surgical History: Other Additional Past Surgical Histo: left knee, left shoulder Smoking: Cigarettes Alcohol Use: None Drug Use: None Adult General Chief Complaint Chief Complaint: BACK PAIN OR INJURY [facility] HPI Patient is a 46-year-old male presenting for back pain. This is an acute on chronic issue. States he was outside yesterday when he had a ground-level fall to his back onto gravel. Reported he had immediate midline spinal back pain at level of T10-L2 with radiation down left posterior leg. Nothing known makes better or worse. Initially states he had not taken anything for pain. Reports severity is severe. No motor or sensory or neuro changes but states it is difficult to walk due to pain. He has history of chronic back pain Review of Systems Review of Systems Fourteen body systems of review of systems have been reviewed. See HPI for pertinent positives and negative responses, other benavides all other systems are negative, non-pertinent or non-contributory Allergies Allergies Allergies Coded Allergies Type Severity Reaction Last Updated Verified cephalexin Allergy Intermediate Rash 01/11/20 Yes codeine Adverse Reaction Intermediate Migraine Headaches 09/05/19 Yes Physical Exam Physical Exam Constitutional: Pt is oriented to person, place, and time. Pt appears older than stated age. No acute distress. Nontoxic HEENT: Head: Normocephalic and atraumatic. TMs clear, no hemotympanum Conjunctivae and EOM are normal. Pupils are equal, round, and reactive to light. Oropharynx is clear and moist. No hematomas or lacerations or abrasions to face or scalp OP clear, no blood, no malocclusion, dentition intact Nares clear, no nasal septal hematoma Midface stable Neck: C-spine midline nontender, no step-offs Cardiovascular: Normal rate, regular rhythm and normal heart sounds. Pulmonary/Chest: Effort normal and breath sounds normal. No respiratory distress. No wheezes. CTA bilaterally Abdominal: Soft. Bowel sounds are normal. Pt exhibits no distension. There is no tenderness. Musculoskeletal: No bony tenderness to extremities, no deformities, full ROM extremities Chest wall stable Pelvis stable and non-tender Patient has midline spinal tenderness to T10-L2 spinal levels otherwise no palpable abnormalities step-off or other tenderness to midline of remaining spine Neurological: Pt is alert and oriented to person, place, and time. Moving all extremities willfully, able to wiggle all fingers and toes Alert and oriented x 3 Motor and sensory function intact Cranial nerves II through XII intact 2+ patellar reflexes to bilateral lower extremities Skin: Skin is warm and dry. No abrasions, no lacerations Psychiatric: Anxious affect and mood Current Patient Data Vital Signs Vital Signs Date Time Temp Pulse Resp B/P (MAP) Pulse Ox O2 Delivery O2 Flow Rate FiO2 09/06/21 06:20 97.8 90 18 93/61 (72) 98 Room Air Vital Signs Date Time Temp Pulse Resp B/P (MAP) Pulse Ox O2 Delivery O2 Flow Rate FiO2 09/06/21 06:20 97.8 90 18 93/61 (72) 98 Room Air EKG EKG [] Radiology/Procedures Radiology/Procedures Exam: CT thoracic spine without contrast CT lumbar spine without contrast CLINICAL HISTORY: Reason: midling t10-l2 pain, ground level fall to concrete midline back pain COMPARISON: 08/24/2021 TECHNIQUE: This CT study consists of contiguous axial images performed through the thoracic and lumbar spine. Sagittal and coronal reformatted images were also performed. PQRS compliance statement - One or more of the following individualized dose reduction techniques were utilized for this study: 1. Automated exposure control 2. Adjustment of the mA and/or kV according to patient size 3. Use of iterative reconstruction technique FINDINGS: Thoracic spine: Multilevel Schmorl's nodes, particularly the lower thoracic spine including T11, T12 and L1. There is trace height loss of T11, likely physiologic wedging, otherwise vertebral body heights are preserved. No acute fracture is seen. Trace disc height loss at T9-T10, T10-11 and T11-12. Visualized portions of the lungs are grossly clear. A few mildly prominent mediastinal lymph nodes are seen, for example a right paratracheal lymph node measures 8 mm short axis. Lumbar spine: Vertebral body heights are preserved. Disc heights are grossly preserved. No spondylolisthesis. Mild facet degenerative changes at L2-3, L3-4, L4-5 and L5- S1. No acute fracture. A 2.4 x 1.6 cm soft tissue nodule is seen posterior to the IVC (series 2 image 28) likely portacaval lymph node. High density bilateral renal lesions partially profiled, possibly hemorrhagic or proteinaceous cyst. IMPRESSION: 1. No acute thoracic or lumbar spine fracture or subluxation. 2. Retrocaval soft tissue nodule measuring 1.6 cm short axis may represent retrocaval lymph node. This is of uncertain clinical significance, dedicated abdominal and pelvic imaging can be performed if clinically indicated. Given the renal and hepatic lesions seen on prior CT abdomen, further evaluation with contrast-enhanced MRI is recommended to exclude underlying renal mass.. Electronically signed by: Elia Jimenes MD (09/06/2021 7:18 AM) [id number] Heart Score C/O Chest Pain: No Risk Factors: Risk Factors: DM, Current or recent (<one month) smoker, HTN, HLP, family history of CAD, obesity. Risk Scores: Risk Factors: DM, Current or recent (<one month) smoker, HTN, HLP, family history of CAD, obesity. Course & Med Decision Making Course & Med Decision Making ABCs unremarkable History physical exam and comprehensive ER work-up nonconcerning for any emergent or surgical issues Patient immediately reported he had not taken anything for pain and subsequently requesting pain control. I called him out on the fact that he recently filled 90 pills of [place] 10 yesterday, then states that he took several of these past 12 hours without significant relief in his symptoms I do not feel comfortable giving patient any medication in ER setting let alone to go home with given manipulative/pain seeking behavior and fact that he was not forthright with me initially. No concerning findings on imaging. Likely exacerbation of chronic pain. IM Toradol administered He is on several high-risk narcotic medication and I do not feel the risk of further prescription outweighs the benefits. 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 Strict return precautions discussed with patient with full understanding. Advised patient to follow up promptly with primary care provider. Patient hemodynamically stable and ambulatory out of ER department Dragon Disclaimer Dragon Disclaimer This electronic medical record was generated, in whole or in part, using a voice recognition dictation system. Departure Departure: Impression: Primary Impression: Back pain Additional Impression: Abnormal finding on CT scan Disposition: HOME / SELF CARE / HOMELESS Condition: STABLE Referrals: NASEEM RAMIREZ (PCP) Problem Qualifiers LINUS DIAZ DO Sep 06, 2021 06:37
[2021-09-06] MEDS ORDERED: KETOROLAC 30 MG/ML VIAL. IM ONE (07:00)
--- NOTE | 2021-09-06 07:20 | RAD ---
Exam: CT thoracic spine without contrast CT lumbar spine without contrast CLINICAL HISTORY: Reason: midling t10-l2 pain, ground level fall to concrete midline back pain COMPARISON: 08/24/2021 TECHNIQUE: This CT study consists of contiguous axial images performed through the thoracic and lumba r spine. Sagittal and coronal reformatted images were also performed. PQRS compliance statement - One or more of the following individualized dose reduction techniques wer e utilized for this study: 1. Automated exposure control 2. Adjustment of the mA and/or kV according to patient size 3. Use of iterative reconstruction technique FINDINGS: Thoracic spine: Multilevel Schmorl's nodes, particularly the lower thoracic spine including T11, T12 and L1. There is trace height loss of T11, likely physiologic wedging, otherwise vertebral body heights are preserved . No acute fracture is seen. Trace disc height loss at T9-T10, T10-11 and T11-12. Visualized portions of the lungs are grossly clear. A few mildly prominent mediastinal lymph nodes ar e seen, for example a right paratracheal lymph node measures 8 mm short axis. Lumbar spine: Vertebral body heights are preserved. Disc heights are grossly preserved. No spondylolisthesis. Mild facet degenerative changes at L2-3, L3-4, L4-5 and L5-S1. No acute fracture. A 2.4 x 1.6 cm soft tissue nodule is seen posterior to the IVC (series 2 image 28) likely portacaval lymph node. High density bilateral renal lesions partially profiled, possibly hemorrhagic or proteina ceous cyst. IMPRESSION: 1. No acute thoracic or lumbar spine fracture or subluxation. 2. Retrocaval soft tissue nodule measuring 1.6 cm short axis may represent retrocaval lymph node. Th is is of uncertain clinical significance, dedicated abdominal and pelvic imaging can be performed if clinically indicated. Given the renal and hepatic lesions seen on prior CT abdomen, further evaluatio n with contrast-enhanced MRI is recommended to exclude underlying renal mass.. Electronically signed by: Elia Jimenes MD (09/06/2021 7:18 AM) [id number]
[2021-09-06 07:36] VITALS: BP 98/56
== END 2021-09-06 07:40 | disposition home or self-care (01) ==
LOC: ER 06:06
DX: M54.6 Pain in thoracic spine (principal); R93.89 Abnormal findings on diagnostic imaging of other specified body structures; F41.9 Anxiety disorder, unspecified; M19.90 Unspecified osteoarthritis, unspecified site; E11.9 Type 2 diabetes mellitus without complications; K21.9 Gastro-esophageal reflux disease without esophagitis; F17.210 Nicotine dependence, cigarettes, uncomplicated; Z88.1 Allergy status to other antibiotic agents; Z88.5 Allergy status to narcotic agent
CPT/HCPCS: 72128; 72131; 96372; 99284; J1885

== ENCOUNTER 2021-09-13 04:59 | Emergency (ER) | payer BC, MEDICARE ==
[~2021-09-13] VITALS: Ht 172.7 cm; Wt 78.0 kg
[2021-09-13 05:08] VITALS: BP 156/92
[2021-09-13] MEDS ORDERED: oxyCODONE/APAP 5/325 1 TAB TABLET PO ONE (05:30)
--- NOTE | 2021-09-13 05:35 | PHYS DOC ---
Past History Past Medical History: Anxiety, Arthritis, Diabetes, GERD, Prostatitis Additional Past Medical Histor: crohn's disease Past Surgical History: Other Additional Past Surgical Histo: left knee, left shoulder Smoking: Cigarettes Alcohol Use: None Drug Use: None Adult General Chief Complaint Chief Complaint: LOWER BACK PAIN OR INJURY HPI HPI Patient is a 46-year-old male with chronic back pain who presents with low back pain, 7 out of 10, dull and achy in nature over the last couple of days. States his primary care physician gives him 3 hydrocodone daily which he took but is still having some low back pain. Denies any new traumas, travels, illnesses, fevers, chest pain, shortness of breath, abdominal pain, nausea, vomiting, diarrhea. Denies any urinary retention or incontinence. Denies any incontinence of stool. Denies any numbness/weakness/tingling or trouble sitting, standing or walking. States he came in to get better pain control because his primary care doctor does not care. States he is also seeing pain management. States he has an MRI this week that he supposed to get. Allergies Allergies Allergies Coded Allergies Type Severity Reaction Last Updated Verified cephalexin Allergy Intermediate Rash 01/11/20 Yes codeine Adverse Reaction Intermediate Migraine Headaches 09/05/19 Yes Physical Exam Physical Exam Constitutional: Well developed, well nourished, no acute distress, non-toxic a ppearance. [] HENT: Normocephalic, atraumatic, bilateral external ears normal, oropharynx moist, no oral exudates, nose normal. [] Eyes: conjunctiva normal, no discharge. [] Neck: Normal range of motion, no tenderness, supple, no stridor. [] Cardiovascular:Heart rate regular rhythm, no murmur [] Lungs & Thorax: Bilateral breath sounds clear to auscultation [] Abdomen:, soft, no tenderness, no masses, no pulsatile masses. [] Skin: Warm, dry, no erythema, no rash. [] Back: Paraspinal muscle tenderness and probable spasm on bilateral lumbar paraspinal muscles, range of motion intact, no obvious deformities or bruising, no CVA tenderness. [] Extremities: No tenderness, no cyanosis, no clubbing, ROM intact, no edema. [] Neurologic: Alert and oriented X 3, normal motor function, normal sensory function, able to sit, stand and walk without issue, no focal deficits noted. [] Psychologic: Affect normal, judgement normal, mood normal. [] EKG EKG [] Radiology/Procedures Radiology/Procedures [] Heart Score C/O Chest Pain: No Risk Factors: Risk Factors: DM, Current or recent (<one month) smoker, HTN, HLP, family history of CAD, obesity. Risk Scores: Risk Factors: DM, Current or recent (<one month) smoker, HTN, HLP, family history of CAD, obesity. Course & Med Decision Making Course & Med Decision Making Patient is a 46-year-old male who presents with low back pain, acute on chronic requesting pain medicine Vital signs notable for hypertension. Physical exam noted above. Patient in no acute distress, with no focal neurologic deficits, able to sit, stand and walk without issue. Given patient in acute dose of pain medicine in the emergency department. Discussed physical therapy/stretching and exercise movements at home to decrease pain. Discussed a regimen at home that includes his hydrocodone but other adjuncts as well. Advised to call primary care physician and his pain management center first thing in the morning. Gave return precautions to the ED. Patient grateful, verbalized understanding and agree with plan of discharge. [] Dragon Disclaimer Dragon Disclaimer This electronic medical record was generated, in whole or in part, using a voice recognition dictation system. Departure Departure: Impression: Primary Impression: Low back pain Disposition: 01 HOME / SELF CARE / HOMELESS Condition: GOOD Referrals: NASEEM RAMIREZ (PCP) Patient Instructions: Back Pain, Adult Additional Instructions: Thank you for coming into the emergency department tonight and allowing us to take care of you. Please read the attached information carefully to go back over some of the things we discussed. As we discussed it is appropriate to take 600 mg of ibuprofen 4 times a day as well as Tylenol as well. Remember not to take more than 3000 mg of Tylenol daily and that your hydrocodone has 325 mg in it. It is very important that you use many avenues of pain management other than your opioids as able stop working as we discussed. Benadryl is also a good adjunct for pain at appropriate doses on the packaging as we discussed. It is very important that you call your primary care physician in the morning as well as your pain management physician and keep your upcoming appointment for MRI. Please come back with new or concerning symptoms as we discussed. GHAZALA DANIELSON MD Sep 13, 2021 05:35
[2021-09-13] MEDS ORDERED: KETOROLAC 60 MG/2 ML VIAL. IM ONE (05:45)
== END 2021-09-13 05:51 | disposition home or self-care (01) ==
LOC: ER 04:59
DX: M54.59 Other low back pain (principal); G89.29 Other chronic pain; F41.9 Anxiety disorder, unspecified; M19.90 Unspecified osteoarthritis, unspecified site; E11.9 Type 2 diabetes mellitus without complications; K21.9 Gastro-esophageal reflux disease without esophagitis; F17.210 Nicotine dependence, cigarettes, uncomplicated; Z88.1 Allergy status to other antibiotic agents; Z88.5 Allergy status to narcotic agent
CPT/HCPCS: 96372; 99284; J1885; J3010

== ENCOUNTER 2021-09-21 15:52 | Emergency (ER) | payer BC, MEDICARE ==
[~2021-09-21] VITALS: Ht 167.6 cm; Wt 83.0 kg
[2021-09-21 16:07] VITALS: BP 145/73
[2021-09-21] MEDS ORDERED: HYDROcodone/APAP 10/325 1 TAB TABLET PO ONE (16:45)
--- NOTE | 2021-09-21 16:55 | PHYS DOC ---
Past History Past Medical History: Anxiety, Arthritis, Diabetes, GERD, Prostatitis Additional Past Medical Histor: crohn's disease Past Surgical History: Other Additional Past Surgical Histo: left knee, left shoulder Smoking: Cigarettes Alcohol Use: Rarely Drug Use: None General Adult EDM: Chief Complaint: BACK PAIN OR INJURY HPI: HPI: 46-year-old male presents with chronic low back pain. The patient has had low back pain for several weeks or longer. He states having CT scans and MRIs no one seems to be able to tell him what is going on. He denies any new falls or injuries. Review of Systems: Review of Systems: Constitutional: Denies fever or chills Eyes: Denies change in visual acuity HENT: Denies nasal congestion or sore throat Respiratory: Denies cough or shortness of breath Cardiovascular: Denies chest pain or edema GI: Denies abdominal pain, nausea, vomiting, bloody stools or diarrhea : Denies dysuria Musculoskeletal: Low back pain Integument: Denies rash Neurologic: Denies headache, focal weakness or sensory changes Endocrine: Denies polyuria or polydipsia Lymphatic: Denies swollen glands Psychiatric: Denies depression or anxiety Allergies: Allergies: Allergies Coded Allergies Type Severity Reaction Last Updated Verified cephalexin Allergy Intermediate Rash 01/11/20 Yes codeine Adverse Reaction Intermediate Migraine Headaches 09/05/19 Yes Physical Exam: PE: Constitutional: Well developed, well nourished, no acute distress, non-toxic appearance. [] HENT: Normocephalic, atraumatic, bilateral external ears normal, oropharynx moist, no oral exudates, nose normal. [] Eyes: PERRLA, EOMI, conjunctiva normal, no discharge. [] Neck: Normal range of motion, no tenderness, supple, no stridor. [] Cardiovascular: Heart rate regular rhythm, no murmur [] Lungs & Thorax: Bilateral breath sounds clear to auscultation [] Abdomen: Bowel sounds normal, soft, no tenderness, no masses, no pulsatile masses. [] Skin: Warm, dry, no erythema, no rash. [] Back: Tenderness of the lumbar spine, no step-offs, mild muscle tightness. [] Extremities: No tenderness, no cyanosis, no clubbing, ROM intact, no edema. [] Neurologic: Alert and oriented X 3, normal motor function, normal sensory function, no focal deficits noted. [] Psychologic: Affect normal, judgement normal, mood normal. [] Current Patient Data: Vital Signs: Vital Signs Date Time Temp Pulse Resp B/P (MAP) Pulse Ox O2 Delivery O2 Flow Rate FiO2 09/21/21 16:07 98.7 104 18 145/73 (97) 97 EKG: EKG: [] Radiology/Procedures: Radiology/Procedures: [] Heart Score: C/O Chest Pain: N/A Risk Factors: Risk Factors: DM, Current or recent (<one month) smoker, HTN, HLP, family history of CAD, obesity. Risk Scores: Score 0 - 3: 2.5% MACE over next 6 weeks - Discharge Home Score 4 - 6: 20.3% MACE over next 6 weeks - Admit for Clinical Observation Score 7 - 10: 72.7% MACE over next 6 weeks - Early Invasive Strategies Course & Med Decision Making: Course & Med Decision Making Pertinent Labs and Imaging studies reviewed. (See chart for details) I went through the patient's imaging on our system and I do not see any focal cause for his pain. The patient is getting pain medication from a provider. I have informed him that he is to stick with a single provider for pain medications and continue to follow-up with his specialists to develop a plan care home. I will give him 1 Vandiver 10/ in the ED. He is stable for discharge at this time. [] Rei Disclaimer: Rei Disclaimer: This electronic medical record was generated, in whole or in part, using a voice recognition dictation system. Departure Departure: Impression: Primary Impression: Chronic pain syndrome Additional Impression: Low back pain Disposition: HOME / SELF CARE / HOMELESS Condition: STABLE Referrals: NASEEM RAMIREZ (PCP) Patient Instructions: Low Back Strain with [facility] YANDEL ARREOLA DO Sep 21, 2021 16:55
== END 2021-09-21 17:00 | disposition home or self-care (01) ==
LOC: ER 15:52
DX: G89.4 Chronic pain syndrome (principal); M54.50 Low back pain, unspecified; K21.9 Gastro-esophageal reflux disease without esophagitis; E11.9 Type 2 diabetes mellitus without complications; K50.90 Crohn's disease, unspecified, without complications; F17.210 Nicotine dependence, cigarettes, uncomplicated; Z88.1 Allergy status to other antibiotic agents; Z88.5 Allergy status to narcotic agent
CPT/HCPCS: 99283

== ENCOUNTER 2021-10-01 16:49 | Emergency (ER) | payer BC, MEDICARE ==
[~2021-10-01] VITALS: Ht 167.6 cm; Wt 83.0 kg
[2021-10-01 17:15] VITALS: BP 97/62
--- NOTE | 2021-10-01 17:48 | PHYS DOC ---
Past History Past Medical History: Anxiety, Arthritis, Diabetes, GERD, Prostatitis Additional Past Medical Histor: crohn's disease Past Surgical History: Other Additional Past Surgical Histo: left knee, left shoulder Smoking: Cigarettes Alcohol Use: Rarely Drug Use: None Adult General Chief Complaint Chief Complaint: HEADACHE HPI HPI Patient is a 46-year-old male patient with history of chronic migraine headaches, chronic low back pain, presenting to the ED today complaining of chronic low back pain and chronic migraine headache. Patient rates pain at 10 out of 10. Denies this being the worst pain in his left denies any nausea, vomiting. Denies any injuries. Reports chronic pain radiating to bilateral lower extremities, denies any loss of bowel/bladder function. Patient states he had an MRI done yesterday at [facility], results will be given to him on Tuesday when he goes to see Naseem Ramirez, he also states he saw a pain clinic called DR. Fuentes at [place] yesterday for Migraineand she ordered Fioricet for him. He states the medicine was ordered as a capsule and his insurance will not pay for it unless is a tablet. He states that he tried calling the doctor's office but she was gone. He is requesting pain medicine in the ED. Review of Systems Review of Systems Constitutional: Denies fever or chills [] Musculoskeletal: Reports chronic low back pain Integument: Denies rash or skin lesions [] Neurologic: Reports chronic migraine headache, denies focal weakness or sensory changes [] All other systems were reviewed and found to be within normal limits, except as documented in this note. Allergies Allergies Allergies Coded Allergies Type Severity Reaction Last Updated Verified cephalexin Allergy Intermediate Rash 01/11/20 Yes codeine Adverse Reaction Intermediate Migraine Headaches 09/05/19 Yes Physical Exam Physical Exam Constitutional: Well developed, well nourished, no acute distress, non-toxic appearance. [] Skin: Warm, dry, no erythema, no rash. [] Back: No tenderness, no CVA tenderness. [] Extremities: No tenderness, no cyanosis, no clubbing, ROM intact, no edema. [] Neurologic: Alert and oriented X 3, normal motor function, normal sensory function, no focal deficits noted. Cranial nerves II through XII intact Psychologic: Affect normal, judgement normal, mood normal. [] EKG EKG [] Radiology/Procedures Radiology/Procedures [] Heart Score C/O Chest Pain: N/A Risk Factors: Risk Factors: DM, Current or recent (<one month) smoker, HTN, HLP, family history of CAD, obesity. Risk Scores: Risk Factors: DM, Current or recent (<one month) smoker, HTN, HLP, family history of CAD, obesity. Course & Med Decision Making Course & Med Decision Making Pertinent Labs and Imaging studies reviewed. (See chart for details) This is a 46-year-old male patient well-known to this ED presenting today complaining of chronic migraine headache and chronic back pain is requesting something for his symptoms. He states he had an MRI of his back done yesterday and results will be given to him on Tuesday. He also states he saw pain clinic doctor yesterday at [place] but she ordered his Fioricet as a capsule instead of tablet hence his insurance is not paying for it. Patient has no cauda equina syndrome symptoms. This is not the worst headache in his life. He was given Flexeril and 1 hydrocodone in the ED and informed patient he needs to follow-up with his own doctor, discharged to home Dragon Disclaimer Dragon Disclaimer This electronic medical record was generated, in whole or in part, using a voice recognition dictation system. Departure Departure: Impression: Primary Impression: Chronic back pain Additional Impression: Migraine Disposition: 01 HOME / SELF CARE / HOMELESS Condition: STABLE Referrals: NASEEM RAMIREZ (PCP) follow up on Tuesday as scheduled Patient Instructions: Back Pain, Adult, Migraine Headache Additional Instructions: You were evaluated in the emergency room for chronic migraine headaches and back pain, please follow up with your doctor next week Problem Qualifiers Primary Impression: Chronic back pain Back pain location: low back pain Back pain laterality: bilateral Sciatica presence: without sciatica Qualified Codes: M54.50 - Low back pain, unspecified; G89.29 - Other chronic pain Additional Impression: Migraine Migraine type: without aura Status migrainosus presence: without status migrainosus Intractability: not intractable Qualified Codes: G43.009 - Migraine without aura, not intractable, without status migrainosus AYDEN CARIAS APRN Oct 01, 2021 17:48
[2021-10-01] MEDS ORDERED: CYCLOBENZAPRINE 10 MG TABLET. PO ONE (18:00)
[2021-10-01] MEDS ORDERED: HYDROcodone/APAP 5/325MG 1 TAB TABLET PO ONE (18:00)
== END 2021-10-01 18:06 | disposition home or self-care (01) ==
LOC: ER 16:49
DX: G43.009 Migraine without aura, not intractable, without status migrainosus (principal); M54.59 Other low back pain; G89.29 Other chronic pain; F41.9 Anxiety disorder, unspecified; M19.90 Unspecified osteoarthritis, unspecified site; E11.9 Type 2 diabetes mellitus without complications; K21.9 Gastro-esophageal reflux disease without esophagitis; F17.210 Nicotine dependence, cigarettes, uncomplicated; Z88.1 Allergy status to other antibiotic agents; Z88.5 Allergy status to narcotic agent
CPT/HCPCS: 99283

== ENCOUNTER 2021-10-05 00:30 | Emergency (ER) | payer BC, MEDICARE ==
[~2021-10-05] VITALS: Ht 167.6 cm; Wt 86.0 kg
--- NOTE | 2021-10-05 01:06 | PHYS DOC ---
Past History Past Medical History: Anxiety, Arthritis, Diabetes, GERD, Prostatitis Additional Past Medical Histor: crohn's disease, CHRONIC BACK Past Surgical History: Appendectomy, Other Additional Past Surgical Histo: left knee, left shoulder Smoking: Cigarettes Alcohol Use: None Drug Use: None General Adult EDM: Chief Complaint: MULTIPLE COMPLAINTS HPI: HPI: 46-year-old male presents with headache. The patient has a history of migraines and has been having a repeat episode for the last couple of days. Patient is out of his migraine medication because the prescription was called in incorrectly. His insurance would not cover the type of medication that was prescribed. He plans to get this fixed tomorrow when the office opens. He has been able to get a hold of them because of the holiday. Patient does not want any prescriptions. He simply wants treated for his headache tonight so he can go home and go to bed. Review of Systems: Review of Systems: Constitutional: Denies fever or chills Eyes: Denies change in visual acuity HENT: Denies nasal congestion or sore throat Respiratory: Denies cough or shortness of breath Cardiovascular: Denies chest pain or edema GI: Denies abdominal pain, nausea, vomiting, bloody stools or diarrhea : Denies dysuria Musculoskeletal: Denies back pain or joint pain Integument: Denies rash Neurologic: headache. Denies focal weakness or sensory changes Endocrine: Denies polyuria or polydipsia Lymphatic: Denies swollen glands Psychiatric: Denies depression or anxiety Current Medications: Current Meds: Current Medications Medications (Trade) Dose Ordered Sig/Monty Start Time Stop Time Status Last Admin Dose Admin Diphenhydramine HCl (Benadryl) 25 mg 1X ONCE 10/05/21 01:00 10/05/21 01:01 UNV Ketorolac Tromethamine (Toradol 30mg Vial) 30 mg 1X ONCE 10/05/21 01:00 10/05/21 01:01 UNV Metoclopramide HCl (Reglan Vial) 10 mg 1X ONCE 10/05/21 01:00 10/05/21 01:01 UNV Sodium Chloride 1,000 ml @ 1,000 mls/hr 1X ONCE 10/05/21 01:00 10/05/21 01:59 UNV Allergies: Allergies: Allergies Coded Allergies Type Severity Reaction Last Updated Verified cephalexin Allergy Intermediate Rash 01/11/20 Yes codeine Adverse Reaction Intermediate Migraine Headaches 09/05/19 Yes Physical Exam: PE: Constitutional: Well developed, well nourished, no acute distress, non-toxic appearance. [] HENT: Normocephalic, atraumatic, bilateral external ears normal, oropharynx moist, no oral exudates, nose normal. [] Eyes: PERRLA, EOMI, conjunctiva normal, no discharge. [] Neck: Normal range of motion, no tenderness, supple, no stridor. [] Cardiovascular: Heart rate regular rhythm, no murmur [] Lungs & Thorax: Bilateral breath sounds clear to auscultation [] Abdomen: Bowel sounds normal, soft, no tenderness, no masses, no pulsatile mas ses. [] Skin: Warm, dry, no erythema, no rash. [] Back: No tenderness, no CVA tenderness. [] Extremities: No tenderness, no cyanosis, no clubbing, ROM intact, no edema. [] Neurologic: Alert and oriented X 3, normal motor function, normal sensory function, no focal deficits noted. [] Psychologic: Affect normal, judgement normal, mood normal. [] EKG: EKG: [] Radiology/Procedures: Radiology/Procedures: [] Heart Score: C/O Chest Pain: N/A Risk Factors: Risk Factors: DM, Current or recent (<one month) smoker, HTN, HLP, family history of CAD, obesity. Risk Scores: Score 0 - 3: 2.5% MACE over next 6 weeks - Discharge Home Score 4 - 6: 20.3% MACE over next 6 weeks - Admit for Clinical Observation Score 7 - 10: 72.7% MACE over next 6 weeks - Early Invasive Strategies Course & Med Decision Making: Course & Med Decision Making Pertinent Labs and Imaging studies reviewed. (See chart for details) The patient would prefer the IV migraine cocktail versus oral medications. I have ordered 1 L normal saline, 10 mg of Reglan, 25 mg of Benadryl, 30 mg of Toradol. The patient is feeling better. He is stable for discharge at this time. [] Dragon Disclaimer: Dragon Disclaimer: This electronic medical record was generated, in whole or in part, using a voice recognition dictation system. Departure Departure: Impression: Primary Impression: Migraine headache Disposition: HOME / SELF CARE / HOMELESS Condition: IMPROVED Referrals: NASEEM RAMIREZ (PCP) Patient Instructions: Migraine Headache, [id number] YANDEL ARREOLA DO Oct 05, 2021 01:06
[2021-10-05] MEDS ORDERED: diphenhydrAMINE 50 MG/ML VIAL IVP ONE (01:30)
[2021-10-05] MEDS ORDERED: IV NORMAL SALINE 1,000ML 1,000 ML IV ONE (01:30)
[2021-10-05] MEDS ORDERED: KETOROLAC 30 MG/ML VIAL. IVP ONE (01:30)
[2021-10-05] MEDS ORDERED: METOCLOPRAMIDE HCL 10 MG/2 ML VIAL. IVP ONE (01:30)
[2021-10-05] MEDS ORDERED: MORPHINE SULFATE 4 MG/ML DISP.SYRIN. IV ONE (02:00)
[2021-10-05 02:38] VITALS: BP 118/86
== END 2021-10-05 02:40 | disposition home or self-care (01) ==
LOC: ER 00:30
DX: G43.909 Migraine, unspecified, not intractable, without status migrainosus (principal); F41.9 Anxiety disorder, unspecified; M19.90 Unspecified osteoarthritis, unspecified site; E11.9 Type 2 diabetes mellitus without complications; K21.9 Gastro-esophageal reflux disease without esophagitis; F17.210 Nicotine dependence, cigarettes, uncomplicated; Z88.1 Allergy status to other antibiotic agents; Z88.5 Allergy status to narcotic agent
CPT/HCPCS: 96361; 96374; 96375; 99284; J1200; J1885; J2270; J2765; J7030

== ENCOUNTER 2021-10-19 22:34 | Emergency (ER) | payer BC, MEDICARE ==
[~2021-10-19] VITALS: Ht 167.6 cm; Wt 93.0 kg
[2021-10-19 23:00] VITALS: BP 127/86
--- NOTE | 2021-10-19 23:07 | PHYS DOC ---
Past History Past Medical History: Anxiety, Arthritis, Diabetes, GERD, Prostatitis Additional Past Medical Histor: Crohns Past Surgical History: Appendectomy, Knee Replacement, Other Additional Past Surgical Histo: shoulder and wrist surgery Smoking: Cigarettes Alcohol Use: None Drug Use: None General Adult EDM: Chief Complaint: BACK PAIN OR INJURY HPI: HPI: Patient is a 46-year-old male who presents to the emergency department for chronic back pain. Patient reports that his chronic back pain started 1 year ago. He is scheduled to see his surgeon later this month after obtaining an MRI of his back. Patient rates pain 10 out of 10. No radiation of pain. Patient sees a pain management doctor who prescribes him 10/325 [place] and he took that at noon. Patient reports that he did slip on the ice today. He denies any saddle anesthesias, loss of bowel or bladder. Review of Systems: Review of Systems: Constitutional: negative unless reported in HPI Eyes: negative unless reported in HPI HENT: negative unless reported in HPI Respiratory: negative unless reported in HPI Cardiovascular: negative unless reported in HPI GI: negative unless reported in HPI : negative unless reported in HPI Musculoskeletal: negative unless reported in HPI Integument: negative unless reported in HPI Neurologic: negative unless reported in HPI Endocrine: negative unless reported in HPI Lymphatic: negative unless reported in HPI Psychiatric: negative unless reported in HPI Allergies: Allergies: Allergies Coded Allergies Type Severity Reaction Last Updated Verified cephalexin Allergy Intermediate Rash 01/11/20 Yes codeine Adverse Reaction Intermediate Migraine Headaches 09/05/19 Yes Physical Exam: PE: Constitutional: Well developed, well nourished, no acute distress, non-toxic appearance. [] HENT: Normocephalic, atraumatic, bilateral external ears normal, oropharynx moist, no oral exudates, nose normal. [] Eyes: PERRLA, EOMI, conjunctiva normal, no discharge. [] Neck: Normal range of motion, no bony spinal tenderness, supple, no stridor. [] Cardiovascular:Heart rate regular rhythm, no murmur [] Lungs & Thorax: Bilateral breath sounds clear to auscultation [] Abdomen: Bowel sounds normal, soft, no tenderness, no masses, no pulsatile masses. [] Skin: Warm, dry, no erythema, no rash. [] Back: Normal range of motion, right sided thoracic paraspinal tenderness with palpation, no obvious deformity, lumbar paraspinal tenderness bilaterally with palpation, Extremities: No tenderness, no cyanosis, no clubbing, ROM intact, no edema, patient ambulatory with a steady gait. [] Neurologic: Alert and oriented X 3, normal motor function, normal sensory function, no focal deficits noted. [] Psychologic: Affect normal, judgement normal, mood normal. [] EKG: EKG: [] Radiology/Procedures: Radiology/Procedures: []REASON: Fall, lower and upper back pain PROCEDURE: THORACIC SPINE 3V 2 views thoracic spine and 3 views lumbar spine dated 10/19/2021. COMPARISON: 09/06/2021 CLINICAL INDICATION: Pain after fall. FINDINGS: 3 views of thoracic spine show normal sagittal alignment. Vertebral body heights are maintained. No paraspinous soft tissue abnormality. No acute bony abnormality. There is mild wedge compression deformity of T11, unchanged. 3 views of lumbar spine show normal sagittal alignment. Vertebral body heights are maintained. Mild endplate hypertrophic changes throughout. Mild arthrosis lower lumbar apophyseal joints. IMPRESSION: 1. Mild wedge compression deformity of T11, unchanged from 09/06/2021 exam. 2. Otherwise no fracture or malalignment. 3. Mild multilevel spondylosis. Electronically signed by: Leobardo Torres MD (10/20/2021 12:00 AM) [facility] [place] DICTATED AND SIGNED BY: LEOBARDO TORRES MD DATE: 10/19/21 [id number] CC: NASEEM RAMIREZ; WALTER FLORES CHIEF ANALYTICS OFFICER ~MTH0 0 Heart Score: C/O Chest Pain: N/A Risk Factors: Risk Factors: DM, Current or recent (<one month) smoker, HTN, HLP, family history of CAD, obesity. Risk Scores: Score 0 - 3: 2.5% MACE over next 6 weeks - Discharge Home Score 4 - 6: 20.3% MACE over next 6 weeks - Admit for Clinical Observation Score 7 - 10: 72.7% MACE over next 6 weeks - Early Invasive Strategies Course & Med Decision Making: Course & Med Decision Making Pertinent Labs and Imaging studies reviewed. (See chart for details) [] Patient presents to the emergency department for chronic back pain x1 year which was exacerbated today following a fall. Patient has had previous imaging of his spine. New imaging was performed due to injury of his thoracic and lumbar spine where he was reporting pain. They showed no acute findings. Patient had no cauda equina symptoms. Patient was treated with anti-inflammatory and a muscle relaxer. 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 Rei Disclaimer: Rei Disclaimer: This electronic medical record was generated, in whole or in part, using a voice recognition dictation system. Departure Departure: Impression: Primary Impression: Chronic back pain Qualified Codes: M54.50 - Low back pain, unspecified; G89.29 - Other chronic pain Disposition: HOME / SELF CARE / HOMELESS Condition: GOOD Referrals: NASEEM RAMIREZ (PCP) Patient Instructions: Back Pain, Adult Additional Instructions: You are seen in the emergency department today for back pain. Imaging was performed of your thoracic and lumbar spine which showed no acute findings. Your pain was treated in the emergency department. Continue taking pain medication as prescribed to you. If you need any additional pain management, you need to follow-up with your pain management doctor. I would advise you to contact her tomorrow morning. Return to the emergency department if you develop any new injuries, inability to walk, loss of bowel or bladder, numbness or tingling in your groin, intractable nausea or vomiting, high fevers refractory to treatment or any new or worsening concerns. WALTER FLORES APRN Oct 19, 2021 23:07
[2021-10-19] MEDS ORDERED: ORPHENADRINE CITRATE 60 MG/2 ML VIAL. IM ONE (23:30)
[2021-10-19] MEDS ORDERED: KETOROLAC 60 MG/2 ML VIAL. IM ONE (23:30)
--- NOTE | 2021-10-20 00:09 | RAD ---
2 views thoracic spine and 3 views lumbar spine dated 10/19/2021. COMPARISON: 09/06/2021 CLINICAL INDICATION: Pain after fall. FINDINGS: 3 views of thoracic spine show normal sagittal alignment. Vertebral body heights are maintained. No p araspinous soft tissue abnormality. No acute bony abnormality. There is mild wedge compression deform ity of T11, unchanged. 3 views of lumbar spine show normal sagittal alignment. Vertebral body heights are maintained. Mild e ndplate hypertrophic changes throughout. Mild arthrosis lower lumbar apophyseal joints. IMPRESSION: 1. Mild wedge compression deformity of T11, unchanged from 09/06/2021 exam. 2. Otherwise no fracture or malalignment. 3. Mild multilevel spondylosis. Electronically signed by: Leobardo Torres MD (10/20/2021 12:00 AM) [facility]
== END 2021-10-20 00:20 | disposition home or self-care (01) ==
LOC: ER 22:34
DX: G89.29 Other chronic pain (principal); M54.59 Other low back pain; M54.6 Pain in thoracic spine; M19.90 Unspecified osteoarthritis, unspecified site; E11.9 Type 2 diabetes mellitus without complications; K21.9 Gastro-esophageal reflux disease without esophagitis; F17.210 Nicotine dependence, cigarettes, uncomplicated; Z90.89 Acquired absence of other organs; Z88.1 Allergy status to other antibiotic agents; Z88.5 Allergy status to narcotic agent
CPT/HCPCS: 72072; 72100; 96372; 99284; J1885; J2360

== ENCOUNTER 2021-11-01 19:32 | Emergency (ER) | payer BC, MEDICARE ==
[~2021-11-01] VITALS: Ht 167.6 cm; Wt 81.6 kg
--- NOTE | 2021-11-01 19:47 | PHYS DOC ---
Past History Past Medical History: Anxiety, Arthritis, Diabetes, GERD, Pancreatitis, Prostatitis Additional Past Medical Histor: crohns, chronic back pain Past Surgical History: Appendectomy, Other Additional Past Surgical Histo: left knee with hardware, left shoulder w/hardware, rt wrist Smoking: Cigarettes Alcohol Use: None Drug Use: None General Adult HPI: HPI: ".. I hurting again.. it my pancreatitis .. I think... ". "Puking dry thick pasty slime..." Patient is a 46 year old male who presents with above hx and complaints of cyclic vomiting, epigastric pain which she attributes to a pancreatitis flare. Patient has had recurrent bouts of pancreatitis for a number of years. Patient no longer drinks alcohol. Patient is on multiple meds for his gastritis and periodic pancreatitis exacerbations.. Patient has been compliant with his omeprazole 40, Creon and domperidone. Patient denies any change in his other maintenance meds. Patient denies any intake of bad food. Patient denies any recent travel. Patient denies any specific ill contacts. Patient denies any history of immunosuppression. Patient has significant past history of Crohn's disease, chronic idiopathic recurrence of pancreatitis, chronic kidney disease, chronic sinusitis, diabetes, GERD, degenerative joint issues. Patient has had previous left knee replacement with hardware. Patient had a cholecystectomy approximately 3 years ago. He has had multiple colonoscopies and EGDs. Patient did get COVID vaccination as well as flu vaccination. Review of Systems: Review of Systems: Constitutional: Denies fever or chills Eyes: Denies change in visual acuity HENT: Denies nasal congestion or sore throat Respiratory: Denies cough or shortness of breath Cardiovascular: Denies chest pain or edema GI: Complains of epigastric abdominal pain, nausea, vomiting, and diarrhea : Denies dysuria Musculoskeletal: Denies back pain or joint pain Integument: Denies rash Neurologic: Denies headache, focal weakness or sensory changes Endocrine: Denies polyuria or polydipsia Lymphatic: Denies swollen glands Psychiatric: Denies depression or anxiety Family History: Family History: He has an older brother who is healthy, his sister in a motor vehicle accident. One sister also has mental health problems. Father at age 65 due to MD. Mother age 72 due to MD. He has one son. Patient still smokes tobacco. Patient is on disability for his chronic pancreatitis. Current Medications: Current Meds: See nursing for home meds Allergies: Allergies: Allergies Coded Allergies Type Severity Reaction Last Updated Verified cephalexin Allergy Intermediate Rash 01/11/20 Yes codeine Adverse Reaction Intermediate Migraine Headaches 09/05/19 Yes Physical Exam: PE: Constitutional: moderate acute distress, non-toxic appearance. [] HENT: Normocephalic, atraumatic, bilateral external ears normal, oropharynx dry, no oral exudates, nose normal. [] Eyes: PERRLA, EOMI, conjunctiva normal, no discharge. Glasses Neck: Normal range of motion, no tenderness, supple, no stridor. [] Cardiovascular: Tacky heart rate, irregular regular rhythm, no murmur []. The bedside monitor shows sinus rhythm with occasional PAC and PVCs. Lungs & Thorax: Bilateral breath sounds equal apex with few basilar crackles on auscultation [] Abdomen: Bowel sounds hyperactive soft, epigastric tenderness, no masses, no pulsatile masses. Rebound epigastric. Old stretch [place] from significant weight loss. Old surgery eduar-appendicitis and cholecystectomy Skin: Warm, dry, no erythema, no rash. Poor turgor Back: No tenderness, no CVA tenderness. [] Extremities: No tenderness, no cyanosis, no clubbing, ROM intact, no edema. No psoas sign. Neurologic: Alert and oriented X 3, normal motor function, normal sensory function, no focal deficits noted. [] Psychologic: Affect anxious, judgement normal, mood normal. [] EKG: EKG: My interpretation EKG shows a sinus rhythm at 65 bpm. Does have occasional PVC. Does have PACs. Time of EKG is 2104 hrs. [] Radiology/Procedures: Radiology/Procedures: [] Heart Score: C/O Chest Pain: No HEART Score for Chest Pain: HEART Score for Chest Pain Response (Comments) Value History Slighlty/Non-Suspicious 0 ECG Normal 0 Age < 45 0 Risk Factors 1 or 2 Risk Factors 1 Troponin < Normal Limit 0 Total 1 Risk Factors: Risk Factors: DM, Current or recent (<one month) smoker, HTN, HLP, family history of CAD, obesity. Risk Scores: Score 0 - 3: 2.5% MACE over next 6 weeks - Discharge Home Score 4 - 6: 20.3% MACE over next 6 weeks - Admit for Clinical Observation Score 7 - 10: 72.7% MACE over next 6 weeks - Early Invasive Strategies Course & Med Decision Making: Course & Med Decision Making Pertinent Labs and Imaging studies reviewed. (See chart for details) Discussed presentation, testing and tx plan with Dr. Sherman. Admit to his service. Impression: 1. Idiopathic pancreatitis-acute exacerbation 2. Hypokalemia critical 2.8 3. Leukocytosis 21 4. Elevated alk phos 139 5. Diabetes glucose 165 6. Dehydration 7. Elevated creatinine 1.7 [] Dragon Disclaimer: Dragon Disclaimer: This electronic medical record was generated, in whole or in part, using a voice recognition dictation system. Departure Departure: Referrals: NASEEM RAMIREZ (PCP) [place] Disclaimer This chart was dictated in whole or in part using Voice Recognition software in a busy, high-work load, and often noisy Emergency Department environment. It may contain unintended and wholly unrecognized errors or omissions. Dragon Disclaimer This chart was dictated in whole or in part using Voice Recognition software in a busy, high-work load, and often noisy Emergency Department environment. It may contain unintended and wholly unrecognized errors or omissions. PRATIK DE LEON MD Nov 01, 2021 19:47
[2021-11-01] MEDS ORDERED: diphenhydrAMINE 50 MG/ML VIAL IVP ONE (20:00)
[2021-11-01] MEDS ORDERED: ONDANSETRON PF 4 MG/2 ML VIAL. IVP ONE (20:00)
[2021-11-01] MEDS ORDERED: FAMOTIDINE 20 MG/2 ML VIAL IVP ONE (20:00)
[2021-11-01] MEDS ORDERED: IV RINGERS SOLUTION,LACTATED 1,000 ML IV SCH (20:00)
[2021-11-01] MEDS ORDERED: PROCHLORPERAZINE 10 MG/2 ML VIAL. IV ONE (20:15)
[2021-11-01] MEDS ORDERED: MORPHINE SULFATE 10 MG/ML SYRINGE. SQ ONE (20:15)
[2021-11-01 20:28] LABS: BASO # 0.2 x10^3/uL (0.0-0.2); BASO % 1 % (0-3); EOS # 0.3 x10^3/uL (0.0-0.7); EOS % 2 % (0-3); HEMATOCRIT 44.3 % (39.0-53.0); HEMOGLOBIN 14.9 g/dL (13.0-17.5); LYMPH # 6.4 x10^3/uL (1.0-4.8); LYMPH % 31 % (24-48); MEAN CORPUSCULAR HEMOGLOBIN 31 pg (25-35); MEAN CORPUSCULAR HGB CONC 34 g/dL (31-37); MEAN CORPUSCULAR VOLUME 93 fL (79-100); MONO # 1.3 x10^3/uL (0.0-1.1); MONO % 6 % (0-9); NEUT # 12.7 x10^3uL (1.8-7.7); NEUT % 60 % (31-73); PLATELET COUNT 257 x10^3/uL (140-400); RED BLOOD COUNT 4.76 x10^6/uL (4.30-5.70); RED CELL DISTRIBUTION WIDTH 13.5 % (11.5-14.5)
[2021-11-01 20:43] LABS: ALBUMIN 3.7 g/dL (3.4-5.0); CALCIUM 9.1 mg/dL (8.5-10.1); CREATININE 1.7 mg/dL (0.7-1.3); DIRECT BILIRUBIN 0.2 mg/dL (0.0-0.2); GFR 43.2; TOTAL BILIRUBIN 0.6 mg/dL (0.2-1.0); TOTAL PROTEIN 7.3 g/dL (6.4-8.2)
[2021-11-01 20:49] LABS: POTASSIUM 2.8 mmol/L (3.5-5.1)
[2021-11-01 20:53] LABS: % BANDS 3 % (0-9); % EOS 4 % (0-5); % LYMPHS 30 % (24-48); % MONOS 10 % (0-10); % SEGS 53 % (35-66); PLT ESTIMATE ADEQUATE (ADEQUATE)
--- NOTE | 2021-11-01 21:02 | RAD ---
Three-view acute abdominal series. HISTORY: Nausea, vomiting, history of pancreatitis 3 views were taken for an acute abdominal series. Lungs are clear. There is an old left clavicle frac ture with plate and multiple screws. There is no free air on the upright view the abdomen or abnormal air-fluid levels. Stomach is mildly distended. There are clips from a cholecystectomy. There are phl eboliths in the pelvis. There are no other abnormal calcifications. IMPRESSION: 1. No acute infiltrates. 2. Mild Gastric distention. 3. No bowel obstruction or other acute finding in the abdomen. Electronically signed by: Derik Moss MD (11/01/2021 8:59 PM) [facility]
[2021-11-01] MEDS ORDERED: POTASSIUM CHLORIDE 20MEQ 100 ML IV SCH ×2 (21:15→23:00)
[2021-11-01 21:19] LABS: INFLUENZA A PATIENT NEGATIVE (NEGATIVE); INFLUENZA B PATIENT NEGATIVE (NEGATIVE)
[2021-11-01] MEDS: POTASSIUM CHLORIDE 10MEQ 100 ML IV SCH ×3 (21:22→23:22)
[2021-11-01 21:31] LABS: BARBITURATES POS (NEG); BENZODIAZEPINES NEG (NEG); CANNABINOIDS NEG (NEG); COCAINE NEG (NEG); METHADONE NEG (NEG); OPIATES POS (NEG); PHENCYCLIDINE NEG (NEG)
[2021-11-01 21:32] LABS: AMPHETAMINE/METHAMPHETAMINE NEG (NEG)
[2021-11-01 21:40] LABS: BILIRUBIN,URINE NEG (NEG); CLARITY,URINE CLEAR; COLOR,URINE YELLOW; GLUCOSE,URINE NEG (NEG); NITRITE,URINE NEG (NEG); RBC,URINE OCC /HPF (0-2); UROBILINOGEN,URINE 0.2 mg/dL (0.2 mg/dL)
[2021-11-01 21:41] LABS: BACTERIA,URINE 0 /HPF (0-FEW); WBC,URINE 0 /HPF (0-4)
--- NOTE | 2021-11-01 22:25 | EKG ---
[address] [address] Test Date: 2021-11-01 Test Time: 21:04:31 Pat Name: ALEXANDRA MENDOZA Department: Room: Gender: M Vocational Director: Dahiana : 1975 Requested By: PRATIK DE LEON Order Number: [id number] Reading MD: Osei Pierre Measurements Intervals [place] Rate: 65 P: 33 MN: 156 QRS: 52 QRSD: 94 T: 35 QT: 410 QTc: 427 Interpretive Statements SINUS RHYTHM MILD NON SPECIFIC ST CHANGES INCOMPLETE RBBB Electronically Signed On 11-03-2021 12:47:39 FACE MAN by Osei Pierre
[2021-11-01] MEDS ORDERED: ONDANSETRON PF 4 MG/2 ML VIAL. IVP PRN (23:00)
[2021-11-01] MEDS ORDERED: KETOROLAC 30 MG/ML VIAL. IVP ONE (23:00)
[2021-11-01] MEDS ORDERED: PIP/TAZO PER PHARMACY MC PRN (23:00)
[2021-11-01] MEDS ORDERED: ACETAMINOPHEN 325 MG TABLET PO PRN (23:00)
[2021-11-01] MEDS ORDERED: IV RINGERS SOLUTION,LACTATED 1,000 ML IV ONE (23:00)
[2021-11-01] MEDS ORDERED: PIPERACILLIN/TAZOBACTAM 4.5 GM in IV NORMAL SALINE 50ML 50 ML IV ONE (23:30)
[2021-11-01] MEDS ORDERED: CIPROFLOXACIN HCL 500 MG TABLET PO ONE (23:30)
[2021-11-01] MEDS: MORPHINE SULFATE 10 MG/ML SYRINGE. SQ PRN (23:59)
[2021-11-02] MEDS ORDERED: PIPERACILLIN/TAZOBACTAM 4.5 GM VIAL IV ONE (00:14)
[2021-11-02] MEDS ORDERED: IV NORMAL SALINE 50ML 50 ML ONE (00:14)
[2021-11-02] MEDS: POTASSIUM CHLORIDE 10MEQ 100 ML IV SCH (01:12)
[2021-11-02] MEDS: MORPHINE SULFATE 10 MG/ML SYRINGE. SQ PRN (03:46)
[2021-11-02 03:49] VITALS: BP 114/76
[2021-11-02] MEDS ORDERED: PIPERACILLIN/TAZOBACTAM 3.375 GM in IV NORMAL SALINE 50ML 50 ML IV SCH (06:00)
[2021-11-02] MEDS ORDERED: CIPROFLOXACIN HCL 500 MG TABLET PO SCH (06:00)
[2021-11-02] MEDS ORDERED: IPRATRPIUM/ALBUTEROL 0.5/2.5MG 3 ML NEBU. NEB SCH (08:00)
[2021-11-02] MEDS ORDERED: FAMOTIDINE 20 MG/2 ML VIAL IVP SCH (09:00)
== END 2021-11-02 04:30 | disposition home or self-care (01) ==
LOC: ER 19:32 → UNDOADMIN 23:09 → ER HOLD 23:09 → ER 11-02 04:30
DX: K85.00 Idiopathic acute pancreatitis without necrosis or infection (principal); Z20.822 Contact with and (suspected) exposure to COVID-19; E87.6 Hypokalemia; D72.829 Elevated white blood cell count, unspecified; E86.0 Dehydration; K21.9 Gastro-esophageal reflux disease without esophagitis; E11.9 Type 2 diabetes mellitus without complications; G89.29 Other chronic pain; F17.210 Nicotine dependence, cigarettes, uncomplicated; R74.8 Abnormal levels of other serum enzymes; R79.89 Other specified abnormal findings of blood chemistry; K50.90 Crohn's disease, unspecified, without complications; Z90.89 Acquired absence of other organs; Z88.1 Allergy status to other antibiotic agents; Z88.5 Allergy status to narcotic agent
CPT/HCPCS: 36415; 74022; 80048; 80076; 80307; 81001; 82550; 83690; 84484; 85007; 85025; 85610; 85730; 87428; 93005; 96361; 96365; 96366; 96368; 96372; 96375; 99285; C9803; G0480; J0780; J1200; J1885; J2270; J2405; J2543; J3480; J3490; J7120; U0003

== ENCOUNTER 2021-11-06 05:04 | Emergency (ER) | payer BC, MEDICARE ==
[~2021-11-06] VITALS: Ht 167.6 cm; Wt 80.3 kg
--- NOTE | 2021-11-06 05:27 | PHYS DOC ---
Past History Past Medical History: Anxiety, Arthritis, Diabetes, GERD, Pancreatitis, Prostatitis Additional Past Medical Histor: crohns, chronic back pain Past Surgical History: Appendectomy, Other Additional Past Surgical Histo: left knee with hardware, left shoulder w/hardware, rt wrist Smoking: Cigarettes Alcohol Use: None Drug Use: None General Adult EDM: Chief Complaint: BACK PAIN OR INJURY HPI: HPI: ".. I got a really bad muscle spasm in my back... this morining.. I got a follow up with neurosurgery.. on the ...".. " I woke up with it.. I am all spasms up... " Patient is a 46 year old male who presents with acute exacerbation of chronic back pain. Pt. localized pain in the T12-L1 area. Has no true midline tenderness but does have notable paraspinal spasms. DTRs +2 patella. Has groin sensation. Has been able to urinate and defecate with no problem. No history of immunosuppression. No history of fever or chills. No history recent travel. No history of trauma. Patient does have a history of chronic pancreatitis., Anxiety, arthritis, diabetes, chronic pain, fibromyalgia, and bronchitis. Patient normally follows with [facility]. No hx of trauma or heavy lifting. No fever or chills. Denies IV drugu use. Pt. has follow up 11/14/ with neuorsurgery for recent CT findings Review of Systems: Review of Systems: Constitutional: Denies fever or chills Eyes: Denies change in visual acuity HENT: Denies nasal congestion or sore throat Respiratory: Denies cough or shortness of breath Cardiovascular: Denies chest pain or edema GI: Denies abdominal pain, nausea, vomiting, bloody stools or diarrhea : Denies dysuria Musculoskeletal: Complaints of back spasms. Integument: Denies rash Neurologic: Denies headache, focal weakness or sensory changes Endocrine: Denies polyuria or polydipsia Lymphatic: Denies swollen glands Psychiatric: Denies depression or anxiety Family History: Family History: Non-contributory Current Medications: Current Meds: See nursing for home meds Allergies: Allergies: Allergies Coded Allergies Type Severity Reaction Last Updated Verified cephalexin Allergy Intermediate Rash 01/11/20 Yes codeine Adverse Reaction Intermediate Migraine Headaches 09/05/19 Yes Physical Exam: PE: Constitutional: Moderate acute distress, non-toxic appearance. [] HENT: Normocephalic, atraumatic, bilateral external ears normal, oropharynx moist, no oral exudates, nose normal. Poor dentition Eyes: PERRLA, EOMI, conjunctiva normal, no discharge. [] Neck: Normal range of motion, no tenderness, supple, no stridor. [] Cardiovascular:Heart rate regular rhythm, no murmur [] PMI to left Lungs & Thorax: Bilateral breath sounds to apex scattered wheezes auscultation [] Abdomen: Bowel sounds normal, soft, no tenderness, no masses, no pulsatile masses. [] Skin: Warm, dry, no erythema, no rash. [] Back: Mid back spasms and tenderness, no true midline tenderness. No CVA tenderness. [] Extremities: No tenderness, no cyanosis, no clubbing, ROM intact, no edema. Scar left shoulder Neurologic: Alert and oriented X 3, normal motor function, normal sensory function, no focal deficits noted. [] Psychologic: Affect anxious. Judgement normal, mood normal. [] EKG: EKG: [] Radiology/Procedures: Radiology/Procedures: See results of CT []-completed previously Heart Score: C/O Chest Pain: N/A Risk Factors: Risk Factors: DM, Current or recent (<one month) smoker, HTN, HLP, family history of CAD, obesity. Risk Scores: Score 0 - 3: 2.5% MACE over next 6 weeks - Discharge Home Score 4 - 6: 20.3% MACE over next 6 weeks - Admit for Clinical Observation Score 7 - 10: 72.7% MACE over next 6 weeks - Early Invasive Strategies Course & Med Decision Making: Course & Med Decision Making Pertinent Labs and Imaging studies reviewed. (See chart for details) Ice packs as needed. Tylenol and ibuprofen as needed for pain. Take Flexeril 10 mg up to 3 times a day for muscle spasms. Follow-up primary care. Follow-up with neurosurgery. Return if any concerns. Impression: 1. Back spasm 2. Arthritis 3. Pancreatitis 4. Diabetes history [] Dragon Disclaimer: Dragon Disclaimer: This electronic medical record was generated, in whole or in part, using a voice recognition dictation system. Departure Departure: Referrals: NASEEM RAMIREZ (PCP) Scripts Cyclobenzaprine Hcl (CYCLOBENZAPRINE HCL) 10 Mg Tablet 10 MG PO TIDPC for muscle spasms, #30 TAB Prov: PRATIK DE LEON MD 11/06/21 Rei Disclaimer This chart was dictated in whole or in part using Voice Recognition software in a busy, high-work load, and often noisy Emergency Department environment. It may contain unintended and wholly unrecognized errors or omissions. PRATIK DE LEON MD Nov 06, 2021 05:27
[2021-11-06] MEDS ORDERED: KETOROLAC 60 MG/2 ML VIAL. IM ONE (05:30)
[2021-11-06] MEDS ORDERED: methylPREDNISolone ACETATE 40 MG/ML VIAL. IM ONE (05:30)
[2021-11-06] MEDS ORDERED: ORPHENADRINE CITRATE 60 MG/2 ML VIAL. IM ONE (05:30)
[2021-11-06] MEDS ORDERED: CYCL10TA19 PO (06:32)
[2021-11-06 06:54] VITALS: BP 143/89
--- NOTE | 2021-11-06 07:56 | EKG ---
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
[2021-11-07] MEDS ORDERED: LIDO700A21 TP (00:12)
== END 2021-11-06 07:00 | disposition home or self-care (01) ==
LOC: ER 05:04
DX: M62.830 Muscle spasm of back (principal); M19.90 Unspecified osteoarthritis, unspecified site; K85.90 Acute pancreatitis without necrosis or infection, unspecified; E11.9 Type 2 diabetes mellitus without complications; G89.29 Other chronic pain; F41.9 Anxiety disorder, unspecified; K21.9 Gastro-esophageal reflux disease without esophagitis; F17.210 Nicotine dependence, cigarettes, uncomplicated; Z90.89 Acquired absence of other organs; Z88.1 Allergy status to other antibiotic agents; Z88.5 Allergy status to narcotic agent
CPT/HCPCS: 93005; 96372; 99284; J1030; J1885; J2060; J2360

== ENCOUNTER 2021-11-06 23:48 | Emergency (ER) | payer BC, MEDICARE ==
[~2021-11-06] VITALS: Ht 167.6 cm; Wt 80.3 kg
--- NOTE | 2021-11-06 23:50 | PHYS DOC ---
Past History Past Medical History: Anxiety, Arthritis, Bronchitis, Diabetes, GERD, Pancreatitis, Prostatitis Additional Past Medical Histor: crohns, chronic back pain Past Surgical History: Appendectomy, Other Additional Past Surgical Histo: left knee with hardware, left shoulder w/h ardware, rt wrist Smoking: Cigarettes Alcohol Use: None Drug Use: None General Adult HPI: HPI: "I woke up again to night with back spasm.s.. and could not get back to sleep..." Patient is a 46 year old male who presents with acute on chronic back pain. Patient was seen yesterday for similar type presentation. Patient had acute exacerbation of his chronic back pain. Is localized in the area of the T12-L1. There is no true midline tenderness but there is paraspinal muscle spasms. DTRs +2 patella and ankle. Has groin sensation. Rectal exam shows normal sensation and sphincter reflex. No groin tenderness. No findings of zoster rash appreciated. Patient has been able to urinate and defecate without problems. It was noted that patient does have slightly enlarged prostate on rectal exam efra. No history of immunosuppression. No history of fever or chills. No history of recent travel. No history of recent trauma. Patient does have a history of chronic pancreatitis, anxiety, chronic kidney disease, chronic sinusitis, arthritis, diabetes, Crohn's, chronic pain, fibromyalgia, and bronchitis. Patient does continue to smoke tobacco. Patient normally follows with [facility]. Patient denies any other trauma or heavy lifting. No fever or chills. Denies IV drug use. Reportedly has a follow-up on 215 with neurosurgeon however last night he said that was on 212. Patient is accompanied with his efra. We will give a trial of lidocaine patch over the area of the most tender. Patient normally follows with [facility] for care. Review of Systems: Review of Systems: Constitutional: Denies fever or chills Eyes: Denies change in visual acuity HENT: Denies nasal congestion or sore throat Respiratory: Denies cough or shortness of breath Cardiovascular: Denies chest pain or edema GI: Denies abdominal pain, nausea, vomiting, bloody stools or diarrhea : Denies dysuria Musculoskeletal: Complains of acute on chronic back pain or joint pain Integument: Denies rash Neurologic: Denies headache, focal weakness or sensory changes Endocrine: Denies polyuria or polydipsia Lymphatic: Denies swollen glands Psychiatric: Denies depression or anxiety Family History: Family History: Noncontributory to presentation. Current Medications: Current Meds: See nursing for home meds Allergies: Allergies: Allergies Coded Allergies Type Severity Reaction Last Updated Verified cephalexin Allergy Intermediate Rash 01/11/20 Yes codeine Adverse Reaction Intermediate Migraine Headaches 09/05/19 Yes Physical Exam: PE: Constitutional: Moderate acute distress, non-toxic appearance. [] HENT: Normocephalic, atraumatic, bilateral external ears normal, oropharynx moist, no oral exudates, nose normal. Poor dentition Eyes: PERRLA, EOMI, conjunctiva normal, no discharge. [] Neck: Normal range of motion, no tenderness, supple, no stridor. [] Cardiovascular:Heart rate regular rhythm, no murmur [] Lungs & Thorax: Bilateral breath sounds to apex with scattered wheezes on auscultation [] old surgical scar Abdomen: Bowel sounds normal, soft, no tenderness, no masses, no pulsatile masses. Rectal exam slightly enlarged prostate. Good sphincter tone. Circumcised male. Testicles descended. Skin: Warm, dry, no erythema, no rash. Tattoos. Back: Muscle tenderness in the area of T12-L1. No midline tenderness, no CVA tenderness. [] Extremities: No tenderness, no cyanosis, no clubbing, ROM intact, no edema. [] Arthritic changes scar left shoulder. Surgical scar left knee. Surgical scar right wrist, surgical scar left shoulder. Neurologic: Alert and oriented X 3, is all extremities on request, does have distal sensory,, no focal deficits noted. [] Care was placed to add ankle and patella. Able do straight leg lift bilaterally. Psychologic: Affect anxious, judgement normal, mood normal. [] EKG: EKG: [] Radiology/Procedures: Radiology/Procedures: [] Heart Score: C/O Chest Pain: N/A Risk Factors: Risk Factors: DM, Current or recent (<one month) smoker, HTN, HLP, family history of CAD, obesity. Risk Scores: Score 0 - 3: 2.5% MACE over next 6 weeks - Discharge Home Score 4 - 6: 20.3% MACE over next 6 weeks - Admit for Clinical Observation Score 7 - 10: 72.7% MACE over next 6 weeks - Early Invasive Strategies Course & Med Decision Making: Course & Med Decision Making Pertinent Labs and Imaging studies reviewed. (See chart for details) Patient keep follow-up with neurosurgery. Patient take meds as previous dire cted. Patient given a trial of lidocaine patches. Patient to get strong suck consideration for stop smoking since if he requires back surgery they used to require cessation of tobacco use. Impression 1. Acute on chronic back pain 2. Back spasm 3. Arthritis 4. Fibromyalgia 5. History of pancreatitis\\ 6. History of Crohn's 7. History of diabetes 8. History of tobacco use 9. Possible Narcotic Seeking Behavior [] Dragon Disclaimer: Dragon Disclaimer: This electronic medical record was generated, in whole or in part, using a voice recognition dictation system. Departure Departure: Referrals: NASEEM RAMIREZ (PCP) Scripts Lidocaine (Lidocaine PATCH ) 1 Each Adh..patch 1 EACH TP DAILY for FOR LOCAL PAIN, #10 PATCH REMOVE AFTER 12 HOURS Prov: PRATIK DE LEON MD 11/07/21 Dragon Disclaimer This chart was dictated in whole or in part using Voice Recognition software in a busy, high-work load, and often noisy Emergency Department environment. It may contain unintended and wholly unrecognized errors or omissions. Dragon Disclaimer This chart was dictated in whole or in part using Voice Recognition software in a busy, high-work load, and often noisy Emergency Department environment. It may contain unintended and wholly unrecognized errors or omissions. PRATIK DE LEON MD Nov 06, 2021 23:50
[2021-11-06] MEDS ORDERED: LIDOCAINE (700MG/PATCH) PATCH. TD SCH (23:59)
[2021-11-07 00:05] VITALS: BP 133/50
[2021-11-07] MEDS ORDERED: LIDO700A21 TP (00:12)
[2021-11-07] MEDS ORDERED: ORPHENADRINE CITRATE 60 MG/2 ML VIAL. IM ONE (00:15)
[2021-11-07] MEDS ORDERED: KETOROLAC 60 MG/2 ML VIAL. IM ONE (00:15)
[2021-11-07] MEDS ORDERED: PATCH REMOVAL. MC SCH (21:00)
== END 2021-11-07 00:31 | disposition home or self-care (01) ==
LOC: ER 23:48
DX: G89.29 Other chronic pain (principal); M62.830 Muscle spasm of back; M19.90 Unspecified osteoarthritis, unspecified site; M79.7 Fibromyalgia; E11.9 Type 2 diabetes mellitus without complications; K50.90 Crohn's disease, unspecified, without complications; F41.9 Anxiety disorder, unspecified; K21.9 Gastro-esophageal reflux disease without esophagitis; F17.210 Nicotine dependence, cigarettes, uncomplicated; Z90.89 Acquired absence of other organs; Z88.1 Allergy status to other antibiotic agents; Z88.5 Allergy status to narcotic agent
CPT/HCPCS: 96372; 99284; J1885; J2360

== ENCOUNTER 2021-11-16 16:33 | Emergency (ER) | payer BC, MEDICARE ==
[~2021-11-16] VITALS: Ht 167.6 cm; Wt 80.3 kg
[~2021-11-16 16:33] MED LIST changes: +LIDO700A21 TP
[2021-11-16] MEDS ORDERED: ORPHENADRINE CITRATE 60 MG/2 ML VIAL. IM ONE (16:45)
[2021-11-16] MEDS ORDERED: KETOROLAC 60 MG/2 ML VIAL. IM ONE (16:45)
--- NOTE | 2021-11-16 16:48 | PHYS DOC ---
Past History Past Medical History: Anxiety, Arthritis, Bronchitis, Diabetes, GERD, Pancreatitis, Prostatitis Additional Past Medical Histor: crohns, chronic back pain (CARMENZA CLEMONS APRN) Past Surgical History: Appendectomy, Other Additional Past Surgical Histo: left knee with hardware, left shoulder w/hardware, rt wrist (CARMENZA CLEMONS APRN) Smoking: Cigarettes Alcohol Use: None Drug Use: None (CARMENZA CLEMONS APRN) General Adult EDM: Chief Complaint: MECHANICAL FALL HPI: HPI: Patient is a 46-year-old male that presents today with head neck and upper back pain after a fall. Patient states he was getting out of the shower and fell backwards hitting his head and his upper back area, he does not remember if he had a loss of consciousness but does not remember the incident itself. Patient states he does have a history of low back pain for which he is to see a neurosurgeon tomorrow morning and he chronically takes pain medications for that pain on a regular basis. C-collar was placed by the ED staff in the emergency department for midline tenderness of the cervical spine. (CARMENZA CLEMONS APRN) Review of Systems: Review of Systems: Constitutional: Denies fever or chills Eyes: Denies change in visual acuity HENT: Denies nasal congestion or sore throat Respiratory: Denies cough or shortness of breath Cardiovascular: Denies chest pain or edema GI: Denies abdominal pain, nausea, vomiting, bloody stools or diarrhea : Denies dysuria Musculoskeletal: Head neck and upper back pain Integument: Denies rash Neurologic: Denies headache, focal weakness or sensory changes Endocrine: Denies polyuria or polydipsia Lymphatic: Denies swollen glands Psychiatric: Denies depression or anxiety (CARMENZA CLEMONS APRN) Allergies: Allergies: Allergies Coded Allergies Type Severity Reaction Last Updated Verified cephalexin Allergy Intermediate Rash 01/11/20 Yes codeine Adverse Reaction Intermediate Migraine Headaches 09/05/19 Yes (CARMENZA CLEMONS APRN) Physical Exam: PE: Constitutional: Well developed, well nourished, no acute distress, non-toxic appearance. [] HENT: Inspection and palpation of the head does not show a laceration, abrasion, contusion, or ecchymosis noted, patient does have tenderness in the occipital area of the scalp area. Normocephalic, atraumatic, bilateral external ears normal, oropharynx moist, no oral exudates, nose normal. [] Eyes: PERRLA, EOMI, conjunctiva normal, no discharge. [] Neck: midline tenderness noted, c-collar is in place Cardiovascular:Heart rate regular rhythm, no murmur [] Lungs & Thorax: Bilateral breath sounds clear to auscultation [] Abdomen: Bowel sounds normal, soft, no tenderness, no masses, no pulsatile masses. [] Skin: Warm, dry, no erythema, no rash. [] Back: tenderness noted in the upper back area, patient does state that he has chronic low back pain and numbness in his right leg which is normal for him. No CVA tenderness. 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 [] (CARMENZA CLEMONS APRN) Current Patient Data: Vital Signs: Vital Signs Date Time Temp Pulse Resp B/P (MAP) Pulse Ox O2 Delivery O2 Flow Rate FiO2 11/16/21 17:28 91 20 118/61 (80) 96 Room Air 11/16/21 16:35 98.3 85 20 133/89 (104) 98 Room Air (CARMENZA CLEMONS APRN) EKG: EKG: [] (CARMENZA CLEMONS APRN) Radiology/Procedures: Radiology/Procedures: [REASON: fell and hit head unable to remember incident, back pain PROCEDURE: CT THORACIC SPINE WO CONTRAST CT HEAD AND C-SPINE WO, CT THORACIC SPINE WO History: Fall. Head, neck and back pain. Comparison: CT thoracic spine 09/06/2021. CT head 11/19/2018. CT abdomen and pelvis 07/27/2018, 12/13/2019 Technique: Noncontrast CT of the head, cervical and thoracic spine. Findings: CT HEAD: There is no evidence for intracranial mass or hemorrhage. There is no hydrocephalus or midline shift. No abnormal extra-axial fluid collections are present. No evidence of acute territorial infarction. The visualized paranasal sinuses and mastoid air cells are clear. The skull and scalp are within normal limits. CT CERVICAL SPINE: There is no evidence for fracture in the cervical spine. Alignment is normal. Disc spaces are preserved. No destructive osseous lesions are seen. Limited evaluation of the soft tissues of the neck and of the upper chest is unremarkable. CT THORACIC SPINE: Partially visualized left clavicle plate and screw fixation. There is no evidence for acute fracture in the thoracic spine. Redemonstrated Schmorl's nodes and suspected physiologic wedging of the T11 vertebral body, not significantly changed. Mild degenerative changes of the T3- T4 endplates with marginal osteophytes. Numerous bilateral hyperdense renal cystic lesions redemonstrated. Cholecystectomy changes. Impression: 1. No acute intracranial findings. 2. No acute osseous abnormality in the cervical spine. 3. No acute osseous abnormality in the thoracic spine. ------- Exposure: One or more of the following individualized dose reduction techniques were utilized for this examination: 1. Automated exposure control 2. Adjustment of the mA and/or kV according to patient size 3. Use of iterative reconstruction technique. Electronically signed by: Jose Hill MD (11/16/2021 5:43 PM) [facility] ] (CARMENZA CLEMONS APRN) Heart Score: C/O Chest Pain: N/A Risk Factors: Risk Factors: DM, Current or recent (<one month) smoker, HTN, HLP, family history of CAD, obesity. Risk Scores: Score 0 - 3: 2.5% MACE over next 6 weeks - Discharge Home Score 4 - 6: 20.3% MACE over next 6 weeks - Admit for Clinical Observation Score 7 - 10: 72.7% MACE over next 6 weeks - Early Invasive Strategies (CARMENZA CLEMONS APRN) Course & Med Decision Making: Course & Med Decision Making Pertinent Labs and Imaging studies reviewed. (See chart for details) 1750 c-collar was removed by patient prior to me going into the room to review radiological results. I reviewed radiological results with patient informed him there was no acute processes noted on those scans. Patient states his pain is better than it was, he still has pain but he always has pain in his spine. Patient will be sent home to take his own hydrocodone for pain, I will also add some Flexeril to this and he is agreeable with that plan. Patient also has an appointment with the neurosurgeon tomorrow instructed him to inform him of his fall today and to see if there is anything else he could add to his treatment plan. (CARMENZA CLEMONS APRN) Dragon Disclaimer: Dragon Disclaimer: This electronic medical record was generated, in whole or in part, using a voice recognition dictation system. (CARMENZA CLEMONS APRN) Attending Co-Sign The patient was seen and interviewed as well as examined at the bedside. The chart was reviewed. The case was discussed. Agree with the plan of care. (YANDEL ARREOLA DO) Departure Departure: Impression: Primary Impression: Neck pain Additional Impression: Fall Qualified Codes: W19.XXXA - Unspecified fall, initial encounter Disposition: HOME / SELF CARE / HOMELESS Condition: STABLE Referrals: NASEEM RAMIREZ (PCP) Patient Instructions: Fall Prevention and Home Safety, Muscle Strain, [id number], Soft Tissue Injury of the Neck Additional Instructions: Take your home hydrocodone as directed Flexeril take 1 tablet every 8 hours as needed for muscle spasms use with caution this may cause drowsiness Ice to the affected areas 20 minutes on 3-4 times daily to help with localized pain and swelling Follow-up with your neurosurgeon as previously scheduled on November 17, 2021 Return to the emergency department if you have any numbness or tingling in your hands or unable to move your arms or hands or have any other change in level of consciousness. Scripts Cyclobenzaprine Hcl (CYCLOBENZAPRINE HCL) 10 Mg Tablet 1 TAB PO TID PRN PRN for PAIN, #20 TAB Prov: CARMENZA CLEMONS APRN 11/16/21 CARMENZA CLEMONS APRN Nov 16, 2021 16:48 YANDEL ARREOLA DO Nov 17, 2021 06:15
--- NOTE | 2021-11-16 17:45 | RAD ---
CT HEAD AND C-SPINE WO, CT THORACIC SPINE WO History: Fall. Head, neck and back pain. Comparison: CT thoracic spine 09/06/2021. CT head 11/19/2018. CT abdomen and pelvis 07/27/2018, 12/13/19 20 Technique: Noncontrast CT of the head, cervical and thoracic spine. Findings: CT HEAD: There is no evidence for intracranial mass or hemorrhage. There is no hydrocephalus or midline shift. No abnormal extra-axial fluid collections are present. No evidence of acute territorial infarction. The visualized paranasal sinuses and mastoid air cells are clear. The skull and scalp are within normal limits. CT CERVICAL SPINE: There is no evidence for fracture in the cervical spine. Alignment is normal. Disc spaces are preserved. No destructive osseous lesions are seen. Limited evaluation of the soft tissues of the neck and of the upper chest is unremarkable. CT THORACIC SPINE: Partially visualized left clavicle plate and screw fixation. There is no evidence for acute fracture in the thoracic spine. Redemonstrated Schmorl's nodes and suspected physiologic wedging of the T11 vertebral body, not signi ficantly changed. Mild degenerative changes of the T3-T4 endplates with marginal osteophytes. Numerous bilateral hyperdense renal cystic lesions redemonstrated. Cholecystectomy changes. Impression: 1. No acute intracranial findings. 2. No acute osseous abnormality in the cervical spine. 3. No acute osseous abnormality in the thoracic spine. ------- Exposure: One or more of the following individualized dose reduction techniques were utilized for thi s examination: 1. Automated exposure control 2. Adjustment of the mA and/or kV according to patient size 3. Use of iterative reconstruction technique. Electronically signed by: Jose Hill MD (11/16/2021 5:43 PM) [facility]
[2021-11-16] MEDS ORDERED: CYCL10TA19 PO (17:55)
[2021-11-16 17:58] VITALS: BP 111/67
== END 2021-11-16 18:00 | disposition home or self-care (01) ==
LOC: ER 16:33
DX: M54.2 Cervicalgia (principal); M54.6 Pain in thoracic spine; R51.9 Headache, unspecified; G89.29 Other chronic pain; M54.50 Low back pain, unspecified; F41.9 Anxiety disorder, unspecified; M19.90 Unspecified osteoarthritis, unspecified site; E11.9 Type 2 diabetes mellitus without complications; K21.9 Gastro-esophageal reflux disease without esophagitis; F17.210 Nicotine dependence, cigarettes, uncomplicated; Z90.89 Acquired absence of other organs; Z88.1 Allergy status to other antibiotic agents; Z88.5 Allergy status to narcotic agent
CPT/HCPCS: 70450; 72125; 72128; 96372; 99284; J1885; J2360

== ENCOUNTER 2021-11-29 13:16 | Emergency (ER) | payer BC, MEDICARE ==
[~2021-11-29] VITALS: Ht 167.6 cm; Wt 80.3 kg
[2021-11-29] MEDS ORDERED: MORPHINE SULFATE 2 MG/ML DISP.SYRIN. ONE (13:48)
[2021-11-29] MEDS ORDERED: MORPHINE SULFATE 10 MG/ML SYRINGE. IM ONE (14:00)
--- NOTE | 2021-11-29 15:01 | PHYS DOC ---
Past History Past Medical History: Anxiety, Arthritis, Bronchitis, Diabetes, GERD, Pancreatitis, Prostatitis Additional Past Medical Histor: CROHNS, Chronic back pain Past Surgical History: Appendectomy, Other Additional Past Surgical Histo: R-WRIST, LEFT KNEE, LEFT SHOULDER Smoking: Cigarettes Alcohol Use: None Drug Use: None General Adult EDM: Chief Complaint: MECHANICAL FALL HPI: HPI: Patient is a 46 year old male well known to the ER who presents with head, neck and back pain s/p mechanical fall. Patient states he was at a friends house when he picked up a printer and began to walk down a set of stairs. He states he does not remember what happened after that. Patient reports associated head laceration on the parietal aspect of his left scalp and a laceration to left digit 3. Patient has chronic pain that is managed by a specialist. He has no other complaints at this time. Review of Systems: Review of Systems: ROS negative or noncontributory except as mentioned in HPI. Current Medications: Current Meds: Current Medications Medications (Trade) Dose Ordered Sig/Monty Route PRN Reason Start Time Stop Time Status Last Admin Dose Admin Morphine Sulfate (Morphine 10mg Syringe) 6 mg 1X ONCE IM 11/29/21 14:00 11/29/21 14:01 DC 11/29/21 13:53 Sumatriptan Succinate (Imitrex) 6 mg 1X ONCE SQ 11/29/21 15:30 11/29/21 15:31 DC 11/29/21 15:40 Orphenadrine Citrate (Norflex) 60 mg 1X ONCE IM 11/29/21 15:30 11/29/21 15:31 DC 11/29/21 15:40 Allergies: Allergies: Allergies Coded Allergies Type Severity Reaction Last Updated Verified cephalexin Allergy Intermediate Rash 01/11/20 Yes lasmiditan Allergy Unknown 11/29/21 Yes codeine Adverse Reaction Intermediate Migraine Headaches 09/05/19 Yes Physical Exam: PE: Constitutional: Well developed, well nourished, no acute distress, non-toxic appearance. HENT: Left-sided occipitoparietal hematoma, less than 1 cm laceration left parietal scalp, no palpable skull fractures, bilateral external ears without deformity/ecchymosis or discharge, nose without deformity or discharge. Eyes: PERRLA, EOMI, conjunctiva normal, no discharge. Neck: Active and passive range of motion intact, though patient reports pain with rotation. Paraspinal tenderness, supple, no stridor. Cardiovascular: Regular rate and rhythm, no obvious murmur. Lungs & Thorax: Equal thoracic expansion, no crepitus to palpation, bilateral breath sounds clear to auscultation. Skin: See above for scalp. Skin otherwise warm, dry, no erythema, no rash. Back: No step-off, no midline tenderness, paraspinal tenderness []. Extremities: Left digit three abrasions with hemostasis appreciated. Extremities otherwise no tenderness, no cyanosis, no clubbing, ROM intact, no edema. Neurologic: Alert and oriented x4, steady and symmetrical gait, no focal deficits noted. Current Patient Data: Vital Signs: Vital Signs Date Time Temp Pulse Resp B/P (MAP) Pulse Ox O2 Delivery O2 Flow Rate FiO2 11/29/21 13:20 98.2 74 18 113/68 (83) 98 Radiology/Procedures: Radiology/Procedures: EXAMINATION: CT HEAD AND C-SPINE WO, CT THORACIC SPINE WO CLINICAL HISTORY: Head, neck, and back pain following fall down stairs. TECHNIQUE: Serial axial images without IV contrast were obtained from the vertex to the foramen magnum. CT of the cervical spine without IV contrast. Spiral, high resolution axial images were obtained from the skull base to the cervicothoracic junction with sagittal and coronal planar reconstructions. CT of the thoracic spine without IV contrast. Spiral, high resolution axial images were obtained from the cervicothoracic junction to the thoracolumbar frances ction with sagittal and coronal planar reconstructions. CT Dose Reduction Employed: One or more of the following individualized dose reduction techniques were utilized for this examination: 1. Automated exposure control 2. Adjustment of the mA and/or kV according to patient size 3. Use of iterative reconstruction technique. COMPARISON: CT head and C-spine and CT T-spine 11/16/2021, CT abdomen/pelvis 08/24/2021 FINDINGS: BRAIN: Acute Change: No evidence of an acute contusion or other acute parenchymal process. Hemorrhage: No evidence of acute intracranial hemorrhage. Mass Lesion/Mass Effect: No evidence of intracranial mass or extraaxial fluid collection. No significant mass effect. Parenchyma: Parenchyma within normal limits for age. Ventricles: Ventricles within normal limits for age. Paranasal Sinuses and Skull Base: No significant paranasal sinus disease. No evidence of acute calvarial fracture. C-SPINE: Alignment: Straightening of the normal cervical lordosis, likely positional. Osseous Structures: No evidence of acute fracture or spondylolisthesis. Degenerative Changes: No significant degenerative changes. Cervical Soft Tissues: No prevertebral soft tissue swelling. Prominent cervical lymph nodes measuring up to 1.3 cm in greatest dimension, nonspecific but possibly reactive in similar to prior study. Vascular calcifications. T-SPINE: Alignment: Normal anatomic alignment. Osseous Structures: No evidence of acute fracture. Remote ununited left midclavicular fracture with dorsal plate and screw fixation hardware. Prominent Schmorl's nodes at T11. Degenerative Changes: Minimal degenerative disc disease. Paraspinal Soft Tissues: Paraspinal soft tissues unremarkable. Mild dependent subsegmental atelectasis in the right lung. 2 hypodense lesions in the posterior right hepatic lobe, incompletely evaluated and better appreciated on comparison CT abdomen/pelvis. Multiple bilateral hyperdense renal lesions, incompletely evaluated but suggestive of hemorrhagic cysts. Cholecystectomy clips. Vascular calcifications. IMPRESSION: BRAIN: No evidence of acute intracranial abnormality. C-SPINE: No evidence of acute osseous abnormality involving the cervical spine. T-SPINE: No evidence of acute osseous abnormality involving the thoracic spine. Incompletely evaluated hepatic and bilateral renal lesions as described. Electronically signed by: Fernando Augustine DO (11/29/2021 3:05 PM) [facility] Heart Score: C/O Chest Pain: No Course & Med Decision Making: Course & Med Decision Making Pertinent Labs and Imaging studies reviewed. (See chart for details) Patient is a 46-year-old male well-known to the department with chronic pain. Nursing staff reports history of narcotic seeking behavior. In reviewing K tracks, patient received a 30-day supply of his normally prescribed opioids at the beginning of the month. He states he has an appointment on Tuesday with his pain management doctor. Imaging negative today. 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 He request something now for his persistent back pain and headache. Patient will be provided with sumatriptan subq and Norflex IM. Provided return precautions. Patient understands and is agreeable to discharge plan. Rei Disclaimer: Rei Disclaimer: This electronic medical record was generated, in whole or in part, using a voice recognition dictation system. Departure Departure: Impression: Primary Impression: Chronic back pain Qualified Codes: M54.9 - Dorsalgia, unspecified; G89.29 - Other chronic pain Additional Impressions: Fall Qualified Codes: W19.XXXA - Unspecified fall, initial encounter Migraine Qualified Codes: G43.909 - Migraine, unspecified, not intractable, without status migrainosus Disposition: 01 HOME / SELF CARE / HOMELESS Condition: STABLE Referrals: NASEEM RAMIREZ (PCP) HEAVEN DUFFY MD Patient Instructions: Chronic Pain Management Additional Instructions: EMERGENCY DEPARTMENT GENERAL DISCHARGE INSTRUCTIONS Thank you for coming to [facility] (ED) today and trusting us with you care. We trust that you had a positive experience in our Emergency Department. If you wish to speak to the department management, you may call the director at [phone]. YOUR FOLLOW UP INSTRUCTIONS ARE FOLLOWS: 1. Follow up with your primary care doctor. If you do not have a primary doctor, please ask for a resource list of physicians or clinics that may be able to assist you with follow up care. 2. The emergency provider has interpreted your imaging studies, if any were ordered. The radiology unattended ground sensor specialist also reviewed them. If there is a change in the findings, you will be notified in 48 hours when at all possible. 3. If a lab test or culture has been done, your results will be reviewed and you will be notified if you need a change in treatment. 4. Follow instructions verbalized to you and refer to the printouts if needed. ADDITIONAL INSTRUCTIONS AND INFORMATION: 1. Your care today has been supervised by a physician who is specially trained in emergency care. Many problems require more than one evaluation for a complete diagnosis and treatment. We recommend that you schedule your follow up appointment as recommended to ensure complete treatment of you illness or injury. If you are unable to obtain follow up care and continue to have a problem, or if your condition worsens, we recommend that you return to the ED. 2. We are not able to safely determine your condition over the phone nor are we able to give sound medical advice over the phone. For these safety reasons, if you call for medical advice we will ask you to come to the ED for further evaluation. 3. If you have any questions regarding these discharge instructions please call the ED at [phone]. SAFETY INFORMATION: In the interest of safety, wellness, and injury prevention; we encourage you to wear your seat belt, if you smoke; quite smoking, and we encourage family to use a protective helmet for bicycling and other sporting events that present an increased risk for head injury. IF YOUR SYMPTOMS WORSEN OR NEW SYMPTOMS DEVELOP, OR YOU HAVE CONCERNS ABOUT YOUR CONDITION; OR IF YOUR CONDITION WORSENS WHILE YOU ARE WAITING FOR YOUR FOLLOW UP APPOINTMENT; EITHER CONTACT YOUR PRIMARY CARE DOCTOR, THE PHYSICIAN WHOSE NAME AND NUMBER YOU WERE GIVEN, OR RETURN TO THE ED IMMEDIATELY. WILY DE JESUS Nov 29, 2021 15:01
--- NOTE | 2021-11-29 15:07 | RAD ---
EXAMINATION: CT HEAD AND C-SPINE WO, CT THORACIC SPINE WO CLINICAL HISTORY: Head, neck, and back pain following fall down stairs. TECHNIQUE: Serial axial images without IV contrast were obtained from the vertex to the foramen magnum. CT of the cervical spine without IV contrast. Spiral, high resolution axial images were obtained from the skull base to the cervicothoracic junction with sagittal and coronal planar reconstructions. CT of the thoracic spine without IV contrast. Spiral, high resolution axial images were obtained from the cervicothoracic junction to the thoracolumbar junction with sagittal and coronal planar reconstr uctions. CT Dose Reduction Employed: One or more of the following individualized dose reduction techniques wer e utilized for this examination: 1. Automated exposure control 2. Adjustment of the mA and/or kV ac cording to patient size 3. Use of iterative reconstruction technique. COMPARISON: CT head and C-spine and CT T-spine 11/16/2021, CT abdomen/pelvis 08/24/2021 FINDINGS: BRAIN: Acute Change: No evidence of an acute contusion or other acute parenchymal process. Hemorrhage: No evidence of acute intracranial hemorrhage. Mass Lesion/Mass Effect: No evidence of intracranial mass or extraaxial fluid collection. No signific ant mass effect. Parenchyma: Parenchyma within normal limits for age. Ventricles: Ventricles within normal limits for age. Paranasal Sinuses and Skull Base: No significant paranasal sinus disease. No evidence of acute calvar ial fracture. C-SPINE: Alignment: Straightening of the normal cervical lordosis, likely positional. Osseous Structures: No evidence of acute fracture or spondylolisthesis. Degenerative Changes: No significant degenerative changes. Cervical Soft Tissues: No prevertebral soft tissue swelling. Prominent cervical lymph nodes measuring up to 1.3 cm in greatest dimension, nonspecific but possibly reactive in similar to prior study. Vas cular calcifications. T-SPINE: Alignment: Normal anatomic alignment. Osseous Structures: No evidence of acute fracture. Remote ununited left midclavicular fracture with d orsal plate and screw fixation hardware. Prominent Schmorl's nodes at T11. Degenerative Changes: Minimal degenerative disc disease. Paraspinal Soft Tissues: Paraspinal soft tissues unremarkable. Mild dependent subsegmental atelectasi s in the right lung. 2 hypodense lesions in the posterior right hepatic lobe, incompletely evaluated and better appreciated on comparison CT abdomen/pelvis. Multiple bilateral hyperdense renal lesions, incompletely evaluated but suggestive of hemorrhagic cysts. Cholecystectomy clips. Vascular calcifica tions. IMPRESSION: BRAIN: No evidence of acute intracranial abnormality. C-SPINE: No evidence of acute osseous abnormality involving the cervical spine. T-SPINE: No evidence of acute osseous abnormality involving the thoracic spine. Incompletely evaluated hepatic and bilateral renal lesions as described. Electronically signed by: Fernando Augustine DO (11/29/2021 3:05 PM) [facility]
[2021-11-29] MEDS ORDERED: ORPHENADRINE CITRATE 60 MG/2 ML VIAL. IM ONE (15:30)
[2021-11-29] MEDS ORDERED: SUMAtriptan SUCC 6 MG/0.5 ML VIAL SQ ONE (15:30)
[2021-11-29 15:55] VITALS: BP 127/97
== END 2021-11-29 15:55 | disposition home or self-care (01) ==
LOC: ER 13:16
DX: S01.01XA Laceration without foreign body of scalp, initial encounter (principal); G43.909 Migraine, unspecified, not intractable, without status migrainosus; G89.29 Other chronic pain; M54.89 Other dorsalgia; M19.90 Unspecified osteoarthritis, unspecified site; F41.9 Anxiety disorder, unspecified; E11.9 Type 2 diabetes mellitus without complications; K21.9 Gastro-esophageal reflux disease without esophagitis; K50.90 Crohn's disease, unspecified, without complications; F17.210 Nicotine dependence, cigarettes, uncomplicated; Z88.1 Allergy status to other antibiotic agents; Z88.5 Allergy status to narcotic agent; Z88.8 Allergy status to other drugs, medicaments and biological substances; W18.39XA Other fall on same level, initial encounter; Y93.89 Activity, other specified; Y92.89 Other specified places as the place of occurrence of the external cause; Y99.8 Other external cause status
CPT/HCPCS: 70450; 72125; 72128; 96372; 99284; J2270; J2360; J3030

== ENCOUNTER 2021-12-01 17:54 | Emergency (ER) | payer BC, MEDICARE ==
[~2021-12-01] VITALS: Ht 167.6 cm; Wt 82.6 kg
--- NOTE | 2021-12-01 18:15 | PHYS DOC ---
Past History Past Medical History: Anxiety, Arthritis, Bronchitis, Diabetes, GERD, Pancreatitis, Prostatitis Additional Past Medical Histor: CROHNS, Chronic back pain Past Surgical History: Appendectomy, Other Additional Past Surgical Histo: R-WRIST, LEFT KNEE, LEFT SHOULDER Smoking: Cigarettes Alcohol Use: None Drug Use: None Adult General HPI HPI Patient is a 46-year-old male with a past medical history of chronic pancreati tis secondary to alcoholism, who does not drink anymore and cholecystectomy who presents with abdominal pain that has been going on for about 3 to 4 days. States the pain is about 6 out of 10, dull and achy in nature with no radiation. States he is able to drink a little fluids but cannot hold down any food. States he had not had a normal bowel movement in about 3 days. States he had not talked to his doctor. Denies any recent travel, traumas, illnesses, fevers, chest pain, shortness of breath, dysuria, hematuria, diarrhea or blood in the stool. States he has had his Covid vaccinations and has never had Covid. Review of Systems Review of Systems Review of systems otherwise unremarkable except noted in HPI Allergies Allergies Allergies Coded Allergies Type Severity Reaction Last Updated Verified cephalexin Allergy Intermediate Rash 01/11/20 Yes lasmiditan Allergy Unknown 11/29/21 Yes codeine Adverse Reaction Intermediate Migraine Headaches 09/05/19 Yes Physical Exam Physical Exam Constitutional: Well developed, well nourished, no acute distress, non-toxic appearance. [] HENT: Normocephalic, atraumatic, bilateral external ears normal, oropharynx moist, no oral exudates, nose normal. [] Eyes: , conjunctiva normal, no discharge. [] Cardiovascular:Heart rate regular rhythm, no murmur [] Lungs & Thorax: No respiratory distress Abdomen: soft, generalized tenderness with no rebound or guarding,, no masses, no pulsatile masses. [] Skin: Warm, dry, no erythema, no rash. [] Back: no CVA tenderness. [] Extremities: No tenderness, no cyanosis, no clubbing, ROM intact, no edema. [] Neurologic: Alert and oriented X 3, normal motor function, normal sensory function, no focal deficits noted. [] Psychologic: Affect normal, judgement normal, mood normal. [] EKG EKG [] Radiology/Procedures Radiology/Procedures [] Heart Score C/O Chest Pain: No Risk Factors: Risk Factors: DM, Current or recent (<one month) smoker, HTN, HLP, family history of CAD, obesity. Risk Scores: Risk Factors: DM, Current or recent (<one month) smoker, HTN, HLP, family history of CAD, obesity. Course & Med Decision Making Course & Med Decision Making Patient is a 46-year-old male with abdominal pain Vital signs nonconcerning. Physical exam noted above. Given fluid resuscitation, antiemetics and pain medicine here Laboratory analysis notable for mild hypokalemia and hypomagnesemia. Replaced orally. CT with no acute findings. After resuscitation patient able to tolerate p.o. Given antiemetics for home. Advised on diet over the next couple of days. Advised to follow-up with primary care physician tomorrow to set up a follow-up for reevaluation. Gave return precautions to the ED. Patient grateful, verbalized understanding and agreed with plan of discharge. [] Dragon Disclaimer Dragon Disclaimer This electronic medical record was generated, in whole or in part, using a voice recognition dictation system. Departure Departure: Impression: Primary Impression: Abdominal pain Disposition: HOME / SELF CARE / HOMELESS Condition: STABLE Referrals: NASEEM RAMIREZ (PCP) Patient Instructions: Abdominal Pain (Nonspecific), Nausea and Vomiting Additional Instructions: Thank you for coming into the emergency department tonight and allowing us to take care of you. Please read all the attached information carefully to go over things we discussed. You can begin a Tylenol and Benadryl regimen at home for symptom control as we discussed. You can use your nausea medicine every 6 hours to allow you to take in fluids as needed. Please be sure to eat a light clear diet as we discussed over the next couple of days and take a daily One-A-Day vitamin. Please follow-up in the morning with your primary care physician update on your ED visit and set up a follow-up as soon as you can. Please come back with new or concerning symptoms as we discussed. GHAZALA DANIELSON MD Dec 01, 2021 18:15
[2021-12-01] MEDS ORDERED: ONDANSETRON PF 4 MG/2 ML VIAL. IVP ONE (18:30)
[2021-12-01] MEDS ORDERED: IV RINGERS SOLUTION,LACTATED 1,000 ML IV ONE (18:30)
[2021-12-01] MEDS ORDERED: METOCLOPRAMIDE HCL 10 MG/2 ML VIAL. IVP ONE (18:30)
--- NOTE | 2021-12-01 19:02 | RAD ---
CT abdomen pelvis without contrast dated 12/01/2021. Comparison made to 08/24/2021 CLINICAL INDICATION: Abdominal pain. TECHNIQUE: Contiguous axial imaging the abdomen pelvis performed without the administration of IV or oral contra st. One or more of the following individualized dose reduction techniques were utilized for this examinat ion: 1. Automated exposure control 2. Adjustment of the mA and/or kV according to patient size 3. Use of iterative reconstruction technique FINDINGS: Limited images of lung bases are clear. Heart size is within normal limits. No pleural or pericardial effusion. Solid abdominal viscera not well evaluated in the absence of contrast material. There is a circumscri bed low-density focus in the right lobe liver posteriorly that is indeterminate but unchanged in size from prior study measuring about 3 cm. No biliary ductal dilatation. The gallbladder is surgically a bsent. There are calcifications at the pancreatic head, unchanged. Pancreas is somewhat atrophic. No acute i nflammatory changes around the gland. No peripancreatic fluid collection. Spleen is normal in size. Adrenal glands unremarkable. There are multiple hyperdense nodular foci sca ttered throughout each kidney, similar to prior study, likely proteinaceous or hemorrhagic cyst. No n ew mass or hydronephrosis Unopacified GI tract normal in caliber and contour. No bowel wall thickening. No inflammatory strandi ng in the mesentery. No ascites or lymphadenopathy. Appendix is not clearly identified. No inflammato ry changes in the right lower quadrant. Images of pelvis show diffuse wall thickening of the urinary bladder. Evidence of prior right inguina l hernia repair. Prostate gland is mildly enlarged. No free fluid or lymphadenopathy. Bone window show no acute finding. Multilevel spondylosis. There is wedge compression deformity of th e T11 vertebral body, unchanged. Multilevel spondylosis. IMPRESSION: 1. No acute abnormality of abdomen or pelvis. 2. Calcifications at the pancreatic head and system with chronic pancreatitis. No acute inflammatory changes at this time. 3. Multiple hyperdense cysts throughout both kidneys, stable, likely hemorrhagic or proteinaceous cys ts. Continued follow-up imaging to ensure stability. 4. Indeterminate low-density focus in the right lobe liver, unchanged. 5. Diffuse wall thickening of the urinary bladder, nonspecific. Consider acute or chronic cystitis. Electronically signed by: Leobardo Torres MD (12/01/2021 7:00 PM) [facility]
[2021-12-01 19:07] LABS: BASO # 0.1 x10^3/uL (0.0-0.2); BASO % 1 % (0-3); EOS # 0.4 x10^3/uL (0.0-0.7); EOS % 4 % (0-3); HEMATOCRIT 36.3 % (39.0-53.0); HEMOGLOBIN 12.6 g/dL (13.0-17.5); LYMPH # 4.8 x10^3/uL (1.0-4.8); LYMPH % 42 % (24-48); MEAN CORPUSCULAR HEMOGLOBIN 32 pg (25-35); MEAN CORPUSCULAR HGB CONC 35 g/dL (31-37); MEAN CORPUSCULAR VOLUME 92 fL (79-100); MONO # 0.7 x10^3/uL (0.0-1.1); MONO % 6 % (0-9); NEUT # 5.4 x10^3uL (1.8-7.7); NEUT % 48 % (31-73); PLATELET COUNT 201 x10^3/uL (140-400); RED BLOOD COUNT 3.94 x10^6/uL (4.30-5.70); RED CELL DISTRIBUTION WIDTH 13.4 % (11.5-14.5); WHITE BLOOD COUNT 11.4 x10^3/uL (4.0-11.0)
[2021-12-01] MEDS ORDERED: KETOROLAC 15 MG/ML VIAL. IVP ONE (19:15)
[2021-12-01 19:17] LABS: BACTERIA,URINE 0 /HPF (0-FEW); CLARITY,URINE CLEAR; COLOR,URINE YELLOW; GLUCOSE,URINE NEG (NEG); NITRITE,URINE NEG (NEG); RBC,URINE 0 /HPF (0-2); UROBILINOGEN,URINE 0.2 mg/dL (0.2 mg/dL); WBC,URINE 0 /HPF (0-4)
[2021-12-01 19:20] LABS: ALBUMIN 3.4 g/dL (3.4-5.0); ALBUMIN/GLOBULIN RATIO 1.1 (1.0-1.7); CALCIUM 8.6 mg/dL (8.5-10.1); CREATININE 1.3 mg/dL (0.7-1.3); GFR 58.9; MAGNESIUM 1.3 mg/dL (1.8-2.4); TOTAL BILIRUBIN 0.3 mg/dL (0.2-1.0); TOTAL PROTEIN 6.5 g/dL (6.4-8.2)
[2021-12-01] MEDS ORDERED: POTASSIUM CHLORIDE 20 MEQ TABLET.ER. PO ONE (19:30)
[2021-12-01] MEDS ORDERED: MAGNESIUM OXIDE 400 MG TABLET PO ONE (19:30)
[2021-12-01] MEDS ORDERED: oxyCODONE/APAP 5/325 1 TAB TABLET PO ONE (19:45)
[2021-12-01] MEDS ORDERED: ONDANSETRON 4MG ODT 4TABLET STARTPACK. PO ONE (19:45)
[2021-12-01 19:46] VITALS: BP 110/69
== END 2021-12-01 19:46 | disposition home or self-care (01) ==
LOC: ER 17:54
DX: R10.84 Generalized abdominal pain (principal); M19.90 Unspecified osteoarthritis, unspecified site; E11.9 Type 2 diabetes mellitus without complications; K21.9 Gastro-esophageal reflux disease without esophagitis; G89.29 Other chronic pain; F17.210 Nicotine dependence, cigarettes, uncomplicated; Z90.89 Acquired absence of other organs; Z88.1 Allergy status to other antibiotic agents; Z88.5 Allergy status to narcotic agent; Z88.8 Allergy status to other drugs, medicaments and biological substances
CPT/HCPCS: 36415; 74176; 80053; 81001; 83690; 83735; 85025; 96361; 96374; 96375; 99284; J1885; J2405; J2765; J3010; J7120; Q0162

== ENCOUNTER 2021-12-11 18:40 | Emergency (ER) | payer BC, MEDICARE ==
[~2021-12-11] VITALS: Ht 167.6 cm; Wt 82.6 kg
--- NOTE | 2021-12-11 21:01 | PHYS DOC ---
Past History Past Medical History: Anxiety, Arthritis, Bronchitis, Diabetes, Fibromyalgia, GERD, Pancreatitis, Prostatitis Additional Past Medical Histor: CROHNS, Chronic back pain Past Surgical History: Appendectomy, Other Additional Past Surgical Histo: R-WRIST, LEFT KNEE, LEFT SHOULDER Smoking: Cigarettes Alcohol Use: None Drug Use: None General Adult EDM: Chief Complaint: MULTIPLE COMPLAINTS HPI: HPI: " I slipped and fell on the ice.. I hurt all over my body..." Patient is a 46 year old male who presents with above hx and multiple complaints. Pt. localizes pain to bilateral hips, lumbar sacral area, right chest wall, and back of head. Patient denies any loss of consciousness. Patient has been amatory since the fall. Patient has past medical history of Crohn's disease, chronic recurrent idiopathic pancreatitis, chronic kidney disease, chronic sinusitis, diabetes, chronic pain, fibromyalgia. Patient does continue to smoke. Patient normally follows with [facility]. Patient rates his pain 10 out of 10. Nothing makes it better. Review of Systems: Review of Systems: Constitutional: Denies fever or chills Eyes: Denies change in visual acuity HENT: Denies nasal congestion or sore throat Respiratory: Denies cough or shortness of breath Cardiovascular: Denies chest pain or edema GI: Denies abdominal pain, nausea, vomiting, bloody stools or diarrhea : Denies dysuria Musculoskeletal: Complains of all over body pain from fall on ice Integument: Denies rash Neurologic: Denies headache, focal weakness or sensory changes Endocrine: Denies polyuria or polydipsia Lymphatic: Denies swollen glands Psychiatric: Denies depression or anxiety Family History: Family History: Noncontributory to presentation has 1 brother that is alive and healthy. Has 1 sister in a motor vehicle accident 1 sister has mental problems. Father age 65 because of [place]. Mother age 72 because of [place]`1 Current Medications: Current Meds: See nursing for home meds Allergies: Allergies: Allergies Coded Allergies Type Severity Reaction Last Updated Verified cephalexin Allergy Intermediate Rash 01/11/20 Yes lasmiditan Allergy Unknown 11/29/21 Yes codeine Adverse Reaction Intermediate Migraine Headaches 09/05/19 Yes Physical Exam: PE: Constitutional: Reports moderate acute distress, non-toxic appearance. [] HENT: Normocephalic, reports contusion back of head, bilateral external ears n ormal, oropharynx moist, no oral exudates, nose normal. [] Eyes: PERRLA, EOMI, conjunctiva normal, no discharge. [] Neck: Normal range of motion, mild upper neck tenderness tenderness, supple, no stridor. [] Cardiovascular:Heart rate regular rhythm, no murmur [] Lungs & Thorax: Bilateral breath sounds equal apex scattered wheezes and some chest wall tenderness on right auscultation [] Abdomen: Bowel sounds normal, soft, no tenderness, no masses, no pulsatile masses. Old surgery scars. Skin: Warm, dry, no erythema, no rash. [] Back: No tenderness, no CVA tenderness. [] Extremities: No tenderness, no cyanosis, no clubbing, ROM intact, no edema. Contusion right arm. Contusion right hip Neurologic: Alert and oriented X 3, moves all extremities on request, does have distal sensory,, no focal deficits noted. [] Psychologic: Affect anxious, judgement normal, mood normal. [] EKG: EKG: [] Radiology/Procedures: Radiology/Procedures: [address] [address] IMAGING REPORT Signed PATIENT: ALEXANDRA MENDOZA ACCOUNT: [id number] : 1975 LOCATION: ER AGE: 46 SEX: M EXAM STATUS: REG ER ORD. PHYSICIAN: PRATIK DE LEON MD REASON: FALL, PAIN PROCEDURE: CHEST AP ONLY XR CHEST 1V History: Reason: FALL, PAIN / Spl. Instructions: / History: Comparison: July 10, 2021 Findings: No consolidation or pleural effusion. Normal heart size. No pneumothorax. Internal fixation left clavicle fracture. Small metallic foreign bodies projecting of the left upper chest, unchanged. Impression: 1. No acute cardiopulmonary process. Electronically signed by: Srikanth Peralta DO (12/11/2021 10:57 PM) [facility] DICTATED AND SIGNED BY: SRIKANTH PERALTA DO DATE: 12/11/21 1906 CC: PRATIK DE LEON MD; NASEEM RAMIREZ ~MTH0 [address] [address] IMAGING REPORT Signed PATIENT: ALEXANDRA MENDOZA ACCOUNT: [id number] : 1975 LOCATION: ER AGE: 46 SEX: M EXAM STATUS: REG ER ORD. PHYSICIAN: PRATIK DE LEON MD REASON: fall - neck head injury, PAIN PROCEDURE: CT HEAD AND CERVICAL SPINE WO CT HEAD AND C-SPINE WO History: Reason: fall - neck head injury, PAIN / Spl. Instructions: / History: Comparison: November 09, 2021 Technique: Noncontrast CT imaging was performed of the head and cervical spine. Coronal and sagittal reconstructions were performed. Exposure: One or more of the following individualized dose reduction techniques were utilized for this examination: 1. Automated exposure control 2. Adjustment of the mA and/or kV according to patient size 3. Use of iterative reconstruction technique. Findings: Head CT: No intracranial hemorrhage. No mass effect. No hydrocephalus. Extra- axial spaces are unremarkable. Imaged orbits are unremarkable. Mild scattered paranasal sinus mucosal thickening. No acute calvarial fracture. Cervical spine CT: Mild chronic T1 superior plate compression deformity, unchanged. No acute fracture. Mild degenerative disc changes. No high-grade canal narrowing. Multilevel neuroforaminal narrowing. Soft tissues unremarkable. Impression: Head CT: 1. No acute intracranial abnormality. Cervical spine CT: 1. No acute fracture or subluxation of the cervical spine. Electronically signed by: Srikanth Peralta DO (12/11/2021 10:56 PM) [facility] DICTATED AND SIGNED BY: SRIKANTH PERALTA DO DATE: 12/11/212250 CC: PRATIK DE LEON MD; NASEEM RAMIREZ ~MTH0 0 [][place] [address] IMAGING REPORT Signed PATIENT: ALEXANDRA MENDOZA ACCOUNT: [id number] : 1975 LOCATION: ER AGE: 46 SEX: M EXAM STATUS: REG ER ORD. PHYSICIAN: PRATIK DE LEON MD REASON: FALL, PAIN PROCEDURE: CT PELVIS WO CONTRAST INDICATION: Reason: FALL, LOW BACK PAIN / Spl. Instructions: / History: . COMPARISON: December 01, 2021 TECHNIQUE: Axial CT images obtained through the lumbar spine and pelvis. One or more of the following individualized dose reduction techniques were utilized for this examination: 1. Automated exposure control; 2. Adjustment of the mA and/or kV according to patient size; 3. Use of iterative reconstruction technique. FINDINGS: Lumbar spine: There is some degenerative changes of the lumbar spine with disc osteophyte complexes as well as facet and ligamentum flavum hypertrophy. Schmorl's node formation is identified at multiple levels. There is some epidural lipomatosis. Central canal is small in caliber which may be a congenital finding. No definite acute fracture line is seen. No evidence of dislocation. Multiple bilateral renal lesions are identified and incompletely evaluated on t his exam but some of these being high density which could be from proteinaceous content with solid component not excluded. Calcific atherosclerosis. Pelvis: No evidence of dislocation at the bilateral hips. No definite acute fracture line is seen. Fat-containing left inguinal hernia. Fullness of the soft tissues in the right inguinal region but this is similar to prior CT from December 01, 2021 IMPRESSION: * No definite acute fracture or dislocation of the lumbar spine or pelvis. Electronically signed by: Ora Massey MD (12/11/2021 11:00 PM) [id number] DICTATED AND SIGNED BY: ORA MASSEY MD DATE: 12/11/212247 CC: PRATIK DE LEON MD; NASEEM RAMIREZ ~MTH0 0 Heart Score: C/O Chest Pain: N/A Risk Factors: Risk Factors: DM, Current or recent (<one month) smoker, HTN, HLP, family history of CAD, obesity. Risk Scores: Score 0 - 3: 2.5% MACE over next 6 weeks - Discharge Home Score 4 - 6: 20.3% MACE over next 6 weeks - Admit for Clinical Observation Score 7 - 10: 72.7% MACE over next 6 weeks - Early Invasive Strategies Course & Med Decision Making: Course & Med Decision Making Pertinent Labs and Imaging studies reviewed. (See chart for details) Patient is ice packs as needed. Patient to rest. Patient take Tylenol and ib uprofen as needed for pain. Follow-up primary care. Return if any concerns. If vomits more than once on returning home will need reexam. Impression: 1. Slip and fall 2. Contusions 3. Tobacco use 4. Head Injury [] Dragon Disclaimer: Dragon Disclaimer: This electronic medical record was generated, in whole or in part, using a voice recognition dictation system. Departure Departure: Referrals: NASEEM RAMIREZ (PCP) PRATIK DE LEON MD Dec 11, 2021 21:01
[2021-12-11 21:05] VITALS: BP 111/76
[2021-12-11] MEDS: oxyCODONE/APAP 5/325 1 TAB TABLET PO ONE (21:16)
--- NOTE | 2021-12-11 22:58 | RAD ---
CT HEAD AND C-SPINE WO History: Reason: fall - neck head injury, PAIN / Spl. Instructions: / History: Comparison: November 09, 2021 Technique: Noncontrast CT imaging was performed of the head and cervical spine. Coronal and sagittal reconstructions were performed. Exposure: One or more of the following individualized dose reduction techniques were utilized for thi s examination: 1. Automated exposure control 2. Adjustment of the mA and/or kV according to patient size 3. Use of iterative reconstruction technique. Findings: Head CT: No intracranial hemorrhage. No mass effect. No hydrocephalus. Extra-axial spaces are unrema rkable. Imaged orbits are unremarkable. Mild scattered paranasal sinus mucosal thickening. No acute calvarial fracture. Cervical spine CT: Mild chronic T1 superior plate compression deformity, unchanged. No acute fracture. Mild degenerative disc changes. No high-grade canal narrowing. Multilevel neuroforaminal narrowing. Soft tissues unremarkable. Impression: Head CT: 1. No acute intracranial abnormality. Cervical spine CT: 1. No acute fracture or subluxation of the cervical spine. Electronically signed by: Srikanth Fleming DO (12/11/2021 10:56 PM) [facility]
--- NOTE | 2021-12-11 23:00 | RAD ---
XR CHEST 1V History: Reason: FALL, PAIN / Spl. Instructions: / History: Comparison: July 10, 2021 Findings: No consolidation or pleural effusion. Normal heart size. No pneumothorax. Internal fixation left clav icle fracture. Small metallic foreign bodies projecting of the left upper chest, unchanged. Impression: 1. No acute cardiopulmonary process. Electronically signed by: Srikanth Fleming DO (12/11/2021 10:57 PM) [facility]
--- NOTE | 2021-12-11 23:02 | RAD ---
INDICATION: Reason: FALL, LOW BACK PAIN / Spl. Instructions: / History: . COMPARISON: December 01, 2021 TECHNIQUE: Axial CT images obtained through the lumbar spine and pelvis. One or more of the following individualized dose reduction techniques were utilized for this examinat ion: 1. Automated exposure control; 2. Adjustment of the mA and/or kV according to patient size; 3 . Use of iterative reconstruction technique. FINDINGS: Lumbar spine: There is some degenerative changes of the lumbar spine with disc osteophyte complexes as well as face t and ligamentum flavum hypertrophy. Schmorl's node formation is identified at multiple levels. There is some epidural lipomatosis. Central canal is small in caliber which may be a congenital finding. No definite acute fracture line is seen. No evidence of dislocation. Multiple bilateral renal lesions are identified and incompletely evaluated on this exam but some of t hese being high density which could be from proteinaceous content with solid component not excluded. Calcific atherosclerosis. Pelvis: No evidence of dislocation at the bilateral hips. No definite acute fracture line is seen. Fat-containing left inguinal hernia. Fullness of the soft tissues in the right inguinal region but this is similar to prior CT from December 01, 2021 IMPRESSION: * No definite acute fracture or dislocation of the lumbar spine or pelvis. Electronically signed by: Nick Massey MD (12/11/2021 11:00 PM) [id number]
== END 2021-12-11 23:58 | disposition home or self-care (01) ==
LOC: ER 18:40
DX: S40.021A Contusion of right upper arm, initial encounter (principal); S70.01XA Contusion of right hip, initial encounter; S00.83XA Contusion of other part of head, initial encounter; F41.9 Anxiety disorder, unspecified; M19.90 Unspecified osteoarthritis, unspecified site; E11.9 Type 2 diabetes mellitus without complications; M79.7 Fibromyalgia; K21.9 Gastro-esophageal reflux disease without esophagitis; G89.29 Other chronic pain; F17.210 Nicotine dependence, cigarettes, uncomplicated; Z88.1 Allergy status to other antibiotic agents; Z88.5 Allergy status to narcotic agent; Z88.8 Allergy status to other drugs, medicaments and biological substances; W00.0XXA Fall on same level due to ice and snow, initial encounter; Y93.89 Activity, other specified; Y92.89 Other specified places as the place of occurrence of the external cause; Y99.8 Other external cause status
CPT/HCPCS: 70450; 71045; 72125; 72131; 72192; 99284

== ENCOUNTER 2021-12-13 22:41 | Emergency (ER) | payer BC, MEDICARE ==
[~2021-12-13] VITALS: Ht 167.6 cm; Wt 81.8 kg
--- NOTE | 2021-12-13 22:48 | PHYS DOC ---
Past History Past Medical History: Anxiety, Arthritis, Bronchitis, Diabetes, Fibromyalgia, GERD, Pancreatitis, Prostatitis Additional Past Medical Histor: CROHNS, Chronic back pain Past Surgical History: Appendectomy, Cholecystectomy, Other Additional Past Surgical Histo: R-WRIST, LEFT KNEE, LEFT SHOULDER Smoking: Cigarettes Alcohol Use: None Drug Use: None General Adult HPI: HPI: ".. I ve had a sore throat for past two weeks.. it hurt so much to swallow..." Patient is a 46 year old male who presents with above hx and complaints pharyngitis and hoarseness for the past 2 weeks. Patient denies a fever or chills. No recent travel. No specific ill contacts. No history immun osuppression. Patient is well-known to the for multiple ED visits. Does at times seems to exhibit narcotic seeking behaviors. Normally follows with [facility] for care. Patient has past medical history of degenerative joint osteoarthritis, and tobacco use. Note pt did not have complaints of sore throat when seen of 12/11/21. Review of Systems: Review of Systems: Constitutional: Denies fever or chills Eyes: Denies change in visual acuity HENT: Complains of sore throat Respiratory: Denies cough or shortness of breath Cardiovascular: Denies chest pain or edema GI: Denies abdominal pain, nausea, vomiting, bloody stools or diarrhea : Denies dysuria Musculoskeletal: Denies back pain or joint pain Integument: Denies rash Neurologic: Denies headache, focal weakness or sensory changes Endocrine: Denies polyuria or polydipsia Lymphatic: Denies swollen glands Psychiatric: Denies depression or anxiety Family History: Family History: Noncontributory to presentation Current Medications: Current Meds: See nursing for home meds Allergies: Allergies: Allergies Coded Allergies Type Severity Reaction Last Updated Verified cephalexin Allergy Intermediate Rash 01/11/20 Yes lasmiditan Allergy Unknown 11/29/21 Yes codeine Adverse Reaction Intermediate Migraine Headaches 09/05/19 Yes Physical Exam: PE: Constitutional: Reports moderate acute distress, non-toxic appearance. [] HENT: Normocephalic, atraumatic, bilateral external ears normal, oropharynx moist, no oral exudates, nose normal. Mildi injection of pharynx, Eyes: PERRLA, EOMI, conjunctiva normal, no discharge. [] Neck: Normal range of motion, no tenderness, supple, no stridor. [] Cardiovascular:Heart rate regular rhythm, no murmur [] Lungs & Thorax: Bilateral breath sounds equal apex with scattered wheezes auscultation [] Abdomen: Bowel sounds normal, soft, no tenderness, no masses, no pulsatile masses. Old surgery scars. Skin: Warm, dry, no erythema, no rash. [] Back: No tenderness, no CVA tenderness. [] Right wrist scar, left knee scar, left shoulder scar [] Neurologic: Alert and oriented X 3, moves all extremities on request, does have distal sensory no focal deficits noted. [] Psychologic: Affect anxious , judgement normal, mood normal. [] EKG: EKG: [] Radiology/Procedures: Radiology/Procedures: [] Heart Score: C/O Chest Pain: N/A Risk Factors: Risk Factors: DM, Current or recent (<one month) smoker, HTN, HLP, family history of CAD, obesity. Risk Scores: Score 0 - 3: 2.5% MACE over next 6 weeks - Discharge Home Score 4 - 6: 20.3% MACE over next 6 weeks - Admit for Clinical Observation Score 7 - 10: 72.7% MACE over next 6 weeks - Early Invasive Strategies Course & Med Decision Making: Course & Med Decision Making Pertinent Labs and Imaging studies reviewed. (See chart for details) Patient gargle with Listerine 4 times a day. Take Tylenol and ibuprofen as needed for pain. Follow-up primary care. Push fluids. Impression;: 1. Pharyngitis- Viral Syndrome 2. Possible Narcotic Seeking Behaviors [] Dragon Disclaimer: Dragon Disclaimer: This electronic medical record was generated, in whole or in part, using a voice recognition dictation system. Departure Departure: Referrals: NASEEM RAMIREZ (PCP) Rei Disclaimer This chart was dictated in whole or in part using Voice Recognition software in a busy, high-work load, and often noisy Emergency Department environment. It may contain unintended and wholly unrecognized errors or omissions. Dragon Disclaimer This chart was dictated in whole or in part using Voice Recognition software in a busy, high-work load, and often noisy Emergency Department environment. It may contain unintended and wholly unrecognized errors or omissions. PRATIK DE LEON MD Dec 13, 2021 22:47
[2021-12-13 22:49] VITALS: BP 129/78
[2021-12-13] MEDS ORDERED: ONDANSETRON ODT 4 MG TAB.RAPDIS PO ONE (23:30)
[2021-12-13] MEDS ORDERED: LIDO:MAALOX 1:1 20 ML SINGLE DOSE. PO ONE (23:30)
[2021-12-13] MEDS ORDERED: predniSONE 10 MG TABLET. PO ONE (23:45)
[2021-12-13] MEDS ORDERED: KETOROLAC 60 MG/2 ML VIAL. IM ONE (23:45)
[2021-12-14] MEDS ORDERED: methylPREDNISolone ACETATE 40 MG/ML VIAL. IM ONE
[2021-12-14 00:36] LABS: INFLUENZA A PATIENT NEGATIVE (NEGATIVE); INFLUENZA B PATIENT NEGATIVE (NEGATIVE)
[2021-12-14] MEDS ORDERED: diphenhydrAMINE 50 MG/ML VIAL IM ONE (01:00)
[2021-12-14] MEDS ORDERED: PROCHLORPERAZINE 10 MG/2 ML VIAL. IM ONE (01:00)
== END 2021-12-14 01:00 | disposition home or self-care (01) ==
LOC: ER 22:41
DX: B34.9 Viral infection, unspecified (principal); M19.90 Unspecified osteoarthritis, unspecified site; E11.9 Type 2 diabetes mellitus without complications; M79.7 Fibromyalgia; K21.9 Gastro-esophageal reflux disease without esophagitis; G89.29 Other chronic pain; F17.210 Nicotine dependence, cigarettes, uncomplicated; Z20.822 Contact with and (suspected) exposure to COVID-19; Z88.1 Allergy status to other antibiotic agents; Z88.5 Allergy status to narcotic agent; Z88.8 Allergy status to other drugs, medicaments and biological substances
CPT/HCPCS: 87070; 87428; 87880; 96372; 99284; J0780; J1030; J1200; J1885; Q0162

== ENCOUNTER 2021-12-20 17:07 | Emergency (ER) | payer BC, MEDICARE ==
[~2021-12-20] VITALS: Ht 167.6 cm; Wt 81.8 kg
[2021-12-20] MEDS ORDERED: FAMOTIDINE 20 MG/2 ML VIAL IVP ONE (17:45)
[2021-12-20] MEDS ORDERED: IV NORMAL SALINE 1,000ML 1,000 ML IV SCH (17:45)
[2021-12-20] MEDS ORDERED: ONDANSETRON PF 4 MG/2 ML VIAL. IVP ONE (17:45)
[2021-12-20] MEDS ORDERED: KETOROLAC 15 MG/ML VIAL. IVP ONE (18:00)
--- NOTE | 2021-12-20 18:10 | PHYS DOC ---
Past History Past Medical History: Anxiety, Arthritis, Bronchitis, Diabetes, Fibromyalgia, GERD, Pancreatitis (Chronic), Prostatitis Additional Past Medical Histor: CROHNS, Chronic back pain Past Surgical History: Appendectomy, Cholecystectomy, Other Additional Past Surgical Histo: R-WRIST, LEFT KNEE, LEFT SHOULDER Smoking: Cigarettes, Greater than 1 pack/day (2ppd since 13 YO) Alcohol Use: None Drug Use: None General Adult EDM: Chief Complaint: DIZZY/LIGHT HEADED HPI: HPI: Patient is a 46-year-old male with history of recurrent chronic pancreatitis and Crohn's disease presenting the emergency department with 4 days of worsening nonradiating epigastric abdominal pain, nausea, vomiting, and diarrhea. Pain was initially mild and caused the patient to have diminished appetite due to worsening pain with eating. Since that point the pain has increased to a "10 out of 10" with 3-4 episodes of nonbloody emesis and nonbloody diarrhea daily. Typically, the patient drinks "24 Pepsi's per day" but the past 4 days has drank very little despite emesis and diarrhea. Beginning yesterday the patient has had worsening dizziness to the point where he was driving and his son needed to take over. Endorses episodes of diaphoresis, fatigue, and weakness. Denies F/C. [facility] and revealed patient has had recent imaging performed at [facility] including a CT abdomen pelvis on December 01, [address] lumbar spine, revealing pancreatic head calcifications indicative of chronic pancreatitis, bladder wall thickening, hyperdense cysts throughout the kidneys without acute abnormalities of the abdomen or pelvis. Review of Systems: Review of Systems: Constitutional: Endorses fatigue. Denies fever or chills Eyes: Denies redness or eye pain HENT: Denies nasal congestion or sore throat Respiratory: Denies cough or shortness of breath Cardiovascular: Denies chest pain or palpitations GI: Endorses epigastric abdominal pain, nausea, nonbloody vomiting, and nonbloody diarrhea : Denies dysuria or hematuria Musculoskeletal: Denies back pain or joint pain Integument: Denies rash or skin lesions Neurologic: Endorses dizziness and weakness; denies headache, focal weakness or sensory changes Complete systems were reviewed and found to be within normal limits, except as documented in this note. Current Medications: Current Meds: Current Medications Medications (Trade) Dose Ordered Sig/Monty Start Time Stop Time Status Last Admin Dose Admin Famotidine (Pepcid Vial) 20 mg 1X ONCE 12/20/21 17:45 12/20/21 17:46 DC Ketorolac Tromethamine (Toradol 15mg Vial) 15 mg 1X ONCE 12/20/21 18:00 12/20/21 18:01 UNV Ondansetron HCl (Zofran) 4 mg 1X ONCE 12/20/21 17:45 12/20/21 17:46 DC Sodium Chloride 1,000 ml @ 1,000 mls/hr Q1H 12/20/21 17:45 12/20/21 18:44 Allergies: Allergies: Allergies Coded Allergies Type Severity Reaction Last Updated Verified cephalexin Allergy Intermediate Rash 12/13/21 Yes lasmiditan Allergy Intermediate 12/13/21 Yes codeine Adverse Reaction Intermediate Migraine Headaches 12/13/21 Yes Physical Exam: PE: Constitutional: Well developed, moderately distressed, nontoxic appearance HENT: Normocephalic, atraumatic Eyes: Conjunctiva normal, no discharge Neck: Normal range of motion, no tenderness, supple Lungs & Thorax: No respiratory distress, equal chest rise and fall Abdomen: TTP to epigastrium with voluntary guarding and mild rebound tenderness, TTP to right and left lower quadrants. Skin: 2 areas of ecchymosis measuring approximately 1 cm in diameter in the infraumbilical region. Back: No tenderness, no CVA tenderness Extremities: No tenderness, ROM intact, no edema Neurologic: Alert and oriented X 3, normal motor function, normal sensory function, no focal deficits noted Psychologic: Affect normal, judgment normal Current Patient Data: Vital Signs: Vital Signs Date Time Temp Pulse Resp B/P (MAP) Pulse Ox O2 Delivery O2 Flow Rate FiO2 12/20/21 17:24 98.3 87 16 108/68 (81) 98 Room Air EKG: EKG: @1804 NSR 77bpm w/ leftward axis, QRS contour abnormality, no ST elevation GA 154 ms QT/QTc 392/445 ms Radiology/Procedures: Radiology/Procedures: [] Heart Score: C/O Chest Pain: N/A Course & Med Decision Making: Course & Med Decision Making As per HPI description, [facility] was reviewed revealing CT imaging of the abdomen pelvis and lumbar spine on December 01, 2021 showing no acute process. As such no imaging was ordered in order to limit radiation exposure to the patient. Pertinent Lab studies reviewed. (See chart for details) Patient presents with report of recurrent chronic pancreatitis and Crohn's disea se with associated nausea and vomiting and diarrhea. Labs obtained and posted to chart. Lipase within normal limits. Hypokalemia and hypomagnesemia addressed. IV fluid hydration given. Other symptoms addressed with interval improvement. Patient stable for discharge with outpatient follow-up with PCP/GI/pain management. Discussed findings and plan with patient, who acknowledges understanding and agreement. Rei Disclaimer: Rei Disclaimer: This electronic medical record was generated, in whole or in part, using a voice recognition dictation system. Departure Departure: Impression: Primary Impression: Chronic abdominal pain Additional Impressions: Hypokalemia Hypomagnesemia Disposition: 01 HOME / SELF CARE / HOMELESS Condition: STABLE Referrals: NASEEM RAMIREZ (PCP) Patient Instructions: Chronic Pain, Chronic Pain Management, Hypokalemia, Hypomagnesemia Additional Instructions: Follow closely with your PCP/GI specialist/supervisor paint. Scripts Ondansetron (ONDANSETRON ODT) 4 Mg Tab.rapdis 1 TAB PO PRN Q6-8HRS PRN for NAUSEA, #16 TAB Prov: ISABELLA MORGAN DO 12/20/21 ISABELLA MORGAN DO Dec 20, 2021 18:10
[2021-12-20 18:48] LABS: BASO # 0.1 x10^3/uL (0.0-0.2); BASO % 1 % (0-3); EOS # 0.5 x10^3/uL (0.0-0.7); EOS % 3 % (0-3); HEMATOCRIT 39.3 % (39.0-53.0); HEMOGLOBIN 13.4 g/dL (13.0-17.5); LYMPH # 5.6 x10^3/uL (1.0-4.8); LYMPH % 34 % (24-48); MEAN CORPUSCULAR HEMOGLOBIN 32 pg (25-35); MEAN CORPUSCULAR HGB CONC 34 g/dL (31-37); MEAN CORPUSCULAR VOLUME 95 fL (79-100); MONO # 0.8 x10^3/uL (0.0-1.1); MONO % 5 % (0-9); NEUT # 9.4 x10^3uL (1.8-7.7); NEUT % 57 % (31-73); PLATELET COUNT 252 x10^3/uL (140-400); RED BLOOD COUNT 4.14 x10^6/uL (4.30-5.70); RED CELL DISTRIBUTION WIDTH 13.6 % (11.5-14.5); WHITE BLOOD COUNT 16.4 x10^3/uL (4.0-11.0)
[2021-12-20 19:06] LABS: ALBUMIN 3.5 g/dL (3.4-5.0); ALBUMIN/GLOBULIN RATIO 1.1 (1.0-1.7); ALK PHOS 199 U/L (46-116); ALT (SGPT) 36 U/L (16-63); ANION GAP 14 (6-14); AST (SGOT) 23 U/L (15-37); BLOOD UREA NITROGEN 12 mg/dL (8-26); BUN/CREATININE RATIO 8 (6-20); CALCIUM 8.7 mg/dL (8.5-10.1); CARBON DIOXIDE 19 mmol/L (21-32); CHLORIDE 104 mmol/L (98-107); CREATININE 1.5 mg/dL (0.7-1.3); GFR 49.9; GLUCOSE 137 mg/dL (70-99); LIPASE 215 U/L (73-393); MAGNESIUM 1.5 mg/dL (1.8-2.4); SODIUM 137 mmol/L (136-145); TOTAL BILIRUBIN 0.5 mg/dL (0.2-1.0); TOTAL PROTEIN 6.8 g/dL (6.4-8.2)
[2021-12-20] MEDS ORDERED: METOCLOPRAMIDE HCL 10 MG/2 ML VIAL. IVP ONE (19:15)
[2021-12-20] MEDS ORDERED: diphenhydrAMINE 50 MG/ML VIAL IVP ONE (19:15)
[2021-12-20 19:19] LABS: BACTERIA,URINE 0 /HPF (0-FEW); CLARITY,URINE CLEAR; COLOR,URINE YELLOW; GLUCOSE,URINE NEG (NEG); NITRITE,URINE NEG (NEG); SQUAMOUS EPITHELIAL CELL,UR FEW /LPF; UROBILINOGEN,URINE 0.2 mg/dL (0.2 mg/dL); WBC,URINE OCC /HPF (0-4)
[2021-12-20] MEDS ORDERED: ONDA4TAB12 PO (19:45)
[2021-12-20] MEDS ORDERED: POTASSIUM CHLORIDE 10 MEQ TABLET.ER. PO ONE (19:45)
[2021-12-20] MEDS ORDERED: MAGNESIUM CHLORIDE ER 64 MG TABLET.ER PO ONE (19:45)
[2021-12-20 19:58] VITALS: BP 120/70
--- NOTE | 2021-12-20 20:13 | EKG ---
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
== END 2021-12-20 19:55 | disposition home or self-care (01) ==
LOC: ER 17:07
DX: E87.6 Hypokalemia (principal); E83.42 Hypomagnesemia; G89.29 Other chronic pain; R10.13 Epigastric pain; F41.9 Anxiety disorder, unspecified; M19.90 Unspecified osteoarthritis, unspecified site; E11.9 Type 2 diabetes mellitus without complications; M79.7 Fibromyalgia; K21.9 Gastro-esophageal reflux disease without esophagitis; F17.210 Nicotine dependence, cigarettes, uncomplicated; Z90.89 Acquired absence of other organs; Z90.49 Acquired absence of other specified parts of digestive tract; Z88.1 Allergy status to other antibiotic agents; Z88.5 Allergy status to narcotic agent; Z88.8 Allergy status to other drugs, medicaments and biological substances
CPT/HCPCS: 36415; 80053; 81001; 82553; 83690; 83735; 84484; 85025; 93005; 96361; 96374; 96375; 99284; G0480; J1200; J1885; J2405; J2765; J3010; J3490; J7030

== ENCOUNTER → 2021-12-21 | Outpatient (CLI) | payer BC, MEDICARE ==
[2021-12-20 19:58] VITALS: BP 120/70
--- NOTE | 2021-12-21 14:55 | RAD ---
XR RT WRIST 3VIEWS History: Reason: WRIST PAIN FELL ON THE . / Spl. Instructions: / History: . Pain Technique: 3 views right wrist Comparison: None. Findings: No dislocation. No acute fracture. Moderate proximal and mid carpal degenerative changes. Mild first carpal metacarpal triscaphe DJD. Mild distal radial ulnar DJD. Impression: 1. No acute osseous abnormality. 2. Moderate wrist DJD. Electronically signed by: Srikanth Fleming DO (12/21/2021 2:53 PM) [id number]
== END ==
LOC: RAD 11:10
PROVIDERS: ATTEND Physician Assistant
DX: M19.031 Primary osteoarthritis, right wrist (principal)
CPT/HCPCS: 73110

== ENCOUNTER 2021-12-22 22:11 | Emergency (ER) | payer BC, MEDICARE ==
[~2021-12-22] VITALS: Ht 167.6 cm; Wt 81.8 kg
[2021-12-22 22:34] VITALS: BP 119/86
--- NOTE | 2021-12-22 22:36 | PHYS DOC ---
Past History Past Medical History: Anxiety, Arthritis, Bronchitis, Diabetes, Fibromyalgia, GERD, Pancreatitis, Prostatitis Additional Past Medical Histor: CROHNS, Chronic back pain Past Surgical History: Appendectomy, Cholecystectomy, Other Additional Past Surgical Histo: R-WRIST, LEFT KNEE, LEFT SHOULDER Smoking: Cigarettes, Greater than 1 pack/day Alcohol Use: None Drug Use: None General Adult EDM: Chief Complaint: WRIST PAIN HPI: HPI: " I slipped and fell on December 11. hurt my Rt wrist bad.. ".. " It is still hurting.." "I need some fentanyl or Dilaudid.." Patient is a 46 year old female who presents with Rt. wrist pain. FOOSH type i njury.,. Distal neurovascular is equal to left hand. Patient is left-hand dominant. Patient denies other injury since . Patient has been seen 3 times in the ER since that time and never did complain about his right wrist pain. Patient does have a past history of possible narcotic seeking behaviors. Does go to a pain clinic. Does present to the ED frequently for pain type complaints. Patient has a history of bronchitis, asthma, anxiety, diabetes, fibromyalgia, GERD, and chronic pain syndrome. Patient has had right right wrist surgery, left knee surgery, cholecystectomy, appendectomy, left shoulder repair. Patient normally follows with Dr. Ramirez. Patient's left wrist did not appear to be red or inflamed. Has fairly good range of motion. Distal neurovascular intact. On exam with distraction it did not seem to elicit pain.. Patient was offered Tylenol here, but became angry and left without formal discharge. Patient immediately presented to the emergency room at [facility] requesting a narcotic pain meds. Review of Systems: Review of Systems: Constitutional: Denies fever or chills Eyes: Denies change in visual acuity HENT: Denies nasal congestion or sore throat Respiratory: Denies cough or shortness of breath Cardiovascular: Denies chest pain or edema GI: Denies abdominal pain, nausea, vomiting, bloody stools or diarrhea : Denies dysuria Musculoskeletal: Complains of right wrist pain Integument: Denies rash Neurologic: Denies headache, focal weakness or sensory changes Endocrine: Denies polyuria or polydipsia Lymphatic: Denies swollen glands Psychiatric: Denies depression or anxiety Family History: Family History: Noncontributory to presentation Current Medications: Current Meds: See nursing for home meds Allergies: Allergies: Allergies Coded Allergies Type Severity Reaction Last Updated Verified cephalexin Allergy Intermediate Rash 12/13/21 Yes lasmiditan Allergy Intermediate 12/13/21 Yes codeine Adverse Reaction Intermediate Migraine Headaches 12/13/21 Yes Physical Exam: PE: Constitutional: Reports acute distress, non-toxic appearance. [] HENT: Normocephalic, atraumatic, bilateral external ears normal, oropharynx moist, no oral exudates, nose normal. [] Eyes: PERRLA, EOMI, conjunctiva normal, no discharge. [] Neck: Normal range of motion, no tenderness, supple, no stridor. [] Cardiovascular:Heart rate regular rhythm, no murmur [. PMI slightly to the left] Lungs & Thorax: Bilateral breath sounds to apex with scattered wheezes auscultation [] Abdomen: Bowel sounds normal, soft, no tenderness, no masses, no pulsatile masses. [] Old surgery scars Skin: Warm, dry, no erythema, no rash. [] Back: No tenderness, no CVA tenderness. [] Extremities: No tenderness, no cyanosis, no clubbing, ROM intact, no edema. [] Scar on left shoulder. Scars on left knee Neurologic: Alert and oriented X 3, normal motor function, normal sensory function, no focal deficits noted. [] Psychologic: Affect anxious judgement normal, mood normal. [] EKG: EKG: [] Radiology/Procedures: Radiology/Procedures: [][place] [address] IMAGING REPORT Signed PATIENT: ALEXANDRA MENDOZA ACCOUNT: [id number] : 1975 LOCATION: ER AGE: 46 SEX: M EXAM STATUS: DEP ER ORD. PHYSICIAN: PRATIK DE LEON MD REASON: INJURY ON 12/11/21 "I CAN'T MOVE IT", FALL WITH PERSISTENT PAIN PROCEDURE: WRIST 3V RIGHT 3 view right wrist HISTORY: Immobility and persistent pain after injury on December 11 AP lateral oblique views There is degenerative changes of the radiocarpal joint with marginal spurring. The visualized osseous structures appear grossly intact. There is no lytic destructive changes. IMPRESSION: Degenerative changes. No acute findings. Electronically signed by: John William III, MD (12/23/2021 12:40 AM) [facility] DICTATED AND SIGNED BY: JOHN WILLIAM III, MD DATE: 12/23/21 0004 CC: PRATIK DE LEON MD; NASEEM RAMIREZ ~ Heart Score: C/O Chest Pain: N/A Risk Factors: Risk Factors: DM, Current or recent (<one month) smoker, HTN, HLP, family history of CAD, obesity. Risk Scores: Score 0 - 3: 2.5% MACE over next 6 weeks - Discharge Home Score 4 - 6: 20.3% MACE over next 6 weeks - Admit for Clinical Observation Score 7 - 10: 72.7% MACE over next 6 weeks - Early Invasive Strategies Course & Med Decision Making: Course & Med Decision Making Pertinent Labs and Imaging studies reviewed. (See chart for details) Pt. became angry at offer of tylenol for pain. Pt. advised tylenol does nothing for his pain. Left before formal discharge. Left before splint check. Pt.seen a short time later at [facility]-. ( pt did not inform [facility]-of prior xray or visit at [place]). Impression: 1. Right wrist pain-history of FOOSH injury on 12/11 2. Possible Narcotic Seeking behaviors. 3. History of chronic pain 4. History of fibromyalgia 5. History of anxiety 6. Tobacco Use [] Dragon Disclaimer: Dragon Disclaimer: This electronic medical record was generated, in whole or in part, using a voice recognition dictation system. Departure Departure: Referrals: NASEEM RAMIREZ (PCP) PRATIK DE LEON MD Dec 22, 2021 22:36
[2021-12-22] MEDS ORDERED: ACETAMINOPHEN 500 MG TABLET PO ONE (22:45)
--- NOTE | 2021-12-23 00:42 | RAD ---
3 view right wrist HISTORY: Immobility and persistent pain after injury on December 11 AP lateral oblique views There is degenerative changes of the radiocarpal joint with marginal spurring. The visualized osseous structures appear grossly intact. There is no lytic destructive changes. IMPRESSION: Degenerative changes. No acute findings. Electronically signed by: Johnson Ferro III, MD (12/23/2021 12:40 AM) [facility]
== END 2021-12-22 23:35 | disposition left against medical advice (07) ==
LOC: ER 22:11
DX: M25.531 Pain in right wrist (principal); G89.29 Other chronic pain; M79.7 Fibromyalgia; F41.9 Anxiety disorder, unspecified; M19.90 Unspecified osteoarthritis, unspecified site; E11.9 Type 2 diabetes mellitus without complications; K21.9 Gastro-esophageal reflux disease without esophagitis; F17.210 Nicotine dependence, cigarettes, uncomplicated; Z88.1 Allergy status to other antibiotic agents; Z88.5 Allergy status to narcotic agent; Z88.8 Allergy status to other drugs, medicaments and biological substances
CPT/HCPCS: 73110; 99283

== ENCOUNTER 2022-01-04 23:01 | Emergency (ER) | payer BC, MEDICARE ==
[~2022-01-04] VITALS: Ht 167.6 cm; Wt 79.7 kg
--- NOTE | 2022-01-04 23:25 | PHYS DOC ---
Past History Past Medical History: Anxiety, Arthritis, Bronchitis, Diabetes, Fibromyalgia, GERD, Pancreatitis, Prostatitis Additional Past Medical Histor: CROHNS, Chronic back pain Past Surgical History: Appendectomy, Cholecystectomy, Other Additional Past Surgical Histo: R-WRIST, LEFT KNEE, LEFT SHOULDER Smoking: Cigarettes, Greater than 1 pack/day Additional Smoking Information: 1 pack/day Alcohol Use: None Drug Use: None General Adult EDM: Chief Complaint: COUGH HPI: HPI: 46-year-old male presents with cough and sore throat. Patient tells me he has had the symptoms for a couple of days. It seems to be getting worse. He has a history of esophageal dilation. Tells me that its painful to swallow anything even though he has a 16 ounce Pepsi sitting next to him. He also complains of some breakthrough low back pain. He has chronic pain issues but does not see the pain specialist anymore. He does not believe he has had a fever at home but is not sure. Review of Systems: Review of Systems: Constitutional: Denies fever or chills Eyes: Denies change in visual acuity HENT: sore throat Respiratory: Cough without shortness of breath Cardiovascular: Denies chest pain or edema GI: Denies abdominal pain, nausea, vomiting, bloody stools or diarrhea : Denies dysuria Musculoskeletal: Low back pain Integument: Denies rash Neurologic: Denies headache, focal weakness or sensory changes Endocrine: Denies polyuria or polydipsia Lymphatic: Denies swollen glands Psychiatric: Denies depression or anxiety Allergies: Allergies: Allergies Coded Allergies Type Severity Reaction Last Updated Verified cephalexin Allergy Intermediate Rash 12/13/21 Yes lasmiditan Allergy Intermediate 12/13/21 Yes codeine Adverse Reaction Intermediate Migraine Headaches 12/13/21 Yes Physical Exam: PE: Constitutional: Well developed, well nourished, no acute distress, non-toxic appearance. [] HENT: Normocephalic, atraumatic, bilateral external ears normal, oropharynx dry and erythematous, no oral exudates, nose normal. [] Eyes: PERRLA, EOMI, conjunctiva normal, no discharge. [] Neck: Normal range of motion, no tenderness, supple, no stridor. [] Cardiovascular: Heart rate regular rhythm, no murmur [] Lungs & Thorax: Bilateral breath sounds clear to auscultation [] Abdomen: Bowel sounds normal, soft, no tenderness, no masses, no pulsatile masses. [] Skin: Warm, dry, no erythema, no rash. [] Back: Chronic low back tenderness, no CVA tenderness. [] Extremities: No tenderness, no cyanosis, no clubbing, ROM intact, no edema. [] Neurologic: Alert and oriented X 3, normal motor function, normal sensory function, no focal deficits noted. [] Psychologic: Affect normal, judgement normal, mood normal. [] Current Patient Data: Vital Signs: Vital Signs Date Time Temp Pulse Resp B/P (MAP) Pulse Ox O2 Delivery O2 Flow Rate FiO2 01/04/22 23:05 97.7 65 18 117/77 (90) 97 Room Air EKG: EKG: [] Radiology/Procedures: Radiology/Procedures: [] Impressions: Exam: Chest one view INDICATION: Cough TECHNIQUE: Frontal view of the chest Comparisons: 12/11/2021 FINDINGS: The cardiomediastinal silhouette and pulmonary vessels are within normal limits. The lung and pleural spaces are clear. IMPRESSION: No acute cardiopulmonary process. Electronically signed by: Analisa Slaughter MD (01/04/2022 11:39 PM) [facility] DICTATED AND SIGNED BY: ANALISA SLAUGHTER MD DATE: 01/04/22 3207 CC: YANDEL ARREOLA DO; NASEEM RAMIREZ PA ~ Heart Score: C/O Chest Pain: N/A Risk Factors: Risk Factors: DM, Current or recent (<one month) smoker, HTN, HLP, family history of CAD, obesity. Risk Scores: Score 0 - 3: 2.5% MACE over next 6 weeks - Discharge Home Score 4 - 6: 20.3% MACE over next 6 weeks - Admit for Clinical Observation Score 7 - 10: 72.7% MACE over next 6 weeks - Early Invasive Strategies Course & Med Decision Making: Course & Med Decision Making Pertinent Labs and Imaging studies reviewed. (See chart for details) The patient's been given a liter normal saline as he appears mildly dehydrated. His labs are unremarkable except for a low potassium. We have given him oral replacement. I also gave him a small dose of morphine for his back pain. Chest x-ray is negative for pneumonia. He is negative for strep, influenza, COVID- 19. This is likely another viral illness. He is stable for discharge at this time. [] Dragon Disclaimer: Dragon Disclaimer: This electronic medical record was generated, in whole or in part, using a voice recognition dictation system. Departure Departure: Impression: Primary Impression: Viral syndrome Additional Impression: Hypokalemia Disposition: HOME / SELF CARE / HOMELESS Condition: STABLE Referrals: NASEEM RAMIREZ (PCP) Patient Instructions: Hypokalemia-Brief, Viral Syndrome YANDEL ARREOLA DO Jan 04, 2022 23:24
[2022-01-04] MEDS ORDERED: IV NORMAL SALINE 1,000ML 1,000 ML IV ONE (23:30)
[2022-01-04] MEDS ORDERED: MORPHINE SULFATE 4 MG/ML DISP.SYRIN. IV ONE (23:30)
--- NOTE | 2022-01-04 23:42 | RAD ---
Exam: Chest one view INDICATION: Cough TECHNIQUE: Frontal view of the chest Comparisons: 12/11/2021 FINDINGS: The cardiomediastinal silhouette and pulmonary vessels are within normal limits. The lung and pleural spaces are clear. IMPRESSION: No acute cardiopulmonary process. Electronically signed by: Kyung Brar MD (01/04/2022 11:39 PM) [facility]IR
[2022-01-05 00:04] LABS: BASO # 0.1 x10^3/uL (0.0-0.2); BASO % 1 % (0-3); EOS # 0.6 x10^3/uL (0.0-0.7); EOS % 5 % (0-3); HEMATOCRIT 36.5 % (39.0-53.0); HEMOGLOBIN 12.4 g/dL (13.0-17.5); LYMPH # 4.8 x10^3/uL (1.0-4.8); LYMPH % 42 % (24-48); MEAN CORPUSCULAR HEMOGLOBIN 32 pg (25-35); MEAN CORPUSCULAR HGB CONC 34 g/dL (31-37); MEAN CORPUSCULAR VOLUME 94 fL (79-100); MONO # 0.8 x10^3/uL (0.0-1.1); MONO % 7 % (0-9); NEUT # 5.1 x10^3uL (1.8-7.7); NEUT % 45 % (31-73); PLATELET COUNT 196 x10^3/uL (140-400); RED BLOOD COUNT 3.87 x10^6/uL (4.30-5.70); RED CELL DISTRIBUTION WIDTH 13.8 % (11.5-14.5); WHITE BLOOD COUNT 11.4 x10^3/uL (4.0-11.0)
[2022-01-05 00:27] LABS: INFLUENZA A PATIENT NEGATIVE (NEGATIVE); INFLUENZA B PATIENT NEGATIVE (NEGATIVE)
[2022-01-05 00:29] LABS: ALBUMIN 3.3 g/dL (3.4-5.0); ALBUMIN/GLOBULIN RATIO 0.9 (1.0-1.7); CALCIUM 8.8 mg/dL (8.5-10.1); CREATININE 1.4 mg/dL (0.7-1.3); GFR 54.1; TOTAL BILIRUBIN 0.4 mg/dL (0.2-1.0); TOTAL PROTEIN 6.8 g/dL (6.4-8.2)
[2022-01-05 00:30] LABS: POTASSIUM 2.8 mmol/L (3.5-5.1)
[2022-01-05] MEDS ORDERED: POTASSIUM CHLORIDE 20 MEQ TABLET.ER. PO ONE (00:30)
[2022-01-05] MEDS ORDERED: HYDR-2759 PO (00:44)
[2022-01-05 00:50] VITALS: BP 120/78
== END 2022-01-05 00:55 | disposition home or self-care (01) ==
LOC: ER 23:01
DX: B34.9 Viral infection, unspecified (principal); E87.6 Hypokalemia; F41.9 Anxiety disorder, unspecified; M19.90 Unspecified osteoarthritis, unspecified site; E11.9 Type 2 diabetes mellitus without complications; M79.7 Fibromyalgia; K21.9 Gastro-esophageal reflux disease without esophagitis; F17.210 Nicotine dependence, cigarettes, uncomplicated; Z20.822 Contact with and (suspected) exposure to COVID-19; Z90.89 Acquired absence of other organs; Z90.49 Acquired absence of other specified parts of digestive tract; Z88.1 Allergy status to other antibiotic agents; Z88.5 Allergy status to narcotic agent; Z88.8 Allergy status to other drugs, medicaments and biological substances
CPT/HCPCS: 36415; 71045; 80053; 85025; 87070; 87428; 87880; 96361; 96374; 99284; J2270; J7030

== ENCOUNTER 2022-01-08 22:31 | Emergency (ER) | payer BC, MEDICARE ==
[~2022-01-08] VITALS: Ht 167.6 cm; Wt 79.7 kg
[~2022-01-08 22:31] MED LIST changes: +HYDR-2759 PO
[2022-01-08] MEDS ORDERED: PRED20TA PO (22:54)
[2022-01-08] MEDS ORDERED: AMOX500T PO (22:54)
--- NOTE | 2022-01-08 22:54 | PHYS DOC ---
Past History Past Medical History: Anxiety, Arthritis, Bronchitis, Diabetes, Fibromyalgia, GERD, Pancreatitis, Prostatitis Additional Past Medical Histor: CROHNS, Chronic back pain Past Surgical History: Appendectomy, Cholecystectomy, Other Additional Past Surgical Histo: R-WRIST, LEFT KNEE, LEFT SHOULDER Smoking: Cigarettes, Greater than 1 pack/day Alcohol Use: None Drug Use: None General Adult EDM: Chief Complaint: SORE THROAT HPI: HPI: Patient is a 46-year-old male has had a sore throat for about a month. Patient does have some discomfort with swallowing both liquids and solids. He has had overall good oral intake though. No fever that he is aware of. No chest pain or shortness of breath. Review of Systems: Review of Systems: Constitutional: Denies fever Eyes: Denies change in visual acuity or eye pain HENT: Reports sore throat Respiratory: Denies shortness of breath Cardiovascular: Denies chest pain GI: Denies abd pain : Denies dysuria Musculoskeletal: Denies back or extremity injury Integument: Denies rash or skin lesions Neurologic: Denies headache, focal weakness or sensory changes All other systems were reviewed and found to be within normal limits, except as documented in this note. Allergies: Allergies: Allergies Coded Allergies Type Severity Reaction Last Updated Verified cephalexin Allergy Intermediate Rash 12/13/21 Yes lasmiditan Allergy Intermediate 12/13/21 Yes codeine Adverse Reaction Intermediate Migraine Headaches 12/13/21 Yes Physical Exam: PE: Constitutional: Well developed, well nourished, no acute distress, non-toxic appearance. HENT: Normocephalic, atraumatic, bilateral external ears normal, mucosa moist, nose normal, erythema of posterior oropharynx without exudate present. Eyes: EOMI, conjunctiva normal, no discharge. Neck: Normal range of motion, supple, no stridor, no meningeal signs. Cardiovascular: Regular rate and rhythm Lungs & Thorax: Bilateral breath sounds clear to auscultation Abdomen: Soft, no tenderness or obvious masses Skin: Warm, dry, no erythema, no rash. Extremities: No tenderness, no cyanosis, no clubbing, ROM intact, no edema. Neurologic: Alert and oriented, normal motor function, normal sensory function, no focal deficits noted. Psychologic: Affect normal, judgement normal, mood normal. Current Patient Data: Vital Signs: Vital Signs Date Time Temp Pulse Resp B/P (MAP) Pulse Ox O2 Delivery O2 Flow Rate FiO2 01/08/22 22:44 97.5 83 22 125/82 (96) 97 Room Air EKG: EKG: [] Radiology/Procedures: Radiology/Procedures: [] Heart Score: C/O Chest Pain: No Risk Factors: Risk Factors: DM, Current or recent (<one month) smoker, HTN, HLP, family history of CAD, obesity. Risk Scores: Score 0 - 3: 2.5% MACE over next 6 weeks - Discharge Home Score 4 - 6: 20.3% MACE over next 6 weeks - Admit for Clinical Observation Score 7 - 10: 72.7% MACE over next 6 weeks - Early Invasive Strategies Course & Med Decision Making: Course & Med Decision Making Pertinent Labs and Imaging studies reviewed. (See chart for details) [] Is a 46-year-old male with pharyngitis. Will start on amoxicillin and predni sone. He is stable for discharge. Dragon Disclaimer: Dragon Disclaimer: This electronic medical record was generated, in whole or in part, using a voice recognition dictation system. Departure Departure: Impression: Primary Impression: Pharyngitis Disposition: HOME / SELF CARE / HOMELESS Condition: STABLE Referrals: NASEEM RAMIREZ (PCP) Patient Instructions: Viral and Bacterial Pharyngitis Scripts Prednisone (PREDNISONE) 20 Mg Tablet 60 MG PO DAILY for bronchitis for 3 Days, #9 TAB Prov: ORA CHOUDHURY MD 01/08/22 Amoxicillin (AMOXICILLIN) 500 Mg Tablet 1 TAB PO TID for pharyngitis, #30 TAB Prov: ORA CHOUDHURY MD 01/08/22 ORA CHOUDHURY MD Jan 08, 2022 22:54
[2022-01-08] MEDS ORDERED: AMOXICILLIN 250 MG CAPSULE PO ONE (23:30)
[2022-01-08] MEDS ORDERED: predniSONE 20 MG TABLET PO ONE (23:30)
== END 2022-01-08 23:02 | disposition home or self-care (01) ==
LOC: ER 22:31
DX: J02.9 Acute pharyngitis, unspecified (principal); F41.9 Anxiety disorder, unspecified; M19.90 Unspecified osteoarthritis, unspecified site; E11.9 Type 2 diabetes mellitus without complications; M79.7 Fibromyalgia; K21.9 Gastro-esophageal reflux disease without esophagitis; G89.29 Other chronic pain; F17.210 Nicotine dependence, cigarettes, uncomplicated; Z88.1 Allergy status to other antibiotic agents; Z88.5 Allergy status to narcotic agent; Z88.8 Allergy status to other drugs, medicaments and biological substances
CPT/HCPCS: 99283; J7512

== ENCOUNTER 2022-01-13 20:34 | Emergency (ER) | payer BC, MEDICARE ==
[~2022-01-13] VITALS: Ht 167.6 cm; Wt 79.7 kg
[~2022-01-13 20:34] MED LIST changes: +AMOX500T PO; +PRED20TA PO
[2022-01-13 20:40] VITALS: BP 106/68
--- NOTE | 2022-01-13 20:55 | PHYS DOC ---
Past History Past Medical History: Anxiety, Arthritis, Bronchitis, Diabetes, Fibromyalgia, GERD, Kidney Stones, Pancreatitis, Prostatitis, Renal Disease, Sciatica Additional Past Medical Histor: CROHNS, Chronic back pain Past Surgical History: Appendectomy, Cholecystectomy, Other Additional Past Surgical Histo: R-WRIST, LEFT KNEE, LEFT SHOULDER Smoking: Cigarettes, Greater than 1 pack/day Alcohol Use: None Drug Use: None General Adult HPI: HPI: ".. I always have back pain... chronic.. but to night.. it is really severe.. I can't even have my shirt touch my back... " Patient is a 46 year old male who presents with above hx and complaints of severe Rt. sided back pain. Patient states pain is so severe he cannot hardly wear his shirt. On exam the patient back and does show a area of rash that is extremely sensitive to touch and follows the right dermatome L1. Has appearance of a herpes zoster or shingles.. Patient does have a history of chickenpox as a child. . Patient does have some findings of muscle spasm. No midline tenderness appreciated. Patient does have a history of chronic back pain, Crohn's disease, idiopathic pancreatitis, chronic kidney disease, chronic sinusitis,. Tobacco dependency fibromyalgia, kidney stones, renal colic,. Patient has had some history suggestive of possible narcotic seeking behaviors and frequent ED evaluations. Extensive left to ED evaluations for pain complaints. Patient has past surgical history cholecystectomy, left knee arthroplasty, left shoulder, EGDs, colonoscopies, left clavicle fracture repair, .. Patient denies use of alcohol or illicit drugs. Is on a medical disability. Normally follows with [facility] for care. Review of Systems: Review of Systems: Constitutional: Denies fever or chills Eyes: Denies change in visual acuity HENT: Denies nasal congestion or sore throat Respiratory: Denies cough or shortness of breath Cardiovascular: Denies chest pain or edema GI: Denies abdominal pain, nausea, vomiting, bloody stools or diarrhea : Denies dysuria Musculoskeletal: Complains of severe back pain Integument: Denies rash Neurologic: Denies headache, focal weakness or sensory changes Endocrine: Denies polyuria or polydipsia Lymphatic: Denies swollen glands Psychiatric: Denies depression or anxiety Family History: Family History: Has an older brother live healthy. 1 sister in a motor vehicle accident. One sister has mental illness issues. Father had MT at age 65 mother in the 70s and history of myocardial friction. Current Medications: Current Meds: See nursing for home meds Allergies: Allergies: Allergies Coded Allergies Type Severity Reaction Last Updated Verified cephalexin Allergy Intermediate Rash 12/13/21 Yes lasmiditan Allergy Intermediate 12/13/21 Yes codeine Adverse Reaction Intermediate Migraine Headaches 12/13/21 Yes Physical Exam: PE: Constitutional: Marked acute distress, non-toxic appearance. [] HENT: Normocephalic, atraumatic, bilateral external ears normal, oropharynx moist, no oral exudates, nose normal. [] Eyes: PERRLA, EOMI, conjunctiva normal, no discharge. Glasses Neck: Normal range of motion, no tenderness, supple, no stridor. [] Cardiovascular:Heart rate regular rhythm, no murmur []. PMI to left Lungs & Thorax: Bilateral breath sounds clear to auscultation [] Abdomen: Bowel sounds normal, soft, no tenderness, no masses, no pulsatile masses. Old surgery scars. Stretch [place]. Skin: Warm, dry, right-sided dermatome lesion consistent with shingles or zoster. -Dermatone L1 Rt. Back: Lower thoracic and lumbar muscle tenderness, no CVA tenderness. [] Some findings of sciatic nerve tenderness bilaterally on palpation. Extremities: No tenderness, no cyanosis, no clubbing, ROM intact, no edema. Able do straight leg lift sitting position without significant exacerbation of back pain. Left knee scar. Left shoulder scar. Neurologic: Alert and oriented X 3, moves all extremities on request, has distal sensory,, no new focal deficits noted. [] Psychologic: Affect anxious, judgement normal, mood normal. [] EKG: EKG: [] Radiology/Procedures: Radiology/Procedures: [] Heart Score: C/O Chest Pain: N/A Risk Factors: Risk Factors: DM, Current or recent (<one month) smoker, HTN, HLP, family history of CAD, obesity. Risk Scores: Score 0 - 3: 2.5% MACE over next 6 weeks - Discharge Home Score 4 - 6: 20.3% MACE over next 6 weeks - Admit for Clinical Observation Score 7 - 10: 72.7% MACE over next 6 weeks - Early Invasive Strategies Course & Med Decision Making: Course & Med Decision Making Pertinent Labs and Imaging studies reviewed. (See chart for details) Patient try use of lidocaine pain patches in area of dermatome or zoster lesion. Patient take home meds as directed. For severe pain patient may take Vicoprofen up to 4 times a day. Patient may take Flexeril 10 mg up to 3 times a day for muscle spasms. Patient did take Valtrex 1000 mg 3 times daily for 10 days. Follow-up primary care. Return if any concerns. Patient encouraged to stop smoking. Patient eat potassiumrich foods and fruit juices such as orange juice juice etc. follow-up with [facility] review ED evaluation and treatment. Impression: 1. Acute on chronic back pain 2. Herpetic zoster right lumbar sacral L1 dermatome 3. Mild hypokalemia 3.1 4. Mild leukocytosis 14.2 [] Dragon Disclaimer: Dragon Disclaimer: This electronic medical record was generated, in whole or in part, using a voice recognition dictation system. Departure Departure: Referrals: NASEEM RAMIREZ (PCP) Scripts Hydrocodone/Ibuprofen (HYDROCODONE-IBUPROFEN 7.5-200 ) 1 Each Tablet 1 TAB PO PRN Q6HRS PRN for PAIN, #30 TAB 0 Refills Prov: PRATIK DE LEON MD 01/13/22 Lidocaine (Lidocaine PATCH ) 1 Each Adh..patch 1 EACH TP DAILY for FOR LOCAL PAIN, #30 PATCH REMOVE AFTER 12 HOURS Prov: PRATIK DE LEON MD 01/13/22 Cyclobenzaprine Hcl (CYCLOBENZAPRINE HCL) 10 Mg Tablet 10 MG PO TID PRN PRN for MUSCLE SPASMS, #30 TAB Prov: PRATIK DE LEON MD 01/13/22 Valacyclovir Hcl (VALTREX) 1,000 Mg Tablet 1000 MG PO TID for zoster for 10 Days, #30 TAB Prov: PRATIK DE LEON MD 01/13/22 Dragon Disclaimer This chart was dictated in whole or in part using Voice Recognition software in a busy, high-work load, and often noisy Emergency Department environment. It may contain unintended and wholly unrecognized errors or omissions. PRATIK DE LEON MD Jan 13, 2022 20:55
[2022-01-13] MEDS ORDERED: PATCH REMOVAL. MC SCH (21:00)
[2022-01-13] MEDS ORDERED: LIDO700A21 TP (21:21)
[2022-01-13] MEDS ORDERED: VALA10005 PO (21:21)
[2022-01-13] MEDS ORDERED: HYDR-1179 PO (21:21)
[2022-01-13] MEDS ORDERED: CYCL10TA19 PO (21:21)
[2022-01-13 22:06] LABS: BASO # 0.1 x10^3/uL (0.0-0.2); BASO % 0 % (0-3); EOS # 0.1 x10^3/uL (0.0-0.7); EOS % 1 % (0-3); HEMATOCRIT 39.7 % (39.0-53.0); HEMOGLOBIN 13.7 g/dL (13.0-17.5); LYMPH % 35 % (24-48); MEAN CORPUSCULAR HEMOGLOBIN 32 pg (25-35); MEAN CORPUSCULAR HGB CONC 35 g/dL (31-37); MEAN CORPUSCULAR VOLUME 94 fL (79-100); MONO # 0.6 x10^3/uL (0.0-1.1); MONO % 5 % (0-9); NEUT # 8.4 x10^3uL (1.8-7.7); NEUT % 59 % (31-73); PLATELET COUNT 226 x10^3/uL (140-400); RED BLOOD COUNT 4.22 x10^6/uL (4.30-5.70); RED CELL DISTRIBUTION WIDTH 13.6 % (11.5-14.5); WHITE BLOOD COUNT 14.2 x10^3/uL (4.0-11.0)
[2022-01-13 22:14] LABS: CALCIUM 8.7 mg/dL (8.5-10.1); CREATININE 1.5 mg/dL (0.7-1.3); GFR 49.9; POTASSIUM 3.1 mmol/L (3.5-5.1)
[2022-01-13 22:20] LABS: ALBUMIN 3.5 g/dL (3.4-5.0); DIRECT BILIRUBIN 0.2 mg/dL (0.0-0.2); TOTAL BILIRUBIN 0.4 mg/dL (0.2-1.0); TOTAL PROTEIN 7.1 g/dL (6.4-8.2)
[2022-01-13] MEDS: ACYCLOVIR 200 MG CAPSULE PO ONE (22:28)
[2022-01-13] MEDS: MORPHINE SULFATE 10 MG/ML SYRINGE. SQ ONE (22:29)
[2022-01-13] MEDS: KETOROLAC 60 MG/2 ML VIAL. IM ONE (22:29)
[2022-01-13] MEDS: ORPHENADRINE CITRATE 60 MG/2 ML VIAL. IM ONE (22:30)
[2022-01-13] MEDS: LIDOCAINE (700MG/PATCH) PATCH. TD ONE (23:15)
[2022-01-13] MEDS: POTASSIUM CHLORIDE 20 MEQ TABLET.ER. PO ONE (23:15)
== END 2022-01-13 23:20 | disposition home or self-care (01) ==
LOC: ER 20:34
DX: G89.29 Other chronic pain (principal); B02.8 Zoster with other complications; D72.829 Elevated white blood cell count, unspecified; E87.6 Hypokalemia; F41.9 Anxiety disorder, unspecified; M19.90 Unspecified osteoarthritis, unspecified site; E11.9 Type 2 diabetes mellitus without complications; M79.7 Fibromyalgia; K21.9 Gastro-esophageal reflux disease without esophagitis; F17.210 Nicotine dependence, cigarettes, uncomplicated; Z87.442 Personal history of urinary calculi; Z90.49 Acquired absence of other specified parts of digestive tract; Z90.89 Acquired absence of other organs; Z96.652 Presence of left artificial knee joint; Z88.1 Allergy status to other antibiotic agents; Z88.5 Allergy status to narcotic agent; Z88.8 Allergy status to other drugs, medicaments and biological substances
CPT/HCPCS: 36415; 80048; 80076; 85025; 96372; 99284; J1885; J2270; J2360

== ENCOUNTER 2022-01-20 20:30 | Emergency (ER) | payer BC, MEDICARE ==
[~2022-01-20] VITALS: Ht 167.6 cm; Wt 77.4 kg
[~2022-01-20 20:30] MED LIST changes: +VALA10005 PO
--- NOTE | 2022-01-20 20:39 | PHYS DOC ---
Past History Past Medical History: Anxiety, Arthritis, Bronchitis, Diabetes, Fibromyalgia, GERD, Kidney Stones, Pancreatitis, Prostatitis, Renal Disease, Sciatica Additional Past Medical Histor: CROHNS, Chronic back pain Past Surgical History: Appendectomy, Cholecystectomy, Other Additional Past Surgical Histo: R-WRIST, LEFT KNEE, LEFT SHOULDER Smoking: Cigarettes, Greater than 1 pack/day Alcohol Use: None Drug Use: None Adult General HPI HPI Patient is a 46-year-old male who presents to the emergency department with a chief complaint of cough for the last 2 days with a little bit of increased mucus. Denies any recent trauma, travels, fevers, chest pain, shortness of breath, abdominal pain, nausea, vomiting, diarrhea. Denies any dysuria, hematuria, blood in the stool. Denies any numbness/weakness/tingling. Denies any trouble sitting, standing or walking Review of Systems Review of Systems Review of systems otherwise unremarkable except noted in HPI Allergies Allergies Allergies Coded Allergies Type Severity Reaction Last Updated Verified cephalexin Allergy Intermediate Rash 12/13/21 Yes lasmiditan Allergy Intermediate 12/13/21 Yes codeine Adverse Reaction Intermediate Migraine Headaches 12/13/21 Yes Physical Exam Physical Exam Constitutional: Well developed, well nourished, no acute distress, non-toxic appearance. [] HENT: Normocephalic, atraumatic, bilateral external ears normal, oropharynx moist, no oral exudates, nose normal. [] Eyes:conjunctiva normal, no discharge. [] Neck: Normal range of motion, no tenderness, supple, no stridor. [] Cardiovascular:Heart rate regular rhythm, no murmur [] Lungs & Thorax: Mild bilateral upper respiratory congestion with no wheeze and no respiratory distress Abdomen: soft, no tenderness, no masses, no pulsatile masses. [] Skin: Warm, dry, no erythema, no rash. [] Back: No tenderness, Extremities: No tenderness, no cyanosis, no clubbing, ROM intact, no edema. [] Neurologic: Alert and oriented X 3, normal motor function, normal sensory function, able to sit, stand and walk without issue no focal deficits noted. [] Psychologic: Affect normal, judgement normal, mood normal. [] EKG EKG [] Radiology/Procedures Radiology/Procedures [] Heart Score C/O Chest Pain: No Risk Factors: Risk Factors: DM, Current or recent (<one month) smoker, HTN, HLP, family history of CAD, obesity. Risk Scores: Risk Factors: DM, Current or recent (<one month) smoker, HTN, HLP, family histo ry of CAD, obesity. Course & Med Decision Making Course & Med Decision Making Patient is a 46-year-old male who presents with cough Vital signs nonconcerning. Physical exam noted above. Given cough medicine. Chest x-ray nonconcerning for consolidation. Discussed all findings with patient. Discussed symptom treatment at home. Advised to follow-up in the morning with primary care physician. Discussed ceasing smoking of tobacco Gave return precautions to the ED. Patient grateful, verbalized understanding and agreed with plan of discharge. [] Dragon Disclaimer Dragon Disclaimer This electronic medical record was generated, in whole or in part, using a voice recognition dictation system. Departure Departure: Impression: Primary Impression: Cough Additional Impression: Viral syndrome Disposition: HOME / SELF CARE / HOMELESS Condition: STABLE Referrals: NASEEM RAMIREZ (PCP) Patient Instructions: Cough, Adult Additional Instructions: Thank for coming into the emergency department tonight and allowing us to take care of you. Please read the attached information carefully to go over things we discussed. You can continue [id number] Tylenol, ibuprofen and a good cough medicine such as Delsym. Please follow-up with your primary care physician as soon as you can update on your ED visit and set up a follow-up. Please contact with new or concerning symptoms as discussed. Problem Qualifiers GHAZALA DANIELSON MD Jan 20, 2022 20:39
[2022-01-20] MEDS: guaiFENesin DM 200MG/20MG 10 ML SYRUP PO ONE (21:10)
[2022-01-20 21:13] VITALS: BP 122/76
--- NOTE | 2022-01-20 21:53 | RAD ---
XR CHEST 1V INDICATION: cough COMPARISON STUDY: 01/04/2022. FINDINGS: Lungs: Normal lung volume. No pulmonary mass or consolidation. The tracheobronchial tree and hilar st ructures are normal. Pleura: No pleural effusion or pneumothorax. Heart and Mediastinum: The cardiomediastinal silhouette is normal. The great vessels of the thorax ar e normal. Bones and Soft Tissues: The bones and soft tissues are within normal limits. IMPRESSION: No acute cardiopulmonary process. Electronically signed by: Gus Bryant MD (01/20/2022 9:50 PM) [facility]ITAL[facility]
== END 2022-01-20 21:15 | disposition home or self-care (01) ==
LOC: ER 20:30
DX: B34.9 Viral infection, unspecified (principal); M19.90 Unspecified osteoarthritis, unspecified site; E11.9 Type 2 diabetes mellitus without complications; M79.7 Fibromyalgia; K21.9 Gastro-esophageal reflux disease without esophagitis; G89.29 Other chronic pain; F17.210 Nicotine dependence, cigarettes, uncomplicated; Z87.442 Personal history of urinary calculi; Z90.89 Acquired absence of other organs; Z90.49 Acquired absence of other specified parts of digestive tract; Z88.1 Allergy status to other antibiotic agents; Z88.5 Allergy status to narcotic agent; Z88.8 Allergy status to other drugs, medicaments and biological substances
CPT/HCPCS: 71045; 99283

== ENCOUNTER 2022-02-08 17:19 | Emergency (ER) | payer BC, MEDICARE ==
[~2022-02-08] VITALS: Ht 167.6 cm; Wt 77.4 kg
[2022-02-08 17:52] VITALS: BP 100/66
[2022-02-08] MEDS ORDERED: IOHEXOL 300 MG/ML 75 ML VIAL. IV ONE (18:00)
[2022-02-08] MEDS ORDERED: ONDANSETRON PF 4 MG/2 ML VIAL. IVP ONE (18:00)
[2022-02-08] MEDS ORDERED: IV NORMAL SALINE 1,000ML 1,000 ML IV SCH (18:00)
--- NOTE | 2022-02-08 18:02 | PHYS DOC ---
Past History Past Medical History: Anxiety, Arthritis, Bronchitis, Diabetes, Fibromyalgia, GERD, Kidney Stones, Pancreatitis, Prostatitis, Renal Disease, Sciatica Additional Past Medical Histor: CROHNS, Chronic back pain (WALTER FLORES APRN) Past Surgical History: Appendectomy, Cholecystectomy, Other Additional Past Surgical Histo: R-WRIST, LEFT KNEE, LEFT SHOULDER (WALTER FLORES APRN) Smoking: Cigarettes, Greater than 1 pack/day Alcohol Use: None Drug Use: None (WALTER FLORES APRN) General Adult EDM: Chief Complaint: ABDOMINAL PAIN HPI: HPI: Patient is a 46-year-old male who presents to the emergency department for bilateral lower abdominal pain that started last Tuesday. Patient has a history of chronic pancreatitis and Crohn's. He rates his pain 10 out of 10. Reports taking Tylenol and Advil at 1300. Patient is reporting nausea and vomiting. He reports that he put himself on a clear liquid diet when his pain started but is not resolved his pain. Patient denies any alcohol use. Denies any diarrhea, fevers or urinary symptoms. (WALTER FLORES APRN) Review of Systems: Review of Systems: Constitutional: See HPI GI: See HPI : See HPI (WALTER FLORES APRN) Current Medications: Current Meds: Current Medications Medications (Trade) Dose Ordered Sig/Monty Start Time Stop Time Status Last Admin Dose Admin Fentanyl Citrate (Fentanyl 2ml Vial) 50 mcg 1X ONCE 02/08/22 18:00 02/08/22 18:01 UNV Ondansetron HCl (Zofran) 4 mg 1X ONCE 02/08/22 18:00 02/08/22 18:01 UNV Sodium Chloride 1,000 ml @ 1,000 mls/hr Q1H 02/08/22 18:00 02/08/22 18:59 UNV (WALTER FLORES APRN) Allergies: Allergies: Allergies Coded Allergies Type Severity Reaction Last Updated Verified cephalexin Allergy Intermediate Rash 12/13/21 Yes lasmiditan Allergy Intermediate 12/13/21 Yes codeine Adverse Reaction Intermediate Migraine Headaches 12/13/21 Yes (WALTER FLORES APRN) Physical Exam: PE: Constitutional: Well developed, well nourished, no acute distress, non-toxic appearance. [] HENT: Normocephalic, atraumatic, bilateral external ears normal, oropharynx moist, no oral exudates, nose normal. [] Eyes: PERRL, EOMI, conjunctiva normal, no discharge. [] Neck: Normal range of motion, no tenderness, supple, no stridor. [] Cardiovascular:Heart rate regular rhythm, no murmur [] Lungs & Thorax: Bilateral breath sounds clear to auscultation [] Abdomen: Bowel sounds normal, soft, no abdominal guarding or rigidity, epigastric/left upper and left lower abdominal tenderness with palpation,, no masses, no pulsatile masses. [] Skin: Warm, dry, no erythema, no rash. [] Back: No tenderness, no CVA tenderness. [] Extremities: No tenderness, no cyanosis, no clubbing, ROM intact, no edema. [] Neurologic: Alert and oriented X 3, normal motor function, normal sensory function, no focal deficits noted. [] Psychologic: Affect normal, judgement normal, mood normal. [] (WALTER FLORES APRN) Current Patient Data: Labs: Laboratory Tests Test 02/08/22 18:26 White Blood Count 11.7 x10^3/uL Red Blood Count 3.74 x10^6/uL Hemoglobin 12.5 g/dL Hematocrit 36.5 % Mean Corpuscular Volume 98 fL Mean Corpuscular Hemoglobin 34 pg Mean Corpuscular Hemoglobin Concent 34 g/dL Red Cell Distribution Width 14.7 % Platelet Count 193 x10^3/uL Neutrophils (%) (Auto) 41 % Lymphocytes (%) (Auto) 45 % Monocytes (%) (Auto) 8 % Eosinophils (%) (Auto) 6 % Basophils (%) (Auto) 1 % Neutrophils # (Auto) 4.8 x10^3uL Lymphocytes # (Auto) 5.3 x10^3/uL Monocytes # (Auto) 0.9 x10^3/uL Eosinophils # (Auto) 0.7 x10^3/uL Basophils # (Auto) 0.1 x10^3/uL Sodium Level 135 mmol/L Potassium Level 3.4 mmol/L Chloride Level 102 mmol/L Carbon Dioxide Level 24 mmol/L Anion Gap 9 Blood Urea Nitrogen 15 mg/dL Creatinine 1.5 mg/dL Estimated GFR (Cockcroft-Gault) 49.9 BUN/Creatinine Ratio 10 Glucose Level 129 mg/dL Calcium Level 8.4 mg/dL Total Bilirubin 0.4 mg/dL Aspartate Amino Transf (AST/SGOT) 30 U/L Alanine Aminotransferase (ALT/SGPT) 59 U/L Alkaline Phosphatase 179 U/L Total Protein 6.1 g/dL Albumin 3.1 g/dL Albumin/Globulin Ratio 1.0 Lipase 95 U/L Current Medications Medications (Trade) Dose Ordered Sig/Monty Route PRN Reason Start Time Stop Time Status Last Admin Dose Admin Sodium Chloride 1,000 ml @ 1,000 mls/hr Q1H IV 02/08/22 18:00 02/08/22 18:59 DC 02/08/22 18:22 Fentanyl Citrate (Fentanyl 2ml Vial) 50 mcg 1X ONCE IVP 02/08/22 18:00 02/08/22 18:01 DC 02/08/22 18:23 Ondansetron HCl (Zofran) 4 mg 1X ONCE IVP 02/08/22 18:00 02/08/22 18:01 DC 02/08/22 18:23 Iohexol (Omnipaque 300 Mg/ml) 75 ml 1X ONCE IV 02/08/22 18:00 02/08/22 18:01 DC 02/08/22 18:14 Fentanyl Citrate (Fentanyl 2ml Vial) 50 mcg 1X ONCE IVP 02/08/22 19:15 02/08/22 19:24 DC 02/08/22 19:46 Vital Signs: Vital Signs Date Time Temp Pulse Resp B/P (MAP) Pulse Ox O2 Delivery O2 Flow Rate FiO2 02/08/22 17:52 91 18 100/66 (77) 96 (WALTER FLORES APRN) EKG: EKG: [] (WALTER FLORES APRN) Radiology/Procedures: Radiology/Procedures: []REASON: abdominal pain hx pancreatitis PROCEDURE: CT ABDOMEN PELVIS WO CONTRAST EXAM: CT Abdomen and Pelvis without IV contrast CLINICAL HISTORY: Reason: abdominal pain hx pancreatitis / Spl. Instructions: / History: . COMPARISON: none TECHNIQUE: Helical CT of the abdomen and pelvis without intravenous contrast. Axial, coronal and sagittal reformatted images were generated. PQRS compliance statement - One or more of the following individualized dose reduction techniques were utilized for this study: 1. Automated exposure control 2. Adjustment of the mA and/or kV according to patient size 3. Use of iterative reconstruction technique FINDINGS: Lack of intravenous contrast limits evaluation of solid organs, vasculature, and lymph nodes. Lower chest: Linear opacities in the lingula likely scarring/atelectasis. Abdomen and Pelvis: 2.7 cm posterior right hepatic lobe lesion is stable to 12/01/2021. Cholecystectomy clips are seen. Spleen is unremarkable. Adrenal glands are unremarkable. Pancreatic head calcifications are seen. Pancreas is otherwise unremarkable. High density renal lesions, hemorrhagic or proteinaceous cysts are again seen. No hydronephrosis. No hydroureter. Bladder wall thickening likely cystitis. Moderate colonic stool content is seen. No small or large bowel dilatation. No bowel obstruction. Appendix is not convincingly seen although no pericecal inflammatory change. Fat-containing left inguinal hernia. No abdominal or pelvic ascites. No abdominal or pelvic lymphadenopathy. Bones: No aggressive osseous lesion is seen. IMPRESSION: 1. There is mild bladder wall thickening which may be seen with cystitis and can be correlated with urinalysis. 2. No evidence for acute pancreatitis. Calcifications of the pancreatic head likely from prior pancreatitis. 3. Moderate colonic stool content is seen. No bowel obstruction. 4. Indeterminate posterior right hepatic lobe lesion, stable. Electronically signed by: Elia Maciel MD (02/08/2022 8:50 PM) [facility] DICTATED AND SIGNED BY: ELIA MACIEL MD DATE: 02/08/222037 CC: [facility]; WALTER FLORES APRN ~ (WALTER FLORES APRN) Heart Score: C/O Chest Pain: N/A Risk Factors: Risk Factors: DM, Current or recent (<one month) smoker, HTN, HLP, family history of CAD, obesity. Risk Scores: Score 0 - 3: 2.5% MACE over next 6 weeks - Discharge Home Score 4 - 6: 20.3% MACE over next 6 weeks - Admit for Clinical Observation Score 7 - 10: 72.7% MACE over next 6 weeks - Early Invasive Strategies (WALTER FLORES APRN) Course & Med Decision Making: Course & Med Decision Making Pertinent Labs and Imaging studies reviewed. (See chart for details) [] Patient resents to the emergency department for lower abdominal pain started last Tuesday with nausea and vomiting. Patient has a history of pancreatitis and Crohn's. Patient's blood work is mostly unremarkable. His creatinine was 1.5 which is consistent with previous findings. Negative lipase. Urinalysis does not show any urinary tract infection. Patient's potassium was mildly decreased and this was replaced in the ER with supplementation. CT imaging showed bladder wall thickening which is likely nonspecific. Patient does not have any signs of acute pancreatitis and does have moderate stool content. Patient was given multiple doses of pain medication while in the emergency department. He was also given IV fluids and nausea medication. I offered admission for patient for intractable abdominal pain which he declined stating that he had to go to a tomorrow and could not be admitted. Patient given an additional dose of pain medication prior to discharge. Patient advised to follow-up with his primary care provider. I discussed with patient all findings and diagnostic testing as well as the need to follow-up with PCP for further evaluation and treatment or return to the ER if any new or worsening symptoms. Strict return precautions were also discussed at length. Patient voiced understanding and agreement with the plan. Patient is hemodynamically stable at the time of disposition. (WALTER FLORES APRN) Dragon Disclaimer: Dragon Disclaimer: This electronic medical record was generated, in whole or in part, using a voice recognition dictation system. (WALTER FLORES APRN) Attending Co-Sign The patient was seen and interviewed as well as examined at the bedside. The chart was reviewed. The case was discussed. Agree with the plan of care. (YANDEL ARREOLA DO) Departure Departure: Impression: Primary Impression: Chronic abdominal pain Disposition: HOME / SELF CARE / HOMELESS Condition: GOOD Referrals: NASEEM RAMIREZ (PCP) Patient Instructions: Abdominal Pain Additional Instructions: You were seen in the emergency department today for abdominal pain. Your blood work was mostly unremarkable. Your potassium was mildly decreased which was r eplaced with supplementation. Please make sure that you are eating potassium rich foods like green leafy vegetables and bananas. You are also noted to have a moderate amount of stool, you may benefit from MiraLAX daily. Increase your fluids. If you require additional pain management, please follow-up with your primary care provider. I would advise you to contact your primary care provider tomorrow. Return to the emergency department if you develop worsening of your abdominal pain, intractable nausea or vomiting, high fevers refractory to treatment, blood in your stools or vomit. WALTER FLORES APRN February 08, 2022 18:02 YANDEL ARREOLA DO February 10, 2022 06:36
[2022-02-08 19:30] LABS: CALCIUM 8.4 mg/dL (8.5-10.1); CREATININE 1.5 mg/dL (0.7-1.3); GFR 49.9; POTASSIUM 3.4 mmol/L (3.5-5.1)
[2022-02-08 19:43] LABS: ALBUMIN 3.1 g/dL (3.4-5.0); TOTAL BILIRUBIN 0.4 mg/dL (0.2-1.0); TOTAL PROTEIN 6.1 g/dL (6.4-8.2)
[2022-02-08 19:45] LABS: HEMATOCRIT 36.5 % (39.0-53.0); HEMOGLOBIN 12.5 g/dL (13.0-17.5); MEAN CORPUSCULAR HEMOGLOBIN 34 pg (25-35); MEAN CORPUSCULAR HGB CONC 34 g/dL (31-37); MEAN CORPUSCULAR VOLUME 98 fL (79-100); RED BLOOD COUNT 3.74 x10^6/uL (4.30-5.70); WHITE BLOOD COUNT 11.7 x10^3/uL (4.0-11.0)
[2022-02-08 19:46] LABS: BASO # 0.1 x10^3/uL (0.0-0.2); BASO % 1 % (0-3); EOS # 0.7 x10^3/uL (0.0-0.7); EOS % 6 % (0-3); LYMPH # 5.3 x10^3/uL (1.0-4.8); LYMPH % 45 % (24-48); MONO # 0.9 x10^3/uL (0.0-1.1); MONO % 8 % (0-9); NEUT # 4.8 x10^3uL (1.8-7.7); NEUT % 41 % (31-73); PLATELET COUNT 193 x10^3/uL (140-400); RED CELL DISTRIBUTION WIDTH 14.7 % (11.5-14.5)
--- NOTE | 2022-02-08 20:52 | RAD ---
EXAM: CT Abdomen and Pelvis without IV contrast CLINICAL HISTORY: Reason: abdominal pain hx pancreatitis / Spl. Instructions: / History: . COMPARISON: none TECHNIQUE: Helical CT of the abdomen and pelvis without intravenous contrast. Axial, coronal and sagi ttal reformatted images were generated. PQRS compliance statement - One or more of the following individualized dose reduction techniques wer e utilized for this study: 1. Automated exposure control 2. Adjustment of the mA and/or kV according to patient size 3. Use of iterative reconstruction technique FINDINGS: Lack of intravenous contrast limits evaluation of solid organs, vasculature, and lymph nodes. Lower chest: Linear opacities in the lingula likely scarring/atelectasis. Abdomen and Pelvis: 2.7 cm posterior right hepatic lobe lesion is stable to 12/01/2021. Cholecystectomy clips are seen. Spl een is unremarkable. Adrenal glands are unremarkable. Pancreatic head calcifications are seen. Pancre as is otherwise unremarkable. High density renal lesions, hemorrhagic or proteinaceous cysts are again seen. No hydronephrosis. No hydroureter. Bladder wall thickening likely cystitis. Moderate colonic stool content is seen. No small or large bowel dilatation. No bowel obstruction. Farhat endix is not convincingly seen although no pericecal inflammatory change. Fat-containing left inguina l hernia. No abdominal or pelvic ascites. No abdominal or pelvic lymphadenopathy. Bones: No aggressive osseous lesion is seen. IMPRESSION: 1. There is mild bladder wall thickening which may be seen with cystitis and can be correlated with urinalysis. 2. No evidence for acute pancreatitis. Calcifications of the pancreatic head likely from prior pancr eatitis. 3. Moderate colonic stool content is seen. No bowel obstruction. 4. Indeterminate posterior right hepatic lobe lesion, stable. Electronically signed by: Elia Jimenes MD (02/08/2022 8:50 PM) [facility]
[2022-02-08 21:22] LABS: BACTERIA,URINE 0 /HPF (0-FEW); CLARITY,URINE CLEAR; COLOR,URINE YELLOW; GLUCOSE,URINE NEG (NEG); NITRITE,URINE NEG (NEG); RBC,URINE 0 /HPF (0-2); UROBILINOGEN,URINE 0.2 mg/dL (0.2 mg/dL); WBC,URINE 0 /HPF (0-4)
[2022-02-08] MEDS ORDERED: POTASSIUM CHLORIDE 20 MEQ TABLET.ER. PO ONE (21:30)
[2022-02-08] MEDS ORDERED: MORPHINE SULFATE 4 MG/ML DISP.SYRIN. IV ONE (21:30)
== END 2022-02-08 22:22 | disposition home or self-care (01) ==
LOC: ER 17:19
DX: G89.29 Other chronic pain (principal); R10.31 Right lower quadrant pain; R10.32 Left lower quadrant pain; R11.2 Nausea with vomiting, unspecified; M19.90 Unspecified osteoarthritis, unspecified site; E11.9 Type 2 diabetes mellitus without complications; M79.7 Fibromyalgia; K21.9 Gastro-esophageal reflux disease without esophagitis; F17.210 Nicotine dependence, cigarettes, uncomplicated; Z87.442 Personal history of urinary calculi; Z90.89 Acquired absence of other organs; Z90.49 Acquired absence of other specified parts of digestive tract; Z88.5 Allergy status to narcotic agent; Z88.1 Allergy status to other antibiotic agents; Z88.8 Allergy status to other drugs, medicaments and biological substances
CPT/HCPCS: 36415; 74176; 80053; 81001; 83690; 85025; 96361; 96374; 96375; 96376; 99284; J2270; J2405; J3010; J7030; Q9967

== ENCOUNTER 2022-02-17 20:37 | Emergency (ER) | payer BC, MEDICARE ==
[~2022-02-17] VITALS: Ht 167.6 cm; Wt 77.4 kg
--- NOTE | 2022-02-17 20:44 | PHYS DOC ---
Past History Past Medical History: Anxiety, Arthritis, Bronchitis, Diabetes, Fibromyalgia, GERD, Kidney Stones, Pancreatitis, Prostatitis, Renal Disease, Sciatica Additional Past Medical Histor: CROHNS, Chronic back pain Past Surgical History: Appendectomy, Cholecystectomy, Other Additional Past Surgical Histo: R-WRIST, LEFT KNEE, LEFT SHOULDER Smoking: Cigarettes, Greater than 1 pack/day Alcohol Use: None Drug Use: None General Adult HPI: HPI: ".. I am having a lot of abdomen pain tonight... It is probablly my Crohn's or my chronic pancreatitis.." Patient is a 46 year old male who presents with above hx and complaints of generalized abdomen pain. Patient denies any intake of bad food. No recent travel. No specific ill contacts. Has been taking home meds as directed. Patient does have significant past history of Crohn's disease with frequent exacerbations. Patient also has history of recurrent idiopathic pancreatitis, chronic kidney disease, chronic sinusitis, type 2 diabetes.. Patient has had previous abdomen surgeries of cholecystectomy. Has had a hemiarthroplasty, EGDs, colonoscopies, and an laparoscopic evaluations. Patient has no other brother who is healthy. 1 sister in a motor vehicle accident. Another sister has mental health problems. Father age 65 from [place]. Mother age 72 because of [place]. Patient does continue to smoke at least a pack a day. Does not drink alcohol or use recreational drugs. Patient is on medical disability. Patient normally follows with [facility] for care. Review of Systems: Review of Systems: Constitutional: Denies fever or chills Eyes: Denies change in visual acuity HENT: Denies nasal congestion or sore throat Respiratory: Denies cough or shortness of breath Cardiovascular: Denies chest pain or edema GI: Planes of generalized abdominal pain, nausea, vomiting. Denies, bloody stools or diarrhea : Denies dysuria Musculoskeletal: Denies back pain or joint pain Integument: Denies rash Neurologic: Denies headache, focal weakness or sensory changes Endocrine: Denies polyuria or polydipsia Lymphatic: Denies swollen glands Psychiatric: Denies depression or anxiety Family History: Family History: Noncontributory to presentation Current Medications: Current Meds: See nursing for home meds Allergies: Allergies: Allergies Coded Allergies Type Severity Reaction Last Updated Verified cephalexin Allergy Intermediate Rash 12/13/21 Yes lasmiditan Allergy Intermediate 12/13/21 Yes codeine Adverse Reaction Intermediate Migraine Headaches 12/13/21 Yes Physical Exam: PE: Constitutional: Moderate acute distress, non-toxic appearance. [] HENT: Normocephalic, atraumatic, bilateral external ears normal, oropharynx moist, no oral exudates, nose normal. [] Eyes: PERRLA, EOMI, conjunctiva normal, no discharge. [] Neck: Normal range of motion, no tenderness, supple, no stridor. [] Cardiovascular:Heart rate regular rhythm, no murmur [] Lungs & Thorax: Bilateral breath sounds equal apex with scattered wheezes auscultation [] Abdomen: Bowel sounds decreased, soft, generalized tenderness, no masses, no pulsatile masses. Mild distention and tympanic on percussion. Old surgery scars. Skin: Warm, dry, no erythema, no rash. [] Back: No tenderness, no CVA tenderness. [] Extremities: No tenderness, no cyanosis, no clubbing, ROM intact, no edema. [] Neurologic: Alert and oriented X 3, moves all extremities on request, does have distal sensory,, no focal deficits noted. [] Psychologic: Affect anxious, judgement normal, mood normal. [] EKG: EKG: My interpretation EKG shows sinus rhythm at 65 bpm. No acute morphology. No findings acute STEMI or contralateral changes. Time of EKG is 2153 hrs. [] Radiology/Procedures: Radiology/Procedures: [[address] [address] IMAGING REPORT Signed PATIENT: JARETH MENDOZA PACCOUNT: [id number] : 1975 LOCATION: ER AGE: 46 SEX: M EXAM STATUS: PRE ER ORD. PHYSICIAN: PRATIK DE LEON MD REASON: Dizzy, near syncope PROCEDURE: CT HEAD AND CERVICAL SPINE WO Exam: CT head and cervical spine INDICATION: Dizzy, near syncope TECHNIQUE: Sequential axial images through the head and cervical spine were obtained without the administration of IV contrast. Exposure: One or more of the following in the visualized dose reduction techniques were utilized for this examination: 1. Automated exposure control 2. Adjustment of the MA and/or KV according to patient size 3. Use of iterative of reconstructive technique Comparisons: None FINDINGS: Head: No focal parenchymal lesion or hemorrhage is identified. There is no midline shift or sulcal effacement. No acute vascular territory infarction is identified. Rodriguez-white distinction is preserved. The ventricular system is within normal limits without compression hydrocephalus. The basal cisterns are well maintained. The visualized portions of the paranasal sinuses and mastoid air cells are well- pneumatized. No acute fractures. Cervical spine: Straightening of cervical spine which may be positional. Vertebral body heights are well-maintained. Fracture through the cervical spine is not identified. No significant spondylotic change in cervical spine. Visualized paraspinal soft tissues are unremarkable. IMPRESSION: 1. No acute intracranial abnormality. 2. Negative CT C-spine for acute traumatic injury. Electronically signed by: Kyung Slaughter MD (02/17/2022 9:32 PM) [facility] ][place] [address] IMAGING REPORT Signed PATIENT: JARETH MENDOZA PACCOUNT: [id number] : 1975 LOCATION: ER AGE: 46 SEX: M EXAM STATUS: REG ER ORD. PHYSICIAN: PRATIK DE LEON MD REASON: Abdomen pain Hx: crohns PROCEDURE: ACUTE ABDOMEN SERIES Exam: Acute abdominal series INDICATION: Abdominal pain, Crohn's disease TECHNIQUE: Frontal view of the chest with upright and supine views of the a bdomen Comparisons: None FINDINGS: The cardiomediastinal silhouette and pulmonary vessels are within normal limits. The lung and pleural spaces are clear. There is fluid noted throughout the colon to level the rectum in a nonobstructive bowel gas pattern. No suspicious masses or calcifications. Visualized osseous structures are unremarkable. IMPRESSION: 1. No acute cardiopulmonary process. 2. Nonobstructive bowel gas pattern Electronically signed by: Kyung Slaughter MD (02/17/2022 10:18 PM) [facility] DICTATED AND SIGNED BY: KYUNG SLAUGHTER MD DATE: 02/17/222216 CC: PRATIK DE LEON MD; NASEEM RAMIREZ ~ Heart Score: C/O Chest Pain: N/A HEART Score for Chest Pain: HEART Score for Chest Pain Response (Comments) Value History Slighlty/Non-Suspicious 0 ECG Normal 0 Age >45 - < 65 1 Risk Factors 1 or 2 Risk Factors 1 Troponin < Normal Limit 0 Total 2 Risk Factors: Risk Factors: DM, Current or recent (<one month) smoker, HTN, HLP, family history of CAD, obesity. Risk Scores: Score 0 - 3: 2.5% MACE over next 6 weeks - Discharge Home Score 4 - 6: 20.3% MACE over next 6 weeks - Admit for Clinical Observation Score 7 - 10: 72.7% MACE over next 6 weeks - Early Invasive Strategies Course & Med Decision Making: Course & Med Decision Making Pertinent Labs and Imaging studies reviewed. (See chart for details) Patient requesting discharge home. Patient stay on a clear fluid diet for the next 48 hours. No solids. No milk products. Must allow bowel rest. For nausea and vomiting may have Compazine 10 mg up to 4 times a day with 50 mg of Benadryl. Patient take his chronic meds as directed. Patient follow-up primary care. Patient return if any concerns. Impression:: 1. Generalized abdomen pain 2. History of pancreatitis-chronic= currently normal lipase and amylase 3. History of Crohn's 4. Mild leukocytosis 12.7 5. Mild hypokalemia 3.4 6. History of chronic renal insufficiency-creatinine 1.7 [] Dragon Disclaimer: Dragon Disclaimer: This electronic medical record was generated, in whole or in part, using a voice recognition dictation system. Departure Departure: Referrals: NASEEM RAMIREZ (PCP) Scripts Prochlorperazine Maleate (Compazine) 10 Mg Tablet 10 MG PO QIDPRN PRN for nv, #30 TAB Prov: PRATIK DE LEON MD 02/17/22 Rei Disclaimer This chart was dictated in whole or in part using Voice Recognition software in a busy, high-work load, and often noisy Emergency Department environment. It may contain unintended and wholly unrecognized errors or omissions. Dragon Disclaimer This chart was dictated in whole or in part using Voice Recognition software in a busy, high-work load, and often noisy Emergency Department environment. It may contain unintended and wholly unrecognized errors or omissions. Dragon Disclaimer This chart was dictated in whole or in part using Voice Recognition software in a busy, high-work load, and often noisy Emergency Department environment. It may contain unintended and wholly unrecognized errors or omissions. PRATIK DE LEON MD February 17, 2022 20:44
[2022-02-17] MEDS ORDERED: FAMOTIDINE 20 MG/2 ML VIAL IVP ONE (20:45)
[2022-02-17] MEDS ORDERED: IV RINGERS SOLUTION,LACTATED 1,000 ML IV SCH (20:45)
[2022-02-17] MEDS ORDERED: ONDANSETRON PF 4 MG/2 ML VIAL. IVP ONE (20:45)
[2022-02-17] MEDS ORDERED: KETOROLAC 30 MG/ML VIAL. IVP ONE (20:45)
--- NOTE | 2022-02-17 21:35 | RAD ---
Exam: CT head and cervical spine INDICATION: Dizzy, near syncope TECHNIQUE: Sequential axial images through the head and cervical spine were obtained without the admi nistration of IV contrast. Exposure: One or more of the following in the visualized dose reduction techniques were utilized for this examination: 1. Automated exposure control 2. Adjustment of the MA and/or KV according to patient size 3. Use of iterative of reconstructive technique Comparisons: None FINDINGS: Head: No focal parenchymal lesion or hemorrhage is identified. There is no midline shift or sulcal effaceme nt. No acute vascular territory infarction is identified. Rodriguez-white distinction is preserved. The ventricular system is within normal limits without compression hydrocephalus. The basal cisterns are well maintained. The visualized portions of the paranasal sinuses and mastoid air cells are well-pneumatized. No acute fractures. Cervical spine: Straightening of cervical spine which may be positional. Vertebral body heights are well-maintained. Fracture through the cervical spine is not identified. No significant spondylotic change in cervical spine. Visualized paraspinal soft tissues are unremarkable. IMPRESSION: 1. No acute intracranial abnormality. 2. Negative CT C-spine for acute traumatic injury. Electronically signed by: Kyung Brar MD (02/17/2022 9:32 PM) [facility]
[2022-02-17 22:04] LABS: BASO # 0.1 x10^3/uL (0.0-0.2); BASO % 1 % (0-3); EOS # 0.9 x10^3/uL (0.0-0.7); EOS % 7 % (0-3); HEMATOCRIT 40.7 % (39.0-53.0); HEMOGLOBIN 13.9 g/dL (13.0-17.5); LYMPH # 5.8 x10^3/uL (1.0-4.8); LYMPH % 46 % (24-48); MEAN CORPUSCULAR HEMOGLOBIN 33 pg (25-35); MEAN CORPUSCULAR HGB CONC 34 g/dL (31-37); MEAN CORPUSCULAR VOLUME 97 fL (79-100); MONO # 0.8 x10^3/uL (0.0-1.1); MONO % 6 % (0-9); NEUT # 5.1 x10^3uL (1.8-7.7); NEUT % 40 % (31-73); PLATELET COUNT 212 x10^3/uL (140-400); RED BLOOD COUNT 4.21 x10^6/uL (4.30-5.70); RED CELL DISTRIBUTION WIDTH 14.3 % (11.5-14.5); WHITE BLOOD COUNT 12.7 x10^3/uL (4.0-11.0)
[2022-02-17 22:16] LABS: CALCIUM 8.7 mg/dL (8.5-10.1); CREATININE 1.7 mg/dL (0.7-1.3); GFR 43.2; POTASSIUM 3.4 mmol/L (3.5-5.1)
--- NOTE | 2022-02-17 22:20 | RAD ---
Exam: Acute abdominal series INDICATION: Abdominal pain, Crohn's disease TECHNIQUE: Frontal view of the chest with upright and supine views of the abdomen Comparisons: None FINDINGS: The cardiomediastinal silhouette and pulmonary vessels are within normal limits. The lung and pleural spaces are clear. There is fluid noted throughout the colon to level the rectum in a nonobstructive bowel gas pattern. No suspicious masses or calcifications. Visualized osseous structures are unremarkable. IMPRESSION: 1. No acute cardiopulmonary process. 2. Nonobstructive bowel gas pattern Electronically signed by: Kyung Brar MD (02/17/2022 10:18 PM) [facility]
[2022-02-17 22:36] LABS: ALBUMIN 3.6 g/dL (3.4-5.0); DIRECT BILIRUBIN 0.2 mg/dL (0.0-0.2); TOTAL BILIRUBIN 0.5 mg/dL (0.2-1.0); TOTAL PROTEIN 6.8 g/dL (6.4-8.2)
[2022-02-17 23:00] VITALS: BP 132/68
[2022-02-17] MEDS ORDERED: MORPHINE SULFATE 10 MG/ML SYRINGE. SQ ONE (23:00)
[2022-02-17 23:11] LABS: BARBITURATES NEG (NEG); BENZODIAZEPINES NEG (NEG); CANNABINOIDS NEG (NEG); COCAINE NEG (NEG); METHADONE NEG (NEG); OPIATES NEG (NEG); PHENCYCLIDINE NEG (NEG)
[2022-02-17 23:12] LABS: AMPHETAMINE/METHAMPHETAMINE NEG (NEG)
[2022-02-17 23:16] LABS: BACTERIA,URINE 0 /HPF (0-FEW); CLARITY,URINE CLEAR; COLOR,URINE YELLOW; GLUCOSE,URINE NEG (NEG); NITRITE,URINE NEG (NEG); RBC,URINE OCC /HPF (0-2); SQUAMOUS EPITHELIAL CELL,UR OCC /LPF; UROBILINOGEN,URINE 0.2 mg/dL (0.2 mg/dL); WBC,URINE OCC /HPF (0-4)
[2022-02-17] MEDS ORDERED: PROC10TA57 PO (23:52)
[2022-02-17] MEDS ORDERED: diphenhydrAMINE 50 MG/ML VIAL ONE (23:55)
[2022-02-17] MEDS ORDERED: PROCHLORPERAZINE 10 MG/2 ML VIAL. ONE (23:55)
[2022-02-18] MEDS ORDERED: diphenhydrAMINE 50 MG/ML VIAL IVP ONE (00:30)
[2022-02-18] MEDS ORDERED: PROCHLORPERAZINE 10 MG/2 ML VIAL. IV ONE (00:30)
[2022-02-18 01:23] LABS: INFLUENZA A PATIENT NEGATIVE (NEGATIVE); INFLUENZA B PATIENT NEGATIVE (NEGATIVE)
== END 2022-02-18 00:08 | disposition home or self-care (01) ==
LOC: ER 20:37
DX: R10.84 Generalized abdominal pain (principal); D72.829 Elevated white blood cell count, unspecified; E87.6 Hypokalemia; E11.22 Type 2 diabetes mellitus with diabetic chronic kidney disease; N18.9 Chronic kidney disease, unspecified; F41.9 Anxiety disorder, unspecified; M19.90 Unspecified osteoarthritis, unspecified site; M79.7 Fibromyalgia; K21.9 Gastro-esophageal reflux disease without esophagitis; G89.29 Other chronic pain; F17.200 Nicotine dependence, unspecified, uncomplicated; Z20.822 Contact with and (suspected) exposure to COVID-19; Z87.442 Personal history of urinary calculi; Z90.89 Acquired absence of other organs; Z90.49 Acquired absence of other specified parts of digestive tract; Z88.1 Allergy status to other antibiotic agents; Z88.5 Allergy status to narcotic agent; Z88.8 Allergy status to other drugs, medicaments and biological substances
CPT/HCPCS: 36415; 70450; 72125; 74022; 80048; 80076; 80307; 81001; 82150; 82553; 83690; 84484; 85025; 85610; 85730; 87428; 93005; 96361; 96372; 96374; 96375; 99285; J0780; J1200; J1885; J2270; J2405; J3490; J7120